=== PATIENT | male | born 1950 | race Caucasian/White ===

== ENCOUNTER 2021-10-27 12:42 | Outpatient (NON) | payer MEDICARE, SELFPAY ==
[2021-10-27 13:40] LABS: Anion Gap 14 mmol/L (8-16); Blood Urea Nitrogen 31 mg/dL (9-20); Carbon Dioxide 20 mmol/L (22-30); Chloride 100 mmol/L (98-107); Estimated Glomerular Filt Rate > 60; Glucose 179 mg/dL (65-110); Potassium 4.2 mmol/L (3.4-5.0); Sodium 134 mmol/L (137-145)
== END 2021-10-27 12:43 | disposition home or self-care (01) ==
LOC: HOME HLTH 12:49 → ANHLAB 14:35
PROVIDERS: Visit Provider Internal Medicine Cardiovascular Disease
DX: I25.5 Ischemic cardiomyopathy (principal); E11.65 Type 2 diabetes mellitus with hyperglycemia; D62 Acute posthemorrhagic anemia; Z48.812 Encounter for surgical aftercare following surgery on the circulatory system; E87.6 Hypokalemia
CPT/HCPCS: 80048

== ENCOUNTER 2021-11-20 13:56 | Outpatient (RCR) | payer MEDICARE, SELFPAY | END 2021-11-21 16:11 | disposition home or self-care (01) | LOC: ANHGOSHPT 13:56 | PROVIDERS: PCP Internal Medicine; Visit Provider Internal Medicine | DX: R26.81 Unsteadiness on feet (principal); I99.8 Other disorder of circulatory system | CPT/HCPCS: 99199 ==

== ENCOUNTER 2021-12-21 10:45 | Outpatient (CLI) | payer MEDICARE, SELFPAY ==
[2021-12-21 18:58] LABS: Anion Gap 10 mmol/L (8-16); Blood Urea Nitrogen 24 mg/dL (9-20); Calcium 9.2 mg/dL (8.4-10.2); Carbon Dioxide 30 mmol/L (22-30); Chloride 96 mmol/L (98-107); Estimated Glomerular Filt Rate 60; Glucose 306 mg/dL (65-110); Potassium 4.6 mmol/L (3.4-5.0); Sodium 136 mmol/L (137-145)
== END 2021-12-21 10:46 | disposition home or self-care (01) ==
LOC: ANHGOSHLAB 10:48
PROVIDERS: PCP Internal Medicine; Visit Provider Internal Medicine Cardiovascular Disease
DX: I25.5 Ischemic cardiomyopathy (principal); Z79.899 Other long term (current) drug therapy
CPT/HCPCS: 36415; 80048

== ENCOUNTER 2022-01-11 14:00 | Outpatient (RCR) | payer MEDICARE, OTHER, SELFPAY ==
--- NOTE | 2021-11-21 16:08 | PTOPEVAL ---
PHYSICAL THERAPY INITIAL EVALUATION. Thank you for referring Anil Crawford to [facility] The patient is scheduled to be seen for therapy? 1x/week for 4 weeks. Please review, sign, date and return this plan of care YE. I agree with and certify that the following plan of care is medically necessary. Referring Physician Date Attending Provider: Shahid Marroquin, MD *PT Outpatient Evaluation Start: 11/20/21 Evaluation Information Diagnosis Leg ischemia, gait instability Subjective Information Pt states in june he cleaned Query Text:As Reported By Patient/ his whole house top to bottom Family and also did lots of yard work . During this he sprains his L him and later R ankle. He ended up in [place] for a month with RLE ischemia. He reports his ankle sprain and his cramping toes on his all but foot are his biggest complaint. Pt states also during his hospitalization he lost over 40 pounds. He reports having no leg or core strength. Pt states he has a dull, achy at all time, he reports intermittent pinching and shooting pains in his leg. He reports not getting more than 1-1.5 hrs of sleep at a time, and has gone months with no more than 2 hrs of sleep in a night. He states he is chronically exhausted. Pain Assessment Right Ankle(s) Reported Pain Level 5 Pain Description Aching,Dull,Numbness,Pinching, Shooting Pain Frequency Acute,Chronic,Intermittent Lowest Pain Intensity 2 Greatest Pain Intensity 8 Lower Extremity Range of Motion Ankle/Foot Range of Motion Right Ankle Dorsiflexion With Knee Extension -8 active Ankle Dorsiflexion With Knee Extension -5 passive Ankle Dorsiflexion With Knee Flexed -5 active Ankle Dorsiflexion With Knee Flexed -3 passive Ankle Plantarflexion Range of Motion - 30 active Ankle Eversion Range of Motion - Passive 15 Ankle Inversion Range of Motion - 20 passive Foot/Toe Range of Motion Comments limited calcaneal inversion/ eversion Left Ankle Dorsiflexion With Knee Extension 8 active Ankle Dorsiflexion With Knee Extension 10 passive Ankle Dors
--- NOTE | 2021-12-13 12:31 | PTOPEVAL ---
PHYSICAL THERAPY PROGRESS REPORT. Thank you for referring Anil Crawford to [facility].? The patient is scheduled to be seen for therapy? 1x/week for 4 weeks. Please review, sign, date and return this plan of care YE. I agree with and certify that the following plan of care is medically necessary. Referring Physician Date Attending Provider: Shahid Marroquin, MD *PT Outpatient Evaluation Start: 11/20/21 Evaluation Information Diagnosis Leg ischemia, gait instability Subjective Information Pt states his ankle is still Query Text:As Reported By Patient/ bad, but it is improving. he Family states his pain and numbness decreases for about 2 days after therapy then goes back to normal, he also states his mobility and flexibility increase for the same about of time. Pt states at 4pm daily his ankle gets worse d/t fatigue. He states there are minimal overall improvements. Pt states only once in the last month has he had a brief period of no pain. He states he was able to wiggle his toes once this week. Pt reports the core of his pain is in his arch, this is sharp. He states it feels like the pads of his toes swell a majority of the day, this is an achy pain. Pain Assessment Right Ankle(s) Reported Pain Level 6 Pain Description Aching,Dull,Sharp,Shooting Pain Frequency Acute,Chronic,Intermittent Lowest Pain Intensity 0 Greatest Pain Intensity 8 Lower Extremity Range of Motion Ankle/Foot Range of Motion Right Ankle Dorsiflexion With Knee Extension -12 active Ankle Dorsiflexion With Knee Extension -5 passive Ankle Dorsiflexion With Knee Flexed 0 active Ankle Dorsiflexion With Knee Flexed 8 passive Ankle Plantarflexion Range of Motion - 48 active Ankle Eversion Range of Motion - Passive 15 Ankle Inversion Range of Motion -passive 20 Foot/Toe Range of Motion Comments limited calcaneal inversion/ eversion Left Ankle Dorsiflexion With Knee Extension -10 active Ankle Dorsiflexion With Knee Extension 5 passive Ankle Dorsiflexion With Knee Flexed 11 active Ankle Dorsiflexion With Knee Flexed 11 passive Ankle Plantarflexion Range of Motion -
--- NOTE | 2022-01-02 14:01 | PCPTNOTE ---
Patient no showed to appointment this date. Called patient who then states he thought it was another day this week.
--- NOTE | 2022-01-11 15:26 | PTOPDC ---
Assessment and note entered by Don Diamond, PT, DPT Evaluation Information Assessment Status Progress Subjective Information Pt states it continues to improve incrementally each day, but its still bad . He reports it is a low grade ache with occasional sharp pain. He reports his feet feel swollen without actually swelling. He states by 4pm he has to be done with activity for the day d/t the pain. He reports good compliance with his HEP. When asked which ones he is doing, he reports all of them. He states he does not hesitate to keep moving. He reports his foot, ankle, and toes is all bad. Pt later states he doesn't do the exact exercises but he keeps his ankle moving . Reported Pain Level Pain Score 4: Self Report Assessment PT Clinical Summary Anil presents to therapy today for his progress report following 10 visits of therapy. He does reports good compliance with his HEP but is unable to recall specific exercise and later reports not performing exercises at home just moving the ankle . He continues to report numbness, tingling, and cramping as his biggest limitations. Today he demonstration equal motion and extensibility felt on L and R when assessing motion of: great toe flexion/extension, inter- metatarsal joint mobility, sub-talar joint, and transverse tarsal joint. There is mildly increased resistance felt with passive dorsiflexion on R compared to L. He is able to demonstrates 4 full range single heel raises on the R. He ambulates without any gait deviations, he has a good heel strike and subsequent toe off phase. He has a gait speed that is decreased from normative values. It was determined that the remainder of Anil's deficits are not within the scope of physical therapy and could more likely be the aftermath of his limb ischemia. Anil will be discharged at this time with instructions to continue his HEP. Plan of Care PT Services Indicated No Treatment Frequency and to be d/c'ed Duration
== END 2022-01-12 08:25 | disposition home or self-care (01) ==
LOC: ANHGOSHPT 14:00
PROVIDERS: PCP Internal Medicine; Referring Provider Internal Medicine; Visit Provider Internal Medicine
DX: I99.8 Other disorder of circulatory system (principal); R26.81 Unsteadiness on feet
CPT/HCPCS: 97014; 97110; 97112; 97140; 97162; 97530; G0283

== ENCOUNTER 2025-03-14 12:02 | Inpatient (IN) | payer MEDICARE, SELFPAY ==
[2025-03-14] VITALS (34 sets, daily range): BP systolic 111–147; BP diastolic 65–113; PULSE 66–100; RESP 11–26; TEMP 36–36.4; O2SAT 84–99; BMI 20.7
--- NOTE | ~2025-03-14 | US_ITS ---
EXAMINATION: US renal BI, 03/15/2025 9:30 RETAIL SECURITY PROFESSIONAL HISTORY: ALBERTO Comparison: None Technique: Constantino-scale and color Doppler images were obtained. Findings: KIDNEYS: The renal cortices are slightly echogenic with nonspecific trace perinephric fluid and scattered punctate calcifications possibly renal vascular calcifications or tiny calculi, no solid masses identified. Right Kidney: Right kidney 9.3 x 4.2 x 5 cm. Left Kidney: Left kidney 8.2 x 4.9 x 4.8 cm. Left kidney there is a subcentimeter renal cyst mid pole 5 x 5 mm. Bladder: The bladder is unremarkable. Prostate is enlarged with a heterogeneous appearance, correlate PSA.. Impression: 1. Medical renal disease with tiny probable renal vascular calcifications, less likely renal calculi. No hydronephrosis. 2. Enlarged prostate. Correlate with PSA Reviewed, dictated and finalized at location P. [place] SECURITY PROFESSIONAL Impression: 1. Medical renal disease with tiny probable renal vascular calcifications, less likely renal calculi. No hydronephrosis. 2. Enlarged prostate. Correlate with PSA
--- NOTE | ~2025-03-14 | US_ITS ---
EXAMINATION: US abdomen limited DATE: 03/15/2025 10:07 INDICATION: Abnormal test TECHNIQUE: Renal ultrasound COMPARISON: None FINDINGS: Echotexture of the kidneys appears mildly increased. No gross hydronephrosis or large masses. Right kidney: 9.4 x 4.2 x 5.1 cm. Trace amount of perinephric fluid present. Dilated renal pelvis 2 9.2 mm Left kidney: 8.3 x 5.0 x 4.9 cm. Trace amount of perinephric fluid also present about this kidney. 5 x 5 mm cyst noted. Echogenic focus also in the inferior pole of the left kidney suggesting nonobstructing kidney stone. Urinary bladder is not fully evaluated but bilateral ureteral jets are demonstrated. Urinary bladder wall thickness of 1.9 mm within normal limits. Prominent prostate with calcifications. Incidentally noted, cholelithiasis with borderline gallbladder wall thickening. Trace amount of pericholecystic fluid may be present. IMPRESSION: 1. Mildly increased echotexture of the kidneys may represent underlying medical renal disease. No hydronephrosis or large masses in the kidneys. 2. Incidental note of cholelithiasis with borderline gallbladder wall thickening and possible trace of pericholecystic fluid. Correlate with right upper quadrant ultrasound. Reviewed, dictated and finalized at location A. SPRING MAKER IMPRESSION: 1. Mildly increased echotexture of the kidneys may represent underlying medical renal disease. No hydronephrosis or large masses in the kidneys. 2. Incidental note of cholelithiasis with borderline gallbladder wall thickenin g and possible trace of pericholecystic fluid. Correlate with right upper quadr ant ultrasound.
--- NOTE | ~2025-03-14 | XR_ITS ---
Examination: XR chest 2V Clinical History: weakness Comparison: None Technique: PA and Lateral Findings: Cardiac silhouette mildly enlarged. Pleural effusions with bibasilar atelectasis and/or airspace disease. No acute bony abnormality. IMPRESSION: 1. Pleural effusions with bibasilar atelectasis and/or airspace disease. Reviewed, dictated and finalized at location R. GRADER
--- NOTE | ~2025-03-14 | CT_ITS ---
EXAMINATION: CT diagnostic chest wo leora, 03/14/2025 11:20 CLIENT BUSINESS MANAGER HISTORY: further characterize poss pna COMPARISON: No comparisons available. TECHNIQUE: CT scan of the chest was performed without IV contrast. One or more of the following dose reduction techniques were used: automated exposure control, adjustment of the mA and/or kV according to patient size, use of iterative reconstruction technique. FINDINGS: No significant coronary calcification is present ([id number]) LUNGS: Moderate to large bilateral simple appearing pleural effusions. No tracheomalacia. No bronchiectasis. Small basilar infiltrates. Mild pulmonary venous congestion. HEART AND PERICARDIUM: Moderate cardiomegaly. Moderate cardiomegaly. No pericardial effusion. AORTA: Partially imaged endovascular stent within the abdominal aorta noted with aneurysmal dilatation of the aorta are incompletely evaluated on this exam. ADENOPATHY/MEDIASTINUM: None. LIMITED VIEWS OF THE ABDOMEN: Mild cirrhotic disease of the liver is suspected. OSSEOUS STRUCTURES: No sclerotic or lytic lesions. No acute fractures are identified. OVERLYING SOFT TISSUES: Unremarkable. THYROID: The thyroid is unremarkable. IMPRESSION: CHF. Superimposed probable mild bronchopneumonia. Follow-up recommended to assess. Reviewed, dictated and finalized at location P. NT BUSINESS MANAGER IMPRESSION: CHF. Superimposed probable mild bronchopneumonia. Follow-up recommended to asse ss.
--- NOTE | ~2025-03-14 | CT_ITS ---
EXAMINATION: CT brain wo leora, 03/14/2025 14:20 CORE MACHINE TENDER HISTORY: lethargy COMPARISON: No comparisons available. Technique: Axial images obtained of the brain without contrast. One or more of the following dose reduction techniques were used: automated exposure control, adjustment of the mA and/or kV according to patient size, use of iterative reconstruction technique. Findings: There are remote left basal ganglia lacunar infarcts. No acute infarct or hemorrhage. No midline shift or mass effect. No extra-axial fluid collections. Mastoid air cells unremarkable. Sinuses and orbits unremarkable. No acute fracture. No significant facial or scalp soft tissue swelling evident. No radiopaque foreign body is seen. Impression: 1.No acute intracranial abnormality. Reviewed, dictated and finalized at location P. MACHINE TENDER Impression: 1.No acute intracranial abnormality.
--- NOTE | 2025-03-14 12:10 | ECG_ITS ---
Test Date: 2025-03-14 12:12:50 Measurements Intervals [place] Rate: 88 P: -40 VT: 170 QRS: 81 QRSD: 140 T: -73 QT: 391 QTc: 474 Interpretive Statements SINUS RHYTHM WITH FREQUENT VENTRICULAR PREMATURE COMPLEXES IN A BIGEMINAL PATTERN INTRAVENTRICULAR CONDUCTION DELAY POSSIBLE ANTERIOR MYOCARDIAL INFARCTION , OF INDETERMINATE AGE INFERIOR MYOCARDIAL INFARCTION , OF INDETERMINATE AGE Electronically Signed On 03-15-2025 00:08:38 EFFICIENCY CLERK by Roque Cavazos D.O
--- NOTE | 2025-03-14 13:23 | ED.WEAKNESS ---
HPI - Weakness General Chief complaint: Weakness Stated complaint: weakness Time Seen by Provider: 03/14/25 12:15 Source: patient and EMS Mode of arrival: EMS Limitations: no limitations History of Present Illness HPI Narrative: This is a 74-year-old male with history of CAD status post stents x5, ischemic cardiomyopathy, diabetes who presents to the ED for weakness. Patient states that for the past few days he has been feeling extraordinarily weak to the point that he is having difficulty walking. He denies any chest pain at this time. He states that he is getting over pneumonia completed his antibiotics a couple days ago. He reports that he does not feel at his baseline. Or denies cough. He has not been able to eat and drink well as due to the filling weakness. Lives alone. Related Data Home Medications ?Medication ?Instructions ?Recorded ?Confirmed ?Last Taken ?Type carvedilol 12.5 mg tablet 12.5 mg PO BID 09/19/21 03/14/25 Unknown History Held on 03/14/25. Instructions: Patient has not taken medication in 6 weeks. clopidogrel 75 mg tablet 75 mg PO DAILY 09/19/21 03/14/25 Unknown History furosemide 20 mg tablet 20 mg PO BID 09/19/21 03/14/25 Unknown History multivitamin,tx-minerals 1 tablet PO DAILY 09/19/21 03/14/25 Unknown History potassium chloride 20 mEq 20 meq PO BID 09/19/21 03/14/25 Unknown History tablet,extended release spironolactone 25 mg tablet 25 mg PO DAILY 09/19/21 03/14/25 Unknown History Allergies Allergy/AdvReac Type Severity Reaction Status Date / Time No Known Allergies Allergy Verified 03/14/25 16:32 Review of Systems Review of Systems: Gen.: Denies fevers or chills Eyes: Denies eye pain or visual change ENT: Denies congestion Respiratory: As per HPI CV: Denies chest pain or palpitations GI: Denies abdominal pain nausea, emesis or diarrhea denies burning, urgency, frequency or hematuria Musculoskeletal: Denies back pain or muscle pain Neuro: As per HPI Skin: Denies rash Except as documented, all other systems reviewed and negative PMFSH Past Medical History Medical History Claudication of lower extremity Ischemic cardiomyopathy Peripheral arterial disease Coronary artery disease Peripheral vascular disease Hypokalemia Family History Family History (Updated 03/14/25 @ 16:38 by Anisa Murguia RN) Father Heart attack Social History Social History Social History: patient lives in a single-level home with 5 steps to enter. Sister plans on staying for month or so it after rehab. Smoking packs per day: 1 Smoking cigarettes per day: 20.0 Years smoked: 55 Smoking pack-years: 55.00 Smoking status: Current every day smoker Tobacco type: cigarettes Additional smoking assessment comments: 40 year PPD smoking history Alcohol intake: never Substance use type: marijuana Lack of Transportation: No Lack of Food: Never True Current Housing: I Have Housing Concerned About Future Housing: No Difficulty Paying Gas/Electric Bills: No Difficulty Paying for Meds: No Currently Unemployed: No Education: Decline to Answer Difficulty w/ Childcare or Family Care: No Spiritual care concerns: No Exam Narrative: APPEARANCE: Ill-appearing, resting in bed EYES: EOMI HEENT: Normocephalic, atraumatic, mucous membranes dry RESPIRATORY: No respiratory distress Clear to auscultation bilaterally with no rhonchi wheezing or rales. CARDIOVASCULAR: Regular rate and rhythm without murmurs rubs or gallops. ABDOMINAL: Soft, nontender, nondistended, no rebound or guarding MUSCULOSKELETAl: Moves all extremities. 2+ pitting edema to the bilateral lower extremities up to the knees. NEURO: Awake and alert. Following commands, speech normal, no focal deficits SKIN:: Warm, dry. No rashes lesions or abrasions PSYCHIATRIC: Normal affect/mood, Course Vital Signs Vital signs: Vital Signs Pulse Rate 86 03/14/25 12:03 Respiratory Rate 15 03/14/25 12:03 Pulse Oximetry 98 03/14/25 12:03 Oxygen Delivery Room Air 03/14/25 12:03 Temperature 97.5 F L 03/14/25 18:00 Pulse Rate 100 03/14/25 19:00 Respiratory Rate 20 03/14/25 19:00 Blood Pressure 129/86 03/14/25 19:00 Pulse Oximetry 97 03/14/25 19:00 Oxygen Delivery Room Air 03/14/25 16:54 MDM - Weakness MDM Narrative Medical decision making narrative: 74-year-old male Presenting for weakness. On initial evaluation patient was in ill appearing, afebrile, hemodynamic stable. Differentials include but are not limited to: CVA, UTI, CVA, arrhythmia, electrolyte abnormality, cancer Notable exam findings: Heart and lungs clear. Abdomen soft and nontender. I personally reviewed the patient's lab result. Notable lab findings: Hyponatremia to 118. Mild leukocytosis at 11.3. Mild thrombocytopenia 107. Hyperkalemic at 5.3. Mild ALBERTO with creatinine 1.57. Transaminitis with AST at 9:40 a.m. and ALT 970. BNP elevated at 26,000. I personally reviewed the patient's images and interpret as follows: Chest x-ray showed pulmonary vascular congestion with bilateral pleural effusions and right lower lobe infiltrate. I personally reviewed the patient's EKGs: 03/14/2025 at 12:12 p.m.: Sinus rhythm with PVCs in bigeminal pattern, intraventricular conduction delay, he Q-waves in inferior leads and V3 and V4, no ST or T-wave changes Patient was initially given 1 L NS bolus due to dry mucous membranes and concerns for dehydration. However, BNP returned at 26,000 concerning for fluid overload. Patient was started on vanc and cefepime. Given significant electrolyte derangement, patient would benefit from admission for electrolyte correction. I discussed case with extruder operator, Dr. Posada, recommends adding CT chest and CT head and recommended discussing with Nephrology regarding possible hypertonic saline. Discussed case with Dr. Swain, recommended no additional be fluids given at this time. Suspected that his hyponatremia was more related to his tenuous cardiac status. Recommended repeating a BMP in 1 hour to see how it change with the 1 L bolus. Discussed case with hospitalist who will admit the patient. CRITICAL CARE Indication: Severe electrolyte derangements Time type: intermittent I provided a total of 55 minutes of critical care excluding separately billable procedures. This includes time w/ EMS, initial bedside evaluation, reviewing old records, review of testing done while under my care, discussion w/ the family, nurses, home service consultant and guiding the patient?s care while in the emergency department. Approximate time distribution: 10 minutes ? Initial evaluation, d/w involved parties, attempting to gather old records. 10 minutes ? Documenting medical record 10 minutes ? Review of results (EKGs, labs, imaging) 10 minutes ? Serial repeat bedside evaluation 15 minutes ? Discussing case with multiple providers Medical Records Attestation: I reviewed the patient's medical records. Lab Data Attestation: I reviewed the patient's lab results. 03/14/25 13:31 03/14/25 15:51 Labs: Lab Results 03/14/25 03/14/25 03/14/25 Range/Units 13:31 13:33 14:01 WBC 11.3 H (4.5-10.0) K/mm3 RBC 4.92 (4.6-6.20) M/mm3 Hgb 14.8 D (14.0-18.0) g/dL Hct 43.1 (42.0-52.0) % MCV 87.6 (80-100) fl MCH 30.1 (26-34) pg MCHC 34.3 (32-36) g/dl RDW 13.9 (11.5-14.5) % Plt Count 107 L D (150-375) k/mm3 MPV 12.8 H (7.4-10.4) fl Immature Gran % (Auto) 0.5 (0-0.5) % Neut % (Auto) 85.4 H (45.5-73.1) % Lymph % (Auto) 5.8 L (18.3-44.2) % [place] % (Auto) 7.7 (2.6-8.5) % Eos % (Auto) 0.4 (0-4.4) % Baso % (Auto) 0.2 (0.2-1.2) % Lymph # (Auto) 0.65 L (0.9-3.2) K/mm3 [place] # (Auto) 0.9 H (0.1-0.6) K/mm3 Eos # (Auto) 0.0 (0-0.3) K/mm3 Baso # (Auto) 0.0 (0.0-0.1) K/mm3 Abs Immat Gran (auto) 0.06 H (0.00-0.031) K/mm3 Absolute Neuts (auto) 9.6 H (1.3-6.7) K/mm3 Absolute Nucleated RBC 0.000 (0.0-0.012) K/mm3 Nucleated RBC % 0.0 (0.0-0.2) % % Immature Plt Fraction 23.3 H (0.9-11.2) % Sodium 118 L* (137-145) mmol/L Potassium 5.3 H (3.4-5.0) mmol/L Chloride 89 L (98-107) mmol/L Carbon Dioxide 20 L (22-30) mmol/L Anion Gap 9 (4-12) mmol/L BUN 54 H D (9-20) mg/dL Creatinine 1.57 H (0.7-1.3) mg/dL Estim Creat Clear Calc 31 ml/min Estimated GFR 44 L (59 - ) Glucose 182 H (65-110) mg/dL Calcium 8.5 (8.4-10.2) mg/dL Total Bilirubin 1.8 H (0.2-1.3) mg/dL AST 944 H (17-59) U/L ALT 970 H (6-50) U/L Alkaline Phosphatase 125 (38-126) U/L NT-Pro-B Natriuret Pep 15740 H (19.9-100) pg/mL Total Protein 5.8 L (6.3-8.2) g/dL Albumin 3.5 (3.5-5.1) g/dL Urine Color Dark yellow (Yellow) Urine Appearance Clear (Clear) Urine pH 5.0 (5.0-9.0) Ur Specific [place] 1.029 (1.001-1.035) Urine Protein 3+ H (Negative) mg/dL Urine Glucose (UA) Negative (Negative) mg/dL Urine Ketones Trace H (Negative) mg/dL Ur Blood (Man) 2+ H (Negative) Urine Nitrate Negative (Negative) Urine Bilirubin 1+ H (Negative) Urine Urobilinogen 1.0 (<2.0) mg/dL Add Ur Microanalysis Reviewed Leukocyte Esterase Rfl Negative (Negative) ALYCE/UL Urine RBC 0-2 (0-2) /hpf Urine WBC 0-5 (0-3) /hpf Ur Squamous Epith Cells Occasional (Few) /hpf Urine Bacteria None seen /hpf Urine Casts >20 Hyaline Casts Present (None) /lpf Urine Osmolality Pending U Random Total Protein 528 mg/dL Ur Random Sodium < 5 meq/L Ur Random Urea 1250 MG/DL Urine Creatinine 170.0 mg/dL Protein/Creat Ratio 2 3.11 H (0-0.20) mg/mg Influenza A (RT-PCR) Negative (Negative) Influenza B (RT-PCR) Negative (Negative) RSV (RT-PCR) Negative (Negative) SARS-CoV-2 RNA (RT-PCR) Negative (Negative) Imaging Data Radiologist's impression: Impressions Chest X-Ray 03/14/25 12:52 IMPRESSION: 1. Pleural effusions with bibasilar atelectasis and/or airspace disease. Discharge Plan Discharge Clinical Impression: Acute hyponatremia, Acute hyperkalemia, Acute exacerbation of CHF (congestive heart failure), Transaminitis, Bilateral pneumonia Patient Disposition: Still a Patient Condition: Serious
[2025-03-14 13:41] LABS: Hematocrit 43.1 % (42.0-52.0); Hemoglobin 14.8 g/dL (14.0-18.0); Immature Granulocyte Percent A 0.5 % (0-0.5); Immature Platelet Fraction Pct 23.3 % (0.9-11.2); Lymphocytes Absolute Auto 0.65 K/mm3 (0.9-3.2); Mean Corpuscular HGB Conc 34.3 g/dl (32-36); Mean Corpuscular Hemoglobin 30.1 pg (26-34); Mean Corpuscular Volume 87.6 fl (80-100); Nucleated Red Blood Cells Absolute Auto 0.000 K/mm3 (0.0-0.012); Nucleated Red Blood Cells Perc 0.0 % (0.0-0.2); Platelet Count Result 107 k/mm3 (150-375); Red Blood Count 4.92 M/mm3 (4.6-6.20); White Blood Count 11.3 K/mm3 (4.5-10.0)
[2025-03-14 14:01] LABS: Albumin Level 3.5 g/dL (3.5-5.1); Alkaline Phosphatase 125 U/L (38-126); Anion Gap 9 mmol/L (4-12); Bilirubin,Total 1.8 mg/dL (0.2-1.3); Blood Urea Nitrogen 54 mg/dL (9-20); Calcium 8.5 mg/dL (8.4-10.2); Carbon Dioxide 20 mmol/L (22-30); Chloride 89 mmol/L (98-107); Estimated CRCL calculation 31 ml/min; Estimated Glomerular Filt Rate 44; Glucose 182 mg/dL (65-110); NT Pro B Type Natriuretic Pept 26000 pg/mL (19.9-100); Potassium 5.3 mmol/L (3.4-5.0); Sodium 118 mmol/L (137-145); Total Protein 5.8 g/dL (6.3-8.2)
[2025-03-14] MEDS: SODIUM CHLORIDE 0.9% IV 1,000 ML 999 ML IV CONT (14:13)
[2025-03-14 14:15] LABS: Influenza A QL RT-PCR Negative (Negative); Influenza B QL RT-PCR Negative (Negative); RSV RNA, RT-PCR Negative (Negative); SARS-CoV-2 RNA PCR Negative (Negative)
[2025-03-14 14:21] LABS: Add Urine Microscopic? YES; Appearance Urine Clear (Clear); Glucose Urine UA Negative (Negative); Leukocyte Esterase Ur Negative LEU/UL (Negative); Need Manual Microscopic Reviewed; Nitrate Urine Negative (Negative); Non Pathogenic Casts >20; Specific Grav Ur 1.029 (1.001-1.035)
[2025-03-14 14:22] LABS: Alanine Aminotransferase 970 U/L (6-50); Aspartate Amino Transferase 944 U/L (17-59)
[2025-03-14 15:11] LABS: Urea Random Urine 1250 MG/DL
[2025-03-14 15:29] LABS: Total Protein Urine Random 528 mg/dL; Ur Ttl Prot Creatinine Ratio 3.11 mg/mg (0-0.20)
[2025-03-14] MEDS: CEFEPIME 1 GM in SODIUM CHLORIDE 0.9% IV 50 ML 100 ML IVPB (15:56)
--- NOTE | 2025-03-14 15:58 | WPCEDHO ---
ED Hand Off Checklist All vitals saved:yes IV Site documented:yes All med administrations documented:yes Triage Note Triage Note Pt states weakness and decreased 03/14/25 12:03 appetite for past 3 days. Recently finished antibiotics for pneumonia. A&Ox4. Hx of heart stents. 5 in last 3 years Allergies No Known Allergies Allergy (Verified 09/13/21 20:11) Administered/Completed Medications Discontinued Medications Sodium Chloride (Normal Saline Iv) 1,000 mls @ 999 mls/hr IV CONT .Q1H1M STA Stop: 03/14/25 14:56 Last Infusion: 03/14/25 15:06 Dose: Infused Documented By: Admin: 03/14/25 14:13 Dose: 999 mls/hr Documented By: FATIMAH Cefepime HCl 1 gm/ Sodium (Chloride) 50 mls @ 100 mls/hr IVPB ONCE STA Stop: 03/14/25 14:48 Last Admin: 03/14/25 15:56 Dose: 100 mls/hr Documented By: [place] Interventions/Assessments IV / Saline Lock, Insert Start: 03/14/25 11:52 Freq: Status: Active Protocol: Document 03/14/25 14:53 CMM (Rec: 03/14/25 14:54 CMM [id number]) IV Assessment Peripheral Access Right Wrist IV Catheter Access Initiated IV Insertion Date 03/14/25 IV Insertion Time 14:53 Catheter Gauge 20 IV Insertion 1 Attempts IV Site Assessment WNL IV Care and WNL Maintenance Peripheral Access Left Antecubital IV Site Assessment WNL IV Care and WNL Maintenance PA: Cardiovascular Assessment Start: 03/14/25 11:52 Freq: Status: Active Protocol: Document 03/14/25 12:11 CMM (Rec: 03/14/25 12:11 CMM [id number]) Cardiovascular Assessment Cardiovascular None Symptoms PA: Neurological Assessment Start: 03/14/25 11:52 Freq: Status: Active Protocol: Document 03/14/25 12:11 CMM (Rec: 03/14/25 12:11 CMM [id number]) Neurological Assessment Level of Alert Consciousness Orientation Oriented to Person,Oriented to Place,Oriented to Time Neurological Weakness, General Symptoms Behavior Cooperative Ability to Maintain Unable to Assess Balance Speech Pattern Clear Ability to Swallow Normal Tongue Position Midline [place] Coma Scale Eyes Open Verbal Oriented and Alert Motor Follows Commands [place] Coma Total 15 Score Last Vital Signs Temperature 96.8 F L 03/14/25 12:12 Pulse Rate 96 03/14/25 15:00 Respiratory Rate 20 03/14/25 15:00 Pulse Oximetry 99 03/14/25 14:36 Blood Pressure 147/101 H 03/14/25 15:19 Blood Pressure Mean 116 03/14/25 15:19 Blood Pressure Position Supine 03/14/25 12:12 Oxygen Delivery Room Air 03/14/25 12:03 Weight 57.7 kg 03/14/25 12:03 Last Result - Abnormals Only WBC 11.3 K/mm3 (4.5-10.0) H 03/14/25 13:31 Plt Count 107 k/mm3 (150-375) L D 03/14/25 13:31 MPV 12.8 fl (7.4-10.4) H 03/14/25 13:31 Neut % (Auto) 85.4 % (45.5-73.1) H 03/14/25 13:31 Lymph % (Auto) 5.8 % (18.3-44.2) L 03/14/25 13:31 Lymph # (Auto) 0.65 K/mm3 (0.9-3.2) L 03/14/25 13:31 [place] # (Auto) 0.9 K/mm3 (0.1-0.6) H 03/14/25 13:31 Abs Immat Gran (auto) 0.06 K/mm3 (0.00-0.031) H 03/14/25 13:31 Absolute Neuts (auto) 9.6 K/mm3 (1.3-6.7) H 03/14/25 13:31 % Immature Plt Fraction 23.3 % (0.9-11.2) H 03/14/25 13:31 Sodium 118 mmol/L (137-145) L* 03/14/25 13:31 Potassium 5.3 mmol/L (3.4-5.0) H 03/14/25 13:31 Chloride 89 mmol/L (98-107) L 03/14/25 13:31 Carbon Dioxide 20 mmol/L (22-30) L 03/14/25 13:31 BUN 54 mg/dL (9-20) H D 03/14/25 13:31 Creatinine 1.57 mg/dL (0.7-1.3) H 03/14/25 13:31 Estimated GFR 44 (59-) L 03/14/25 13:31 Glucose 182 mg/dL (65-110) H 03/14/25 13:31 Total Bilirubin 1.8 mg/dL (0.2-1.3) H 03/14/25 13:31 AST 944 U/L (17-59) H 03/14/25 13:31 ALT 970 U/L (6-50) H 03/14/25 13:31 NT-Pro-B Natriuret Pep 04956 pg/mL (19.9-100) H 03/14/25 13:31 Total Protein 5.8 g/dL (6.3-8.2) L 03/14/25 13:31 Urine Protein 3+ mg/dL (Negative) H 03/14/25 14:01 Urine Ketones Trace mg/dL (Negative) H 03/14/25 14:01 Ur Blood (Man) 2+ (Negative) H 03/14/25 14:01 Urine Bilirubin 1+ (Negative) H 03/14/25 14:01 Protein/Creat Ratio 2 3.11 mg/mg (0-0.20) H 03/14/25 14:01 Most Recent Suicide Severity Rating Suicide Severity Rating NO RISK INDICATED 03/14/25 12:03
[2025-03-14 16:05] LABS: MRSA (PCR) NOT DETECTED (NOT DETECTE)
--- NOTE | 2025-03-14 16:20 | ADMGEN ---
This patient, Anil Crawford, was admitted to Intensive Care Unit-2 at 1613. Patient/family oriented to hospital policies and general routines including ID bracelet, bed and alarms, visiting hours, pain management, procedures, bathroom and other care routines, personal items, smoking policy, room service/diet, and visiting hours. Information on how to activate the Rapid Response Team has been discussed. Patient/Family are encouraged to report perceived risks to care and to ask questions if they do not understand what they are told or what they should do.
[2025-03-14 16:28] LABS: Anion Gap 14 mmol/L (4-12); Blood Urea Nitrogen 52 mg/dL (9-20); Calcium 9.4 mg/dL (8.4-10.2); Carbon Dioxide 15 mmol/L (22-30); Chloride 91 mmol/L (98-107); Estimated CRCL calculation 34 ml/min; Estimated Glomerular Filt Rate 48; Glucose 164 mg/dL (65-110); Potassium 5.6 mmol/L (3.4-5.0); Sodium 120 mmol/L (137-145)
--- NOTE | 2025-03-14 16:29 | ADMGEN ---
This patient, Anil Crawford, was admitted to Intensive Care Unit-2. Patient/family oriented to hospital policies and general routines including ID bracelet, bed and alarms, visiting hours, pain management, procedures, bathroom and other care routines, personal items, smoking policy, room service/diet, and visiting hours. Information on how to activate the Rapid Response Team has been discussed. Patient/Family are encouraged to report perceived risks to care and to ask questions if they do not understand what they are told or what they should do.
[2025-03-14 16:39] LABS: NT Pro B Type Natriuretic Pept > 30000 pg/mL (19.9-100)
[2025-03-14] MEDS: VANCOMYCIN 750 MG/NS 250 ML 750 MG/250 ML BAG 250 MG IVPB (16:59)
[2025-03-14 17:03] LABS: Thyroid Stimulating Hormone Reflex 3.820 uIU/mL (0.465-4.68)
--- NOTE | 2025-03-14 18:21 | PC.NURSE ---
Obtained medication reconciliation from patient verbally. Discussed home medications. Patient states he has not taken any of his medications in the last 6 weeks because he stops taking them when he doesn't feel right then starts taking them again when everything is back in sync. Patient denies any barriers to obtaining medications from the pharmacy or following up with his doctor. RN made MD aware. Patient reports decreased urine output over the last month or so, and complains of nocturia, patient bladder scanned due to decreased urine output, 173 mls of residual urine residing in bladder at this time. Patient is not sure if he has obtained his flu vaccine this year.
[2025-03-14] MEDS: SODIUM ZIRCONIUM CYCLOSILICATE 10 GM POWD.PACK PO (18:47)
[2025-03-14] MEDS: SODIUM BICARBONATE 8.4% 50 MEQ/50 ML SYRINGE 100 MEQ IV PUSH (18:47)
[2025-03-14] MEDS: DEXTROSE 50% 25 GM/50 ML SYRINGE IV PUSH (18:47)
[2025-03-14] MEDS: INSULIN HUMAN REGULAR (*BKC) 100 UNITS/ML IV PUSH (18:48)
--- NOTE | 2025-03-14 19:17 | PM.IMHP ---
H&P: HPI History of Present Illness Date/Time: 03/14/25 19:17 Chief Complaint: Weakness Narrative: 74-year-old male past medical history of ischemic cardiomyopathy, PAD, DM2, AAA repair, CHF, medical noncompliance presents to the ED on 03/14/2025 with complaints of weakness. Patient states that for the past several days he has been feeling very weak and having difficulty walking. Patient lives alone and his medical contact is his sister who lives in [place]. Patient denies any chest pain but admits to shortness of breath. Patient states that he recently had pneumonia and completed his antibiotic course a couple days ago. Patient further endorses decreased p.o. intake due to the weakness and a decreased urine output for the past month. Denies fevers. Patient stopped taking his medications 6 weeks ago because he ?stops them when he does not feel right then starts taking them again when he is back in sync.? Patient planned on restarting his medications on 03/17 after following up with his PCP. Patient states for his shortness of breath he had a friend buy bottled oxygen (likely [employer]) from [employer] which he states ?really helped him.? Patient tells me he has been trying to get somebody to prescribed massage therapy for his feet to help with his dusky toes. The following is a paragraph from hospitalist at the [facility] dated 09/14/2021 to help clarify some of his vascular history: Patient presented to [facility] on 08/31/2021 with a 3 to four-week history of severe right lower extremity discomfort, decreased sensory motor function and inability to move right ankle.He was started on heparin drip and underwent emergent CT angiogram with runoff for an evaluation that showed evidence of a symptomatic 6.6 cm infrarenal abdominal aortic aneurysm with severe multilevel disease in left lower extremity with distal right common femoral artery stenosis.On 08/31, vascular surgeon, José Sinha performed a right revascularization SFA thrombectomy, femoral and during directing, SFA pop stenting, right lower extremity fasciotomies the have now been closed. Patient was able to demonstrate active plantar flexion and dorsiflexion. On 09/07 2021 patient underwent repair of abdominal aortic aneurysm after speaking with his strategic account director Dr. Devine and his primary care physician Dr. Marroquin. 09/07 An endovascular infrarenal abdominal aortic aneurysm repair with EVAR by Dr Sinha was performed.Therapy was initiated at the acute care facility and the patient transferred to us from [facility] on 09/13. Initial vital signs 133/113, HR 86, respirations 15, afebrile and 98% on room air Initial labs significant for WBC 11.3, platelet count 107, sodium 118, potassium 5.3, chloride 89, carbon dioxide 20, BUN 54, creatinine 1.57, glucose 182, total bilirubin 1.8, AST 944, ALT 970, BNP 74185. MRSA PCR negative, viral panel negative UA protein 3+, ketones trace, blood 2+, bilirubin 1+ EKG sinus rhythm with frequent PVCs in a bigeminal pattern, intraventricular conduction delay, possible anterior and inferior myocardial infarction of indeterminate age Chest x-ray with pleural effusions with bibasilar atelectasis and/or airspace disease. Head CT no acute intracranial abnormality. Chest CT CHF with superimposed probable mild bronchial pneumonia. Review of Systems Review of Systems: All systems reviewed & are unremarkable except as noted in HPI and below PMFSH Past Medical History Medical History Claudication of lower extremity Ischemic cardiomyopathy Peripheral arterial disease Coronary artery disease Peripheral vascular disease Hypokalemia Surgical History Surgical History Stented coronary artery Status post peripheral artery angioplasty with insertion of stent Family History Family History Father Heart attack Social History Social History Social History: patient lives in a single-level home with 5 steps to enter. Sister plans on staying for month or so it after rehab. Smoking packs per day: 1 Smoking cigarettes per day: 20.0 Years smoked: 55 Smoking pack-years: 55.00 Smoking status: Current every day smoker Tobacco type: cigarettes Additional smoking assessment comments: 40 year PPD smoking history Alcohol intake: never Substance use type: marijuana Lack of Transportation: No Lack of Food: Never True Current Housing: I Have Housing Concerned About Future Housing: No Difficulty Paying Gas/Electric Bills: No Difficulty Paying for Meds: No Currently Unemployed: No Education: Decline to Answer Difficulty w/ Childcare or Family Care: No Spiritual care concerns: No Meds Home Medications and Allergies Home Medications ?Medication ?Instructions ?Recorded ?Confirmed ?Type carvedilol 12.5 mg tablet 12.5 mg PO BID 09/19/21 03/14/25 History Held on 03/14/25. Instructions: Patient has not taken medication in 6 weeks. clopidogrel 75 mg tablet 75 mg PO DAILY 09/19/21 03/14/25 History furosemide 20 mg tablet 20 mg PO BID 09/19/21 03/14/25 History multivitamin,tx-minerals 1 tablet PO DAILY 09/19/21 03/14/25 History potassium chloride 20 mEq 20 meq PO BID 09/19/21 03/14/25 History tablet,extended release spironolactone 25 mg tablet 25 mg PO DAILY 09/19/21 03/14/25 History acetaminophen 325 mg tablet (Mapap 650 mg (2 x 325 mg) PO BID PRN 09/21/21 03/14/25 Rx (acetaminophen)) Mild Pain (1-3) Or Fever #0 tabs atorvastatin 80 mg tablet 80 mg PO HS 30 days #30 tabs 09/21/21 03/14/25 Rx Held on 03/14/25. Instructions: Patient has not been taking for 6 weeks. blood [facility] ([facility] 09/21/21 03/14/25 Rx Verio test strips) blood-glucose meter ([facility] 09/21/21 03/14/25 Rx Verio Flex Meter) docusate sodium 100 mg capsule 100 mg PO BID #0 caps 09/21/21 03/14/25 Rx insulin glargine-yfgn 100 unit/mL 18 unit (0.18 mL) subcut .QHS 30 09/21/21 03/14/25 Rx (3 mL) subcutaneous pen ( #15 mL (insulin glargine-yfgn) Pen) lancets 30 gauge ([employer] #1 pkg 09/21/21 03/14/25 Rx Plus Lancet) losartan 25 mg tablet 25 mg PO DAILY 30 days #30 tabs 09/21/21 03/14/25 Rx metformin 1,000 mg 24 hr 1,000 mg PO DAILY #30 tabs 09/21/21 03/14/25 Rx tablet,extended release (gastric reten.) oxycodone 5 mg tablet 5 mg PO Q6H PRN Pain Rated 7-10 09/21/21 03/14/25 Rx #20 tabs pen needle, diabetic 32 gauge x #1 pkg 09/21/21 03/14/25 Rx 1/4 (BD Ultra-Fine Micro Pen Needle) potassium chloride 20 mEq 20 meq PO BID #60 tabs 09/21/21 03/14/25 Rx tablet,extended release (K-Tab) rivaroxaban 20 mg tablet (Xarelto) 20 mg PO DAILY@1700 30 days #30 09/21/21 03/14/25 Rx tabs rivaroxaban 20 mg tablet (Xarelto) 20 mg PO QPM 30 days #30 tabs 09/21/21 03/14/25 Rx sennosides 8.6 mg-docusate sodium 1 tab PO BID #0 tabs 09/21/21 03/14/25 Rx 50 mg tablet (Senokot-S) sodium chloride 0.65 % nasal spray 1 spray intranasal Q6HR PRN 09/21/21 03/14/25 Rx aerosol (Saline Mist) Congestion #0 mL Held on 03/14/25. Instructions: Patient no longer taking Allergies Allergy/AdvReac Type Severity Reaction Status Date / Time No Known Allergies Allergy Verified 03/14/25 16:32 Vital Signs Vital Signs - 24 hr 03/14/25 12:03 03/14/25 12:08 03/14/25 12:09 Temperature Pulse Rate 86 87 85 Respiratory Rate 15 15 14 Blood Pressure 133/113 H Pulse Oximetry 98 97 Oxygen Delivery Room Air 03/14/25 12:10 03/14/25 12:12 03/14/25 12:15 Temperature 96.8 F L Pulse Rate 93 84 87 Respiratory Rate 21 H 20 17 Blood Pressure 125/93 H 125/93 H Pulse Oximetry 98 99 98 Oxygen Delivery 03/14/25 12:16 03/14/25 12:30 03/14/25 12:31 Temperature Pulse Rate 89 88 82 Respiratory Rate 18 22 H 13 Blood Pressure 133/93 H 132/93 H Pulse Oximetry 99 98 98 Oxygen Delivery 03/14/25 12:54 03/14/25 13:00 03/14/25 13:15 Temperature Pulse Rate 83 85 79 Respiratory Rate 23 H 19 16 Blood Pressure Pulse Oximetry 98 94 Oxygen Delivery 03/14/25 13:33 03/14/25 13:34 03/14/25 13:35 Temperature Pulse Rate 90 86 88 Respiratory Rate 14 18 26 H Blood Pressure 130/99 H Pulse Oximetry 96 98 97 Oxygen Delivery 03/14/25 13:45 03/14/25 13:46 03/14/25 14:03 Temperature Pulse Rate 99 80 74 Respiratory Rate 25 H 13 18 Blood Pressure 136/110 H Pulse Oximetry 95 93 99 Oxygen Delivery 03/14/25 14:14 03/14/25 14:15 03/14/25 14:16 Temperature Pulse Rate 88 90 80 Respiratory Rate 13 19 11 L Blood Pressure 131/100 H 124/103 H Pulse Oximetry 99 84 L 96 Oxygen Delivery 03/14/25 14:36 03/14/25 14:45 03/14/25 15:00 Temperature Pulse Rate 92 66 96 Respiratory Rate 19 19 20 Blood Pressure Pulse Oximetry 99 Oxygen Delivery 03/14/25 15:19 03/14/25 16:00 03/14/25 16:54 Temperature 97.2 F L Pulse Rate 91 Respiratory Rate 22 H Blood Pressure 147/101 H 129/100 H Pulse Oximetry 96 99 Oxygen Delivery Room Air 03/14/25 17:00 03/14/25 18:00 Temperature 97.5 F L Pulse Rate 94 91 Respiratory Rate 24 H 20 Blood Pressure 130/99 H 130/91 H Pulse Oximetry 96 97 Oxygen Delivery Exam Narrative: GENERAL: Chronically ill-appearing, appears drowsy HEAD: Normocephalic, atraumatic. EYES: PERRLA. Conjunctivae clear. NOSE: Normal no drainage. THROAT: Pharynx clear, no exudate. NECK: Trachea midline. No adenopathy, no masses. RESPIRATORY: Airway patent, respirations nonlabored. Decreased bilaterally CARDIOVASCULAR: Regular rate and rhythm. Lower extremities cool to touch. Toes on the right foot are dusky. GASTROINTESTINAL: Abdomen is soft and nontender. No organomegaly. Bowel sounds normal in all quadrants. GENITOURINARY: Defer MUSCULOSKELETAL: Moves all extremities. Bilateral lower extremity 2+ pitting edema up to knees. Blisters and weeping noted SKIN: Warm, dry, normal color. NEURO: A&O X4. Speech clear PSYCHIATRIC: Normal interaction H&P: Results Labs Labs: Short CBC 03/14/25 Range/Units 13:31 WBC 11.3 H (4.5-10.0) K/mm3 Hgb 14.8 D (14.0-18.0) g/dL Hct 43.1 (42.0-52.0) % Plt Count 107 L D (150-375) k/mm3 BMP 03/14/25 03/14/25 13:31 15:51 Sodium 118 L* 120 L Potassium 5.3 H 5.6 H Chloride 89 L 91 L Carbon Dioxide 20 L 15 L BUN 54 H D 52 H Creatinine 1.57 H 1.45 H Glucose 182 H 164 H Calcium 8.5 9.4 Liver Function 03/14/25 Range/Units 13:31 Total Bilirubin 1.8 H (0.2-1.3) mg/dL AST 944 H (17-59) U/L ALT 970 H (6-50) U/L Alkaline Phosphatase 125 (38-126) U/L Albumin 3.5 (3.5-5.1) g/dL Urine 03/14/25 Range/Units 14:01 Urine Color Dark yellow (Yellow) Urine Appearance Clear (Clear) Urine pH 5.0 (5.0-9.0) Ur Specific Irons 1.029 (1.001-1.035) Urine Protein 3+ H (Negative) mg/dL Urine Glucose (UA) Negative (Negative) mg/dL Assessment and Plan Assessment and plan (1) Acute hyperkalemia: Code(s): E87.5 - Hyperkalemia Status: Acute Assessment and Plan: Initial potassium 5.3. Baseline normal. -insulin and dextrose given in ED -[facility] and sodium bicarb once -trend BMP (2) Acute hyponatremia: Code(s): E87.1 - Hypo-osmolality and hyponatremia Status: Acute Assessment and Plan: Sodium initially 118. -1 L bolus NS -nephrology consult -continue to trend electrolytes (3) Bilateral pneumonia: Qualifiers: Lung location: lower lobe of lung Pneumonia type: due to unspecified organism Qualified Code(s): J18.9 - Pneumonia, unspecified organism Code(s): J18.9 - Pneumonia, unspecified organism Status: Acute Assessment and Plan: Chest x-ray with pleural effusions with bibasilar atelectasis and/or airspace disease. Chest CT CHF with superimposed probable mild bronchial pneumonia. Recently completed a course of outpatient antibiotics for pneumonia. - started on cefepime and vancomycin on 03/14 - MRSA PCR negative - Viral PCR negative -not requiring supplemental O2 (4) Noncompliance by declining intervention or support: Code(s): Z91.19 - Patient's noncompliance with other medical treatment and regimen Status: Chronic Assessment and Plan: Patient stopped taking his medications 6 weeks ago because he ?stops them when he does not feel right then starts taking them again when he is back in sync.? Past documentation states patient declined ICD when offered and declined insulin when he was diagnosed with diabetes. -continued education -restart home medications (5) Peripheral arterial disease: Code(s): I73.9 - Peripheral vascular disease, unspecified Status: Chronic Assessment and Plan: History of right revascularization SFA thrombectomy, femoral and during directing, SFA pop stenting and AAA repair. Toes on the right foot are dusky. Pulses found with Doppler. -resume home Plavix and Xarelto (6) Acute exacerbation of CHF (congestive heart failure): Qualifiers: Heart failure type: unspecified Qualified Code(s): I50.9 - Heart failure, unspecified Code(s): I50.9 - Heart failure, unspecified Status: Acute Assessment and Plan: BNP [id number] on admit. Chest x-ray with pleural effusions with bibasilar atelectasis and/or airspace disease. Chest CT CHF with superimposed probable mild bronchial pneumonia. Noncompliant with home medications. -echo ordered - monitor I&Os and daily weights - trend renal function -trend BNP -resume home Lasix, spironolactone (7) Type 2 diabetes mellitus: Qualifiers: Diabetes mellitus complication detail: with other circulatory complications Diabetes mellitus complication status: with circulatory complication Diabetes mellitus oysterman insulin use: unspecified oysterman insulin use status Qualified Code(s): E11.59 - Type 2 diabetes mellitus with other circulatory complications Code(s): E11.9 - Type 2 diabetes mellitus without complications Status: Chronic Assessment and Plan: - hypoglycemia protocol - POC blood glucose ACHS - home medication: Lantus - correct regimen ordered: Low-dose sliding scale - A1C ordered -life educator consulted Plan Diet: Heart healthy GI prophylaxis: NA DVT prophylaxis: Xarelto lines/drains: PIV Fluids: 1 L bolus in ED Code status: Full Quality VTE Prophylaxis VTE prophylaxis: pharmacologic ordered Hospitalist MIPS Advance Care Plan I have confirmed that the patient's Advanced Care Plan is present, code status is documented, or surrogate decision maker is listed in patient medical record.: Yes Medication Reconciliation I have utilized all available resources to obtain, update and review the patients current medications (includes all prescriptions, OTC, herbals, cannabis, and nutritional supplements).: Yes
[2025-03-14 20:05] LABS: Anion Gap 10 mmol/L (4-12); Blood Urea Nitrogen 55 mg/dL (9-20); Calcium 8.3 mg/dL (8.4-10.2); Carbon Dioxide 19 mmol/L (22-30); Chloride 93 mmol/L (98-107); Estimated CRCL calculation 38 ml/min; Estimated Glomerular Filt Rate 50; Glucose 124 mg/dL (65-110); Potassium 5.1 mmol/L (3.4-5.0); Sodium 122 mmol/L (137-145)
--- NOTE | 2025-03-14 20:46 | PC.NURSE ---
Called Dr. Swain with BMP results. No change to orders will check another BMP at 2330 and call with results.
[2025-03-14] MEDS: MELATONIN 5 MG TABLET PO (21:44)
[2025-03-14 23:34] LABS: Anion Gap 9 mmol/L (4-12); Blood Urea Nitrogen 53 mg/dL (9-20); Calcium 8.2 mg/dL (8.4-10.2); Carbon Dioxide 17 mmol/L (22-30); Chloride 94 mmol/L (98-107); Estimated CRCL calculation 38 ml/min; Estimated Glomerular Filt Rate 49; Glucose 94 mg/dL (65-110); Potassium 4.9 mmol/L (3.4-5.0); Sodium 120 mmol/L (137-145)
[2025-03-15] VITALS (45 sets, daily range): BP systolic 83–134; BP diastolic 59–102; PULSE 49–95; RESP 14–21; TEMP 35.4–36.8; O2SAT 90–100; BMI 20.6
--- NOTE | 2025-03-15 | ECHO_ITS ---
Patient Info Name: Anil Crawford Age: 74 years : 1950 Gender: Male Ht: 69 in Wt: 139 lbs BSA: 1.75 m2 HR: 93 bpm BP: 123 / 100 mmHg Technical Quality: Fair Exam Date: 03/15/2025 8:13 AM Patient Status: I Admit Date: 03/14/2025 Exam Type: CA echo dop color flow w con Staff Referring Physician: Charles Posada MD Tufting Machine Fixer: Charleen Kilgore Attending Provider: Luciano Miramontes Contrast/Agitated Saline Contrast/Ag. Saline: Definity Amount: 4.00 ml Existing IV Access: Yes Summary 1. The left ventricle is moderately dilated with severely reduced systolic function. There is moderate eccentric left ventricular hypertrophy. The left ventricular ejection fraction is visually estimated to be 10-20%. There is no thrombus in the left ventricle. 2. The right ventricle is normal in size with reduced systolic function. 3. The left atrium is moderately dilated. 4. The aortic valve is trileaflet and opens well. The non coronary cusp has a small mass on leaflet tip that is likely a calcified nodule. There is mild aortic regurgitation. 5. The mitral valve leaflets are normal. There is moderate mitral regurgitation. 6. Dilated inferior vena cava with <50% collapse upon inspiration consistent with significantly elevated right atrial pressure, 15 mmHg. 7. Pulmonary arterial systolic pressure is estimated at 59 mmHg. There is moderate pulmonary hypertension. Left Ventricle The left ventricle is moderately dilated with severely reduced systolic function. There is moderate eccentric left ventricular hypertrophy. The left ventricular ejection fraction is visually estimated to be 10-20%. There is no thrombus in the left ventricle. Right Ventricle The right ventricle is normal in size with reduced systolic function. Left Atria The left atrium is moderately dilated. Right Atria The right atrium is dilated. Atrial Septum The atrial septum is not well visualized. Aortic Valve The aortic valve is trileaflet and opens well. The non coronary cusp has a small mass on leaflet tip that is likely a calcified nodule. There is mild aortic regurgitation. Pulmonic Valve The pulmonic valve is normal. There is trace pulmonic valve regurgitation. Mitral Valve The mitral valve leaflets are normal. There is moderate mitral regurgitation. Tricuspid Valve The tricuspid valve is normal. There is trace tricuspid regurgitation. Pulmonary Arteries Pulmonary arterial systolic pressure is estimated at 59 mmHg. There is moderate pulmonary hypertension. Pericardium/Pleural Pericardium is normal in appearance with no evidence for significant pericardial effusion. Inferior Vena Cava Dilated inferior vena cava with <50% collapse upon inspiration consistent with significantly elevated right atrial pressure, 15 mmHg. Aorta The proximal ascending aorta measures 3.1 cm in diameter. Left Ventricular Outflow Tract Name Value Normal LVOT 2D LVOT Diameter 2.0 cm LVOT Doppler LVOT Peak Velocity 37 cm/s LVOT Peak Gradient 1 mmHg LVOT Mean Gradient 0 mmHg LVOT VTI 5 cm LVOT VTI/AV VTI Ratio 0.4 LVOT Stroke Volume 14 ml LVOT CO 1.2 l/min LVOT CI 0.7 l/min/m2 Pulmonic Valve Name Value Normal PV Doppler PV Peak Velocity 20 cm/s PV Peak Gradient 0 mmHg Mitral Valve Name Value Normal MV Regurgitation Doppler MR Peak Gradient 121 mmHg MR ERO (PISA) 0.47 cm2 MR Volume (PISA) 76 ml MV Diastolic Function MV E Peak Velocity 105 cm/s MV A Peak Velocity 37 cm/s MV E/A 2.8 MV Decel Time (PW) 132 ms MV Annular TDI MV E/e' (Septal) 34.5 MV E/e' (Lateral) 30.7 MV E/e' (Average) 32.6 Tricuspid Valve Name Value Normal TV Regurgitation Doppler TR Peak Velocity 333 cm/s TR Peak Gradient 44 mmHg Estimated PAP/RSVP RA Pressure 15 mmHg <=5 PA Systolic Pressure 59 mmHg <36 RV Systolic Pressure 59 mmHg <36 TV Annular TDI TV Lateral Mary s' Velocity 8.4 cm/s >=9.5 Aortic Valve Name Value Normal AV Doppler AV Peak Velocity 95 cm/s AV Peak Gradient 4 mmHg AV Mean Gradient 2 mmHg AV VTI 12 cm AV Area (Cont Eq VTI) 1.2 cm2 >=3.0 AV Area (Cont Eq Mario) 1.2 cm2 AV DI (Mario) 0.39 AV Regurgitation 2D LVOT Area 3.0 cm2 Ventricles Name Value Normal LV Dimensions 2D/MM IVS Diastolic Thickness (2D) 1.0 cm 0.6-1.0 LVID Diastole (2D) 6.6 cm 4.2-5.8 LVIW Diastolic Thickness (2D) 0.9 cm 0.6-1.0 LVID Systole (2D) 5.8 cm 2.5-4.0 LVOT Diameter 2.0 cm LV Mass (2D Cubed) 264.48 g 88.00-224.00 LV Mass Index (2D Cubed) 151 g/m2 49-115 Relative Wall Thickness (2D) 0.28 <=0.42 LV Fractional Shortening/Ejection Fraction 2D/MM LV Fractional Shortening (2D) 11 % 25-43 LV EF (2D Teichholz) 24 % LV Diastolic Volume (4C MOD) 258 ml LV EF (4C MOD) 10 % LV Diastolic Volume (2C MOD) 369 ml LV EF (2C MOD) 18 % LV Diastolic Volume (BP MOD) 313 ml 62-150 LV Diastolic Volume Index (BP MOD) 179 ml/m2 34-74 LV Systolic Volume (BP MOD) 268 ml 21-61 LV Systolic Volume Index (BP MOD) 153 ml/m2 11-31 LV EF (BP MOD) 15 % 52-72 LV Diastolic Length (4C) 10.2 cm LV Systolic Length (4C) 10.1 cm LV Stroke Volume (4C MOD) 26 ml Atria Name Value Normal LA Dimensions LA Volume (4C A-L) 63 ml LA Volume (BP A-L) 85 ml RA Dimensions RA Systolic Major [place] Length (4C) 5.1 cm 2.1-2.7 RA Area (4C) 18.2 cm2 <=18.0 Report Signatures
[2025-03-15] MEDS: ATORVASTATIN 40 MG TABLET 80 MG PO (02:39)
[2025-03-15 03:53] LABS: Hematocrit 42.2 % (42.0-52.0); Hemoglobin 14.2 g/dL (14.0-18.0); Immature Platelet Fraction Pct 22.7 % (0.9-11.2); Mean Corpuscular HGB Conc 33.6 g/dl (32-36); Mean Corpuscular Hemoglobin 29.8 pg (26-34); Mean Corpuscular Volume 88.5 fl (80-100); Platelet Count Result 89 k/mm3 (150-375); Red Blood Count 4.77 M/mm3 (4.6-6.20); White Blood Count 13.5 K/mm3 (4.5-10.0)
[2025-03-15 04:29] LABS: Hemoglobin A1C 7.2 % (<5.7)
[2025-03-15 04:40] LABS: Albumin Level 3.2 g/dL (3.5-5.1); Alkaline Phosphatase 142 U/L (38-126); Anion Gap 11 mmol/L (4-12); Aspartate Amino Transferase 619 U/L (17-59); Bilirubin,Total 2.2 mg/dL (0.2-1.3); Blood Urea Nitrogen 58 mg/dL (9-20); Calcium 8.1 mg/dL (8.4-10.2); Carbon Dioxide 15 mmol/L (22-30); Chloride 93 mmol/L (98-107); Estimated CRCL calculation 39 ml/min; Estimated Glomerular Filt Rate 50; Glucose 163 mg/dL (65-110); Magnesium 2.4 mg/dL (1.6-2.3); Potassium 4.9 mmol/L (3.4-5.0); Sodium 119 mmol/L (137-145); Total Protein 5.5 g/dL (6.3-8.2)
[2025-03-15 05:03] LABS: Alanine Aminotransferase 881 U/L (6-50)
[2025-03-15] MEDS: CEFEPIME 1 GM in SODIUM CHLORIDE 0.9% IV 50 ML 100 ML IVPB ×2 (06:12→16:58)
[2025-03-15] MEDS: FUROSEMIDE INJ 40 MG/4 ML VIAL IV PUSH (06:12)
[2025-03-15] MEDS: PERFLUTREN LIPID MICROSPHERES 1.5 ML VIAL DILUTED TO 10 ML TOTAL VOLUME IV PUSH (08:45)
--- NOTE | 2025-03-15 09:19 | WPDCNINT ---
Assessment and Plan Assessment and plan (1) Ischemic cardiomyopathy: Code(s): I25.5 - Ischemic cardiomyopathy Status: Chronic Assessment and Plan: Patient has history of coronary disease and ischemic cardiomyopathy. He gets his care [facility]. I will obtain records from [facility] Both feet are cold and admitted. He has bilateral pleural effusion. He has been noncompliant with medications He also has hyponatremia, elevated BNP Denies any chest pain Echocardiogram is being done Consult cardiology IV diuretics Patient may need to be transferred to [facility] for further evaluation management since he receives his care We have resumed his Coreg, Plavix and Xarelto Hold losartan metformin and Aldactone at this time (2) Bilateral pneumonia: Qualifiers: Lung location: lower lobe of lung Pneumonia type: due to unspecified organism Qualified Code(s): J18.9 - Pneumonia, unspecified organism Code(s): J18.9 - Pneumonia, unspecified organism Status: Acute Assessment and Plan: Patient's CT scan shows mild bronchopneumonia. Patient states that he was recently treated for pneumonia as an outpatient and finished antibiotic course. This could be a resolving pneumonia or incompletely treated Blood cultures have been ordered and sent Check urine Legionella and strep antigen He is broad-spectrum antibiotics in the form of vancomycin cefepime I have added doxycycline. Add incentive spirometry for atelectasis Tessalon and Robitussin DM p.r.n. for cough (3) Elevated serum creatinine: Code(s): R79.89 - Other specified abnormal findings of blood chemistry Status: Acute Assessment and Plan: Patient presented with creatinine 1.57. Baseline creatinine is unknown. Patient received 1 L at the time of admission. Creatinine is 1.39. Patient is overall volume overloaded Urine electrolytes will be inaccurate as patient received Lasix Nephrology has been consult and follow Check renal ultrasound Check CK level (4) Peripheral vascular disease: Code(s): I73.9 - Peripheral vascular disease, unspecified Status: Acute Assessment and Plan: Patient has history of PUD with revascularization of right lower extremity many years ago at [facility]. Exam as above. I am unable to palpate or Doppler dorsalis pedis and bilateral feet His feet are cold, right 3rd toe is cyanotic Maintain mean arterial pressure Consult cardiology Patient will likely need to be transferred to [facility] for further evaluation. (5) Acute hyperkalemia: Code(s): E87.5 - Hyperkalemia Status: Acute Assessment and Plan: Patient was treated with Lokelma insulin and D50 and bicarb Potassium level is improved and will be monitored and 4 treated as needed (6) Acute hyponatremia: Code(s): E87.1 - Hypo-osmolality and hyponatremia Status: Acute Assessment and Plan: Hyponatremia in the setting of congestive heart failure with volume overload and ALBERTO On frustration diet. Nephrology is following. Serial BMPs are being done. He did receive Lasix this morning. Monitor sodium level (7) Transaminitis: Code(s): R74.01 - Elevation of levels of liver transaminase levels Status: Acute Assessment and Plan: Significantly Elevated AST ALT and mildly elevated bilirubin and alkaline phosphatase likely secondary to either congestion or cardiogenic shock Check while hepatitis panel Check right upper quadrant ultrasound Hold statin at this time Check ammonia (8) CHF (congestive heart failure): Code(s): I50.9 - Heart failure, unspecified Status: Chronic (9) Coronary artery disease: Code(s): I25.10 - Atherosclerotic heart disease of craig coronary artery without angina pectoris Status: Acute (10) History of revascularization procedure of lower extremity: Code(s): Z98.62 - Peripheral vascular angioplasty status Status: Acute (11) Ischemia of right lower extremity: Code(s): I99.8 - Other disorder of circulatory system Status: Chronic (12) Type 2 diabetes mellitus: Qualifiers: Diabetes mellitus long-term insulin use: unspecified long-term insulin use status Diabetes mellitus complication status: with circulatory complication Diabetes mellitus complication detail: with other circulatory complications Qualified Code(s): E11.59 - Type 2 diabetes mellitus with other circulatory complications Code(s): E11.9 - Type 2 diabetes mellitus without complications Status: Chronic Assessment and Plan: Sliding scale insulin Diabetic diet Plan DVT prophylaxis -Xarelto Nutrition -consistent carbohydrate diet and fluid restriction diet Code Status - Full Code patient is unmarried and is not in touch with his biological children. Wants his sister to be a POA in case he is not able to make decisions by himself. Total Critical Care Time - 40 minutes Due to a high probability of clinically significant, life threatening deterioration, the patient required my highest level of preparedness to intervene emergently and I personally spent this critical care time directly and personally managing the patient. This critical care time included obtaining a history; examining the patient; pulse oximetry; ordering and review of studies; arranging urgent treatment with development of a management plan; evaluation of patient's response to treatment; frequent reassessment; and discussions with other providers. It was exclusive of separately billable procedures and treating other patients and teaching time. Please see Assessment and Plan section and the rest of the note for further information on patient assessment and treatment Ladle Operator Consult Note Consult date: 03/15/25 Reason for consult: Hyponatremia HPI: Anil Crawford is a 74 year old male with past medical history of coronary disease status post stenting, peripheral arterial disease status post stenting of the right leg, ischemic cardiomyopathy, diabetes, hypertension who normally receives care at [facility] presented to ER yesterday with chief complaint of weakness cough and shortness of breath. Patient has not taken any of his medications for the last 6 weeks. He states he developed pneumonia and was seen by his primary care physician about 10-12 days ago. He states he took antibiotics for 10 days which she finished on 03/12 he states that he did not feel better. He continues to have cough is mostly dry and he is unable to cough anything out. He has not been very active and felt weak and tired all day and sleeping a lot. He also has had poor appetite and states that his food and water does not taste good and he has not been eating or drinking a lot. He denies any fever chest pain abdominal pain nausea vomiting diarrhea constipation dysuria hematuria hematochezia melena. He denies any dizziness or lightheadedness. No loss of consciousness. He also states that he has developed swelling in his legs which is new. The bluish discoloration of right 3rd toe is not new as per him. He states he continues to smoke 1 pack per day and so smokes marijuana. He states that he did mention it to his primary care physician that he has not been taking his medication and he was told to resume medication once his pneumonia clears. All other systems were reviewed and were negative. Workup in the ER showed him to be having hyponatremia with sodium of 118 and elevated potassium level. He also had elevated creatinine of 1.57 baseline creatinine is unknown as he has not been [facility] for the last 3 years. He also had elevated LFTs and WBC of 11.3. Head CT was negative for any acute intracranial process. Chest CT showed CHF with superimposed probable mild bronchopneumonia and atelectasis. Patient was admitted to ICU. Nephrology was consulted. Patient received 1 L fluid bolus in the ER Review of Systems Review of Systems: All systems reviewed & are unremarkable except as noted in HPI and below (HPI) [facility] Past Medical History Medical History (Updated 03/15/25 @ 09:37 by Charles Posada MD) Claudication of lower extremity Ischemic cardiomyopathy Peripheral arterial disease Coronary artery disease Peripheral vascular disease Hypokalemia Surgical History Surgical History (Updated 03/15/25 @ 09:20 by Charles Posada MD) Stented coronary artery Status post peripheral artery angioplasty with insertion of stent Family History Family History (Updated 03/14/25 @ 16:38 by Ainsa Murguia RN) Father Heart attack Social History Social History Social History: patient lives in a single-level home with 5 steps to enter. Sister plans on staying for month or so it after rehab. Smoking packs per day: 1 Smoking cigarettes per day: 20.0 Years smoked: 55 Smoking pack-years: 55.00 Smoking status: Current every day smoker Tobacco type: cigarettes Additional smoking assessment comments: 40 year PPD smoking history Alcohol intake: never Substance use type: marijuana Lack of Transportation: No Lack of Food: Never True Current Housing: I Have Housing Concerned About Future Housing: No Difficulty Paying Gas/Electric Bills: No Difficulty Paying for Meds: No Currently Unemployed: No Education: Decline to Answer Difficulty w/ Childcare or Family Care: No Spiritual care concerns: No Meds Home Medications and Allergies Home Medications ?Medication ?Instructions ?Recorded ?Confirmed ?Type carvedilol 12.5 mg tablet 12.5 mg PO BID 09/19/21 03/14/25 History Held on 03/14/25. Instructions: Patient has not taken medication in 6 weeks. clopidogrel 75 mg tablet 75 mg PO DAILY 09/19/21 03/14/25 History furosemide 20 mg tablet 20 mg PO BID 09/19/21 03/14/25 History multivitamin,tx-minerals 1 tablet PO DAILY 09/19/21 03/14/25 History potassium chloride 20 mEq 20 meq PO BID 09/19/21 03/14/25 History tablet,extended release spironolactone 25 mg tablet 25 mg PO DAILY 09/19/21 03/14/25 History acetaminophen 325 mg tablet (Mapap 650 mg (2 x 325 mg) PO BID PRN 09/21/21 03/14/25 Rx (acetaminophen)) Mild Pain (1-3) Or Fever #0 tabs atorvastatin 80 mg tablet 80 mg PO HS 30 days #30 tabs 09/21/21 03/14/25 Rx Held on 03/14/25. Instructions: Patient has not been taking for 6 weeks. blood sugar diagnostic (OneTouch #1 [facility] 09/21/21 03/14/25 Rx Verio test strips) blood-glucose meter (OneTouch #1 g 09/21/21 03/14/25 Rx Verio Flex Meter) docusate sodium 100 mg capsule 100 mg PO BID #0 caps 09/21/21 03/14/25 Rx insulin glargine-yfgn 100 unit/mL 18 unit (0.18 mL) subcut .QHS 30 09/21/21 03/14/25 Rx (3 mL) subcutaneous pen ( #15 mL (insulin glargine-yfgn) Pen) lancets 30 gauge (OneTouch Delica #1 pkg 09/21/21 03/14/25 Rx Plus Lancet) losartan 25 mg tablet 25 mg PO DAILY 30 days #30 tabs 09/21/21 03/14/25 Rx metformin 1,000 mg 24 hr 1,000 mg PO DAILY #30 tabs 09/21/21 03/14/25 Rx tablet,extended release (gastric reten.) oxycodone 5 mg tablet 5 mg PO Q6H PRN Pain Rated 7-10 09/21/21 03/14/25 Rx #20 tabs pen needle, diabetic 32 gauge x #1 pkg 09/21/21 03/14/25 Rx 1/4 (BD Ultra-Fine Micro Pen Needle) potassium chloride 20 mEq 20 meq PO BID #60 tabs 09/21/21 03/14/25 Rx tablet,extended release (K-Tab) rivaroxaban 20 mg tablet (Xarelto) 20 mg PO DAILY@1700 30 days #30 09/21/21 03/14/25 Rx tabs rivaroxaban 20 mg tablet (Xarelto) 20 mg PO QPM 30 days #30 tabs 09/21/21 03/14/25 Rx sennosides 8.6 mg-docusate sodium 1 tab PO BID #0 tabs 09/21/21 03/14/25 Rx 50 mg tablet (Senokot-S) sodium chloride 0.65 % nasal spray 1 spray intranasal Q6HR PRN 09/21/21 03/14/25 Rx aerosol (Saline Mist) Congestion #0 mL Held on 03/14/25. Instructions: Patient no longer taking Allergies Allergy/AdvReac Type Severity Reaction Status Date / Time No Known Allergies Allergy Verified 03/14/25 16:32 Vital Signs Vital Signs - 24 hr 03/14/25 12:03 03/14/25 12:08 03/14/25 12:09 Temperature Pulse Rate 86 87 85 Respiratory Rate 15 15 14 Blood Pressure 133/113 H Pulse Oximetry 98 97 Oxygen Delivery Room Air 03/14/25 12:10 03/14/25 12:12 03/14/25 12:15 Temperature 36.0 C L Pulse Rate 93 84 87 Respiratory Rate 21 H 20 17 Blood Pressure 125/93 H 125/93 H Pulse Oximetry 98 99 98 Oxygen Delivery 03/14/25 12:16 03/14/25 12:30 03/14/25 12:31 Temperature Pulse Rate 89 88 82 Respiratory Rate 18 22 H 13 Blood Pressure 133/93 H 132/93 H Pulse Oximetry 99 98 98 Oxygen Delivery 03/14/25 12:54 03/14/25 13:00 03/14/25 13:15 Temperature Pulse Rate 83 85 79 Respiratory Rate 23 H 19 16 Blood Pressure Pulse Oximetry 98 94 Oxygen Delivery 03/14/25 13:33 03/14/25 13:34 03/14/25 13:35 Temperature Pulse Rate 90 86 88 Respiratory Rate 14 18 26 H Blood Pressure 130/99 H Pulse Oximetry 96 98 97 Oxygen Delivery 03/14/25 13:45 03/14/25 13:46 03/14/25 14:03 Temperature Pulse Rate 99 80 74 Respiratory Rate 25 H 13 18 Blood Pressure 136/110 H Pulse Oximetry 95 93 99 Oxygen Delivery 03/14/25 14:14 03/14/25 14:15 03/14/25 14:16 Temperature Pulse Rate 88 90 80 Respiratory Rate 13 19 11 L Blood Pressure 131/100 H 124/103 H Pulse Oximetry 99 84 L 96 Oxygen Delivery 03/14/25 14:36 03/14/25 14:45 03/14/25 15:00 Temperature Pulse Rate 92 66 96 Respiratory Rate 19 19 20 Blood Pressure Pulse Oximetry 99 Oxygen Delivery 03/14/25 15:19 03/14/25 16:00 03/14/25 16:54 Temperature 36.2 C L Pulse Rate 91 Respiratory Rate 22 H Blood Pressure 147/101 H 129/100 H Pulse Oximetry 96 99 Oxygen Delivery Room Air 03/14/25 17:00 03/14/25 18:00 03/14/25 18:00 Temperature 36.4 C L Pulse Rate 94 91 96 Respiratory Rate 24 H 20 Blood Pressure 130/99 H 130/91 H Pulse Oximetry 96 97 Oxygen Delivery 03/14/25 19:00 03/14/25 20:00 03/14/25 20:00 Temperature 36.4 C Pulse Rate 100 89 Respiratory Rate 20 11 L Blood Pressure 129/86 116/87 Pulse Oximetry 97 96 96 Oxygen Delivery Room Air 03/14/25 20:00 03/14/25 21:00 03/14/25 22:00 Temperature Pulse Rate 95 95 88 Respiratory Rate 19 Blood Pressure 111/65 Pulse Oximetry 96 Oxygen Delivery 03/14/25 22:00 03/14/25 23:00 03/15/25 00:00 Temperature 36.1 C L Pulse Rate 84 90 Respiratory Rate 11 L 21 H Blood Pressure 114/93 H 121/89 Pulse Oximetry 98 99 98 Oxygen Delivery Room Air 03/15/25 00:00 03/15/25 00:00 03/15/25 01:00 Temperature 36.1 C L Pulse Rate 95 82 87 Respiratory Rate 19 14 Blood Pressure 111/64 129/93 H Pulse Oximetry 91 97 Oxygen Delivery 03/15/25 02:00 03/15/25 02:00 03/15/25 03:00 Temperature 36.2 C L Pulse Rate 87 88 90 Respiratory Rate 15 19 Blood Pressure 130/87 124/102 H Pulse Oximetry 96 92 Oxygen Delivery 03/15/25 04:00 03/15/25 04:00 03/15/25 04:00 Temperature 36.5 C Pulse Rate 95 91 Respiratory Rate 16 Blood Pressure 131/95 H Pulse Oximetry 97 96 Oxygen Delivery Room Air 03/15/25 05:00 03/15/25 06:00 03/15/25 06:00 Temperature 36.5 C Pulse Rate 90 93 93 Respiratory Rate 14 16 Blood Pressure 131/100 H 123/100 H Pulse Oximetry 93 94 Oxygen Delivery Exam Narrative: General: Frail old male to who looks malnourished and debilitated Lungs/Chest: Trachea central Clear BS B/L anterior, breath sounds are significantly decreased at base mild tachypnea Cardiac: RRR. Normal S1 S2. Systolic murmur 3/6 present Circulation: Unable to feel bilateral dorsalis pedis, bilateral feet are cold, right 3rd toe looks cyanotic Abdomen: Normal bowel sounds.. Soft. NT. ND. Extremities: Bilateral pitting edema present, bilateral fluid-filled blisters on dorsal surface of the foot, right 3rd toe looks cyanotic, feet are cold : Nava in place Neurologic: Follows commands. Moves all 4 extremities PERRL AO x3 Skin: No other Rash Results Labs 03/15/25 03:45 03/15/25 03:45 Labs: Short CBC 03/14/25 03/15/25 Range/Units 13:31 03:45 WBC 11.3 H 13.5 H (4.5-10.0) K/mm3 Hgb 14.8 D 14.2 (14.0-18.0) g/dL Hct 43.1 42.2 (42.0-52.0) % Plt Count 107 L D 89 L (150-375) k/mm3 BMP 03/14/25 03/14/25 03/14/25 13:31 15:51 19:49 Sodium 118 L* 120 L 122 L Potassium 5.3 H 5.6 H 5.1 H Chloride 89 L 91 L 93 L Carbon Dioxide 20 L 15 L 19 L BUN 54 H D 52 H 55 H Creatinine 1.57 H 1.45 H 1.40 H Glucose 182 H 164 H 124 H Calcium 8.5 9.4 8.3 L 03/14/25 03/15/25 23:19 03:45 Sodium 120 L 119 L* Potassium 4.9 4.9 Chloride 94 L 93 L Carbon Dioxide 17 L 15 L BUN 53 H 58 H Creatinine 1.42 H 1.39 H Glucose 94 163 H Calcium 8.2 L 8.1 L Liver Function 03/14/25 03/15/25 Range/Units 13:31 03:45 Total Bilirubin 1.8 H 2.2 H (0.2-1.3) mg/dL AST 944 H 619 H (17-59) U/L ALT 970 H 881 H (6-50) U/L Alkaline Phosphatase 125 142 H (38-126) U/L Albumin 3.5 3.2 L (3.5-5.1) g/dL Urine 03/14/25 Range/Units 14:01 Urine Color Dark yellow (Yellow) Urine Appearance Clear (Clear) Urine pH 5.0 (5.0-9.0) Ur Specific [place] 1.029 (1.001-1.035) Urine Protein 3+ H (Negative) mg/dL Urine Glucose (UA) Negative (Negative) mg/dL Quality VTE Prophylaxis VTE prophylaxis: pharmacologic ordered Hospitalist MIPS Advance Care Plan I have confirmed that the patient's Advanced Care Plan is present, code status is documented, or surrogate decision maker is listed in patient medical record.: Yes Medication Reconciliation I have utilized all available resources to obtain, update and review the patients current medications (includes all prescriptions, OTC, herbals, cannabis, and nutritional supplements).: Yes
[2025-03-15] MEDS: CLOPIDOGREL BISULFATE 75 MG TABLET PO (09:59)
[2025-03-15] MEDS: SODIUM BICARBONATE TAB 650 MG TABLET PO ×2 (09:59→16:59)
--- NOTE | 2025-03-15 09:59 | IVDEFINITY ---
Prior to administration of IV Definity the patient was educated on the risks and benefits of the imaging enhancing agent including potential adverse side effects. The patient verbalized understanding. Allergies were verified. No exclusion criteria were identified and at least one of the following inclusion criteria were met: 1) physician request, 2) patient technically difficult to image (per the [place] [employer]ocardi[employer] guidelines of two or more segments not discernable within the apical view), or 3) questionable left ventricular function. ?
[2025-03-15] MEDS: DOXYCYCLINE IV 100 MG in SODIUM CHLORIDE 0.9% IV 100 ML IVPB ×2 (10:00→20:01)
[2025-03-15] MEDS: DOCUSATE SODIUM 100 MG CAPSULE PO ×2 (10:00→16:59)
--- NOTE | 2025-03-15 10:11 | P.CONCA_ITS ---
Assessment and Plan Assessment and plan (1) Ischemic cardiomyopathy: Code(s): I25.5 - Ischemic cardiomyopathy Status: Chronic Assessment and Plan: EF 28% * Continue GDMT with Coreg, spironolactone. * Previously did not tolerate ARNI * Has declined ICD in the past (2) Acute exacerbation of CHF (congestive heart failure): Qualifiers: Heart failure type: unspecified Qualified Code(s): I50.9 - Heart failure, unspecified Code(s): I50.9 - Heart failure, unspecified Status: Acute Assessment and Plan: Mild CHF exacerbation secondary to medication noncompliance * Continue with IV furosemide. Will schedule for 40mg IV b.i.d. * Strict I&O * Daily weights * Daily BMP while diuresing (3) History of revascularization procedure of lower extremity: Code(s): Z98.62 - Peripheral vascular angioplasty status Status: Acute Assessment and Plan: Stable. Continue Plavix, statin. (4) Coronary artery disease: Code(s): I25.10 - Atherosclerotic heart disease of [place] coronary artery without angina pectoris Status: Acute Assessment and Plan: Stable, not reporting any anginal symptoms. Continue statin. (5) Bilateral pneumonia: Qualifiers: Lung location: lower lobe of lung Pneumonia type: due to unspecified organism Qualified Code(s): J18.9 - Pneumonia, unspecified organism Code(s): J18.9 - Pneumonia, unspecified organism Status: Acute Assessment and Plan: Abx and management per primary team History of Present Illness History of Present Illness Consult date/time: 03/15/25 10:11 Requesting physician: Charles Posada MD Consult reason: Other (cardiomyopathy) Reason For Visit: Severe hyponatremia,cap,hyerkalemia,transaminitis Narrative: Anil Crawford is a 74 year old male with coronary artery disease (prior PCI of LAD, LCX, chronic RCA), mixed ischemic and nonischemic cardiomyopathy, peripheral vascular disease with prior lower extremity revascularization, prior AAA repair, and ongoing tobacco use. He follows with Dr. Devine at [facility]. This is a patient who presented to the hospital with weakness. Cardiology is consulted because of his cardiomyopathy and peripheral vascular disease. His most recent echo (July 2023) showed EF 28%. He states that he quit taking his medications about 6-8 weeks ago but had planned to resume them soon. He was noticing some shortness of breath and swelling at home. He is being treated for pneumonia but also has mild acute on chronic CHF secondary to medication noncompliance. Review of Systems 2 Review of Systems: All systems reviewed & are unremarkable except as noted in HPI and below PMFSH Past Medical History Medical History Claudication of lower extremity Ischemic cardiomyopathy Peripheral arterial disease Coronary artery disease Peripheral vascular disease Hypokalemia Surgical History Surgical History Stented coronary artery Status post peripheral artery angioplasty with insertion of stent Family History Family History Father Heart attack Social History Social History Social History: patient lives in a single-level home with 5 steps to enter. Sister plans on staying for month or so it after rehab. Smoking packs per day: 1 Smoking cigarettes per day: 20.0 Years smoked: 55 Smoking pack-years: 55.00 Smoking status: Current every day smoker Tobacco type: cigarettes Additional smoking assessment comments: 40 year PPD smoking history Alcohol intake: never Substance use type: marijuana Lack of Transportation: No Lack of Food: Never True Current Housing: I Have Housing Concerned About Future Housing: No Difficulty Paying Gas/Electric Bills: No Difficulty Paying for Meds: No Currently Unemployed: No Education: Decline to Answer Difficulty w/ Childcare or Family Care: No Spiritual care concerns: No Meds Home Medications and Allergies Home Medications ?Medication ?Instructions ?Recorded ?Confirmed ?Type carvedilol 12.5 mg tablet 12.5 mg PO BID 09/19/2102/27 History Held on 03/14/25. Instructions: Patient has not taken medication in 6 weeks. clopidogrel 75 mg tablet 75 mg PO DAILY 09/19/2102/27 History furosemide 20 mg tablet 20 mg PO BID 09/19/21 History multivitamin,tx-minerals 1 tablet PO DAILY 09/19/21 1 05/14/24 History potassium chloride 20 mEq 20 meq PO BID 09/19/2103/14 History tablet,extended release spironolactone 25 mg tablet 25 mg PO DAILY 09/19/21 History acetaminophen 325 mg tablet (Mapap 650 mg (2 x 325 mg) PO BID PRN 09/21/21 03/14/25 Rx (acetaminophen)) Mild Pain (1-3) Or Fever #0 tabs atorvastatin 80 mg tablet 80 mg PO HS 30 days #30 tabs 09/21/21 03/14/25 Rx Held on 03/14/25. Instructions: Patient has not been taking for 6 weeks. blood sugar diagnostic (OneTouch #1 pkg 09/21/2103/14 Rx Verio test strips) blood-glucose meter (OneTouch #1 [facility] 09/21/21 03/14/25 Rx Verio Flex Meter) docusate sodium 100 mg capsule 100 mg PO BID #0 caps 0 09/21/21 03/14/25 Rx insulin glargine-yfgn 100 unit/mL 18 unit (0.18 mL) sykes bcut .QHS 30 09/21/21 03/14/25 Rx (3 mL) subcutaneous pen ( #15 mL (insulin glargine-yfgn) Pen) lancets 30 gauge (OneTouch Delica #1 pkg 09/21/2102/27 Rx Plus Lancet) losartan 25 mg tablet 25 mg PO DAILY 30 days #30 t abs 09/21/21 03/14/25 Rx metformin 1,000 mg 24 hr 1,000 mg PO DAILY #30 tabs 0 09/21/21 03/14/25 Rx tablet,extended release (gastric reten.) oxycodone 5 mg tablet 5 mg PO Q6H PRN Pain Rated 7 -10 09/21/21 03/14/25 Rx #20 tabs pen needle, diabetic 32 gauge x #1 pkg 09/21/21 Rx 1/4 (BD Ultra-Fine Micro Pen Needle) potassium chloride 20 mEq 20 meq PO BID #60 tabs 09/2103/14/25 Rx tablet,extended release (K-Tab) rivaroxaban 20 mg tablet (Xarelto) 20 mg PO DAILY@1700 30 days #30 09/21/21 03/14/25 Rx tabs rivaroxaban 20 mg tablet (Xarelto) 20 mg PO QPM 30 day s #30 tabs 09/21/21 03/14/25 Rx sennosides 8.6 mg-docusate sodium 1 tab PO BID #0 tabs 09/21/21 03/14/25 Rx 50 mg tablet (Senokot-S) sodium chloride 0.65 % nasal spray 1 spray intranasal Q6HR PRN 09/21/21 03/14/25 Rx aerosol (Saline Mist) Congestion #0 mL Held on 03/14/25. Instructions: Patient no longer taking Allergies Allergy/AdvReac Type Severity Reaction Status Date / Time No Known Allergies Allergy Verified 03/14/25 16:32 Vital Signs Vital Signs - 24 hr 03/14/25 12:03 03/14/25 12:08 03/14/25 12:09 Temperature Pulse Rate 86 87 85 Respiratory Rate 15 15 14 Blood Pressure 133/113 H Pulse Oximetry 98 97 Oxygen Delivery Room Air 03/14/25 12:10 03/14/25 12:12 03/14/25 12:15 Temperature 36.0 C L Pulse Rate 93 84 87 Respiratory Rate 21 H 20 17 Blood Pressure 125/93 H 125/93 H Pulse Oximetry 98 99 98 Oxygen Delivery 03/14/25 12:16 03/14/25 12:30 03/14/25 12:31 Temperature Pulse Rate 89 88 82 Respiratory Rate 18 22 H 13 Blood Pressure 133/93 H 132/93 H Pulse Oximetry 99 98 98 Oxygen Delivery 03/14/25 12:54 03/14/25 13:00 03/14/25 13:15 Temperature Pulse Rate 83 85 79 Respiratory Rate 23 H 19 16 Blood Pressure Pulse Oximetry 98 94 Oxygen Delivery 03/14/25 13:33 03/14/25 13:34 03/14/25 13:35 Temperature Pulse Rate 90 86 88 Respiratory Rate 14 18 26 H Blood Pressure 130/99 H Pulse Oximetry 96 98 97 Oxygen Delivery 03/14/25 13:45 03/14/25 13:46 03/14/25 14:03 Temperature Pulse Rate 99 80 74 Respiratory Rate 25 H 13 18 Blood Pressure 136/110 H Pulse Oximetry 95 93 99 Oxygen Delivery 03/14/25 14:14 03/14/25 14:15 03/14/25 14:16 Temperature Pulse Rate 88 90 80 Respiratory Rate 13 19 11 L Blood Pressure 131/100 H 124/103 H Pulse Oximetry 99 84 L 96 Oxygen Delivery 03/14/25 14:36 03/14/25 14:45 03/14/25 15:00 Temperature Pulse Rate 92 66 96 Respiratory Rate 19 19 20 Blood Pressure Pulse Oximetry 99 Oxygen Delivery 03/14/25 15:19 03/14/25 16:00 03/14/25 16:54 Temperature 36.2 C L Pulse Rate 91 Respiratory Rate 22 H Blood Pressure 147/101 H 129/100 H Pulse Oximetry 96 99 Oxygen Delivery Room Air 03/14/25 17:00 03/14/25 18:00 03/14/25 18:00 Temperature 36.4 C L Pulse Rate 94 91 96 Respiratory Rate 24 H 20 Blood Pressure 130/99 H 130/91 H Pulse Oximetry 96 97 Oxygen Delivery 03/14/25 19:00 03/14/25 20:00 03/14/25 20:00 Temperature 36.4 C Pulse Rate 100 89 Respiratory Rate 20 11 L Blood Pressure 129/86 116/87 Pulse Oximetry 97 96 96 Oxygen Delivery Room Air 03/14/25 20:00 03/14/25 21:00 03/14/25 22:00 Temperature Pulse Rate 95 95 88 Respiratory Rate 19 Blood Pressure 111/65 Pulse Oximetry 96 Oxygen Delivery 03/14/25 22:00 03/14/25 23:00 03/15/25 00:00 Temperature 36.1 C L Pulse Rate 84 90 Respiratory Rate 11 L 21 H Blood Pressure 114/93 H 121/89 Pulse Oximetry 98 99 98 Oxygen Delivery Room Air 03/15/25 00:00 03/15/25 00:00 03/15/25 01:00 Temperature 36.1 C L Pulse Rate 95 82 87 Respiratory Rate 19 14 Blood Pressure 111/64 129/93 H Pulse Oximetry 91 97 Oxygen Delivery 03/15/25 02:00 03/15/25 02:00 03/15/25 03:00 Temperature 36.2 C L Pulse Rate 87 88 90 Respiratory Rate 15 19 Blood Pressure 130/87 124/102 H Pulse Oximetry 96 92 Oxygen Delivery 03/15/25 04:00 03/15/25 04:00 03/15/25 04:00 Temperature 36.5 C Pulse Rate 95 91 Respiratory Rate 16 Blood Pressure 131/95 H Pulse Oximetry 97 96 Oxygen Delivery Room Air 03/15/25 05:00 03/15/25 06:00 03/15/25 06:00 Temperature 36.5 C Pulse Rate 90 93 93 Respiratory Rate 14 16 Blood Pressure 131/100 H 123/100 H Pulse Oximetry 93 94 Oxygen Delivery 03/15/25 09:59 Temperature Pulse Rate 88 Respiratory Rate Blood Pressure Pulse Oximetry Oxygen Delivery Exam 2 Const: General: comfortable, no acute distress, alert and awake O rientation/consciousness: patient oriented x3 HENMT: Head: normal to inspection Eyes: General: appearance normal, both eyes and all related structures P upils: Equal, round and reactive pupils present Neck: Neck: normal visual inspection, supple and no JVD Carotids: normal carotid upstroke Resp: Effort & Inspection: normal respiratory effort Auscultation: rales Cardio: Rate: regular rate Rhythm: regular rhythm Heart sounds: S1 normal heart sound present, S2 normal heart sound present and no murmurs GI: Auscultation: normal bowel sounds Skin: General skin exam: normal color Neuro: General: patient oriented x3 Cranial nerves: Yes Equal, round and reactive pupils present Extrem: General: edema Other: mild bilateral pretibial edema Psych: Appearance: grossly normal Mental Status: mental status grossly normal Results Labs and Meds 03/15/25 03:45 03/15/25 09:59 Lab results: Cardiac Enzymes 03/14/25 03/15/25 Range/Units 13:31 03:45 AST 944 H 619 H (17-59) U/L CBC 03/14/25 03/15/25 Range/Units 13:31 03:45 WBC 11.3 H 13.5 H (4.5-10.0) K/mm3 RBC 4.92 4.77 (4.6-6.20) M/mm3 Hgb 14.8 D 14.2 (14.0-18.0) g/dL Hct 43.1 42.2 (42.0-52.0) % Plt Count 107 L D 89 L (150-375) k/mm3 Lymph # (Auto) 0.65 L (0.9-3.2) K/mm3 [place] # (Auto) 0.9 H (0.1-0.6) K/mm3 Eos # (Auto) 0.0 (0-0.3) K/mm3 Baso # (Auto) 0.0 (0.0-0.1) K/mm3 Comprehensive Metabolic Panel 03/14/25 03/14/25 03/14/25 Range/Units 13:31 15:51 19:49 Sodium 118 L* 120 L 122 L (137-145) mmol/L Potassium 5.3 H 5.6 H 5.1 H (3.4-5.0) mmol/L Chloride 89 L 91 L 93 L (98-107) mmol/L Carbon Dioxide 20 L 15 L 19 L (22-30) mmol/L BUN 54 H D 52 H 55 H (9-20) mg/dL Creatinine 1.57 H 1.45 H 1.40 H (0.7-1.3) mg/dL Glucose 182 H 164 H 124 H (65-110) mg/dL Calcium 8.5 9.4 8.3 L (8.4-10.2) mg/dL AST 944 H (17-59) U/L ALT 970 H (6-50) U/L Alkaline Phosphatase 125 (38-126) U/L Total Protein 5.8 L (6.3-8.2) g/dL Albumin 3.5 (3.5-5.1) g/dL 03/14/25 03/15/25 Range/Units 23:19 03:45 Sodium 120 L 119 L* (137-145) mmol/L Potassium 4.9 4.9 (3.4-5.0) mmol/L Chloride 94 L 93 L (98-107) mmol/L Carbon Dioxide 17 L 15 L (22-30) mmol/L BUN 53 H 58 H (9-20) mg/dL Creatinine 1.42 H 1.39 H (0.7-1.3) mg/dL Glucose 94 163 H (65-110) mg/dL Calcium 8.2 L 8.1 L (8.4-10.2) mg/dL AST 619 H (17-59) U/L ALT 881 H (6-50) U/L Alkaline Phosphatase 142 H (38-126) U/L Total Protein 5.5 L (6.3-8.2) g/dL Albumin 3.2 L (3.5-5.1) g/dL Intake and Output 03/14/25 03/15/25 03/15/25 23:59 07:59 15:59 Intake Total 100 410 Output Total 0 300 350 Balance 100 110 -350 Intake: IV 50 50 Cefepime 1 gm In Sodium 50 50 Chloride 0.9% IV 50 ml @ 100 mls/hr IVPB Q12H [facility] Rx#: [id number] Oral 50 360 Output: Urine 0 300 350 Patient Weight 03/15/25 23:59 Weight 63.3 kg
[2025-03-15 10:17] LABS: Ammonia < 9 umol/L (9-30)
[2025-03-15 10:20] LABS: Creatine Kinase 1052 U/L (55-170)
[2025-03-15 10:31] LABS: Acetaminophen < 10 ug/mL (10-30)
[2025-03-15 10:32] LABS: Anion Gap 11 mmol/L (4-12); Blood Urea Nitrogen 56 mg/dL (9-20); Calcium 8.3 mg/dL (8.4-10.2); Carbon Dioxide 17 mmol/L (22-30); Chloride 94 mmol/L (98-107); Estimated CRCL calculation 39 ml/min; Estimated Glomerular Filt Rate 52; Glucose 148 mg/dL (65-110); Potassium 4.7 mmol/L (3.4-5.0); Sodium 122 mmol/L (137-145)
[2025-03-15 10:49] LABS: Hepatitis B Surface Antigen Negative (Negative)
[2025-03-15 10:54] LABS: HAV RESULT Negative (Negative); Hepatitis B Core IgM Result Negative (Negative)
--- NOTE | 2025-03-15 12:07 | P.CONNP_ITS ---
Assessment and Plan Assessment and plan (1) Hyponatremia: Code(s): E87.1 - Hypo-osmolality and hyponatremia Status: Acute Assessment and Plan: * appears acute * last outpatient sodium 137mmol/L (in April 2024) * no previous low sodium levels noted by outpatient testing * suspect related to ALBERTO, poor oral intake, and underlying CHF/cardiomyopathy and noncompliance with medications * slow improvement already noted with sodium level * goal ot therapy is a rate of change of 6 - 8mmol/L in 24 hours * started on fluid restriction * if sodium fails to improve with conservative therapy, will proceed with further testing * follow serial sodium levels (2) Acute kidney injury: Code(s): N17.9 - Acute kidney failure, unspecified Status: Acute Assessment and Plan: * baseline creatinine normally runs ~ 1.0 - 1.2mg/dl in the last year * probably from mild decompensation of CHF and non-compliance with cardiac medications * however, given his risk factor profile, he likely has some underlying renal insufficiency * evalution to date noted: * CT imaging and renal u/s without obstruction * urine electrolytes prerenal * UA without infection * CPK mildly elevated (not enough to affect kidney function) * proteinuria noted * follow trend of repeat labs and UOP (3) Hyperkalemia: Code(s): E87.5 - Hyperkalemia Status: Acute Assessment and Plan: * noted on admission * s/p medical management * follow trend of repeat K+ (4) Ischemic cardiomyopathy: Code(s): I25.5 - Ischemic cardiomyopathy Status: Chronic Assessment and Plan: * known history * Echo noted * continue GDMT as tolerated * declined ICD in the past * Cardiology following (5) Acute exacerbation of CHF (congestive heart failure): Qualifiers: Heart failure type: unspecified Qualified Code(s): I50.9 - Heart failure, unspecified Code(s): I50.9 - Heart failure, unspecified Status: Acute Assessment and Plan: * Mild CHF exacerbation secondary to medication noncompliance * on scheduled diuretic therapy * follow I&Os and daily weights * Cardiology following (6) Bilateral pneumonia: Qualifiers: Lung location: lower lobe of lung Pneumonia type: due to unspecified organism Qualified Code(s): J18.9 - Pneumonia, unspecified organism Code(s): J18.9 - Pneumonia, unspecified organism Status: Acute Assessment and Plan: * CT scan shows mild bronchopneumonia * recently treated for pneumonia as an outpatient and finished antibiotic course -- resolving pneumonia or incompletely treated(?) * follow culture data * continue antibiotics * franchesca and Jon DM p.r.n. for cough (7) Transaminitis: Code(s): R74.01 - Elevation of levels of liver transaminase levels Status: Acute Assessment and Plan: * noted elevated AST, ALT and mildly elevated bilirubin and alkaline phosphatase * felt to be secondary to either congestion or CHF exacerbation * hold statin * follow-up on hepatitis studies and RUQ ultrasond (8) Type 2 diabetes mellitus: Qualifiers: Diabetes mellitus complication detail: with other circulatory complications Diabetes mellitus complication status: with circulatory complication Diabetes mellitus terminal block assembler insulin use: unspecified terminal block assembler insulin use status Qualified Code(s): E11.59 - Type 2 diabetes mellitus with other circulatory complications Code(s): E11.9 - Type 2 diabetes mellitus without complications Status: Chronic Assessment and Plan: * follow accu-cheks * glycemic control per hospitalist I will continue to follow the patient with you while he remains hospitalized and make further recommendations as deemed necessary. Thank you for allowing me to participate in the care of this patient. L History of Present Illness Reason for Consult Consult date: 03/15/25 Reason for consult: hyponatremia and hyperkalemia Chief Complaint Chief complaint: Severe hyponatremia,cap,hyerkalemia,transaminitis History of Present Illness Narrative: The patient is a 74-year-old male an extensive past medical history as outlined below presented to [facility] Emergency Room with complaints of shortness of breath and generalized weakness. Apparently, according to the patient, he was recently seen by his primary care physician 2 weeks ago and diagnosed with pneumonia. He was instituted on antibiotic therapy for treatment of this issue. In spite of the antibiotic therapy he reports that he does not feel any better and continues to have dry cough as well as shortness of breath. Other associated symptoms include generalized weakness and fatigue and excessive sleepiness. He also reports that his oral intake and appetite have been quite poor. He gave no symptoms with regard to overt fevers chills, chest pain, abdominal pain, nausea, vomiting, diarrhea dysuria, hematuria hematochezia melena dizziness, lightheadedness, or palpitations. Further complicating matters is that he states that he is not taking any of his medications for last 6 weeks although the exact reasoning behind this is not clear. He states he told this to his primary care physician and was informed to resume his medications once his pneumonia resolved. Given these constellation of symptoms as mentioned, he presented to the ER further assessment. Workup and evaluation emergency room demonstrated the patient to be hemodynamically stable and afebrile. Routine testing was notable for hyponatremia with a sodium of 118, mild leukocytosis with a WBC of 11.3, mild thrombocytopenia with a platelet count of 107, mild hyperkalemic with a potassium 5.3. an elevated creatinineof 1.57, ransaminitis with AST of 940 and ALT of 970 with a BNP elevated at 26,000. His chest x-ray showed pulmonary vascular congestion with bilateral pleural effusions and right lower lobe infiltrate. His EKG noted sinus rhythm with PVCs in bigeminal pattern, intraventricular conduction delay, he Q-waves in inferior leads and V3 and V4, but no ST or T-wave changes. Patient was initially given 1 L NS bolus due to dry mucous membranes and concerns for dehydration. After appropriate cultures, he was initiated on IV antibiotics and subsequently admitted to the ICU for further evaluation at therapy. Renal consultation was requested due to his acute kidney injury and associated hyponatremia. From review his records at [facility], the patient has a baseline creatinine around 1.0-1.2 mg/dL and usually has normal sodium as well. He reports no previous issues or problems with hyponatremia or renal insufficiency per my discussion with him. Presumed etiology of both of these issues as related to his poor oral intake and appetite coupled with his Pneumonia as well as his discontinuation of his medications most of which are geared towards treating his underlying heart failure. in spite of his low sodium level and acute kidney injury, his overall mentation seems to be stable. Currently, at the time my evaluation, he appears to be in no acute distress. Review of Systems 2 Review of Systems: As per HPI. [facility] Past Medical History Medical History Claudication of lower extremity Ischemic cardiomyopathy Peripheral arterial disease Coronary artery disease Peripheral vascular disease Hypokalemia Surgical History Surgical History Stented coronary artery Status post peripheral artery angioplasty with insertion of stent Family History Family History Father Heart attack Social History Social History Social History: patient lives in a single-level home with 5 steps to enter. Sister plans on staying for month or so it after rehab. Smoking packs per day: 1 Smoking cigarettes per day: 20.0 Years smoked: 55 Smoking pack-years: 55.00 Smoking status: Current every day smoker Tobacco type: cigarettes Additional smoking assessment comments: 40 year PPD smoking history Alcohol intake: never Substance use type: marijuana Lack of Transportation: No Lack of Food: Never True Current Housing: I Have Housing Concerned About Future Housing: No Difficulty Paying Gas/Electric Bills: No Difficulty Paying for Meds: No Currently Unemployed: No Education: Decline to Answer Difficulty w/ Childcare or Family Care: No Spiritual care concerns: No Meds Home Medications and Allergies Home Medications ?Medication ?Instructions ?Recorded ?Confirmed ?Type multivitamin,tx-minerals 1 tablet PO DAILY 09/19/21 1 05/14/24 History acetaminophen 325 mg tablet (Mapap 650 mg (2 x 325 mg) PO BID PRN 09/21/21 03/14/25 Rx (acetaminophen)) Mild Pain (1-3) Or Fever #0 tabs atorvastatin 80 mg tablet 80 mg PO HS 30 days #30 tabs 09/21/21 03/14/25 Rx Held on 03/18/25. Instructions: HOLD - Resume when your liver tests improve and when okay with your doctor blood sugar diagnostic (OneTouch #1 pkg 09/21/2103/14 Rx Verio test strips) blood-glucose meter (OneTouch #1 pkg 09/21/21 03/14/25 Rx Verio Flex Meter) docusate sodium 100 mg capsule 100 mg PO BID #0 caps 0 09/21/21 03/14/25 Rx lancets 30 gauge (OneTouch Delica #1 pkg 09/21/2102/27 Rx Plus Lancet) pen needle, diabetic 32 gauge x #1 pkg 09/21/21 Rx 1/ (BD Ultra-Fine Micro Pen Needle) amoxicillin 875 mg-potassium 1 tablet PO Q12H #6 tabs 03/18/25 Rx clavulanate 125 mg tablet carvedilol 3.125 mg tablet (Coreg) 3.125 mg PO Q12HR # 60 tabs 03/18/25 Rx clopidogrel 75 mg tablet 75 mg PO DAILY #30 tabs 02/28 Rx doxycycline hyclate 100 mg tablet 100 mg PO Q12HR #3 t abs 03/18/25 Rx furosemide 40 mg tablet 40 mg PO BID #60 tabs Rx insulin glargine-yfgn 100 unit/mL 6 unit (0.06 mL) sub cut .QHS 30 03/18/25 03/14/25 Rx (3 mL) subcutaneous pen ( #15 mL (insulin glargine-yfgn) Pen) rivaroxaban 20 mg tablet (Xarelto) 20 mg PO DAILY@1700 30 days #30 03/18/25 Rx tabs sacubitril 24 mg-valsartan 26 mg 1 tab PO Q12HR #60 ta bs 03/18/25 Rx tablet (Entresto) Allergies Allergy/AdvReac Type Severity Reaction Status Date / Time No Known Allergies Allergy Verified 03/14/25 16:32 Vital Signs Vital Signs Temp Pulse Resp BP Pulse Ox O2 Del Method 03/15/25 12:00 97.6 F 61 18 102/78 94 03/15/25 12:00 95 Room Air 03/15/25 11:00 78 17 126/92 H 95 03/15/25 10:00 89 03/15/25 10:00 92 19 131/100 H 96 03/15/25 09:59 88 03/15/25 09:00 93 21 H 131/88 99 03/15/25 08:00 94 03/15/25 08:00 100 Room Air 03/15/25 08:00 93 18 123/89 97 03/15/25 07:00 97.8 F 95 18 134/86 99 03/15/25 06:00 93 03/15/25 06:00 97.7 F 93 16 123/100 H 94 03/15/25 05:00 90 14 131/100 H 93 03/15/25 04:00 97.7 F 91 16 131/95 H 96 03/15/25 04:00 95 03/15/25 04:00 97 Room Air 03/15/25 03:00 90 19 124/102 H 92 03/15/25 02:00 97.1 F L 88 15 130/87 96 03/15/25 02:00 87 03/15/25 01:00 87 14 129/93 H 97 03/15/25 00:00 97 F L 82 19 111/64 91 03/15/25 00:00 95 03/15/25 00:00 98 Room Air 03/14/25 23:00 90 21 H 121/89 99 03/14/25 22:00 97 F L 84 11 L 114/93 H 98 03/14/25 22:00 88 03/14/25 21:00 95 19 111/65 96 03/14/25 20:00 95 03/14/25 20:00 97.6 F 89 11 L 116/87 96 03/14/25 20:00 96 Room Air 03/14/25 19:00 100 20 129/86 97 Exam 2 Narrative: GENERAL APPEARANCE: elderly and frail male in no acute distress HEENT: normocephalic, atraumatic, normal conjunctiva and sclera, nares patient NECK: no lymphadenopathy, thyromegaly, or JVD MOUTH: normal lips, teeth, and gums CARDIOVASCULAR: RRR, normal S1 and S2, no rub RESPIRATORY: coarse and decreased at bases ABDOMEN: soft, nontender, nondistended, positive bowel sounds present EXTREMITIES: no evidence of cyanosis, clubbing, 1 - 2+ edema; cool to touch NEUROLOGICAL: alert and oriented x 3; + generalized weakness/strenght Results Lab Results 03/19/25 03:45 03/19/25 03:45 Lab results: Most recent lab results Calcium 8.3 mg/dL (8.4-10.2) L 03/15/25 09:59 Magnesium 2.4 mg/dL (1.6-2.3) H 03/15/25 03:45 Urine Creatinine 170.0 mg/dL 03/14/25 14:01
[2025-03-15] MEDS: FUROSEMIDE INJ 100 MG/10 ML VIAL 80 MG IV PUSH (12:45)
--- NOTE | 2025-03-15 14:28 | PM.CNGS ---
Assessment and Plan Assessment and plan (1) Cholecystitis: Code(s): K81.9 - Cholecystitis, unspecified Status: Acute Assessment and Plan: Patient presented to the hospital yesterday with complaints of generalized weakness. He was found have severe electrolyte abnormalities including hyperkalemia and hyponatremia. Severely elevated BNP. Patient also has history of recent pneumonia diagnosis, reportedly treated with antibiotic course. CT demonstrated mild bronchopneumonia. Currently being treated with broad-spectrum antibiotics - vancomycin, cefepime, doxycycline. Labs also revealed elevated bilirubin, as well as AST/ALT, alk-phos. This prompted a right upper quadrant ultrasound which demonstrated incidental noting of cholelithiasis with borderline gallbladder wall thickening and possible trace of pericholecystic fluid concerning for cholecystitis. Abdominal exam completely benign. Patient denies any nausea, vomiting, abdominal pain, or diarrhea. Given patient's extensive cardiac history including coronary artery disease, ischemic cardiomyopathy, CHF with BNP of greater than 30,000, and peripheral vascular disease, he is a very poor surgical candidate. No intervention necessary at this time as patient is asymptomatic. We will continue to monitor peripherally. If intervention is necessary, would opt for percutaneous cholecystostomy tube over laparoscopic appendectomy. Continue IV antibiotics. (2) Transaminitis: Code(s): R74.01 - Elevation of levels of liver transaminase levels Status: Acute Assessment and Plan: see above. (3) Ischemic cardiomyopathy: Code(s): I25.5 - Ischemic cardiomyopathy Status: Chronic Assessment and Plan: Echocardiogram showing ejection fraction of 10-20%. Cardiology on board. Continue IV diuretics (4) Bilateral pneumonia: Qualifiers: Lung location: lower lobe of lung Pneumonia type: due to unspecified organism Qualified Code(s): J18.9 - Pneumonia, unspecified organism Code(s): J18.9 - Pneumonia, unspecified organism Status: Acute Assessment and Plan: Superimposed probable mild bronchopneumonia noted on chest CT. WBC 13.5. Continue treatment with IV antibiotics. (5) Elevated serum creatinine: Code(s): R79.89 - Other specified abnormal findings of blood chemistry Status: Acute Assessment and Plan: Creatinine 1.36. CK 1052. Patient volume overloaded upon admission. Currently being diuresed. Nephrology consulted. Appreciate their recommendations. (6) Acute hyperkalemia: Code(s): E87.5 - Hyperkalemia Status: Acute Assessment and Plan: Potassium up to 5.6 yesterday. Patient treated with Lokelma, insulin, D50, and bicarb. Normalized to 4.7. (7) Acute hyponatremia: Code(s): E87.1 - Hypo-osmolality and hyponatremia Status: Acute Assessment and Plan: Nephrology following. (8) Peripheral vascular disease: Code(s): I73.9 - Peripheral vascular disease, unspecified Status: Acute (9) CHF (congestive heart failure): Code(s): I50.9 - Heart failure, unspecified Status: Chronic (10) Coronary artery disease: Code(s): I25.10 - Atherosclerotic heart disease of [place] coronary artery without angina pectoris Status: Acute (11) History of revascularization procedure of lower extremity: Code(s): Z98.62 - Peripheral vascular angioplasty status Status: Acute (12) Ischemia of right lower extremity: Code(s): I99.8 - Other disorder of circulatory system Status: Chronic (13) Type 2 diabetes mellitus: Qualifiers: Diabetes mellitus watermaster insulin use: unspecified snf insulin use status Diabetes mellitus complication status: with circulatory complication Diabetes mellitus complication detail: with other circulatory complications Qualified Code(s): E11.59 - Type 2 diabetes mellitus with other circulatory complications Code(s): E11.9 - Type 2 diabetes mellitus without complications Status: Chronic Plan Discussed patient's case and plan of care with Dr. Moralez. History of Present Illness Consult details Consult date: 03/15/25 Reason for consult: other (Cholecystitis) Requesting physician: Charles Posada MD Narrative: Patient is a 74-year-old male with history of coronary artery disease status post stents x5, ischemic cardiomyopathy, peripheral arterial disease status post stenting of the right leg, diabetes or hypertension who we have been asked to see in surgical consultation for cholecystitis. Of note, patient reports he regularly receives care at [facility]. 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 Patient presented to the ED yesterday with complaints of generalized weakness. He also stated that he was recently diagnosed with pneumonia and was treated with a course of antibiotics, which he finished a couple of days ago. Patient also reports that he stopped ?sets of pills roughly 6 weeks ago, with 1 of these being his Xarelto. Patient is a very poor historian and cannot recall all of his cardiac history or what he is taking his meds for. Labs revealed hyponatremia to 118. Patient hyperkalemic at 5.3. Treated with Lokelma insulin and D50 and bicarb. Elevated BNP greater than 30,000. Mild ALBERTO with creatinine 1.57. Received 1 L of fluids at the time of admission. Creatinine 1.39. Volume overloaded. Patient currently being diuresed. Renal ultrasound demonstrated medical renal disease with tiny probable renal vascular calcifications, less likely renal calculi. Enlarged prostate. Patient also has significant PVD. Nuclear Medicine Technologist unable to palpate or Doppler dorsalis pedis in bilateral feet. Feet are cold, right 3rd toe cyanotic. An echocardiogram was also obtained and demonstrated an ejection fraction of 10-20%. Advised continuation of Coreg and spironolactone. Plavix and Xarelto resumed. Mild leukocytosis. Chest CT demonstrated superimposed probable mild bronchopneumonia. Patient currently on cefepime, doxycycline, vancomycin. Also noted in workup was an elevated bilirubin to 2.2 with increased AST,ALT, and alk-phos. This prompted a right upper quadrant ultrasound which demonstrated cholelithiasis with a small amount of pericholecystic fluid and borderline gallbladder wall thickening. General surgery team was consulted at this time. Upon interview today, patient denies any abdominal pain. Eating lunch currently. Denies any nausea or vomiting. Says that he has been having bowel movements, but is unable to recall his last one, stating that it was either 3 days or 30 minutes ago. WBC today is 13.5. Liver enzymes remain elevated. FOR[facility]LY [facility], [facility] Past Medical History Medical History Claudication of lower extremity Ischemic cardiomyopathy Peripheral arterial disease Coronary artery disease Peripheral vascular disease Hypokalemia Surgical History Surgical History Stented coronary artery Status post peripheral artery angioplasty with insertion of stent Family History Family History Father Heart attack Social History Social History Social History: patient lives in a single-level home with 5 steps to enter. Sister plans on staying for month or so it after rehab. Smoking packs per day: 1 Smoking cigarettes per day: 20.0 Years smoked: 55 Smoking pack-years: 55.00 Smoking status: Current every day smoker Tobacco type: cigarettes Additional smoking assessment comments: 40 year PPD smoking history Alcohol intake: never Substance use type: marijuana Lack of Transportation: No Lack of Food: Never True Current Housing: I Have Housing Concerned About Future Housing: No Difficulty Paying Gas/Electric Bills: No Difficulty Paying for Meds: No Currently Unemployed: No Education: Decline to Answer Difficulty w/ Childcare or Family Care: No Spiritual care concerns: No Meds Home Medications and Allergies Home Medications ?Medication ?Instructions ?Recorded ?Confirmed ?Type carvedilol 12.5 mg tablet 12.5 mg PO BID 09/19/21 03/14/25 History Held on 03/14/25. Instructions: Patient has not taken medication in 6 weeks. clopidogrel 75 mg tablet 75 mg PO DAILY 09/19/21 03/14/25 History furosemide 20 mg tablet 20 mg PO BID 09/19/21 03/14/25 History multivitamin,tx-minerals 1 tablet PO DAILY 09/19/21 03/14/25 History potassium chloride 20 mEq 20 meq PO BID 09/19/21 03/14/25 History tablet,extended release spironolactone 25 mg tablet 25 mg PO DAILY 09/19/21 03/14/25 History acetaminophen 325 mg tablet (Mapap 650 mg (2 x 325 mg) PO BID PRN 09/21/21 03/14/25 Rx (acetaminophen)) Mild Pain (1-3) Or Fever #0 tabs atorvastatin 80 mg tablet 80 mg PO HS 30 days #30 tabs 09/21/21 03/14/25 Rx Held on 03/14/25. Instructions: Patient has not been taking for 6 weeks. blood sugar diagnostic (OneTouch #1 pkg 09/21/21 03/14/25 Rx Verio test strips) blood-glucose meter (OneTouch #1 pkg 09/21/21 03/14/25 Rx Verio Flex Meter) docusate sodium 100 mg capsule 100 mg PO BID #0 caps 09/21/21 03/14/25 Rx insulin glargine-yfgn 100 unit/mL 18 unit (0.18 mL) subcut .QHS 30 09/21/21 03/14/25 Rx (3 mL) subcutaneous pen ( #15 mL (insulin glargine-yfgn) Pen) lancets 30 gauge (OneTouch Delica #1 pkg 09/21/21 03/14/25 Rx Plus Lancet) losartan 25 mg tablet 25 mg PO DAILY 30 days #30 tabs 09/21/21 03/14/25 Rx metformin 1,000 mg 24 hr 1,000 mg PO DAILY #30 tabs 09/21/21 03/14/25 Rx tablet,extended release (gastric reten.) oxycodone 5 mg tablet 5 mg PO Q6H PRN Pain Rated 7-10 09/21/21 03/14/25 Rx #20 tabs pen needle, diabetic 32 gauge x #1 pkg 09/21/21 03/14/25 Rx 1/4 (BD Ultra-Fine Micro Pen Needle) potassium chloride 20 mEq 20 meq PO BID #60 tabs 09/21/21 03/14/25 Rx tablet,extended release (K-Tab) rivaroxaban 20 mg tablet (Xarelto) 20 mg PO DAILY@1700 30 days #30 09/21/21 03/14/25 Rx tabs rivaroxaban 20 mg tablet (Xarelto) 20 mg PO QPM 30 days #30 tabs 09/21/21 03/14/25 Rx sennosides 8.6 mg-docusate sodium 1 tab PO BID #0 tabs 09/21/21 03/14/25 Rx 50 mg tablet (Senokot-S) sodium chloride 0.65 % nasal spray 1 spray intranasal Q6HR PRN 09/21/21 03/14/25 Rx aerosol (Saline Mist) Congestion #0 mL Held on 03/14/25. Instructions: Patient no longer taking Allergies Allergy/AdvReac Type Severity Reaction Status Date / Time No Known Allergies Allergy Verified 03/14/25 16:32 Vital Signs Vital Signs - 24 hr 03/14/25 14:36 03/14/25 14:45 03/14/25 15:00 Temperature Pulse Rate 92 66 96 Respiratory Rate 19 19 20 Blood Pressure Pulse Oximetry 99 Oxygen Delivery 03/14/25 15:19 03/14/25 16:00 03/14/25 16:54 Temperature 97.2 F L Pulse Rate 91 Respiratory Rate 22 H Blood Pressure 147/101 H 129/100 H Pulse Oximetry 96 99 Oxygen Delivery Room Air 03/14/25 17:00 03/14/25 18:00 03/14/25 18:00 Temperature 97.5 F L Pulse Rate 94 91 96 Respiratory Rate 24 H 20 Blood Pressure 130/99 H 130/91 H Pulse Oximetry 96 97 Oxygen Delivery 03/14/25 19:00 03/14/25 20:00 03/14/25 20:00 Temperature 97.6 F Pulse Rate 100 89 Respiratory Rate 20 11 L Blood Pressure 129/86 116/87 Pulse Oximetry 97 96 96 Oxygen Delivery Room Air 03/14/25 20:00 03/14/25 21:00 03/14/25 22:00 Temperature Pulse Rate 95 95 88 Respiratory Rate 19 Blood Pressure 111/65 Pulse Oximetry 96 Oxygen Delivery 03/14/25 22:00 03/14/25 23:00 03/15/25 00:00 Temperature 97 F L Pulse Rate 84 90 Respiratory Rate 11 L 21 H Blood Pressure 114/93 H 121/89 Pulse Oximetry 98 99 98 Oxygen Delivery Room Air 03/15/25 00:00 03/15/25 00:00 03/15/25 01:00 Temperature 97 F L Pulse Rate 95 82 87 Respiratory Rate 19 14 Blood Pressure 111/64 129/93 H Pulse Oximetry 91 97 Oxygen Delivery 03/15/25 02:00 03/15/25 02:00 03/15/25 03:00 Temperature 97.1 F L Pulse Rate 87 88 90 Respiratory Rate 15 19 Blood Pressure 130/87 124/102 H Pulse Oximetry 96 92 Oxygen Delivery 03/15/25 04:00 03/15/25 04:00 03/15/25 04:00 Temperature 97.7 F Pulse Rate 95 91 Respiratory Rate 16 Blood Pressure 131/95 H Pulse Oximetry 97 96 Oxygen Delivery Room Air 03/15/25 05:00 03/15/25 06:00 03/15/25 06:00 Temperature 97.7 F Pulse Rate 90 93 93 Respiratory Rate 14 16 Blood Pressure 131/100 H 123/100 H Pulse Oximetry 93 94 Oxygen Delivery 03/15/25 07:00 03/15/25 08:00 03/15/25 08:00 Temperature 97.8 F Pulse Rate 95 93 Respiratory Rate 18 18 Blood Pressure 134/86 123/89 Pulse Oximetry 99 97 100 Oxygen Delivery Room Air 03/15/25 08:00 03/15/25 09:00 03/15/25 09:59 Temperature Pulse Rate 94 93 88 Respiratory Rate 21 H Blood Pressure 131/88 Pulse Oximetry 99 Oxygen Delivery 03/15/25 10:00 03/15/25 10:00 03/15/25 11:00 Temperature Pulse Rate 92 89 78 Respiratory Rate 19 17 Blood Pressure 131/100 H 126/92 H Pulse Oximetry 96 95 Oxygen Delivery 03/15/25 12:00 03/15/25 12:00 03/15/25 12:00 Temperature 97.6 F Pulse Rate 57 L 61 Respiratory Rate 18 Blood Pressure 102/78 Pulse Oximetry 95 94 Oxygen Delivery Room Air 03/15/25 13:00 03/15/25 14:00 03/15/25 14:00 Temperature Pulse Rate 62 70 60 Respiratory Rate 18 14 Blood Pressure 105/76 111/85 Pulse Oximetry 92 96 Oxygen Delivery Exam Const: General: comfortable and no acute distress Other: Eating lunch in bed. Eyes: General: appearance normal, both eyes and all related structures Neck: Neck: supple and no JVD Resp: Effort & Inspection: normal respiratory effort Cardio: Rate: regular rate GI: Inspection: non-distended GI Palp: Yes Soft to palpation, No Tenderness to palpation present (GI), No Guarding due to palpation present (GI) and No Hernia present Auscultation: normal bowel sounds Skin: General skin exam: normal color Neuro: Speech: normal speech Psych: Mental Status: mental status grossly normal Results Labs 03/15/25 03:45 03/15/25 09:59 Labs: Abnormal lab results 03/14/25 03/14/25 03/14/25 Range/Units 14:01 15:51 18:49 WBC (4.5-10.0) K/mm3 Plt Count (150-375) k/mm3 MPV (7.4-10.4) fl % Immature Plt Fraction (0.9-11.2) % Sodium 120 L (137-145) mmol/L Potassium 5.6 H (3.4-5.0) mmol/L Chloride 91 L (98-107) mmol/L Carbon Dioxide 15 L (22-30) mmol/L Anion Gap 14 H (4-12) mmol/L BUN 52 H (9-20) mg/dL Creatinine 1.45 H (0.7-1.3) mg/dL Estimated GFR 48 L (59 - ) Glucose 164 H (65-110) mg/dL POC Capillary Glucose 180 H (65-105) mg/dl Hemoglobin A1c (<5.7) % Calcium (8.4-10.2) mg/dL Magnesium (1.6-2.3) mg/dL Total Bilirubin (0.2-1.3) mg/dL AST (17-59) U/L ALT (6-50) U/L Alkaline Phosphatase (38-126) U/L Ammonia (9-30) umol/L Total Creatine Kinase (55-170) U/L NT-Pro-B Natriuret Pep > 78601 H (19.9-100) pg/mL Total Protein (6.3-8.2) g/dL Albumin (3.5-5.1) g/dL Protein/Creat Ratio 2 3.11 H (0-0.20) mg/mg Acetaminophen (10-30) ug/mL 03/14/25 03/14/25 03/15/25 Range/Units 19:49 23:19 03:45 WBC 13.5 H (4.5-10.0) K/mm3 Plt Count 89 L (150-375) k/mm3 MPV 13.8 H (7.4-10.4) fl % Immature Plt Fraction 22.7 H (0.9-11.2) % Sodium 122 L 120 L 119 L* (137-145) mmol/L Potassium 5.1 H (3.4-5.0) mmol/L Chloride 93 L 94 L 93 L (98-107) mmol/L Carbon Dioxide 19 L 17 L 15 L (22-30) mmol/L Anion Gap (4-12) mmol/L BUN 55 H 53 H 58 H (9-20) mg/dL Creatinine 1.40 H 1.42 H 1.39 H (0.7-1.3) mg/dL Estimated GFR 50 L 49 L 50 L (59 - ) Glucose 124 H 163 H (65-110) mg/dL POC Capillary Glucose (65-105) mg/dl Hemoglobin A1c 7.2 H (<5.7) % Calcium 8.3 L 8.2 L 8.1 L (8.4-10.2) mg/dL Magnesium 2.4 H (1.6-2.3) mg/dL Total Bilirubin 2.2 H (0.2-1.3) mg/dL AST 619 H (17-59) U/L ALT 881 H (6-50) U/L Alkaline Phosphatase 142 H (38-126) U/L Ammonia (9-30) umol/L Total Creatine Kinase (55-170) U/L NT-Pro-B Natriuret Pep (19.9-100) pg/mL Total Protein 5.5 L (6.3-8.2) g/dL Albumin 3.2 L (3.5-5.1) g/dL Protein/Creat Ratio 2 (0-0.20) mg/mg Acetaminophen (10-30) ug/mL 03/15/25 03/15/25 03/15/25 Range/Units 09:59 10:04 11:59 WBC (4.5-10.0) K/mm3 Plt Count (150-375) k/mm3 MPV (7.4-10.4) fl % Immature Plt Fraction (0.9-11.2) % Sodium 122 L (137-145) mmol/L Potassium (3.4-5.0) mmol/L Chloride 94 L (98-107) mmol/L Carbon Dioxide 17 L (22-30) mmol/L Anion Gap (4-12) mmol/L BUN 56 H (9-20) mg/dL Creatinine 1.36 H (0.7-1.3) mg/dL Estimated GFR 52 L (59 - ) Glucose 148 H (65-110) mg/dL POC Capillary Glucose 162 H 192 H (65-105) mg/dl Hemoglobin A1c (<5.7) % Calcium 8.3 L (8.4-10.2) mg/dL Magnesium (1.6-2.3) mg/dL Total Bilirubin (0.2-1.3) mg/dL AST (17-59) U/L ALT (6-50) U/L Alkaline Phosphatase (38-126) U/L Ammonia < 9 L (9-30) umol/L Total Creatine Kinase 1052 H (55-170) U/L NT-Pro-B Natriuret Pep (19.9-100) pg/mL Total Protein (6.3-8.2) g/dL Albumin (3.5-5.1) g/dL Protein/Creat Ratio 2 (0-0.20) mg/mg Acetaminophen < 10 L (10-30) ug/mL Diabetes panel 03/14/25 03/14/25 03/14/25 Range/Units 15:51 19:49 23:19 Sodium 120 L 122 L 120 L (137-145) mmol/L Potassium 5.6 H 5.1 H 4.9 (3.4-5.0) mmol/L Chloride 91 L 93 L 94 L (98-107) mmol/L Carbon Dioxide 15 L 19 L 17 L (22-30) mmol/L BUN 52 H 55 H 53 H (9-20) mg/dL Creatinine 1.45 H 1.40 H 1.42 H (0.7-1.3) mg/dL Glucose 164 H 124 H 94 (65-110) mg/dL Hemoglobin A1c (<5.7) % Calcium 9.4 8.3 L 8.2 L (8.4-10.2) mg/dL AST (17-59) U/L ALT (6-50) U/L Alkaline Phosphatase (38-126) U/L Total Protein (6.3-8.2) g/dL Albumin (3.5-5.1) g/dL 03/15/25 03/15/25 Range/Units 03:45 09:59 Sodium 119 L* 122 L (137-145) mmol/L Potassium 4.9 4.7 (3.4-5.0) mmol/L Chloride 93 L 94 L (98-107) mmol/L Carbon Dioxide 15 L 17 L (22-30) mmol/L BUN 58 H 56 H (9-20) mg/dL Creatinine 1.39 H 1.36 H (0.7-1.3) mg/dL Glucose 163 H 148 H (65-110) mg/dL Hemoglobin A1c 7.2 H (<5.7) % Calcium 8.1 L 8.3 L (8.4-10.2) mg/dL AST 619 H (17-59) U/L ALT 881 H (6-50) U/L Alkaline Phosphatase 142 H (38-126) U/L Total Protein 5.5 L (6.3-8.2) g/dL Albumin 3.2 L (3.5-5.1) g/dL Calcium panel 03/14/25 03/14/25 03/14/25 Range/Units 15:51 19:49 23:19 Calcium 9.4 8.3 L 8.2 L (8.4-10.2) mg/dL Albumin (3.5-5.1) g/dL 03/15/25 03/15/25 Range/Units 03:45 09:59 Calcium 8.1 L 8.3 L (8.4-10.2) mg/dL Albumin 3.2 L (3.5-5.1) g/dL Pituitary panel 03/14/25 03/14/25 03/14/25 Range/Units 15:51 19:49 23:19 Sodium 120 L 122 L 120 L (137-145) mmol/L Potassium 5.6 H 5.1 H 4.9 (3.4-5.0) mmol/L Chloride 91 L 93 L 94 L (98-107) mmol/L Carbon Dioxide 15 L 19 L 17 L (22-30) mmol/L BUN 52 H 55 H 53 H (9-20) mg/dL Creatinine 1.45 H 1.40 H 1.42 H (0.7-1.3) mg/dL Glucose 164 H 124 H 94 (65-110) mg/dL Calcium 9.4 8.3 L 8.2 L (8.4-10.2) mg/dL 03/15/25 03/15/25 Range/Units 03:45 09:59 Sodium 119 L* 122 L (137-145) mmol/L Potassium 4.9 4.7 (3.4-5.0) mmol/L Chloride 93 L 94 L (98-107) mmol/L Carbon Dioxide 15 L 17 L (22-30) mmol/L BUN 58 H 56 H (9-20) mg/dL Creatinine 1.39 H 1.36 H (0.7-1.3) mg/dL Glucose 163 H 148 H (65-110) mg/dL Calcium 8.1 L 8.3 L (8.4-10.2) mg/dL Adrenal panel 03/14/25 03/14/25 03/14/25 Range/Units 15:51 19:49 23:19 Sodium 120 L 122 L 120 L (137-145) mmol/L Potassium 5.6 H 5.1 H 4.9 (3.4-5.0) mmol/L Chloride 91 L 93 L 94 L (98-107) mmol/L Carbon Dioxide 15 L 19 L 17 L (22-30) mmol/L BUN 52 H 55 H 53 H (9-20) mg/dL Creatinine 1.45 H 1.40 H 1.42 H (0.7-1.3) mg/dL Glucose 164 H 124 H 94 (65-110) mg/dL Calcium 9.4 8.3 L 8.2 L (8.4-10.2) mg/dL Total Bilirubin (0.2-1.3) mg/dL AST (17-59) U/L ALT (6-50) U/L Alkaline Phosphatase (38-126) U/L Total Protein (6.3-8.2) g/dL Albumin (3.5-5.1) g/dL 03/15/25 03/15/25 Range/Units 03:45 09:59 Sodium 119 L* 122 L (137-145) mmol/L Potassium 4.9 4.7 (3.4-5.0) mmol/L Chloride 93 L 94 L (98-107) mmol/L Carbon Dioxide 15 L 17 L (22-30) mmol/L BUN 58 H 56 H (9-20) mg/dL Creatinine 1.39 H 1.36 H (0.7-1.3) mg/dL Glucose 163 H 148 H (65-110) mg/dL Calcium 8.1 L 8.3 L (8.4-10.2) mg/dL Total Bilirubin 2.2 H (0.2-1.3) mg/dL AST 619 H (17-59) U/L ALT 881 H (6-50) U/L Alkaline Phosphatase 142 H (38-126) U/L Total Protein 5.5 L (6.3-8.2) g/dL Albumin 3.2 L (3.5-5.1) g/dL All other labs normal.
[2025-03-15] MEDS: BENZONATATE 100 MG CAPSULE PO (16:59)
[2025-03-15] MEDS: RIVAROXABAN 20 MG TABLET PO (16:59)
[2025-03-15] MEDS: INSULIN ASPART (*BKC) 100 UNITS/ML SUB-Q (17:00)
[2025-03-15 17:20] LABS: Sodium 121 mmol/L (137-145)
[2025-03-15 18:12] LABS: Procalcitonin 0.2 ng/mL
[2025-03-15] MEDS: VANCOMYCIN HCL 1,000 MG in SODIUM CHLORIDE 0.9% IV 250 ML 250 MG IVPB (19:14)
[2025-03-15] MEDS: MELATONIN 5 MG TABLET PO (20:03)
[2025-03-15 23:36] LABS: Sodium 121 mmol/L (137-145)
[2025-03-15] MEDS: ALBUMIN HUMAN 25% 25 GM/100 ML 100 ML IVPB (23:41)
[2025-03-16] VITALS (19 sets, daily range): BP systolic 91–123; BP diastolic 56–85; PULSE 51–69; RESP 11–20; TEMP 35.5–36.4; O2SAT 91–100
[2025-03-16 03:40] LABS: Hematocrit 37.2 % (42.0-52.0); Hemoglobin 12.8 g/dL (14.0-18.0); Immature Platelet Fraction Pct 22.2 % (0.9-11.2); Mean Corpuscular HGB Conc 34.4 g/dl (32-36); Mean Corpuscular Hemoglobin 30.0 pg (26-34); Mean Corpuscular Volume 87.1 fl (80-100); Platelet Count Result 70 k/mm3 (150-375); Red Blood Count 4.27 M/mm3 (4.6-6.20); White Blood Count 10.4 K/mm3 (4.5-10.0)
[2025-03-16 03:53] LABS: Alanine Aminotransferase 518 U/L (6-50); Albumin Level 3.3 g/dL (3.5-5.1); Alkaline Phosphatase 141 U/L (38-126); Anion Gap 8 mmol/L (4-12); Aspartate Amino Transferase 172 U/L (17-59); Bilirubin,Total 1.8 mg/dL (0.2-1.3); Blood Urea Nitrogen 59 mg/dL (9-20); Calcium 8.2 mg/dL (8.4-10.2); Carbon Dioxide 24 mmol/L (22-30); Chloride 92 mmol/L (98-107); Estimated CRCL calculation 36 ml/min; Estimated Glomerular Filt Rate 47; Glucose 156 mg/dL (65-110); Magnesium 2.3 mg/dL (1.6-2.3); Potassium 3.7 mmol/L (3.4-5.0); Sodium 124 mmol/L (137-145); Total Protein 5.3 g/dL (6.3-8.2)
[2025-03-16] MEDS: CEFEPIME 1 GM in SODIUM CHLORIDE 0.9% IV 50 ML 100 ML IVPB ×2 (05:47→16:48)
--- NOTE | 2025-03-16 08:03 | P.CDI_ITS ---
CDI Query Clarification Request BMI: 20.0 Nutritional Diagnostic Statement: Please refer to the comprehensive nutrition assessment for further information. If you agree with diagnosis of Severe Protein Calorie Malnutrition as related to inadequate protein energy intake with increased protein energy needs in setting of chronic disease as evidenced by minimal oral intake for > 1-2 months; severe subcutaneous fat loss (orbital fat pads) and muscle wasting (temporalis, clavicle). Please specify severity if known: * Mild * Moderate * Severe * Other/Unknown
[2025-03-16] MEDS: DOXYCYCLINE IV 100 MG in SODIUM CHLORIDE 0.9% IV 100 ML IVPB ×2 (08:10→20:47)
[2025-03-16] MEDS: INSULIN ASPART (*BKC) 100 UNITS/ML SUB-Q ×2 (08:12→16:53)
[2025-03-16] MEDS: CLOPIDOGREL BISULFATE 75 MG TABLET PO (08:12)
[2025-03-16] MEDS: DOCUSATE SODIUM 100 MG CAPSULE PO (08:12)
[2025-03-16] MEDS: FUROSEMIDE INJ 40 MG/4 ML VIAL IV PUSH (08:12)
[2025-03-16] MEDS: BENZONATATE 100 MG CAPSULE PO ×2 (08:12→16:51)
--- NOTE | 2025-03-16 08:30 | P.PNCA_ITS ---
Progress Note: A&P Assessment and Plan (1) Ischemic cardiomyopathy: Code(s): I25.5 - Ischemic cardiomyopathy Status: Chronic Assessment and Plan: EF 10% (previously 28%) * Continue GDMT with Coreg, spironolactone. * Previously did not tolerate ARNI, however patient does not remember what type of reaction he had. Will reintroduce low-dose Entresto 12-13 mg b.i.d. starting tomorrow as long as blood pressure and kidney function are stable. * Can also add Jardiance if he tolerates Entresto. * Has declined ICD in the past. I reviewed the results of his echocardiogram with him and discussed increased risk for life-threatening arrhythmias given his decline in LV function. He is not particularly interested in LifeVest at this time but says that he will think about it. (2) Acute exacerbation of CHF (congestive heart failure): Qualifiers: Heart failure type: unspecified Qualified Code(s): I50.9 - Heart failure, unspecified Code(s): I50.9 - Heart failure, unspecified Status: Acute Assessment and Plan: Mild CHF exacerbation secondary to medication noncompliance * He appears euvolemic. Will shift to p.o. furosemide 40 mg b.i.d. * Strict I&O * Fluid restriction * Daily weights * Daily BMP while diuresing (3) History of revascularization procedure of lower extremity: Code(s): Z98.62 - Peripheral vascular angioplasty status Status: Acute Assessment and Plan: Stable. Continue Plavix, statin. (4) Coronary artery disease: Code(s): I25.10 - Atherosclerotic heart disease of [place] coronary artery without angina pectoris Status: Acute Assessment and Plan: Stable, not reporting any anginal symptoms. Continue statin. (5) Bilateral pneumonia: Qualifiers: Lung location: lower lobe of lung Pneumonia type: due to unspecified organism Qualified Code(s): J18.9 - Pneumonia, unspecified organism Code(s): J18.9 - Pneumonia, unspecified organism Status: Acute Assessment and Plan: Abx and management per primary team Subjective Date/time seen: 03/16/25 08:30 Interval history: Cardiology follow up visit for CAD, PAD, CHF Date of service 03/16/2025: He is feeling better today. He denies any shortness of breath, chest pain, palpitations. His swelling has resolved. Review of Systems Review of Systems: All systems reviewed & are unremarkable except as noted in HPI and below Exam Const: General: comfortable, no acute distress, alert and awake Orientation/consciousness: patient oriented x3 HENMT: Head: normal to inspection Eyes: General: appearance normal, both eyes and all related structures P upils: Equal, round and reactive pupils present Neck: Neck: normal visual inspection, supple and no JVD Carotids: normal carotid upstroke Resp: Effort & Inspection: normal respiratory effort Auscultation: crackles Cardio: Rate: regular rate Rhythm: regular rhythm Heart sounds: S1 normal heart sound present, S2 normal heart sound present and no murmurs GI: Auscultation: normal bowel sounds Skin: General skin exam: normal color Neuro: General: patient oriented x3 Cranial nerves: Yes Equal, round and reactive pupils present Extrem: Other: No edema Psych: Appearance: grossly normal Mental Status: mental status grossly normal Objective Data Vital Signs Vital Signs: Vital Signs - 24 hr 03/15/25 09:00 03/15/25 09:59 03/15/25 10:00 Temperature Pulse Rate 93 88 92 Respiratory Rate 21 H 19 Blood Pressure 131/88 131/100 H Pulse Oximetry 99 96 Oxygen Delivery Oxygen Flow Rate 03/15/25 10:00 03/15/25 11:00 03/15/25 12:00 Temperature Pulse Rate 89 78 Respiratory Rate 17 Blood Pressure 126/92 H Pulse Oximetry 95 95 Oxygen Delivery Room Air Oxygen Flow Rate 03/15/25 12:00 03/15/25 12:00 03/15/25 13:00 Temperature 36.4 C Pulse Rate 57 L 61 62 Respiratory Rate 18 18 Blood Pressure 102/78 105/76 Pulse Oximetry 94 92 Oxygen Delivery Oxygen Flow Rate 03/15/25 14:00 03/15/25 14:00 03/15/25 15:00 Temperature Pulse Rate 70 60 62 Respiratory Rate 14 18 Blood Pressure 111/85 114/79 Pulse Oximetry 96 95 Oxygen Delivery Oxygen Flow Rate 03/15/25 16:00 03/15/25 16:00 03/15/25 16:00 Temperature 36.8 C Pulse Rate 66 58 L Respiratory Rate 14 Blood Pressure 110/89 Pulse Oximetry 95 96 Oxygen Delivery Room Air Oxygen Flow Rate 03/15/25 16:44 03/15/25 17:00 03/15/25 18:00 Temperature Pulse Rate 56 L 65 Respiratory Rate 20 Blood Pressure 111/91 H Pulse Oximetry 95 95 Oxygen Delivery Room Air Oxygen Flow Rate 03/15/25 18:00 03/15/25 19:01 03/15/25 20:00 Temperature Pulse Rate 64 63 Respiratory Rate 18 15 Blood Pressure 124/71 106/78 Pulse Oximetry 92 95 Oxygen Delivery Room Air Oxygen Flow Rate 03/15/25 20:00 03/15/25 20:01 03/15/25 20:02 Temperature 35.5 C L Pulse Rate 59 L 54 L 61 Respiratory Rate 15 Blood Pressure 101/73 Pulse Oximetry 97 Oxygen Delivery Oxygen Flow Rate 03/15/25 20:18 03/15/25 20:20 03/15/25 20:30 Temperature 35.5 C L 35.4 C L Pulse Rate 61 Respiratory Rate 15 Blood Pressure 103/77 Pulse Oximetry 97 Oxygen Delivery Oxygen Flow Rate 03/15/25 20:31 03/15/25 20:45 03/15/25 20:46 Temperature 35.4 C L Pulse Rate 57 L 56 L Respiratory Rate 18 15 Blood Pressure 105/92 H 106/72 Pulse Oximetry 94 99 Oxygen Delivery Oxygen Flow Rate 03/15/25 21:00 03/15/25 21:01 03/15/25 21:15 Temperature 35.7 C L 35.7 C L Pulse Rate 56 L Respiratory Rate 16 Blood Pressure 100/77 Pulse Oximetry 92 Oxygen Delivery Oxygen Flow Rate 03/15/25 21:16 03/15/25 21:30 03/15/25 21:31 Temperature 35.8 C L Pulse Rate 54 L 57 L Respiratory Rate 18 Blood Pressure 100/71 94/59 L Pulse Oximetry 98 90 Oxygen Delivery Oxygen Flow Rate 03/15/25 21:45 03/15/25 21:46 03/15/25 22:00 Temperature 35.8 C L Pulse Rate 55 L 49 L Respiratory Rate 15 Blood Pressure 96/73 L Pulse Oximetry 98 Oxygen Delivery Oxygen Flow Rate 03/15/25 22:01 03/15/25 22:16 03/15/25 22:31 Temperature 35.8 C L Pulse Rate 49 L 55 L 51 L Respiratory Rate 18 15 15 Blood Pressure 97/65 L 96/69 L 97/69 L Pulse Oximetry 97 96 97 Oxygen Delivery Oxygen Flow Rate 03/15/25 23:00 03/15/25 23:30 03/16/25 00:00 Temperature 35.7 C L Pulse Rate 52 L 52 L Respiratory Rate 15 15 Blood Pressure 87/76 L 83/59 L Pulse Oximetry 99 95 96 Oxygen Delivery Nasal Cannula Oxygen Flow Rate 2 03/16/25 00:00 03/16/25 00:00 03/16/25 01:00 Temperature 35.5 C L Pulse Rate 51 L 51 L 54 L Respiratory Rate 11 L 15 Blood Pressure 98/65 L 92/71 L Pulse Oximetry 98 98 Oxygen Delivery Oxygen Flow Rate 03/16/25 02:00 03/16/25 02:00 03/16/25 03:00 Temperature 35.5 C L Pulse Rate 59 L 59 L 59 L Respiratory Rate 16 16 Blood Pressure 94/64 L 101/68 Pulse Oximetry 91 97 Oxygen Delivery Oxygen Flow Rate 03/16/25 04:00 03/16/25 04:00 03/16/25 04:00 Temperature 36.3 C L Pulse Rate 60 60 Respiratory Rate 19 Blood Pressure 101/67 Pulse Oximetry 97 97 Oxygen Delivery Nasal Cannula Oxygen Flow Rate 2 03/16/25 05:00 03/16/25 06:00 03/16/25 06:00 Temperature Pulse Rate 63 57 L 57 L Respiratory Rate 14 12 Blood Pressure 97/64 L 103/77 Pulse Oximetry 96 98 Oxygen Delivery Oxygen Flow Rate 03/16/25 07:56 03/16/25 08:13 Temperature Pulse Rate 58 L 60 Respiratory Rate 20 Blood Pressure Pulse Oximetry 98 Oxygen Delivery Room Air Oxygen Flow Rate Intake/Output Intake/Output: Intake & Output 03/13/25 03/14/25 03/15/25 03/16/25 23:59 23:59 23:59 23:59 Intake Total 1100 1080 490 Output Total 0 2100 400 Balance 1100 -1020 90 Meds/Results Medications: Active Medications Generic Name Dose Route Start Last Admin Trade Name Freq PRN Reason Stop Dose Admin Atorvastatin Calcium 80 mg 03/15/25 01:25 03/15/25 02:39 Atorvastatin 40 Mg Tablet PO 80 mg On Hold: 03/15/25 08:27 HS LIZ Administration Benzonatate 100 mg 03/15/25 13:00 03/16/25 08:12 Benzonatate 100 Mg Capsule PO 100 mg TID LIZ Administration Carvedilol 6.25 mg 03/15/25 21:00 03/16/25 08:13 Carvedilol 6.25 Mg Tablet PO 6.25 mg Q12HR LIZ Administration Clopidogrel Bisulfate 75 mg 03/15/25 09:00 03/16/25 08:12 Clopidogrel Bisulfate 75 Mg Tablet PO 75 mg DAILY LIZ Administration Dextrose 12.5 gm 03/14/25 19:19 Dextrose 50% 25 Gm/50 Ml Syringe IV PUSH PRN PRN Hypoglycemia Protocol Docusate Sodium 100 mg 03/15/25 09:00 03/16/25 08:12 Docusate Sodium 100 Mg Capsule PO 100 mg BID LIZ Administration Furosemide 40 mg 03/16/25 09:00 03/16/25 08:12 Furosemide Inj 40 Mg/4 Ml Vial IV PUSH 40 mg BID LIZ Administration Glucagon 1 mg 03/14/25 19:19 Glucagon For Inj 1 Mg Vial IM PRN PRN Hypoglycemia Protocol Glucose 15 gm 03/14/25 19:19 Glucose Oral Gel 15 Gm Of Glucse In 37.5 Gm Tube PO PRN PRN Hypoglycemia Protocol Guaifenesin/Dextromethorphan 10 ml 03/15/25 09:35 Guaifenesin/Dextromethorphan 10 Ml Udc PO Q4H PRN Cough Dextrose 1,000 mls @ 100 mls/hr 03/14/25 19:19 Dextrose 5% 1,000 Ml IVPB PRN PRN Hypoglycemia Protocol Cefepime HCl 1 gm/ Sodium 50 mls @ 100 mls/hr 03/15/25 06:00 03/16/25 05:47 Chloride IVPB 100 mls/hr Q12H LIZ Administration Doxycycline Hyclate 100 mg/ 100 mls @ 100 mls/hr 03/15/25 09:00 03/16/25 08:10 Sodium Chloride IVPB 100 mls/hr Q12H LIZ Administration Insulin Aspart 2 - 5 units 03/15/25 08:00 03/16/25 08:12 Insulin Aspart (*Bkc) 100 Units/Ml SUB-Q 2 units TIDWM LIZ Administration Protocol Melatonin 5 mg 03/14/25 21:35 03/15/25 20:03 Melatonin 5 Mg Tablet PO 5 mg HS LIZ Administration Rivaroxaban 20 mg 03/15/25 17:00 03/15/25 16:59 Rivaroxaban 20 Mg Tablet PO 20 mg DAILY@1700 LIZ Administration Vancomycin HCl 1 each 03/14/25 14:33 Vancomycin For Acute Kidney Injury IVPB PRN PRN Vancomycin Protocol Radiology Results: ITS Impressions Chest X-Ray 03/14/25 12:52 IMPRESSION: 1. Pleural effusions with bibasilar atelectasis and/or airspace disease. Head CT 03/14/25 14:37 Impression: 1.No acute intracranial abnormality. Chest CT 03/14/25 14:39 IMPRESSION: CHF. Superimposed probable mild bronchopneumonia. Follow-up recommended to assess. Abdomen Ultrasound 03/15/25 10:09 IMPRESSION: 1. Mildly increased echotexture of the kidneys may represent underlying medical renal disease. No hydronephrosis or large masses in the kidneys. 2. Incidental note of cholelithiasis with borderline gallbladder wall thickening and possible trace of pericholecystic fluid. Correlate with right upper quadrant ultrasound. ADDENDUM: 03/15/25 1230 Examination was incomplete on initial dictation. On follow-up review, again noted are several gallstones, and borderline gallbladder wall thickening. Pericholecystic fluid may also be present. Free fluid is also noted superior to the liver. The liver measures 15.1 cm in length. IMPRESSION: Findings are concerning for cholecystitis. Correlate with clinical presentation and exam for additional imaging as clinically appropriate. Renal Ultrasound 03/15/25 10:10 Impression: 1. Medical renal disease with tiny probable renal vascular calcifications, less likely renal calculi. No hydronephrosis. 2. Enlarged prostate. Correlate with PSA Labs Labs: Laboratory Results - last 24 hr 03/15/25 03/15/25 03/15/25 09:59 10:04 11:59 WBC RBC Hgb Hct MCV MCH MCHC RDW Plt Count MPV % Immature Plt Fraction Sodium 122 L Potassium 4.7 Chloride 94 L Carbon Dioxide 17 L Anion Gap 11 BUN 56 H Creatinine 1.36 H Estim Creat Clear Calc 39 Estimated GFR 52 L Glucose 148 H POC Capillary Glucose 162 H 192 H Calcium 8.3 L Phosphorus Magnesium Total Bilirubin AST ALT Alkaline Phosphatase Ammonia < 9 L Total Creatine Kinase 1052 H Total Protein Albumin Procalcitonin Random Vancomycin Acetaminophen < 10 L Hepatitis A IgM Ab Negative Hep Bs Antigen Negative Hep B Core IgM Ab Negative Hepatitis C Ab Screen Negative 03/15/25 03/15/25 03/15/25 16:59 17:00 19:56 WBC RBC Hgb Hct MCV MCH MCHC RDW Plt Count MPV % Immature Plt Fraction Sodium 121 L Potassium Chloride Carbon Dioxide Anion Gap BUN Creatinine Estim Creat Clear Calc Estimated GFR Glucose POC Capillary Glucose 237 H 196 H Calcium Phosphorus Magnesium Total Bilirubin AST ALT Alkaline Phosphatase Ammonia Total Creatine Kinase Total Protein Albumin Procalcitonin 0.2 Random Vancomycin 5.6 L Acetaminophen Hepatitis A IgM Ab Hep Bs Antigen Hep B Core IgM Ab Hepatitis C Ab Screen 03/15/25 03/16/25 03/16/25 23:23 03:34 07:32 WBC 10.4 H RBC 4.27 L Hgb 12.8 L Hct 37.2 L MCV 87.1 MCH 30.0 MCHC 34.4 RDW 14.4 Plt Count 70 L MPV 13.5 H % Immature Plt Fraction 22.2 H Sodium 121 L 124 L Potassium 3.7 Chloride 92 L Carbon Dioxide 24 Anion Gap 8 BUN 59 H Creatinine 1.48 H Estim Creat Clear Calc 36 Estimated GFR 47 L Glucose 156 H POC Capillary Glucose 224 H Calcium 8.2 L Phosphorus 4.4 Magnesium 2.3 Total Bilirubin 1.8 H AST 172 H ALT 518 H Alkaline Phosphatase 141 H Ammonia Total Creatine Kinase Total Protein 5.3 L Albumin 3.3 L Procalcitonin Random Vancomycin Acetaminophen Hepatitis A IgM Ab Hep Bs Antigen Hep B Core IgM Ab Hepatitis C Ab Screen Quality VTE Prophylaxis VTE prophylaxis: pharmacologic ordered
--- NOTE | 2025-03-16 09:15 | WPDINTPN ---
Progress Note: A&P Assessment and Plan (1) Ischemic cardiomyopathy: Code(s): I25.5 - Ischemic cardiomyopathy Status: Chronic Assessment and Plan: Patient has history of coronary disease and ischemic cardiomyopathy. He gets his care [facility]. I will obtain records from [facility] Both feet are cold on admission. He has bilateral pleural effusion. He has been noncompliant with medications, states he has not taken his medications for 6 weeks prior to admission as he wondered try multivitamins. He is also having difficulty with obtaining rivaroxaban. Will have care coordination assisting with obtaining his medications He also has hyponatremia, elevated BNP Denies any chest pain Appreciate cardiology evaluation recommendation Contain IV diuretics Continue Coreg, Lasix , rivaroxaban on clopidogrel 03/15/2025: Echocardiogram Summary 1. The left ventricle is moderately dilated with severely reduced systolic function. There is moderate eccentric left ventricular hypertrophy. The left ventricular ejection fraction is visually estimated to be 10-20%. There is no thrombus in the left ventricle. 2. The right ventricle is normal in size with reduced systolic function. 3. The left atrium is moderately dilated. 4. The aortic valve is trileaflet and opens well. The non coronary cusp has a small mass on leaflet tip that is likely a calcified nodule. There is mild aortic regurgitation. 5. The mitral valve leaflets are normal. There is moderate mitral regurgitation. 6. Dilated inferior vena cava with <50% collapse upon inspiration consistent with significantly elevated right atrial pressure, 15 mmHg. 7. Pulmonary arterial systolic pressure is estimated at 59 mmHg. There is moderate pulmonary hypertension. (2) Bilateral pneumonia: Qualifiers: Lung location: lower lobe of lung Pneumonia type: due to unspecified organism Qualified Code(s): J18.9 - Pneumonia, unspecified organism Code(s): J18.9 - Pneumonia, unspecified organism Status: Acute Assessment and Plan: Patient's CT scan shows mild bronchopneumonia. Patient states that he was recently treated for pneumonia as an outpatient and finished antibiotic course. This could be a resolving pneumonia or incompletely treated 03/14: Blood cultures obtained and pending 03/14: Urine Legionella and strep antigen pending Continue vancomycin doxycycline and cefepime (03/15) Tessalon and Robitussin DM p.r.n. for cough (3) Elevated serum creatinine: Code(s): R79.89 - Other specified abnormal findings of blood chemistry Status: Acute Assessment and Plan: Patient presented with creatinine 1.57. Baseline creatinine is unknown. Patient received 1 L at the time of admission. -could be related to cardiorenal syndrome -Urine electrolytes will be inaccurate as patient received Lasix Appreciate nephrology following the patient Renal ultrasound showed medical disease, no hydronephrosis, enlarged prostate CK level was 1052,unable to give him a at more fluids due to his cardiomyopathy, will discuss with Nephrology -continue to monitor urine output, renal function and electrolytes (4) Peripheral vascular disease: Code(s): I73.9 - Peripheral vascular disease, unspecified Status: Acute Assessment and Plan: Patient has history of peripheral vascular disease with revascularization of right lower extremity many years ago at [facility]. Exam as above. I am unable to palpate or Doppler dorsalis pedis and bilateral feet His feet are cold, right 3rd toe is cyanotic Maintain mean arterial pressure Cardiology following the patient Patient will likely need to be transferred to [facility] for further evaluation. (5) Acute hyperkalemia: Code(s): E87.5 - Hyperkalemia Status: Acute Assessment and Plan: Patient was hyperkalemic on admission, received Lokelma, insulin and D50 Potassium levels have normalized (6) Acute hyponatremia: Code(s): E87.1 - Hypo-osmolality and hyponatremia Status: Acute Assessment and Plan: Hyponatremia in the setting of congestive heart failure with volume overload and ALBERTO On fluid restriction diet Nephrology is following. Serial BMPs are being done. -Lasix could be causing his hyponatremia -patient is asymptomatic (7) Transaminitis: Code(s): R74.01 - Elevation of levels of liver transaminase levels Status: Acute Assessment and Plan: Significantly Elevated AST ALT and mildly elevated bilirubin and alkaline phosphatase likely secondary to either congestion or cardiogenic shock Hepatitis panel is negative RUQ ultrasound showed findings concerning for cholecystitis. Surgery was consulted, appreciated the evaluation, poor surgical candidate given his cardiac history, asymptomatic, if intervention is necessary would opt for percutaneous cholecystostomy tube Hold statin at this time Ammonia levels < 9 (8) Type 2 diabetes mellitus: Qualifiers: Diabetes mellitus complication detail: with other circulatory complications Diabetes mellitus complication status: with circulatory complication Diabetes mellitus retail pharmacy manager insulin use: unspecified retail pharmacy manager insulin use status Qualified Code(s): E11.59 - Type 2 diabetes mellitus with other circulatory complications Code(s): E11.9 - Type 2 diabetes mellitus without complications Status: Chronic Assessment and Plan: Sliding scale insulin and Accu-Cheks Diabetic diet Plan DVT prophylaxis -Xarelto Nutrition -consistent carbohydrate diet and fluid restriction diet Code Status - Full Code patient is unmarried and is not in touch with his biological children. Wants his sister to be a POA in case he is not able to make decisions by himself. Total Critical Care Time - 40 minutes Due to a high probability of clinically significant, life threatening deterioration, the patient required my highest level of preparedness to intervene emergently and I personally spent this critical care time directly and personally managing the patient. This critical care time included obtaining a history; examining the patient; pulse oximetry; ordering and review of studies; arranging urgent treatment with development of a management plan; evaluation of patient's response to treatment; frequent reassessment; and discussions with other providers. It was exclusive of separately billable procedures and treating other patients and teaching time. Please see Assessment and Plan section and the rest of the note for further information on patient assessment and treatment This dictation may have been done utilizing a voice recognition system. Attempts have been made to correct errors. However, there may be uncorrected grammatical, spelling, and recognitions errors present. 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 Denies any shortness of breath, chest pain, abdominal pain, nausea, vomiting. States that he quit taking the medications 6 weeks ago and wanted to try multivitamins instead. He has also has issues with obtaining Xarelto because that is expensive. Urine output has been adequate, negative fluid balance, tolerating oral diet, afebrile, hemodynamically stable Review of Systems Review of Systems: All systems reviewed & are unremarkable except as noted in HPI and below (HPI) Exam Narrative: General: Frail old male to who looks malnourished and debilitated Lungs/Chest: Trachea central Clear BS B/L anterior, breath sounds decreased at bases Cardiac: Regular rate and rhythm, Normal S1 S2. Systolic murmur 3/6 present Circulation: Unable to feel bilateral dorsalis pedis, bilateral feet are cold, right 3rd toe looks cyanotic Abdomen: Normal bowel sounds.. Soft. NT. ND. Extremities: Bilateral pitting edema present, bilateral fluid-filled blisters on dorsal surface of the foot, right 3rd toe looks cyanotic, feet are cold : Nava in place Neurologic: Follows commands. Moves all 4 extremities PERRL AO x3 Skin: No other Rash Objective Data Vital Signs Vital Signs: Vital Signs - 24 hr 03/15/25 09:59 03/15/25 10:00 03/15/25 10:00 Temperature Pulse Rate 88 92 89 Respiratory Rate 19 Blood Pressure 131/100 H Pulse Oximetry 96 Oxygen Delivery Oxygen Flow Rate 03/15/25 11:00 03/15/25 12:00 03/15/25 12:00 Temperature Pulse Rate 78 57 L Respiratory Rate 17 Blood Pressure 126/92 H Pulse Oximetry 95 95 Oxygen Delivery Room Air Oxygen Flow Rate 03/15/25 12:00 03/15/25 13:00 03/15/25 14:00 Temperature 97.6 F Pulse Rate 61 62 70 Respiratory Rate 18 18 Blood Pressure 102/78 105/76 Pulse Oximetry 94 92 Oxygen Delivery Oxygen Flow Rate 03/15/25 14:00 03/15/25 15:00 03/15/25 16:00 Temperature Pulse Rate 60 62 66 Respiratory Rate 14 18 Blood Pressure 111/85 114/79 Pulse Oximetry 96 95 Oxygen Delivery Oxygen Flow Rate 03/15/25 16:00 03/15/25 16:00 03/15/25 16:44 Temperature 98.2 F Pulse Rate 58 L Respiratory Rate 14 Blood Pressure 110/89 Pulse Oximetry 95 96 95 Oxygen Delivery Room Air Room Air Oxygen Flow Rate 03/15/25 17:00 03/15/25 18:00 03/15/25 18:00 Temperature Pulse Rate 56 L 65 64 Respiratory Rate 20 18 Blood Pressure 111/91 H 124/71 Pulse Oximetry 95 92 Oxygen Delivery Oxygen Flow Rate 03/15/25 19:01 03/15/25 20:00 03/15/25 20:00 Temperature Pulse Rate 63 59 L Respiratory Rate 15 Blood Pressure 106/78 Pulse Oximetry 95 Oxygen Delivery Room Air Oxygen Flow Rate 03/15/25 20:01 03/15/25 20:02 03/15/25 20:18 Temperature 95.9 F L 95.9 F L Pulse Rate 54 L 61 Respiratory Rate 15 Blood Pressure 101/73 Pulse Oximetry 97 Oxygen Delivery Oxygen Flow Rate 03/15/25 20:20 03/15/25 20:30 03/15/25 20:31 Temperature 95.8 F L Pulse Rate 61 57 L Respiratory Rate 15 18 Blood Pressure 103/77 105/92 H Pulse Oximetry 97 94 Oxygen Delivery Oxygen Flow Rate 03/15/25 20:45 03/15/25 20:46 03/15/25 21:00 Temperature 95.8 F L 96.3 F L Pulse Rate 56 L Respiratory Rate 15 Blood Pressure 106/72 Pulse Oximetry 99 Oxygen Delivery Oxygen Flow Rate 03/15/25 21:01 03/15/25 21:15 03/15/25 21:16 Temperature 96.3 F L Pulse Rate 56 L 54 L Respiratory Rate 16 Blood Pressure 100/77 100/71 Pulse Oximetry 92 98 Oxygen Delivery Oxygen Flow Rate 03/15/25 21:30 03/15/25 21:31 03/15/25 21:45 Temperature 96.4 F L 96.4 F L Pulse Rate 57 L Respiratory Rate 18 Blood Pressure 94/59 L Pulse Oximetry 90 Oxygen Delivery Oxygen Flow Rate 03/15/25 21:46 03/15/25 22:00 03/15/25 22:01 Temperature 96.4 F L Pulse Rate 55 L 49 L 49 L Respiratory Rate 15 18 Blood Pressure 96/73 L 97/65 L Pulse Oximetry 98 97 Oxygen Delivery Oxygen Flow Rate 03/15/25 22:16 03/15/25 22:31 03/15/25 23:00 Temperature 96.3 F L Pulse Rate 55 L 51 L 52 L Respiratory Rate 15 15 15 Blood Pressure 96/69 L 97/69 L 87/76 L Pulse Oximetry 96 97 99 Oxygen Delivery Oxygen Flow Rate 03/15/25 23:30 03/16/25 00:00 03/16/25 00:00 Temperature 96 F L Pulse Rate 52 L 51 L Respiratory Rate 15 11 L Blood Pressure 83/59 L 98/65 L Pulse Oximetry 95 96 98 Oxygen Delivery Nasal Cannula Oxygen Flow Rate 2 03/16/25 00:00 03/16/25 01:00 03/16/25 02:00 Temperature 96 F L Pulse Rate 51 L 54 L 59 L Respiratory Rate 15 16 Blood Pressure 92/71 L 94/64 L Pulse Oximetry 98 91 Oxygen Delivery Oxygen Flow Rate 03/16/25 02:00 03/16/25 03:00 03/16/25 04:00 Temperature Pulse Rate 59 L 59 L Respiratory Rate 16 Blood Pressure 101/68 Pulse Oximetry 97 97 Oxygen Delivery Nasal Cannula Oxygen Flow Rate 2 03/16/25 04:00 03/16/25 04:00 03/16/25 05:00 Temperature 97.4 F L Pulse Rate 60 60 63 Respiratory Rate 19 14 Blood Pressure 101/67 97/64 L Pulse Oximetry 97 96 Oxygen Delivery Oxygen Flow Rate 03/16/25 06:00 03/16/25 06:00 03/16/25 07:56 Temperature Pulse Rate 57 L 57 L 58 L Respiratory Rate 12 20 Blood Pressure 103/77 Pulse Oximetry 98 98 Oxygen Delivery Room Air Oxygen Flow Rate 03/16/25 08:00 03/16/25 08:13 Temperature 95.9 F L Pulse Rate 62 60 Respiratory Rate 17 Blood Pressure 107/74 Pulse Oximetry 96 Oxygen Delivery Oxygen Flow Rate Intake/Output Intake/Output: Intake & Output 03/13/25 03/14/25 03/15/25 03/16/25 23:59 23:59 23:59 23:59 Intake Total 1100 1080 490 Output Total 0 2100 400 Balance 1100 -1020 90 Meds/Results Medications: Active Medications Generic Name Dose Route Start Last Admin Trade Name Freq PRN Reason Stop Dose Admin Atorvastatin Calcium 80 mg 03/15/25 01:25 03/15/25 02:39 Atorvastatin 40 Mg Tablet PO 80 mg On Hold: 03/15/25 08:27 HS LIZ Administration Benzonatate 100 mg 03/15/25 13:00 03/16/25 08:12 Benzonatate 100 Mg Capsule PO 100 mg TID LIZ Administration Carvedilol 6.25 mg 03/15/25 21:00 03/16/25 08:13 Carvedilol 6.25 Mg Tablet PO 6.25 mg Q12HR LIZ Administration Clopidogrel Bisulfate 75 mg 03/15/25 09:00 03/16/25 08:12 Clopidogrel Bisulfate 75 Mg Tablet PO 75 mg DAILY LIZ Administration Dextrose 12.5 gm 03/14/25 19:19 Dextrose 50% 25 Gm/50 Ml Syringe IV PUSH PRN PRN Hypoglycemia Protocol Docusate Sodium 100 mg 03/15/25 09:00 03/16/25 08:12 Docusate Sodium 100 Mg Capsule PO 100 mg BID LIZ Administration Furosemide 40 mg 03/16/25 09:00 03/16/25 08:12 Furosemide Inj 40 Mg/4 Ml Vial IV PUSH 40 mg BID LIZ Administration Glucagon 1 mg 03/14/25 19:19 Glucagon For Inj 1 Mg Vial IM PRN PRN Hypoglycemia Protocol Glucose 15 gm 03/14/25 19:19 Glucose Oral Gel 15 Gm Of Glucse In 37.5 Gm Tube PO PRN PRN Hypoglycemia Protocol Guaifenesin/Dextromethorphan 10 ml 03/15/25 09:35 Guaifenesin/Dextromethorphan 10 Ml Udc PO Q4H PRN Cough Dextrose 1,000 mls @ 100 mls/hr 03/14/25 19:19 Dextrose 5% 1,000 Ml IVPB PRN PRN Hypoglycemia Protocol Cefepime HCl 1 gm/ Sodium 50 mls @ 100 mls/hr 03/15/25 06:00 03/16/25 05:47 Chloride IVPB 100 mls/hr Q12H LIZ Administration Doxycycline Hyclate 100 mg/ 100 mls @ 100 mls/hr 03/15/25 09:00 03/16/25 08:10 Sodium Chloride IVPB 100 mls/hr Q12H LIZ Administration Insulin Aspart 2 - 5 units 03/15/25 08:00 03/16/25 08:12 Insulin Aspart (*Bkc) 100 Units/Ml SUB-Q 2 units TIDWM LIZ Administration Protocol Melatonin 5 mg 03/14/25 21:35 03/15/25 20:03 Melatonin 5 Mg Tablet PO 5 mg HS LIZ Administration Rivaroxaban 20 mg 03/15/25 17:00 03/15/25 16:59 Rivaroxaban 20 Mg Tablet PO 20 mg DAILY@1700 LIZ Administration Vancomycin HCl 1 each 03/14/25 14:33 Vancomycin For Acute Kidney Injury IVPB PRN PRN Vancomycin Protocol Radiology Results: ITS Impressions Chest X-Ray 03/14/25 12:52 IMPRESSION: 1. Pleural effusions with bibasilar atelectasis and/or airspace disease. Head CT 03/14/25 14:37 Impression: 1.No acute intracranial abnormality. Chest CT 03/14/25 14:39 IMPRESSION: CHF. Superimposed probable mild bronchopneumonia. Follow-up recommended to assess. Abdomen Ultrasound 03/15/25 10:09 IMPRESSION: 1. Mildly increased echotexture of the kidneys may represent underlying medical renal disease. No hydronephrosis or large masses in the kidneys. 2. Incidental note of cholelithiasis with borderline gallbladder wall thickening and possible trace of pericholecystic fluid. Correlate with right upper quadrant ultrasound. ADDENDUM: 03/15/25 1230 Examination was incomplete on initial dictation. On follow-up review, again noted are several gallstones, and borderline gallbladder wall thickening. Pericholecystic fluid may also be present. Free fluid is also noted superior to the liver. The liver measures 15.1 cm in length. IMPRESSION: Findings are concerning for cholecystitis. Correlate with clinical presentation and exam for additional imaging as clinically appropriate. Renal Ultrasound 03/15/25 10:10 Impression: 1. Medical renal disease with tiny probable renal vascular calcifications, less likely renal calculi. No hydronephrosis. 2. Enlarged prostate. Correlate with PSA Labs Labs: Laboratory Results - last 24 hr 03/15/25 03/15/25 03/15/25 09:59 10:04 11:59 WBC RBC Hgb Hct MCV MCH MCHC RDW Plt Count MPV % Immature Plt Fraction Sodium 122 L Potassium 4.7 Chloride 94 L Carbon Dioxide 17 L Anion Gap 11 BUN 56 H Creatinine 1.36 H Estim Creat Clear Calc 39 Estimated GFR 52 L Glucose 148 H POC Capillary Glucose 162 H 192 H Calcium 8.3 L Phosphorus Magnesium Total Bilirubin AST ALT Alkaline Phosphatase Ammonia < 9 L Total Creatine Kinase 1052 H Total Protein Albumin Procalcitonin Random Vancomycin Acetaminophen < 10 L Hepatitis A IgM Ab Negative Hep Bs Antigen Negative Hep B Core IgM Ab Negative Hepatitis C Ab Screen Negative 03/15/25 03/15/25 03/15/25 16:59 17:00 19:56 WBC RBC Hgb Hct MCV MCH MCHC RDW Plt Count MPV % Immature Plt Fraction Sodium 121 L Potassium Chloride Carbon Dioxide Anion Gap BUN Creatinine Estim Creat Clear Calc Estimated GFR Glucose POC Capillary Glucose 237 H 196 H Calcium Phosphorus Magnesium Total Bilirubin AST ALT Alkaline Phosphatase Ammonia Total Creatine Kinase Total Protein Albumin Procalcitonin 0.2 Random Vancomycin 5.6 L Acetaminophen Hepatitis A IgM Ab Hep Bs Antigen Hep B Core IgM Ab Hepatitis C Ab Screen 03/15/25 03/16/25 03/16/25 23:23 03:34 07:32 WBC 10.4 H RBC 4.27 L Hgb 12.8 L Hct 37.2 L MCV 87.1 MCH 30.0 MCHC 34.4 RDW 14.4 Plt Count 70 L MPV 13.5 H % Immature Plt Fraction 22.2 H Sodium 121 L 124 L Potassium 3.7 Chloride 92 L Carbon Dioxide 24 Anion Gap 8 BUN 59 H Creatinine 1.48 H Estim Creat Clear Calc 36 Estimated GFR 47 L Glucose 156 H POC Capillary Glucose 224 H Calcium 8.2 L Phosphorus 4.4 Magnesium 2.3 Total Bilirubin 1.8 H AST 172 H ALT 518 H Alkaline Phosphatase 141 H Ammonia Total Creatine Kinase Total Protein 5.3 L Albumin 3.3 L Procalcitonin Random Vancomycin Acetaminophen Hepatitis A IgM Ab Hep Bs Antigen Hep B Core IgM Ab Hepatitis C Ab Screen Quality VTE Prophylaxis VTE prophylaxis: pharmacologic ordered
--- NOTE | 2025-03-16 10:52 | PCNFU ---
Nutrition Follow-Up Complete: Severe Protein Calorie Malnutrition as related to inadequate protein energy intake with increased protein energy needs in setting of chronic disease as evidenced by minimal oral intake for > 1-2 months; severe subcutaneous fat loss (orbital fat pads) and muscle wasting (temporalis, clavicle). Goal: Meet estimated nutritional needs Patient will continue current goal. Pt current nutrition is DBCC/Fluid Restriction 1500 ml with Ensure Plus High Protein BID. Last recorded weight is 61.3 kg, down from 63.3 kg on admit. Bowel Motility: Last reported BM 03/15 Labs Reviewed: BUN 57, Cr 1.48, Glu 156,Hct 37.2, Hgb 12.8 Meds Noted: Colace, Lipitor, NovoLog, Coreg Skin: WNL Additional Notes: Patient is tolerating diet today, 50% reported for breakfast. Diet supplement of Ensure Plus High Protein BID for additional 240 kcal and 20 gm protein. Agree with diet orders. Will monitor weight, labs, skin, diet orders, meds every 3 days.
--- NOTE | 2025-03-16 10:54 | P.PNNP_ITS ---
Progress Note: A&P Assessment and Plan (1) Hyponatremia: Code(s): E87.1 - Hypo-osmolality and hyponatremia Status: Acute Assessment and Plan: * appears acute * last outpatient sodium 137mmol/L (in April 2024) * no previous low sodium levels noted by outpatient testing * suspect related to ALBERTO, poor oral intake, and underlying CHF/cardiomyopathy and noncompliance with medications * slow improvement already noted with sodium level * goal ot therapy is a rate of change of 6 - 8mmol/L in 24 hours * started on fluid restriction * continue current therapy * follow serial sodium levels (2) Acute kidney injury: Code(s): N17.9 - Acute kidney failure, unspecified Status: Acute Assessment and Plan: * baseline creatinine normally runs ~ 1.0 - 1.2mg/dl in the last year * probably from mild decompensation of CHF and non-compliance with cardiac medications * however, given his risk factor profile, he likely has some underlying renal insufficiency * evalution to date noted: * CT imaging and renal u/s without obstruction * urine electrolytes prerenal * UA without infection * CPK mildly elevated (not enough to affect kidney function) * proteinuria noted * follow trend of repeat labs and UOP (3) Hyperkalemia: Code(s): E87.5 - Hyperkalemia Status: Acute Assessment and Plan: * noted on admission * s/p medical management * follow trend of repeat K+ (4) Ischemic cardiomyopathy: Code(s): I25.5 - Ischemic cardiomyopathy Status: Chronic Assessment and Plan: * known history * Echo noted * continue GDMT as tolerated * declined ICD in the past * Cardiology following (5) Acute exacerbation of CHF (congestive heart failure): Qualifiers: Heart failure type: unspecified Qualified Code(s): I50.9 - Heart failure, unspecified Code(s): I50.9 - Heart failure, unspecified Status: Acute Assessment and Plan: * mild CHF exacerbation secondary to medication noncompliance * Echo noted: * left ventricular ejection fraction is visually estimated to be 10-20% * right ventricle is normal in size with reduced systolic function * mild aortic regurgitation * moderate mitral regurgitation * ulmonary arterial systolic pressure is estimated at 59 mmHg - moderate pulmonary hypertension. * on scheduled diuretic therapy * follow I&Os and daily weights * Cardiology following (6) Bilateral pneumonia: Qualifiers: Lung location: lower lobe of lung Pneumonia type: due to unspecified organism Qualified Code(s): J18.9 - Pneumonia, unspecified organism Code(s): J18.9 - Pneumonia, unspecified organism Status: Acute Assessment and Plan: * CT scan shows mild bronchopneumonia * recently treated for pneumonia as an outpatient and finished antibiotic course -- resolving pneumonia or incompletely treated(?) * follow culture data * continue antibiotics * tessalon and Robitussin DM p.r.n. 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 L Subjective Date/time seen: 03/16/25 10:54 Interval history: Follow-up for acute kidney injury/acute renal failure and hyponatremia. No acute complaints or issues voiced at the time of my visit; renal function/creatinine relative stable if not a bit better and ongoing improvement in sodium level noted as well; eating and drinking okay; reasonable urine and stable hemodynamics noted. Exam 2 Narrative: General: frail and elderly male in NAD Heart: normal S1 and S2; no rub Lungs: clear anteriorly Abdomen: soft, nontender, nondistended, positive bowel sounds Extremities: no cyanosis or clubbing; 1+ edema Skin: warm and dry Objective Data Vital Signs Vital Signs: Vital Signs Temp Pulse Resp BP Pulse Ox O2 Del Method O2 Flow Rate 03/16/25 10:00 97.1 F L 65 16 112/77 96 03/16/25 09:00 96.7 F L 63 14 123/79 95 03/16/25 08:13 60 03/16/25 08:00 69 03/16/25 08:00 95.9 F L 62 17 107/74 96 03/16/25 07:56 58 L 20 98 Room Air 03/16/25 06:00 57 L 12 103/77 98 03/16/25 06:00 57 L 03/16/25 05:00 63 14 97/64 L 96 03/16/25 04:00 97.4 F L 60 19 101/67 97 03/16/25 04:00 60 03/16/25 04:00 97 Nasal Cannula 2 03/16/25 03:00 59 L 16 101/68 97 03/16/25 02:00 59 L 03/16/25 02:00 96 F L 59 L 16 94/64 L 91 03/16/25 01:00 54 L 15 92/71 L 98 03/16/25 00:00 51 L 03/16/25 00:00 96 F L 51 L 11 L 98/65 L 98 03/16/25 00:00 96 Nasal Cannula 2 03/15/25 23:30 52 L 15 83/59 L 95 03/15/25 23:00 96.3 F L 52 L 15 87/76 L 99 03/15/25 22:31 51 L 15 97/69 L 97 03/15/25 22:16 55 L 15 96/69 L 96 03/15/25 22:01 96.4 F L 49 L 18 97/65 L 97 03/15/25 22:00 49 L 03/15/25 21:46 55 L 15 96/73 L 98 03/15/25 21:45 96.4 F L 03/15/25 21:31 57 L 18 94/59 L 90 03/15/25 21:30 96.4 F L 03/15/25 21:16 54 L 100/71 98 03/15/25 21:15 96.3 F L 03/15/25 21:01 56 L 16 100/77 92 03/15/25 21:00 96.3 F L 03/15/25 20:46 56 L 15 106/72 99 03/15/25 20:45 95.8 F L 03/15/25 20:31 57 L 18 105/92 H 94 03/15/25 20:30 95.8 F L 03/15/25 20:20 61 15 103/77 97 03/15/25 20:18 95.9 F L 03/15/25 20:02 61 03/15/25 20:01 95.9 F L 54 L 15 101/73 97 03/15/25 20:00 59 L 03/15/25 20:00 Room Air 03/15/25 19:01 63 15 106/78 95 03/15/25 18:00 64 18 124/71 92 03/15/25 18:00 65 03/15/25 17:00 56 L 20 111/91 H 95 03/15/25 16:44 95 Room Air 03/15/25 16:00 96 Room Air 03/15/25 16:00 98.2 F 58 L 14 110/89 95 03/15/25 16:00 66 03/15/25 15:00 62 18 114/79 95 03/15/25 14:00 60 14 111/85 96 03/15/25 14:00 70 Intake/Output Intake/Output: Intake & Output 03/13/25 03/14/25 03/15/25 03/16/25 23:59 23:59 23:59 23:59 Intake Total 1100 1080 730 Output Total 0 2100 400 Balance 1100 -1020 330 Meds/Results Medications: Active Medications Generic Name Dose Route Start Last Admin Trade Name Freq PRN Reason Stop Dose Admin Atorvastatin Calcium 80 mg 03/15/25 01:25 03/15/25 02:39 Atorvastatin 40 Mg Tablet PO 80 mg On Hold: 03/15/25 08:27 HS LIZ Administration Benzonatate 100 mg 03/15/25 13:00 03/16/25 08:12 Benzonatate 100 Mg Capsule PO 100 mg TID LIZ Administration Carvedilol 6.25 mg 03/15/25 21:00 03/16/25 08:13 Carvedilol 6.25 Mg Tablet PO 6.25 mg Q12HR LIZ Administration Clopidogrel Bisulfate 75 mg 03/15/25 09:00 03/16/25 08:12 Clopidogrel Bisulfate 75 Mg Tablet PO 75 mg DAILY LIZ Administration Dextrose 12.5 gm 03/14/25 19:19 Dextrose 50% 25 Gm/50 Ml Syringe IV PUSH PRN PRN Hypoglycemia Protocol Docusate Sodium 100 mg 03/15/25 09:00 03/16/25 08:12 Docusate Sodium 100 Mg Capsule PO 100 mg BID LIZ Administration Furosemide 40 mg 03/16/25 17:00 Furosemide 40 Mg Tablet PO BID LIZ Glucagon 1 mg 03/14/25 19:19 Glucagon For Inj 1 Mg Vial IM PRN PRN Hypoglycemia Protocol Glucose 15 gm 03/14/25 19:19 Glucose Oral Gel 15 Gm Of Glucse In 37.5 Gm Tube PO PRN PRN Hypoglycemia Protocol Guaifenesin/Dextromethorphan 10 ml 03/15/25 09:35 Guaifenesin/Dextromethorphan 10 Ml Udc PO Q4H PRN Cough Dextrose 1,000 mls @ 100 mls/hr 03/14/25 19:19 Dextrose 5% 1,000 Ml IVPB PRN PRN Hypoglycemia Protocol Cefepime HCl 1 gm/ Sodium 50 mls @ 100 mls/hr 03/15/25 06:00 03/16/25 05:47 Chloride IVPB 100 mls/hr Q12H LIZ Administration Doxycycline Hyclate 100 mg/ 100 mls @ 100 mls/hr 03/15/25 09:00 03/16/25 08:10 Sodium Chloride IVPB 100 mls/hr Q12H LIZ Administration Insulin Aspart 2 - 5 units 03/15/25 08:00 03/16/25 08:12 Insulin Aspart (*Bkc) 100 Units/Ml SUB-Q 2 units TIDWM LIZ Administration Protocol Melatonin 5 mg 03/14/25 21:35 03/15/25 20:03 Melatonin 5 Mg Tablet PO 5 mg HS LIZ Administration Rivaroxaban 20 mg 03/15/25 17:00 03/15/25 16:59 Rivaroxaban 20 Mg Tablet PO 20 mg DAILY@1700 LIZ Administration Sacubitril/Valsartan 1 tab 03/17/25 09:00 Sacubitril/Valsartan 12-13 Mg Tablet PO Q12HR LIZ Vancomycin HCl 1 each 03/14/25 14:33 Vancomycin For Acute Kidney Injury IVPB PRN PRN Vancomycin Protocol Radiology Results: ITS Impressions Chest X-Ray 03/14/25 12:52 IMPRESSION: 1. Pleural effusions with bibasilar atelectasis and/or airspace disease. Head CT 03/14/25 14:37 Impression: 1.No acute intracranial abnormality. Chest CT 03/14/25 14:39 IMPRESSION: CHF. Superimposed probable mild bronchopneumonia. Follow-up recommended to assess. Abdomen Ultrasound 03/15/25 10:09 IMPRESSION: 1. Mildly increased echotexture of the kidneys may represent underlying medical renal disease. No hydronephrosis or large masses in the kidneys. 2. Incidental note of cholelithiasis with borderline gallbladder wall thickening and possible trace of pericholecystic fluid. Correlate with right upper quadrant ultrasound. ADDENDUM: 03/15/25 1230 Examination was incomplete on initial dictation. On follow-up review, again noted are several gallstones, and borderline gallbladder wall thickening. Pericholecystic fluid may also be present. Free fluid is also noted superior to the liver. The liver measures 15.1 cm in length. IMPRESSION: Findings are concerning for cholecystitis. Correlate with clinical presentation and exam for additional imaging as clinically appropriate. Renal Ultrasound 03/15/25 10:10 Impression: 1. Medical renal disease with tiny probable renal vascular calcifications, less likely renal calculi. No hydronephrosis. 2. Enlarged prostate. Correlate with PSA Labs Labs: Laboratory Tests 03/16/25 03:34 03/16/25 03:34 Calcium 8.2 L Phosphorus 4.4 Magnesium 2.3 Total Bilirubin 1.8 H AST 172 H ALT 518 H Alkaline Phosphatase 141 H Total Protein 5.3 L Albumin 3.3 L
--- NOTE | 2025-03-16 14:14 | P.PNGS_ITS ---
Progress Note: A&P Assessment and Plan (1) Cholecystitis: Code(s): K81.9 - Cholecystitis, unspecified Status: Acute Assessment and Plan: Benign abdominal exam today. Patient denies any pain, nausea or vomiting. Having bowel movements. Tolerating diet. Bilirubin 1.8 today, down from 2.2. Liver enzymes downtrending. Continue to manage conservatively with IV antibiotics. No surgical intervention necessary at this time. (2) Transaminitis: Code(s): R74.01 - Elevation of levels of liver transaminase levels Status: Acute Assessment and Plan: see above. (3) Ischemic cardiomyopathy: Code(s): I25.5 - Ischemic cardiomyopathy Status: Chronic Assessment and Plan: Echocardiogram showing ejection fraction of 10-20%. Cardiology on board. Continue diuretics per cardiology recommendations (4) Bilateral pneumonia: Qualifiers: Lung location: lower lobe of lung Pneumonia type: due to unspecified organism Qualified Code(s): J18.9 - Pneumonia, unspecified organism Code(s): J18.9 - Pneumonia, unspecified organism Status: Acute Assessment and Plan: Superimposed probable mild bronchopneumonia noted on chest CT. WBC 10.4 today. Continue treatment with IV antibiotics. (5) Elevated serum creatinine: Code(s): R79.89 - Other specified abnormal findings of blood chemistry Status: Acute Assessment and Plan: Creatinine 1.48. CK 1052. Patient volume overloaded upon admission. Currently being diuresed. Nephrology consulted. Appreciate their recommendations. (6) Acute hyperkalemia: Code(s): E87.5 - Hyperkalemia Status: Acute Assessment and Plan: Normalized at 3.7. Continue to monitor. (7) Acute hyponatremia: Code(s): E87.1 - Hypo-osmolality and hyponatremia Status: Acute Assessment and Plan: Nephrology following. (8) Peripheral vascular disease: Code(s): I73.9 - Peripheral vascular disease, unspecified Status: Acute (9) CHF (congestive heart failure): Code(s): I50.9 - Heart failure, unspecified Status: Chronic (10) Coronary artery disease: Code(s): I25.10 - Atherosclerotic heart disease of [place] coronary artery without angina pectoris Status: Acute (11) History of revascularization procedure of lower extremity: Code(s): Z98.62 - Peripheral vascular angioplasty status Status: Acute (12) Ischemia of right lower extremity: Code(s): I99.8 - Other disorder of circulatory system Status: Chronic (13) Type 2 diabetes mellitus: Qualifiers: Diabetes mellitus 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 Moralez. Subjective Subjective Date/Time Seen: 03/16/25 14:14 Patient reports: no new complaints, tolerating a regular diet (diabetic fluid restriction), bowel movement and afebrile Interval history: Patient doing well today. Denies any abdominal pain, nausea, or vomiting. WBC steadily decreasing. Bilirubin and liver enzymes slowly decreasing. Exam Const: General: comfortable and no acute distress GI: Inspection: non-distended GI Palp: Yes Soft to palpation, No Tenderness to palpation present (GI) and No Guarding due to palpation present (GI) Auscultation: normal bowel sounds Objective Data Vital Signs Vital Signs: Vital Signs - 24 hr 03/15/25 15:00 03/15/25 16:00 03/15/25 16:00 Temperature 98.2 F Pulse Rate 62 66 58 L Respiratory Rate 18 14 Blood Pressure 114/79 110/89 Pulse Oximetry 95 95 Oxygen Delivery Oxygen Flow Rate 03/15/25 16:00 03/15/25 16:44 03/15/25 17:00 Temperature Pulse Rate 56 L Respiratory Rate 20 Blood Pressure 111/91 H Pulse Oximetry 96 95 95 Oxygen Delivery Room Air Room Air Oxygen Flow Rate 03/15/25 18:00 03/15/25 18:00 03/15/25 19:01 Temperature Pulse Rate 65 64 63 Respiratory Rate 18 15 Blood Pressure 124/71 106/78 Pulse Oximetry 92 95 Oxygen Delivery Oxygen Flow Rate 03/15/25 20:00 03/15/25 20:00 03/15/25 20:01 Temperature 95.9 F L Pulse Rate 59 L 54 L Respiratory Rate 15 Blood Pressure 101/73 Pulse Oximetry 97 Oxygen Delivery Room Air Oxygen Flow Rate 03/15/25 20:02 03/15/25 20:18 03/15/25 20:20 Temperature 95.9 F L Pulse Rate 61 61 Respiratory Rate 15 Blood Pressure 103/77 Pulse Oximetry 97 Oxygen Delivery Oxygen Flow Rate 03/15/25 20:30 03/15/25 20:31 03/15/25 20:45 Temperature 95.8 F L 95.8 F L Pulse Rate 57 L Respiratory Rate 18 Blood Pressure 105/92 H Pulse Oximetry 94 Oxygen Delivery Oxygen Flow Rate 03/15/25 20:46 03/15/25 21:00 03/15/25 21:01 Temperature 96.3 F L Pulse Rate 56 L 56 L Respiratory Rate 15 16 Blood Pressure 106/72 100/77 Pulse Oximetry 99 92 Oxygen Delivery Oxygen Flow Rate 03/15/25 21:15 03/15/25 21:16 03/15/25 21:30 Temperature 96.3 F L 96.4 F L Pulse Rate 54 L Respiratory Rate Blood Pressure 100/71 Pulse Oximetry 98 Oxygen Delivery Oxygen Flow Rate 03/15/25 21:31 03/15/25 21:45 03/15/25 21:46 Temperature 96.4 F L Pulse Rate 57 L 55 L Respiratory Rate 18 15 Blood Pressure 94/59 L 96/73 L Pulse Oximetry 90 98 Oxygen Delivery Oxygen Flow Rate 03/15/25 22:00 03/15/25 22:01 03/15/25 22:16 Temperature 96.4 F L Pulse Rate 49 L 49 L 55 L Respiratory Rate 18 15 Blood Pressure 97/65 L 96/69 L Pulse Oximetry 97 96 Oxygen Delivery Oxygen Flow Rate 03/15/25 22:31 03/15/25 23:00 03/15/25 23:30 Temperature 96.3 F L Pulse Rate 51 L 52 L 52 L Respiratory Rate 15 15 15 Blood Pressure 97/69 L 87/76 L 83/59 L Pulse Oximetry 97 99 95 Oxygen Delivery Oxygen Flow Rate 03/16/25 00:00 03/16/25 00:00 03/16/25 00:00 Temperature 96 F L Pulse Rate 51 L 51 L Respiratory Rate 11 L Blood Pressure 98/65 L Pulse Oximetry 96 98 Oxygen Delivery Nasal Cannula Oxygen Flow Rate 2 03/16/25 01:00 03/16/25 02:00 03/16/25 02:00 Temperature 96 F L Pulse Rate 54 L 59 L 59 L Respiratory Rate 15 16 Blood Pressure 92/71 L 94/64 L Pulse Oximetry 98 91 Oxygen Delivery Oxygen Flow Rate 03/16/25 03:00 03/16/25 04:00 03/16/25 04:00 Temperature Pulse Rate 59 L 60 Respiratory Rate 16 Blood Pressure 101/68 Pulse Oximetry 97 97 Oxygen Delivery Nasal Cannula Oxygen Flow Rate 2 03/16/25 04:00 03/16/25 05:00 03/16/25 06:00 Temperature 97.4 F L Pulse Rate 60 63 57 L Respiratory Rate 19 14 Blood Pressure 101/67 97/64 L Pulse Oximetry 97 96 Oxygen Delivery Oxygen Flow Rate 03/16/25 06:00 03/16/25 07:56 03/16/25 08:00 Temperature 95.9 F L Pulse Rate 57 L 58 L 62 Respiratory Rate 12 20 17 Blood Pressure 103/77 107/74 Pulse Oximetry 98 98 96 Oxygen Delivery Room Air Oxygen Flow Rate 03/16/25 08:00 03/16/25 08:13 03/16/25 09:00 Temperature 96.7 F L Pulse Rate 69 60 63 Respiratory Rate 14 Blood Pressure 123/79 Pulse Oximetry 95 Oxygen Delivery Oxygen Flow Rate 03/16/25 10:00 03/16/25 10:00 03/16/25 11:00 Temperature 97.1 F L Pulse Rate 65 63 56 L Respiratory Rate 16 16 Blood Pressure 112/77 91/56 L Pulse Oximetry 96 98 Oxygen Delivery Oxygen Flow Rate 03/16/25 12:00 03/16/25 12:00 03/16/25 12:00 Temperature Pulse Rate 64 61 Respiratory Rate 18 Blood Pressure 107/73 Pulse Oximetry 94 94 Oxygen Delivery Room Air Oxygen Flow Rate Intake/Output Intake/Output: Intake & Output 03/13/25 03/14/25 03/15/25 03/16/25 23:59 23:59 23:59 23:59 Intake Total 1100 1080 730 Output Total 0 2100 400 Balance 1100 -1020 330 Meds/Results Medications: Active Medications Generic Name Dose Route Start Last Admin Trade Name Ferq PRN Reason Stop Dose Admin Atorvastatin Calcium 80 mg 03/15/25 01:25 03/15/25 02:39 Atorvastatin 40 Mg Tablet PO 80 mg On Hold: 03/15/25 08:27 HS LIZ Administration Benzonatate 100 mg 03/15/25 13:00 03/16/25 08:12 Benzonatate 100 Mg Capsule PO 100 mg TID LIZ Administration Carvedilol 6.25 mg 03/15/25 21:00 03/16/25 08:13 Carvedilol 6.25 Mg Tablet PO 6.25 mg Q12HR LIZ Administration Clopidogrel Bisulfate 75 mg 03/15/25 09:00 03/16/25 08:12 Clopidogrel Bisulfate 75 Mg Tablet PO 75 mg DAILY LIZ Administration Dextrose 12.5 gm 03/14/25 19:19 Dextrose 50% 25 Gm/50 Ml Syringe IV PUSH PRN PRN Hypoglycemia Protocol Docusate Sodium 100 mg 03/15/25 09:00 03/16/25 08:12 Docusate Sodium 100 Mg Capsule PO 100 mg BID LIZ Administration Furosemide 40 mg 03/16/25 17:00 Furosemide 40 Mg Tablet PO BID LIZ Glucagon 1 mg 03/14/25 19:19 Glucagon For Inj 1 Mg Vial IM PRN PRN Hypoglycemia Protocol Glucose 15 gm 03/14/25 19:19 Glucose Oral Gel 15 Gm Of Glucse In 37.5 Gm Tube PO PRN PRN Hypoglycemia Protocol Guaifenesin/Dextromethorphan 10 ml 03/15/25 09:35 Guaifenesin/Dextromethorphan 10 Ml Udc PO Q4H PRN Cough Dextrose 1,000 mls @ 100 mls/hr 03/14/25 19:19 Dextrose 5% 1,000 Ml IVPB PRN PRN Hypoglycemia Protocol Cefepime HCl 1 gm/ Sodium 50 mls @ 100 mls/hr 03/15/25 06:00 03/16/25 05:47 Chloride IVPB 100 mls/hr Q12H LIZ Administration Doxycycline Hyclate 100 mg/ 100 mls @ 100 mls/hr 03/15/25 09:00 03/16/25 08:10 Sodium Chloride IVPB 100 mls/hr Q12H LIZ Administration Insulin Aspart 2 - 5 units 03/15/25 08:00 03/16/25 13:32 Insulin Aspart (*Bkc) 100 Units/Ml SUB-Q Not Given TIDWM LIZ Protocol Melatonin 5 mg 03/14/25 21:35 03/15/25 20:03 Melatonin 5 Mg Tablet PO 5 mg HS LIZ Administration Rivaroxaban 20 mg 03/15/25 17:00 03/15/25 16:59 Rivaroxaban 20 Mg Tablet PO 20 mg DAILY@1700 LIZ Administration Sacubitril/Valsartan 1 tab 03/17/25 09:00 Sacubitril/Valsartan 12-13 Mg Tablet PO Q12HR LIZ Vancomycin HCl 1 each 03/14/25 14:33 Vancomycin For Acute Kidney Injury IVPB PRN PRN Vancomycin Protocol Radiology Results: ITS Impressions Chest X-Ray 03/14/25 12:52 IMPRESSION: 1. Pleural effusions with bibasilar atelectasis and/or airspace disease. Head CT 03/14/25 14:37 Impression: 1.No acute intracranial abnormality. Chest CT 03/14/25 14:39 IMPRESSION: CHF. Superimposed probable mild bronchopneumonia. Follow-up recommended to assess. Abdomen Ultrasound 03/15/25 10:09 IMPRESSION: 1. Mildly increased echotexture of the kidneys may represent underlying medical renal disease. No hydronephrosis or large masses in the kidneys. 2. Incidental note of cholelithiasis with borderline gallbladder wall thickening and possible trace of pericholecystic fluid. Correlate with right upper quadrant ultrasound. ADDENDUM: 03/15/25 1230 Examination was incomplete on initial dictation. On follow-up review, again noted are several gallstones, and borderline gallbladder wall thickening. Pericholecystic fluid may also be present. Free fluid is also noted superior to the liver. The liver measures 15.1 cm in length. IMPRESSION: Findings are concerning for cholecystitis. Correlate with clinical presentation and exam for additional imaging as clinically appropriate. Renal Ultrasound 03/15/25 10:10 Impression: 1. Medical renal disease with tiny probable renal vascular calcifications, less likely renal calculi. No hydronephrosis. 2. Enlarged prostate. Correlate with PSA Labs Labs: Laboratory Results - last 24 hr 03/15/25 03/15/25 03/15/25 16:59 17:00 19:56 WBC RBC Hgb Hct MCV MCH MCHC RDW Plt Count MPV % Immature Plt Fraction Sodium 121 L Potassium Chloride Carbon Dioxide Anion Gap BUN Creatinine Estim Creat Clear Calc Estimated GFR Glucose POC Capillary Glucose 237 H 196 H Calcium Phosphorus Magnesium Total Bilirubin AST ALT Alkaline Phosphatase Total Protein Albumin Procalcitonin 0.2 Random Vancomycin 5.6 L 03/15/25 03/16/25 03/16/25 23:23 03:34 07:32 WBC 10.4 H RBC 4.27 L Hgb 12.8 L Hct 37.2 L MCV 87.1 MCH 30.0 MCHC 34.4 RDW 14.4 Plt Count 70 L MPV 13.5 H % Immature Plt Fraction 22.2 H Sodium 121 L 124 L Potassium 3.7 Chloride 92 L Carbon Dioxide 24 Anion Gap 8 BUN 59 H Creatinine 1.48 H Estim Creat Clear Calc 36 Estimated GFR 47 L Glucose 156 H POC Capillary Glucose 224 H Calcium 8.2 L Phosphorus 4.4 Magnesium 2.3 Total Bilirubin 1.8 H AST 172 H ALT 518 H Alkaline Phosphatase 141 H Total Protein 5.3 L Albumin 3.3 L Procalcitonin Random Vancomycin 03/16/25 11:36 WBC RBC Hgb Hct MCV MCH MCHC RDW Plt Count MPV % Immature Plt Fraction Sodium Potassium Chloride Carbon Dioxide Anion Gap BUN Creatinine Estim Creat Clear Calc Estimated GFR Glucose POC Capillary Glucose 184 H Calcium Phosphorus Magnesium Total Bilirubin AST ALT Alkaline Phosphatase Total Protein Albumin Procalcitonin Random Vancomycin
[2025-03-16] MEDS: FUROSEMIDE 40 MG TABLET PO (16:51)
[2025-03-16] MEDS: RIVAROXABAN 20 MG TABLET PO (16:51)
--- NOTE | 2025-03-16 20:07 | PC.NURSE ---
This patient, Anil Crawford, was transferred to [facility] on 03/16/25 at 1955. Personal belongings sent with patient. Report given to NIDIA Glez. Appropriate documentation sent with patient.
[2025-03-16] MEDS: MELATONIN 5 MG TABLET PO (20:47)
[2025-03-16] MEDS: VANCOMYCIN 1,250 MG/NS 250 ML 1,250 MG/250 ML BAG 166.67 MG IVPB (20:47)
[2025-03-17] VITALS (16 sets, daily range): BP systolic 95–130; BP diastolic 64–79; PULSE 53–73; RESP 16–20; TEMP 36.3–36.6; O2SAT 94–99
[2025-03-17] MEDS: ALPRAZolam (*CRX) 0.25 MG TABLET PO (00:04)
[2025-03-17 04:36] LABS: Hematocrit 41.2 % (42.0-52.0); Hemoglobin 13.8 g/dL (14.0-18.0); Immature Granulocyte Percent A 0.8 % (0-0.5); Immature Platelet Fraction Pct 22.2 % (0.9-11.2); Lymphocytes Absolute Auto 0.86 K/mm3 (0.9-3.2); Mean Corpuscular HGB Conc 33.5 g/dl (32-36); Mean Corpuscular Hemoglobin 30.1 pg (26-34); Mean Corpuscular Volume 90.0 fl (80-100); Nucleated Red Blood Cells Absolute Auto 0.000 K/mm3 (0.0-0.012); Nucleated Red Blood Cells Perc 0.0 % (0.0-0.2); Platelet Count Result 68 k/mm3 (150-375); Red Blood Count 4.58 M/mm3 (4.6-6.20); White Blood Count 10.7 K/mm3 (4.5-10.0)
[2025-03-17 04:46] LABS: Alanine Aminotransferase 510 U/L (6-50); Albumin Level 3.3 g/dL (3.5-5.1); Alkaline Phosphatase 188 U/L (38-126); Anion Gap 9 mmol/L (4-12); Aspartate Amino Transferase 151 U/L (17-59); Bilirubin,Total 1.3 mg/dL (0.2-1.3); Blood Urea Nitrogen 61 mg/dL (9-20); Calcium 8.2 mg/dL (8.4-10.2); Carbon Dioxide 24 mmol/L (22-30); Chloride 95 mmol/L (98-107); Estimated CRCL calculation 37 ml/min; Estimated Glomerular Filt Rate 49; Glucose 132 mg/dL (65-110); Magnesium 2.3 mg/dL (1.6-2.3); Potassium 3.6 mmol/L (3.4-5.0); Sodium 128 mmol/L (137-145); Total Protein 5.6 g/dL (6.3-8.2)
[2025-03-17] MEDS: CEFEPIME 1 GM in SODIUM CHLORIDE 0.9% IV 50 ML 100 ML IVPB ×2 (05:18→17:51)
--- NOTE | 2025-03-17 09:00 | P.PNIM_ITS ---
Progress Note: A&P Assessment and Plan (1) Ischemic cardiomyopathy: Code(s): I25.5 - Ischemic cardiomyopathy Status: Chronic Assessment and Plan: Patient has history of coronary disease and ischemic cardiomyopathy. He gets his care [facility]. Both feet are cold on admission. He has bilateral pleural effusion. He has been noncompliant with medications, states he has not taken his medications for 6 weeks prior to admission. He is also having difficulty with obtaining rivaroxaban. Will have care coordination assisting with obtaining his medications He also has hyponatremia, elevated BNP Denies any chest pain Appreciate cardiology evaluation recommendation Contain IV diuretics Continue Coreg, Lasix, Entresto, rivaroxaban and clopidogrel 03/15/2025: Echocardiogram Summary 1. The left ventricle is moderately dilated with severely reduced systolic function. There is moderate eccentric left ventricular hypertrophy. The left ventricular ejection fraction is visually estimated to be 10-20%. There is no thrombus in the left ventricle. 2. The right ventricle is normal in size with reduced systolic function. 3. The left atrium is moderately dilated. 4. The aortic valve is trileaflet and opens well. The non coronary cusp has a small mass on leaflet tip that is likely a calcified nodule. There is mild aortic regurgitation. 5. The mitral valve leaflets are normal. There is moderate mitral regurgitation. 6. Dilated inferior vena cava with <50% collapse upon inspiration consistent with significantly elevated right atrial pressure, 15 mmHg. 7. Pulmonary arterial systolic pressure is estimated at 59 mmHg. There is moderate pulmonary hypertension. (2) Bilateral pneumonia: Qualifiers: Lung location: lower lobe of lung Pneumonia type: due to unspecified organism Qualified Code(s): J18.9 - Pneumonia, unspecified organism Code(s): J18.9 - Pneumonia, unspecified organism Status: Acute Assessment and Plan: Patient's CT scan shows mild bronchopneumonia. Patient states that he was recently treated for pneumonia as an outpatient and finished antibiotic course. This could be a resolving pneumonia or incompletely treated 03/14: Blood cultures NGTD 03/14: Urine Legionella and strep antigen pending Continue vancomycin doxycycline and cefepime (03/15) Tessalon and Robitussin DM p.r.n. for cough (3) Elevated serum creatinine: Code(s): R79.89 - Other specified abnormal findings of blood chemistry Status: Acute Assessment and Plan: Patient presented with creatinine 1.57. Baseline creatinine is unknown. Patient received 1 L at the time of admission. -could be related to cardiorenal syndrome -Urine electrolytes will be inaccurate as patient received Lasix Appreciate nephrology following the patient Renal ultrasound showed medical disease, no hydronephrosis, enlarged prostate CK level was 1052,unable to give him a at more fluids due to his cardiomyopathy Cr trending down. -continue to monitor urine output, renal function and electrolytes (4) Peripheral vascular disease: Code(s): I73.9 - Peripheral vascular disease, unspecified Status: Acute Assessment and Plan: Patient has history of peripheral vascular disease with revascularization of right lower extremity many years ago at [facility]. Unable to palpate or Doppler dorsalis pedis and bilateral feet related to PVD and low flow state Maintain mean arterial pressure Cardiology following the patient Exam improved. Follow (5) Acute hyponatremia: Code(s): E87.1 - Hypo-osmolality and hyponatremia Status: Acute Assessment and Plan: Hyponatremia in the setting of congestive heart failure with volume overload and ALBERTO On fluid restriction diet Nephrology is following. Serial BMPs are being done. -Lasix could be causing his hyponatremia -patient is asymptomatic (6) Transaminitis: Code(s): R74.01 - Elevation of levels of liver transaminase levels Status: Acute Assessment and Plan: Significantly elevated AST ALT and mildly elevated bilirubin and alkaline phosphatase likely secondary to either congestion or cardiogenic shock Hepatitis panel is negative. Ammonia levels < 9 RUQ ultrasound showed findings concerning for cholecystitis. Surgery was consulted, appreciated the evaluation, poor surgical candidate given his cardiac history, asymptomatic, if intervention is necessary would opt for percutaneous cholecystostomy tube Holding statin at this time Follow (7) Type 2 diabetes mellitus: Qualifiers: Diabetes mellitus complication detail: with other circulatory complications Diabetes mellitus complication status: with circulatory complication Diabetes mellitus superintendent container terminal insulin use: unspecified senior care insulin use status Qualified Code(s): E11.59 - Type 2 diabetes mellitus with other circulatory complications Code(s): E11.9 - Type 2 diabetes mellitus without complications Status: Chronic Assessment and Plan: The patient's blood glucose was reviewed on 03/17 Glucose remains poorly controlled. Continue AccuCheks covering with sliding scale. Hypoglycemia protocol available as needed. Add low dose Lantus. (8) Acute hyperkalemia: Code(s): E87.5 - Hyperkalemia Status: Acute Assessment and Plan: Patient was hyperkalemic on admission and received Lokelma, insulin and D50 Potassium levels have normalized Plan DVT prophylaxis -Xarelto Code Status - Full Code Subjective Date/time seen: 03/17/25 09:00 Interval history: 74yo male with ischemic cardiomyopathy, PAD, DM2, AAA repair, CHF, medical noncompliance who presents to the ED on 03/14/2025 with complaints of weakness. Assuming care. Chart reviewed. He is 'feeling back to normal'. He denies CP. He feels SOB at rest but this is chronic. He states he has not been out of bed but staff state he was up to the chair in ICU. No n/v. No abd pain. Not eating much due to poor appetite. Discussed hospice as an option. Exam Narrative: AF 97.5 129/69 63 20 99% ra Gen - thin male lying flat in bed in NARD Neck - JVP not elevated Chest - mild bibasilar crackles, nml RR CV - irregularly irregular. Tele showing normal sinus with frequent PVCs of different morphology Abd - soft, scaphoid, NT. +BS Ext - Unable to palpate LE pulses. Feet are warm. Bilateral pitting edema Skin - right dorsal surface dried flat eschar. excoriation noted bilateral anterior ankle Neuro - alert and appropriate. Pscyh - flat affect. Objective Data Vital Signs Vital Signs: Vital Signs - 24 hr 03/16/25 10:00 03/16/25 10:00 03/16/25 11:00 Temperature 97.1 F L Pulse Rate 65 63 56 L Respiratory Rate 16 16 Blood Pressure 112/77 91/56 L Pulse Oximetry 96 98 Oxygen Delivery Oxygen Flow Rate 03/16/25 12:00 03/16/25 12:00 03/16/25 12:00 Temperature Pulse Rate 64 61 Respiratory Rate 18 Blood Pressure 107/73 Pulse Oximetry 94 94 Oxygen Delivery Room Air Oxygen Flow Rate 03/16/25 16:00 03/16/25 16:00 03/16/25 16:00 Temperature 97.1 F L Pulse Rate 64 66 Respiratory Rate 18 Blood Pressure 102/85 Pulse Oximetry 95 Oxygen Delivery Room Air Oxygen Flow Rate 03/16/25 20:00 03/16/25 20:00 03/16/25 20:00 Temperature 96.8 F L Pulse Rate 54 L 58 L Respiratory Rate 20 Blood Pressure 98/61 L Pulse Oximetry 100 Oxygen Delivery Room Air Oxygen Flow Rate 03/16/25 21:35 03/16/25 22:00 03/16/25 23:54 Temperature 97.6 F Pulse Rate 55 L 58 L 58 L Respiratory Rate 20 Blood Pressure 103/64 Pulse Oximetry 98 Oxygen Delivery Oxygen Flow Rate 03/17/25 00:00 03/17/25 00:00 03/17/25 02:00 Temperature Pulse Rate 58 L 53 L Respiratory Rate Blood Pressure Pulse Oximetry 98 Oxygen Delivery Nasal Cannula Oxygen Flow Rate 2 03/17/25 03:48 03/17/25 04:00 03/17/25 04:00 Temperature 97.5 F L Pulse Rate 53 L 58 L Respiratory Rate 20 Blood Pressure 129/69 Pulse Oximetry 99 Oxygen Delivery Room Air Oxygen Flow Rate 03/17/25 06:00 Temperature Pulse Rate 63 Respiratory Rate Blood Pressure Pulse Oximetry Oxygen Delivery Oxygen Flow Rate Intake/Output Intake/Output: Intake & Output 03/14/25 03/15/25 03/16/25 03/17/25 23:59 23:59 23:59 23:59 Intake Total 1100 1330 1520 600 Output Total 0 2100 1300 500 Balance 1100 -770 220 100 Meds/Results Medications: Active Medications Generic Name Dose Route Start Last Admin Trade Name Freq PRN Reason Stop Dose Admin Atorvastatin Calcium 80 mg 03/15/25 01:25 03/15/25 02:39 Atorvastatin 40 Mg Tablet PO 80 mg On Hold: 03/15/25 08:27 HS LIZ Administration Benzonatate 100 mg 03/15/25 13:00 03/16/25 16:51 Benzonatate 100 Mg Capsule PO 100 mg TID LIZ Administration Carvedilol 3.125 mg 03/17/25 09:00 Carvedilol 3.125 Mg Tablet PO Q12HR LIZ Clopidogrel Bisulfate 75 mg 03/15/25 09:00 03/16/25 08:12 Clopidogrel Bisulfate 75 Mg Tablet PO 75 mg DAILY LIZ Administration Dextrose 12.5 gm 03/14/25 19:19 Dextrose 50% 25 Gm/50 Ml Syringe IV PUSH PRN PRN Hypoglycemia Protocol Docusate Sodium 100 mg 03/15/25 09:00 03/16/25 16:58 Docusate Sodium 100 Mg Capsule PO Not Given BID LIZ Furosemide 40 mg 03/16/25 17:00 03/16/25 16:51 Furosemide 40 Mg Tablet PO 40 mg BID LIZ Administration Glucagon 1 mg 03/14/25 19:19 Glucagon For Inj 1 Mg Vial IM PRN PRN Hypoglycemia Protocol Glucose 15 gm 03/14/25 19:19 Glucose Oral Gel 15 Gm Of Glucse In 37.5 Gm Tube PO PRN PRN Hypoglycemia Protocol Guaifenesin/Dextromethorphan 10 ml 03/15/25 09:35 Guaifenesin/Dextromethorphan 10 Ml Udc PO Q4H PRN Cough Dextrose 1,000 mls @ 100 mls/hr 03/14/25 19:19 Dextrose 5% 1,000 Ml IVPB PRN PRN Hypoglycemia Protocol Cefepime HCl 1 gm/ Sodium 50 mls @ 100 mls/hr 03/15/25 06:00 03/17/25 05:48 Chloride IVPB Infused Q12H LIZ Infusion Doxycycline Hyclate 100 mg/ 100 mls @ 100 mls/hr 03/15/25 09:00 03/16/25 21:47 Sodium Chloride IVPB Infused Q12H LIZ Infusion Insulin Aspart 2 - 5 units 03/15/25 08:00 03/16/25 16:53 Insulin Aspart (*Bkc) 100 Units/Ml SUB-Q 2 units TIDWM LIZ Administration Protocol Melatonin 5 mg 03/14/25 21:35 03/16/25 20:47 Melatonin 5 Mg Tablet PO 5 mg HS LIZ Administration Rivaroxaban 20 mg 03/15/25 17:00 03/16/25 16:51 Rivaroxaban 20 Mg Tablet PO 20 mg DAILY@1700 LIZ Administration Sacubitril/Valsartan 1 tab 03/17/25 09:00 Sacubitril/Valsartan 12-13 Mg Tablet PO Q12HR LIZ Vancomycin HCl 1 each 03/14/25 14:33 Vancomycin For Acute Kidney Injury IVPB PRN PRN Vancomycin Protocol Radiology Results: ITS Impressions Chest X-Ray 03/14/25 12:52 IMPRESSION: 1. Pleural effusions with bibasilar atelectasis and/or airspace disease. Head CT 03/14/25 14:37 Impression: 1.No acute intracranial abnormality. Chest CT 03/14/25 14:39 IMPRESSION: CHF. Superimposed probable mild bronchopneumonia. Follow-up recommended to assess. Abdomen Ultrasound 03/15/25 10:09 IMPRESSION: 1. Mildly increased echotexture of the kidneys may represent underlying medical renal disease. No hydronephrosis or large masses in the kidneys. 2. Incidental note of cholelithiasis with borderline gallbladder wall thickening and possible trace of pericholecystic fluid. Correlate with right upper quadrant ultrasound. ADDENDUM: 03/15/25 1230 Examination was incomplete on initial dictation. On follow-up review, again noted are several gallstones, and borderline gallbladder wall thickening. Pericholecystic fluid may also be present. Free fluid is also noted superior to the liver. The liver measures 15.1 cm in length. IMPRESSION: Findings are concerning for cholecystitis. Correlate with clinical presentation and exam for additional imaging as clinically appropriate. Renal Ultrasound 03/15/25 10:10 Impression: 1. Medical renal disease with tiny probable renal vascular calcifications, less likely renal calculi. No hydronephrosis. 2. Enlarged prostate. Correlate with PSA Labs Labs: Laboratory Results - last 24 hr 03/16/25 03/16/25 03/16/25 11:36 16:27 18:39 WBC RBC Hgb Hct MCV MCH MCHC RDW Plt Count MPV Immature Gran % (Auto) Neut % (Auto) Lymph % (Auto) [place] % (Auto) Eos % (Auto) Baso % (Auto) Lymph # (Auto) [place] # (Auto) Eos # (Auto) Baso # (Auto) Abs Immat Gran (auto) Absolute Neuts (auto) Absolute Nucleated RBC Nucleated RBC % % Immature Plt Fraction Sodium Potassium Chloride Carbon Dioxide Anion Gap BUN Creatinine Estim Creat Clear Calc Estimated GFR Glucose POC Capillary Glucose 184 H 236 H Calcium Phosphorus Magnesium Total Bilirubin AST ALT Alkaline Phosphatase Total Protein Albumin Vancomycin Trough 8.9 L 03/16/25 03/17/25 03/17/25 21:29 04:18 07:32 WBC 10.7 H RBC 4.58 L Hgb 13.8 L Hct 41.2 L MCV 90.0 MCH 30.1 MCHC 33.5 RDW 14.6 H Plt Count 68 L MPV 12.9 H Immature Gran % (Auto) 0.8 H Neut % (Auto) 82.0 H Lymph % (Auto) 8.1 L [place] % (Auto) 7.8 Eos % (Auto) 1.1 Baso % (Auto) 0.2 Lymph # (Auto) 0.86 L [place] # (Auto) 0.8 H Eos # (Auto) 0.1 Baso # (Auto) 0.0 Abs Immat Gran (auto) 0.09 H Absolute Neuts (auto) 8.8 H Absolute Nucleated RBC 0.000 Nucleated RBC % 0.0 % Immature Plt Fraction 22.2 H Sodium 128 L Potassium 3.6 Chloride 95 L Carbon Dioxide 24 Anion Gap 9 BUN 61 H Creatinine 1.41 H Estim Creat Clear Calc 37 Estimated GFR 49 L Glucose 132 H POC Capillary Glucose 139 H 139 H Calcium 8.2 L Phosphorus 4.0 Magnesium 2.3 Total Bilirubin 1.3 AST 151 H ALT 510 H Alkaline Phosphatase 188 H Total Protein 5.6 L Albumin 3.3 L Vancomycin Trough
[2025-03-17] MEDS: SACUBITRIL/VALSARTAN 12-13 MG TABLET 1 TAB PO ×2 (09:10→20:46)
[2025-03-17] MEDS: FUROSEMIDE 40 MG TABLET PO ×2 (09:10→16:02)
[2025-03-17] MEDS: BENZONATATE 100 MG CAPSULE PO ×3 (09:10→16:02)
[2025-03-17] MEDS: CLOPIDOGREL BISULFATE 75 MG TABLET PO (09:10)
[2025-03-17] MEDS: DOCUSATE SODIUM 100 MG CAPSULE PO ×2 (09:10→16:02)
[2025-03-17] MEDS: DOXYCYCLINE IV 100 MG in SODIUM CHLORIDE 0.9% IV 100 ML IVPB ×2 (09:11→20:44)
--- NOTE | 2025-03-17 09:22 | P.PNCA_ITS ---
Progress Note: A&P Assessment and Plan (1) Ischemic cardiomyopathy: Code(s): I25.5 - Ischemic cardiomyopathy Status: Chronic Assessment and Plan: EF 10% (previously 28%) * Continue GDMT with Coreg, spironolactone. * Previously did not tolerate ARNI, however patient does not remember what type of reaction he had. Low dose Entresto has been started BID and tolerating. * Did have some bradycardia overnight will decrease coreg to 3.125 mg BID * Can also add Jardiance if he tolerates Entresto. * Has declined ICD in the past. echocardiogram was reviewed with him and discussed increased risk for life-threatening arrhythmias given his decline in LV function. He is not particularly interested in LifeVest at this time but says that he will think about it. (2) Acute exacerbation of CHF (congestive heart failure): Qualifiers: Heart failure type: unspecified Qualified Code(s): I50.9 - Heart failure, unspecified Code(s): I50.9 - Heart failure, unspecified Status: Acute Assessment and Plan: Mild CHF exacerbation secondary to medication noncompliance * He appears euvolemic. Now on p.o. furosemide 40 mg b.i.d. * Strict I&O * Fluid restriction * Daily weights * Daily BMP while diuresing (3) History of revascularization procedure of lower extremity: Code(s): Z98.62 - Peripheral vascular angioplasty status Status: Acute Assessment and Plan: Stable. Continue Plavix, statin. (4) Coronary artery disease: Code(s): I25.10 - Atherosclerotic heart disease of [place] coronary artery without angina pectoris Status: Acute Assessment and Plan: Stable, not reporting any anginal symptoms. Continue statin. 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 He denies any shortness of breath, chest pain, palpitations. His swelling has resolved. Date of service 03/17/25: Patient sitting up in chair. states feeling tired. No chest pain or pressure. No shortness of breath. No dizziness Review of Systems Review of Systems: All systems reviewed & are unremarkable except as noted in HPI and below Exam Const: General: comfortable, no acute distress, alert and awake Orientation/consciousness: patient oriented x3 HENMT: Head: normal to inspection Eyes: General: appearance normal, both eyes and all related structures Pupils: Equal, round and reactive pupils present Neck: Neck: normal visual inspection, supple and no JVD Carotids: normal carotid upstroke Resp: Effort & Inspection: normal respiratory effort Auscultation: crackles and rales Cardio: Rate: regular rate Rhythm: regular rhythm Heart sounds: S1 normal heart sound present, S2 normal heart sound present and no murmurs GI: Auscultation: normal bowel sounds Skin: General skin exam: normal color Neuro: General: patient oriented x3 Cranial nerves: Yes Equal, round and reactive pupils present Extrem: General: edema Other: No edema Psych: Appearance: grossly normal Mental Status: mental status grossly normal Objective Data Vital Signs Vital Signs: Vital Signs - 24 hr 03/16/25 10:00 03/16/25 10:00 03/16/25 11:00 Temperature 36.2 C L Pulse Rate 65 63 56 L Respiratory Rate 16 16 Blood Pressure 112/77 91/56 L Pulse Oximetry 96 98 Oxygen Delivery Oxygen Flow Rate 03/16/25 12:00 03/16/25 12:00 03/16/25 12:00 Temperature Pulse Rate 64 61 Respiratory Rate 18 Blood Pressure 107/73 Pulse Oximetry 94 94 Oxygen Delivery Room Air Oxygen Flow Rate 03/16/25 16:00 03/16/25 16:00 03/16/25 16:00 Temperature 36.2 C L Pulse Rate 64 66 Respiratory Rate 18 Blood Pressure 102/85 Pulse Oximetry 95 Oxygen Delivery Room Air Oxygen Flow Rate 03/16/25 20:00 03/16/25 20:00 03/16/25 20:00 Temperature 36.0 C L Pulse Rate 54 L 58 L Respiratory Rate 20 Blood Pressure 98/61 L Pulse Oximetry 100 Oxygen Delivery Room Air Oxygen Flow Rate 03/16/25 21:35 03/16/25 22:00 03/16/25 23:54 Temperature 36.4 C Pulse Rate 55 L 58 L 58 L Respiratory Rate 20 Blood Pressure 103/64 Pulse Oximetry 98 Oxygen Delivery Oxygen Flow Rate 03/17/25 00:00 03/17/25 00:00 03/17/25 02:00 Temperature Pulse Rate 58 L 53 L Respiratory Rate Blood Pressure Pulse Oximetry 98 Oxygen Delivery Nasal Cannula Oxygen Flow Rate 2 03/17/25 03:48 03/17/25 04:00 03/17/25 04:00 Temperature 36.4 C L Pulse Rate 53 L 58 L Respiratory Rate 20 Blood Pressure 129/69 Pulse Oximetry 99 Oxygen Delivery Room Air Oxygen Flow Rate 03/17/25 06:00 03/17/25 08:00 03/17/25 09:10 Temperature 36.6 C Pulse Rate 63 59 L 65 Respiratory Rate 16 Blood Pressure 130/79 Pulse Oximetry 98 Oxygen Delivery Oxygen Flow Rate Intake/Output Intake/Output: Intake & Output 03/14/25 03/15/25 03/16/25 03/17/25 23:59 23:59 23:59 23:59 Intake Total 1100 1330 1520 840 Output Total 0 2100 1300 500 Balance 1100 -770 220 340 Meds/Results Medications: Active Medications Generic Name Dose Route Start Last Admin Trade Name Freq PRN Reason Stop Dose Admin Atorvastatin Calcium 80 mg 03/15/25 01:25 03/15/25 02:39 Atorvastatin 40 Mg Tablet PO 80 mg On Hold: 03/15/25 08:27 HS LIZ Administration Benzonatate 100 mg 03/15/25 13:00 03/17/25 09:10 Benzonatate 100 Mg Capsule PO 100 mg TID LIZ Administration Carvedilol 3.125 mg 03/17/25 09:00 03/17/25 09:10 Carvedilol 3.125 Mg Tablet PO 3.125 mg Q12HR LIZ Administration Clopidogrel Bisulfate 75 mg 03/15/25 09:00 03/17/25 09:10 Clopidogrel Bisulfate 75 Mg Tablet PO 75 mg DAILY LIZ Administration Dextrose 12.5 gm 03/14/25 19:19 Dextrose 50% 25 Gm/50 Ml Syringe IV PUSH PRN PRN Hypoglycemia Protocol Docusate Sodium 100 mg 03/15/25 09:00 03/17/25 09:10 Docusate Sodium 100 Mg Capsule PO 100 mg BID LIZ Administration Furosemide 40 mg 03/16/25 17:00 03/17/25 09:10 Furosemide 40 Mg Tablet PO 40 mg BID LIZ Administration Glucagon 1 mg 03/14/25 19:19 Glucagon For Inj 1 Mg Vial IM PRN PRN Hypoglycemia Protocol Glucose 15 gm 03/14/25 19:19 Glucose Oral Gel 15 Gm Of Glucse In 37.5 Gm Tube PO PRN PRN Hypoglycemia Protocol Guaifenesin/Dextromethorphan 10 ml 03/15/25 09:35 Guaifenesin/Dextromethorphan 10 Ml Udc PO Q4H PRN Cough Dextrose 1,000 mls @ 100 mls/hr 03/14/25 19:19 Dextrose 5% 1,000 Ml IVPB PRN PRN Hypoglycemia Protocol Cefepime HCl 1 gm/ Sodium 50 mls @ 100 mls/hr 03/15/25 06:00 03/17/25 05:48 Chloride IVPB Infused Q12H LIZ Infusion Doxycycline Hyclate 100 mg/ 100 mls @ 100 mls/hr 03/15/25 09:00 03/17/25 09:11 Sodium Chloride IVPB 100 mls/hr Q12H LIZ Administration Insulin Aspart 2 - 5 units 03/15/25 08:00 03/17/25 09:19 Insulin Aspart (*Bkc) 100 Units/Ml SUB-Q Not Given TIDWM LIZ Protocol Melatonin 5 mg 03/14/25 21:35 03/16/25 20:47 Melatonin 5 Mg Tablet PO 5 mg HS LIZ Administration Rivaroxaban 20 mg 03/15/25 17:00 03/16/25 16:51 Rivaroxaban 20 Mg Tablet PO 20 mg DAILY@1700 LIZ Administration Sacubitril/Valsartan 1 tab 03/17/25 09:00 03/17/25 09:10 Sacubitril/Valsartan 12-13 Mg Tablet PO 1 tab Q12HR LIZ Administration Vancomycin HCl 1 each 03/14/25 14:33 Vancomycin For Acute Kidney Injury IVPB PRN PRN Vancomycin Protocol Radiology Results: ITS Impressions Chest X-Ray 03/14/25 12:52 IMPRESSION: 1. Pleural effusions with bibasilar atelectasis and/or airspace disease. Head CT 03/14/25 14:37 Impression: 1.No acute intracranial abnormality. Chest CT 03/14/25 14:39 IMPRESSION: CHF. Superimposed probable mild bronchopneumonia. Follow-up recommended to assess. Abdomen Ultrasound 03/15/25 10:09 IMPRESSION: 1. Mildly increased echotexture of the kidneys may represent underlying medical renal disease. No hydronephrosis or large masses in the kidneys. 2. Incidental note of cholelithiasis with borderline gallbladder wall thickening and possible trace of pericholecystic fluid. Correlate with right upper quadrant ultrasound. ADDENDUM: 03/15/25 1230 Examination was incomplete on initial dictation. On follow-up review, again noted are several gallstones, and borderline gallbladder wall thickening. Pericholecystic fluid may also be present. Free fluid is also noted superior to the liver. The liver measures 15.1 cm in length. IMPRESSION: Findings are concerning for cholecystitis. Correlate with clinical presentation and exam for additional imaging as clinically appropriate. Renal Ultrasound 03/15/25 10:10 Impression: 1. Medical renal disease with tiny probable renal vascular calcifications, less likely renal calculi. No hydronephrosis. 2. Enlarged prostate. Correlate with PSA Labs Labs: Laboratory Results - last 24 hr 03/16/25 03/16/25 03/16/25 11:36 16:27 18:39 WBC RBC Hgb Hct MCV MCH MCHC RDW Plt Count MPV Immature Gran % (Auto) Neut % (Auto) Lymph % (Auto) [place] % (Auto) Eos % (Auto) Baso % (Auto) Lymph # (Auto) [place] # (Auto) Eos # (Auto) Baso # (Auto) Abs Immat Gran (auto) Absolute Neuts (auto) Absolute Nucleated RBC Nucleated RBC % % Immature Plt Fraction Sodium Potassium Chloride Carbon Dioxide Anion Gap BUN Creatinine Estim Creat Clear Calc Estimated GFR Glucose POC Capillary Glucose 184 H 236 H Calcium Phosphorus Magnesium Total Bilirubin AST ALT Alkaline Phosphatase Total Protein Albumin Vancomycin Trough 8.9 L 03/16/25 03/17/25 03/17/25 21:29 04:18 07:32 WBC 10.7 H RBC 4.58 L Hgb 13.8 L Hct 41.2 L MCV 90.0 MCH 30.1 MCHC 33.5 RDW 14.6 H Plt Count 68 L MPV 12.9 H Immature Gran % (Auto) 0.8 H Neut % (Auto) 82.0 H Lymph % (Auto) 8.1 L [place] % (Auto) 7.8 Eos % (Auto) 1.1 Baso % (Auto) 0.2 Lymph # (Auto) 0.86 L [place] # (Auto) 0.8 H Eos # (Auto) 0.1 Baso # (Auto) 0.0 Abs Immat Gran (auto) 0.09 H Absolute Neuts (auto) 8.8 H Absolute Nucleated RBC 0.000 Nucleated RBC % 0.0 % Immature Plt Fraction 22.2 H Sodium 128 L Potassium 3.6 Chloride 95 L Carbon Dioxide 24 Anion Gap 9 BUN 61 H Creatinine 1.41 H Estim Creat Clear Calc 37 Estimated GFR 49 L Glucose 132 H POC Capillary Glucose 139 H 139 H Calcium 8.2 L Phosphorus 4.0 Magnesium 2.3 Total Bilirubin 1.3 AST 151 H ALT 510 H Alkaline Phosphatase 188 H Total Protein 5.6 L Albumin 3.3 L Vancomycin Trough
--- NOTE | 2025-03-17 12:03 | PM.PNGS ---
Progress Note: A&P Assessment and Plan (1) Cholecystitis: Code(s): K81.9 - Cholecystitis, unspecified Status: Acute Assessment and Plan: Patient continues to have benign abdominal exam today. Patient denies any pain, nausea or vomiting. Having bowel movements. Tolerating diet. Bilirubin steadily decreasing - 1.3 today. Liver enzymes still slightly elevated. Continue to manage conservatively with IV antibiotics. No surgical intervention necessary at this time. We will sign off. Call with any concerns or questions. (2) Transaminitis: Code(s): R74.01 - Elevation of levels of liver transaminase levels Status: Acute Assessment and Plan: see above. (3) Ischemic cardiomyopathy: Code(s): I25.5 - Ischemic cardiomyopathy Status: Chronic Assessment and Plan: Echocardiogram showing ejection fraction of 10-20%. Cardiology on board. Continue diuretics per cardiology recommendations (4) Bilateral pneumonia: Qualifiers: Lung location: lower lobe of lung Pneumonia type: due to unspecified organism Qualified Code(s): J18.9 - Pneumonia, unspecified organism Code(s): J18.9 - Pneumonia, unspecified organism Status: Acute Assessment and Plan: Superimposed probable mild bronchopneumonia noted on chest CT. WBC 10.7 today. Continue treatment with IV antibiotics. (5) Elevated serum creatinine: Code(s): R79.89 - Other specified abnormal findings of blood chemistry Status: Acute Assessment and Plan: Creatinine 1.41. CK 1052. Patient volume overloaded upon admission. Currently being diuresed. Nephrology consulted. Appreciate their recommendations. (6) Acute hyperkalemia: Code(s): E87.5 - Hyperkalemia Status: Acute Assessment and Plan: Normalized at 3.6. Continue to monitor. (7) Acute hyponatremia: Code(s): E87.1 - Hypo-osmolality and hyponatremia Status: Acute Assessment and Plan: Nephrology following. (8) Peripheral vascular disease: Code(s): I73.9 - Peripheral vascular disease, unspecified Status: Acute (9) CHF (congestive heart failure): Code(s): I50.9 - Heart failure, unspecified Status: Chronic (10) Coronary artery disease: Code(s): I25.10 - Atherosclerotic heart disease of [place] coronary artery without angina pectoris Status: Acute (11) History of revascularization procedure of lower extremity: Code(s): Z98.62 - Peripheral vascular angioplasty status Status: Acute (12) Ischemia of right lower extremity: Code(s): I99.8 - Other disorder of circulatory system Status: Chronic (13) Type 2 diabetes mellitus: Qualifiers: Diabetes mellitus longterm insulin use: unspecified longterm insulin use status Diabetes mellitus complication status: with circulatory complication Diabetes mellitus complication detail: with other circulatory complications Qualified Code(s): E11.59 - Type 2 diabetes mellitus with other circulatory complications Code(s): E11.9 - Type 2 diabetes mellitus without complications Status: Chronic Plan Discussed patient's case and plan of care with Dr. Moralez. Subjective Subjective Date/Time Seen: 03/17/25 12:03 Patient reports: no new complaints, tolerating a regular diet, bowel movement and afebrile Interval history: Patient is doing well today. Sitting up in chair eating breakfast. Labs are stable. Exam Const: General: comfortable and no acute distress GI: Inspection: non-distended GI Palp: Yes Soft to palpation, No Tenderness to palpation present (GI) and No Guarding due to palpation present (GI) Auscultation: normal bowel sounds Objective Data Vital Signs Vital Signs: Vital Signs - 24 hr 03/16/25 16:00 03/16/25 16:00 03/16/25 16:00 Temperature 97.1 F L Pulse Rate 64 66 Respiratory Rate 18 Blood Pressure 102/85 Pulse Oximetry 95 Oxygen Delivery Room Air Oxygen Flow Rate 03/16/25 20:00 03/16/25 20:00 03/16/25 20:00 Temperature 96.8 F L Pulse Rate 54 L 58 L Respiratory Rate 20 Blood Pressure 98/61 L Pulse Oximetry 100 Oxygen Delivery Room Air Oxygen Flow Rate 03/16/25 21:35 03/16/25 22:00 03/16/25 23:54 Temperature 97.6 F Pulse Rate 55 L 58 L 58 L Respiratory Rate 20 Blood Pressure 103/64 Pulse Oximetry 98 Oxygen Delivery Oxygen Flow Rate 03/17/25 00:00 03/17/25 00:00 03/17/25 02:00 Temperature Pulse Rate 58 L 53 L Respiratory Rate Blood Pressure Pulse Oximetry 98 Oxygen Delivery Nasal Cannula Oxygen Flow Rate 2 03/17/25 03:48 03/17/25 04:00 03/17/25 04:00 Temperature 97.5 F L Pulse Rate 53 L 58 L Respiratory Rate 20 Blood Pressure 129/69 Pulse Oximetry 99 Oxygen Delivery Room Air Oxygen Flow Rate 03/17/25 06:00 03/17/25 08:00 03/17/25 08:00 Temperature 98 F Pulse Rate 63 59 L 65 Respiratory Rate 16 Blood Pressure 130/79 Pulse Oximetry 98 Oxygen Delivery Oxygen Flow Rate 03/17/25 09:10 03/17/25 10:00 03/17/25 11:57 Temperature 98.3 F Pulse Rate 65 73 66 Respiratory Rate 20 Blood Pressure 124/63 Pulse Oximetry 96 Oxygen Delivery Oxygen Flow Rate Intake/Output Intake/Output: Intake & Output 03/14/25 03/15/25 03/16/25 03/17/25 23:59 23:59 23:59 23:59 Intake Total 1100 1330 1520 1080 Output Total 0 2100 1300 500 Balance 1100 -770 220 580 Meds/Results Medications: Active Medications Generic Name Dose Route Start Last Admin Trade Name Freq PRN Reason Stop Dose Admin Atorvastatin Calcium 80 mg 03/15/25 01:25 03/15/25 02:39 Atorvastatin 40 Mg Tablet PO 80 mg On Hold: 03/15/25 08:27 HS LIZ Administration Benzonatate 100 mg 03/15/25 13:00 03/17/25 11:58 Benzonatate 100 Mg Capsule PO 100 mg TID LIZ Administration Carvedilol 3.125 mg 03/17/25 09:00 03/17/25 09:10 Carvedilol 3.125 Mg Tablet PO 3.125 mg Q12HR LIZ Administration Clopidogrel Bisulfate 75 mg 03/15/25 09:00 03/17/25 09:10 Clopidogrel Bisulfate 75 Mg Tablet PO 75 mg DAILY LIZ Administration Dextrose 12.5 gm 03/14/25 19:19 Dextrose 50% 25 Gm/50 Ml Syringe IV PUSH PRN PRN Hypoglycemia Protocol Docusate Sodium 100 mg 03/15/25 09:00 03/17/25 09:10 Docusate Sodium 100 Mg Capsule PO 100 mg BID LIZ Administration Furosemide 40 mg 03/16/25 17:00 03/17/25 09:10 Furosemide 40 Mg Tablet PO 40 mg BID LIZ Administration Glucagon 1 mg 03/14/25 19:19 Glucagon For Inj 1 Mg Vial IM PRN PRN Hypoglycemia Protocol Glucose 15 gm 03/14/25 19:19 Glucose Oral Gel 15 Gm Of Glucse In 37.5 Gm Tube PO PRN PRN Hypoglycemia Protocol Guaifenesin/Dextromethorphan 10 ml 03/15/25 09:35 Guaifenesin/Dextromethorphan 10 Ml Udc PO Q4H PRN Cough Dextrose 1,000 mls @ 100 mls/hr 03/14/25 19:19 Dextrose 5% 1,000 Ml IVPB PRN PRN Hypoglycemia Protocol Cefepime HCl 1 gm/ Sodium 50 mls @ 100 mls/hr 03/15/25 06:00 03/17/25 05:48 Chloride IVPB Infused Q12H LIZ Infusion Doxycycline Hyclate 100 mg/ 100 mls @ 100 mls/hr 03/15/25 09:00 03/17/25 09:11 Sodium Chloride IVPB 100 mls/hr Q12H LIZ Administration Insulin Aspart 2 - 5 units 03/15/25 08:00 03/17/25 09:19 Insulin Aspart (*Bkc) 100 Units/Ml SUB-Q Not Given TIDWM LIZ Protocol Melatonin 5 mg 03/14/25 21:35 03/16/25 20:47 Melatonin 5 Mg Tablet PO 5 mg HS LIZ Administration Rivaroxaban 20 mg 03/15/25 17:00 03/16/25 16:51 Rivaroxaban 20 Mg Tablet PO 20 mg DAILY@1700 LIZ Administration Sacubitril/Valsartan 1 tab 03/17/25 09:00 03/17/25 09:10 Sacubitril/Valsartan 12-13 Mg Tablet PO 1 tab Q12HR LIZ Administration Vancomycin HCl 1 each 03/14/25 14:33 Vancomycin For Acute Kidney Injury IVPB PRN PRN Vancomycin Protocol Radiology Results: ITS Impressions Chest X-Ray 03/14/25 12:52 IMPRESSION: 1. Pleural effusions with bibasilar atelectasis and/or airspace disease. Head CT 03/14/25 14:37 Impression: 1.No acute intracranial abnormality. Chest CT 03/14/25 14:39 IMPRESSION: CHF. Superimposed probable mild bronchopneumonia. Follow-up recommended to assess. Abdomen Ultrasound 03/15/25 10:09 IMPRESSION: 1. Mildly increased echotexture of the kidneys may represent underlying medical renal disease. No hydronephrosis or large masses in the kidneys. 2. Incidental note of cholelithiasis with borderline gallbladder wall thickening and possible trace of pericholecystic fluid. Correlate with right upper quadrant ultrasound. ADDENDUM: 03/15/25 1230 Examination was incomplete on initial dictation. On follow-up review, again noted are several gallstones, and borderline gallbladder wall thickening. Pericholecystic fluid may also be present. Free fluid is also noted superior to the liver. The liver measures 15.1 cm in length. IMPRESSION: Findings are concerning for cholecystitis. Correlate with clinical presentation and exam for additional imaging as clinically appropriate. Renal Ultrasound 03/15/25 10:10 Impression: 1. Medical renal disease with tiny probable renal vascular calcifications, less likely renal calculi. No hydronephrosis. 2. Enlarged prostate. Correlate with PSA Labs Labs: Laboratory Results - last 24 hr 03/16/25 03/16/25 03/16/25 16:27 18:39 21:29 WBC RBC Hgb Hct MCV MCH MCHC RDW Plt Count MPV Immature Gran % (Auto) Neut % (Auto) Lymph % (Auto) Mccormick % (Auto) Eos % (Auto) Baso % (Auto) Lymph # (Auto) Mccormick # (Auto) Eos # (Auto) Baso # (Auto) Abs Immat Gran (auto) Absolute Neuts (auto) Absolute Nucleated RBC Nucleated RBC % % Immature Plt Fraction Sodium Potassium Chloride Carbon Dioxide Anion Gap BUN Creatinine Estim Creat Clear Calc Estimated GFR Glucose POC Capillary Glucose 236 H 139 H Calcium Phosphorus Magnesium Total Bilirubin AST ALT Alkaline Phosphatase Total Protein Albumin Vancomycin Trough 8.9 L 03/17/25 03/17/25 04:18 07:32 WBC 10.7 H RBC 4.58 L Hgb 13.8 L Hct 41.2 L MCV 90.0 MCH 30.1 MCHC 33.5 RDW 14.6 H Plt Count 68 L MPV 12.9 H Immature Gran % (Auto) 0.8 H Neut % (Auto) 82.0 H Lymph % (Auto) 8.1 L Mccormick % (Auto) 7.8 Eos % (Auto) 1.1 Baso % (Auto) 0.2 Lymph # (Auto) 0.86 L Mccormick # (Auto) 0.8 H Eos # (Auto) 0.1 Baso # (Auto) 0.0 Abs Immat Gran (auto) 0.09 H Absolute Neuts (auto) 8.8 H Absolute Nucleated RBC 0.000 Nucleated RBC % 0.0 % Immature Plt Fraction 22.2 H Sodium 128 L Potassium 3.6 Chloride 95 L Carbon Dioxide 24 Anion Gap 9 BUN 61 H Creatinine 1.41 H Estim Creat Clear Calc 37 Estimated GFR 49 L Glucose 132 H POC Capillary Glucose 139 H Calcium 8.2 L Phosphorus 4.0 Magnesium 2.3 Total Bilirubin 1.3 AST 151 H ALT 510 H Alkaline Phosphatase 188 H Total Protein 5.6 L Albumin 3.3 L Vancomycin Trough
--- NOTE | 2025-03-17 12:35 | P.PNNP_ITS ---
Progress Note: A&P Assessment and Plan (1) Hyponatremia: Code(s): E87.1 - Hypo-osmolality and hyponatremia Status: Acute Assessment and Plan: * slow improvement noted * appears acute * last outpatient sodium 137mmol/L (in April 2024) * no previous low sodium levels noted by outpatient testing * suspect related to ALBERTO, poor oral intake, and underlying CHF/cardiomyopathy and noncompliance with medications * slow improvement already noted with sodium level * goal ot therapy is a rate of change of 6 - 8mmol/L in 24 hours * started on fluid restriction * continue current therapy * follow serial sodium levels (2) Acute kidney injury: Code(s): N17.9 - Acute kidney failure, unspecified Status: Acute Assessment and Plan: * baseline creatinine normally runs ~ 1.0 - 1.2mg/dl in the last year * probably from mild decompensation of CHF and non-compliance with cardiac medications * however, given his risk factor profile, he likely has some underlying renal insufficiency * evalution to date noted: * CT imaging and renal u/s without obstruction * urine electrolytes prerenal * UA without infection * CPK mildly elevated (not enough to affect kidney function) * proteinuria noted * follow trend of repeat labs and UOP (3) Hyperkalemia: Code(s): E87.5 - Hyperkalemia Status: Acute Assessment and Plan: * noted on admission * s/p medical management * follow trend of repeat K+ (4) Ischemic cardiomyopathy: Code(s): I25.5 - Ischemic cardiomyopathy Status: Chronic Assessment and Plan: * known history * Echo noted * continue GDMT as tolerated * declined ICD in the past * Cardiology following (5) Acute exacerbation of CHF (congestive heart failure): Qualifiers: Heart failure type: unspecified Qualified Code(s): I50.9 - Heart failure, unspecified Code(s): I50.9 - Heart failure, unspecified Status: Acute Assessment and Plan: * mild CHF exacerbation secondary to medication noncompliance * Echo noted: * left ventricular ejection fraction is visually estimated to be 10-20% * right ventricle is normal in size with reduced systolic function * mild aortic regurgitation * moderate mitral regurgitation * ulmonary arterial systolic pressure is estimated at 59 mmHg - moderate pulmonary hypertension. * on scheduled diuretic therapy * follow I&Os and daily weights * Cardiology following (6) Bilateral pneumonia: Qualifiers: Lung location: lower lobe of lung Pneumonia type: due to unspecified organism Qualified Code(s): J18.9 - Pneumonia, unspecified organism Code(s): J18.9 - Pneumonia, unspecified organism Status: Acute Assessment and Plan: * CT scan shows mild bronchopneumonia * recently treated for pneumonia as an outpatient and finished antibiotic course -- resolving pneumonia or incompletely treated(?) * follow culture data * continue antibiotics * tessalon and Robitussin DM p.r.n. 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 L Subjective Date/time seen: 03/17/25 12:35 Interval history: Follow-up for acute hyponatremia and acute kidney injury/acute renal failure. Sodium continues to slowly improve with current interventions and renal function/creatinine remains relatively stable (if not a tad better in comparison to admission); no apparent distress voiced but does states he has still has some fatigue along with diminished oral intake secondary to poor appetite. Exam 2 Narrative: General: frail and elderly male in NAD Heart: normal S1 and S2; no rub Lungs: clear anteriorly Abdomen: soft, nontender, nondistended, positive bowel sounds Extremities: no cyanosis or clubbing; 1+ edema Skin: warm and intact Objective Data Vital Signs Vital Signs: Vital Signs Temp Pulse Resp BP Pulse Ox O2 Del Method O2 Flow Rate 03/17/25 12:00 67 03/17/25 11:57 97.4 F L 61 18 114/79 96 03/17/25 10:00 73 03/17/25 09:10 65 03/17/25 08:00 65 03/17/25 08:00 98 F 59 L 16 130/79 98 03/17/25 06:00 63 03/17/25 04:00 58 L 03/17/25 04:00 Room Air 03/17/25 03:48 97.5 F L 53 L 20 129/69 99 03/17/25 02:00 53 L 03/17/25 00:00 58 L 03/17/25 00:00 98 Nasal Cannula 2 03/16/25 23:54 97.6 F 58 L 20 103/64 98 03/16/25 22:00 58 L 03/16/25 21:35 55 L 03/16/25 20:00 58 L 03/16/25 20:00 Room Air 03/16/25 20:00 96.8 F L 54 L 20 98/61 L 100 Intake/Output Intake/Output: Intake & Output 03/14/25 03/15/25 03/16/25 03/17/25 23:59 23:59 23:59 23:59 Intake Total 1100 1330 1520 1080 Output Total 0 2100 1300 1200 Balance 1100 -770 220 -120 Meds/Results Medications: Active Medications Generic Name Dose Route Start Last Admin Trade Name Freq PRN Reason Stop Dose Admin Atorvastatin Calcium 80 mg 03/15/25 01:25 03/15/25 02:39 Atorvastatin 40 Mg Tablet PO 80 mg On Hold: 03/15/25 08:27 HS LIZ Administration Benzonatate 100 mg 03/15/25 13:00 03/17/25 16:02 Benzonatate 100 Mg Capsule PO 100 mg TID LIZ Administration Carvedilol 3.125 mg 03/17/25 09:00 03/17/25 09:10 Carvedilol 3.125 Mg Tablet PO 3.125 mg Q12HR LIZ Administration Clopidogrel Bisulfate 75 mg 03/15/25 09:00 03/17/25 09:10 Clopidogrel Bisulfate 75 Mg Tablet PO 75 mg DAILY LIZ Administration Dextrose 12.5 gm 03/14/25 19:19 Dextrose 50% 25 Gm/50 Ml Syringe IV PUSH PRN PRN Hypoglycemia Protocol Docusate Sodium 100 mg 03/15/25 09:00 03/17/25 16:02 Docusate Sodium 100 Mg Capsule PO 100 mg BID LIZ Administration Furosemide 40 mg 03/16/25 17:00 03/17/25 16:02 Furosemide 40 Mg Tablet PO 40 mg BID LIZ Administration Glucagon 1 mg 03/14/25 19:19 Glucagon For Inj 1 Mg Vial IM PRN PRN Hypoglycemia Protocol Glucose 15 gm 03/14/25 19:19 Glucose Oral Gel 15 Gm Of Glucse In 37.5 Gm Tube PO PRN PRN Hypoglycemia Protocol Guaifenesin/Dextromethorphan 10 ml 03/15/25 09:35 Guaifenesin/Dextromethorphan 10 Ml Udc PO Q4H PRN Cough Dextrose 1,000 mls @ 100 mls/hr 03/14/25 19:19 Dextrose 5% 1,000 Ml IVPB PRN PRN Hypoglycemia Protocol Cefepime HCl 1 gm/ Sodium 50 mls @ 100 mls/hr 03/15/25 06:00 03/17/25 05:48 Chloride IVPB Infused Q12H LIZ Infusion Doxycycline Hyclate 100 mg/ 100 mls @ 100 mls/hr 03/15/25 09:00 03/17/25 09:11 Sodium Chloride IVPB 100 mls/hr Q12H LIZ Administration Insulin Aspart 2 - 5 units 03/15/25 08:00 03/17/25 16:09 Insulin Aspart (*Bkc) 100 Units/Ml SUB-Q 5 units TIDWM LIZ Administration Protocol Melatonin 5 mg 03/14/25 21:35 03/16/25 20:47 Melatonin 5 Mg Tablet PO 5 mg HS LIZ Administration Rivaroxaban 20 mg 03/15/25 17:00 03/17/25 16:02 Rivaroxaban 20 Mg Tablet PO 20 mg DAILY@1700 LIZ Administration Sacubitril/Valsartan 1 tab 03/17/25 09:00 03/17/25 09:10 Sacubitril/Valsartan 12-13 Mg Tablet PO 1 tab Q12HR LIZ Administration Vancomycin HCl 1 each 03/14/25 14:33 Vancomycin For Acute Kidney Injury IVPB PRN PRN Vancomycin Protocol Radiology Results: ITS Impressions Chest X-Ray 03/14/25 12:52 IMPRESSION: 1. Pleural effusions with bibasilar atelectasis and/or airspace disease. Head CT 03/14/25 14:37 Impression: 1.No acute intracranial abnormality. Chest CT 03/14/25 14:39 IMPRESSION: CHF. Superimposed probable mild bronchopneumonia. Follow-up recommended to assess. Abdomen Ultrasound 03/15/25 10:09 IMPRESSION: 1. Mildly increased echotexture of the kidneys may represent underlying medical renal disease. No hydronephrosis or large masses in the kidneys. 2. Incidental note of cholelithiasis with borderline gallbladder wall thickening and possible trace of pericholecystic fluid. Correlate with right upper quadrant ultrasound. ADDENDUM: 03/15/25 1230 Examination was incomplete on initial dictation. On follow-up review, again noted are several gallstones, and borderline gallbladder wall thickening. Pericholecystic fluid may also be present. Free fluid is also noted superior to the liver. The liver measures 15.1 cm in length. IMPRESSION: Findings are concerning for cholecystitis. Correlate with clinical presentation and exam for additional imaging as clinically appropriate. Renal Ultrasound 03/15/25 10:10 Impression: 1. Medical renal disease with tiny probable renal vascular calcifications, less likely renal calculi. No hydronephrosis. 2. Enlarged prostate. Correlate with PSA Labs Labs: Laboratory Tests 03/17/25 04:18 03/17/25 04:18 Calcium 8.2 L Phosphorus 4.0 Magnesium 2.3 Total Bilirubin 1.3 AST 151 H ALT 510 H Alkaline Phosphatase 188 H Total Protein 5.6 L Albumin 3.3 L
[2025-03-17] MEDS: RIVAROXABAN 20 MG TABLET PO (16:02)
[2025-03-17] MEDS: INSULIN ASPART (*BKC) 100 UNITS/ML SUB-Q (16:09)
[2025-03-17] MEDS: MELATONIN 5 MG TABLET PO (20:46)
[2025-03-17] MEDS: VANCOMYCIN 1,250 MG/NS 250 ML 1,250 MG/250 ML BAG 166.67 MG IVPB (21:41)
[2025-03-18] VITALS (18 sets, daily range): BP systolic 95–156; BP diastolic 64–98; PULSE 58–79; RESP 18; TEMP 36.4–36.6; O2SAT 98–100
[2025-03-18 04:28] LABS: Hematocrit 42.0 % (42.0-52.0); Hemoglobin 13.9 g/dL (14.0-18.0); Immature Platelet Fraction Pct 21.4 % (0.9-11.2); Mean Corpuscular HGB Conc 33.1 g/dl (32-36); Mean Corpuscular Hemoglobin 29.6 pg (26-34); Mean Corpuscular Volume 89.4 fl (80-100); Platelet Count Result 72 k/mm3 (150-375); Red Blood Count 4.70 M/mm3 (4.6-6.20); White Blood Count 10.2 K/mm3 (4.5-10.0)
[2025-03-18 04:40] LABS: Alanine Aminotransferase 449 U/L (6-50); Albumin Level 3.0 g/dL (3.5-5.1); Alkaline Phosphatase 222 U/L (38-126); Anion Gap 8 mmol/L (4-12); Aspartate Amino Transferase 117 U/L (17-59); Bilirubin,Total 0.9 mg/dL (0.2-1.3); Blood Urea Nitrogen 60 mg/dL (9-20); Calcium 8.0 mg/dL (8.4-10.2); Carbon Dioxide 23 mmol/L (22-30); Chloride 98 mmol/L (98-107); Estimated CRCL calculation 46 ml/min; Estimated Glomerular Filt Rate 57; Glucose 273 mg/dL (65-110); Magnesium 2.2 mg/dL (1.6-2.3); Potassium 3.4 mmol/L (3.4-5.0); Sodium 129 mmol/L (137-145); Total Protein 5.2 g/dL (6.3-8.2)
[2025-03-18] MEDS: CEFEPIME 1 GM in SODIUM CHLORIDE 0.9% IV 50 ML 100 ML IVPB (05:38)
[2025-03-18] MEDS: INSULIN ASPART (*BKC) 100 UNITS/ML SUB-Q ×3 (08:11→17:08)
[2025-03-18] MEDS: BENZONATATE 100 MG CAPSULE PO ×3 (08:19→17:06)
[2025-03-18] MEDS: CLOPIDOGREL BISULFATE 75 MG TABLET PO (08:19)
[2025-03-18] MEDS: DOXYCYCLINE IV 100 MG in SODIUM CHLORIDE 0.9% IV 100 ML IVPB (08:20)
[2025-03-18] MEDS: SACUBITRIL/VALSARTAN 12-13 MG TABLET 1 TAB PO ×2 (08:21→20:58)
[2025-03-18] MEDS: FUROSEMIDE 40 MG TABLET PO ×2 (08:21→17:06)
--- NOTE | 2025-03-18 12:44 | P.PNNP_ITS ---
Progress Note: A&P Assessment and Plan (1) Hyponatremia: Code(s): E87.1 - Hypo-osmolality and hyponatremia Status: Acute Assessment and Plan: * slow improvement noted * appears acute * last outpatient sodium 137mmol/L (in April 2024) * no previous low sodium levels noted by outpatient testing * suspect related to ALBERTO, poor oral intake, and underlying CHF/cardiomyopathy and noncompliance with medications * slow improvement already noted with sodium level * goal ot therapy is a rate of change of 6 - 8mmol/L in 24 hours * started on fluid restriction * continue current therapy * follow serial sodium levels (2) Acute kidney injury: Code(s): N17.9 - Acute kidney failure, unspecified Status: Acute Assessment and Plan: * baseline creatinine normally runs ~ 1.0 - 1.2mg/dl in the last year * probably from mild decompensation of CHF and non-compliance with cardiac medications * however, given his risk factor profile, he likely has some underlying renal insufficiency * evalution to date noted: * CT imaging and renal u/s without obstruction * urine electrolytes prerenal * UA without infection * CPK mildly elevated (not enough to affect kidney function) * proteinuria noted * follow trend of repeat labs and UOP (3) Hyperkalemia: Code(s): E87.5 - Hyperkalemia Status: Acute Assessment and Plan: * noted on admission * s/p medical management * follow trend of repeat K+ (4) Ischemic cardiomyopathy: Code(s): I25.5 - Ischemic cardiomyopathy Status: Chronic Assessment and Plan: * known history * Echo noted * continue GDMT as tolerated * declined ICD in the past * Cardiology following (5) Acute exacerbation of CHF (congestive heart failure): Qualifiers: Heart failure type: unspecified Qualified Code(s): I50.9 - Heart failure, unspecified Code(s): I50.9 - Heart failure, unspecified Status: Acute Assessment and Plan: * mild CHF exacerbation secondary to medication noncompliance * Echo noted: * left ventricular ejection fraction is visually estimated to be 10-20% * right ventricle is normal in size with reduced systolic function * mild aortic regurgitation * moderate mitral regurgitation * ulmonary arterial systolic pressure is estimated at 59 mmHg - moderate pulmonary hypertension. * on scheduled diuretic therapy * follow I&Os and daily weights * Cardiology following (6) Bilateral pneumonia: Qualifiers: Lung location: lower lobe of lung Pneumonia type: due to unspecified organism Qualified Code(s): J18.9 - Pneumonia, unspecified organism Code(s): J18.9 - Pneumonia, unspecified organism Status: Acute Assessment and Plan: * CT scan shows mild bronchopneumonia * recently treated for pneumonia as an outpatient and finished antibiotic course -- resolving pneumonia or incompletely treated(?) * follow culture data * continue antibiotics * tessalon and Robitussin DM p.r.n. for cough (7) Transaminitis: Code(s): R74.01 - Elevation of levels of liver transaminase levels Status: Acute Assessment and Plan: * noted elevated AST, ALT and mildly elevated bilirubin and alkaline phosphatase * felt to be secondary to either congestion or CHF exacerbation * hold statin * slow downtrend noted (8) Type 2 diabetes mellitus: Qualifiers: Diabetes mellitus [facility] insulin use: unspecified [facility] insulin use status Diabetes mellitus complication status: with circulatory complication Diabetes mellitus complication detail: with other circulatory complications Q ualified Code(s): E11.59 - Type 2 diabetes mellitus with other circulatory complications Code(s): E11.9 - Type 2 diabetes mellitus without complications Status: Chronic Assessment and Plan: * follow accu-cheks * glycemic control per hospitalist Will continue to follow. L Subjective Date/time seen: 03/18/25 12:44 Interval history: Follow-up for acute hyponatremia and acute kidney injury/acute renal failure. Renal function/creatiine relatively stable if not better as is sodium level; no acute complaints voiced at the time of my visit; no other issues/events overnight or earlier this morning. Exam 2 Narrative: General: frail and elderly male in NAD Heart: normal S1 and S2; no rub Lungs: clear anteriorly Abdomen: soft, nontender, nondistended, positive bowel sounds Extremities: no cyanosis or clubbing; 1+ edema Skin: no rash or nodules Objective Data Vital Signs Vital Signs: Vital Signs Temp Pulse Resp BP Pulse Ox O2 Del Method 03/18/25 12:13 Room Air 03/18/25 11:30 97.9 F 62 18 102/64 100 03/18/25 10:00 68 03/18/25 08:45 75 03/18/25 08:30 64 109/66 03/18/25 08:19 63 03/18/25 08:00 98 F 60 18 95/69 L 100 03/18/25 06:00 58 L 03/18/25 04:00 97.7 F 63 18 119/82 98 03/18/25 04:00 64 03/18/25 04:00 Room Air 03/18/25 02:00 71 03/18/25 00:00 97.6 F 60 18 116/77 100 03/18/25 00:00 59 L 03/18/25 00:00 Room Air 03/17/25 22:00 62 03/17/25 20:46 61 03/17/25 20:00 55 L 03/17/25 20:00 Room Air 03/17/25 20:00 97.5 F L 62 18 97/64 L 94 03/17/25 18:00 56 L Intake/Output Intake/Output: Intake & Output 03/15/25 03/16/25 03/17/25 03/18/25 23:59 23:59 23:59 23:59 Intake Total 1330 1520 2200 880 Output Total 2100 1300 2200 600 Balance -770 220 0 280 Meds/Results Medications: Active Medications Generic Name Dose Route Start Last Admin Trade Name Freq PRN Reason Stop Dose Admin Amoxicillin/Clavulanate Potassium 1 tablet 03/18/25 21:00 Amoxicillin/Clavulanate K 875-125 Mg Tab PO 03/21/25 09:01 Q12HR LIZ Atorvastatin Calcium 80 mg 03/15/25 01:25 03/15/25 02:39 Atorvastatin 40 Mg Tablet PO 80 mg On Hold: 03/15/25 08:27 HS LIZ Administration Benzonatate 100 mg 03/15/25 13:00 03/18/25 17:06 Benzonatate 100 Mg Capsule PO 100 mg TID LIZ Administration Carvedilol 3.125 mg 03/17/25 09:00 03/18/25 08:19 Carvedilol 3.125 Mg Tablet PO 3.125 mg Q12HR LIZ Administration Clopidogrel Bisulfate 75 mg 03/15/25 09:00 03/18/25 08:19 Clopidogrel Bisulfate 75 Mg Tablet PO 75 mg DAILY LIZ Administration Dextrose 12.5 gm 03/14/25 19:19 Dextrose 50% 25 Gm/50 Ml Syringe IV PUSH PRN PRN Hypoglycemia Protocol Docusate Sodium 100 mg 03/15/25 09:00 03/18/25 17:06 Docusate Sodium 100 Mg Capsule PO 100 mg BID LIZ Administration Doxycycline Hyclate 100 mg 03/18/25 21:00 Doxycycline Hyclate 100 Mg Tablet PO 03/19/25 21:01 Q12HR LIZ Furosemide 40 mg 03/16/25 17:00 03/18/25 17:06 Furosemide 40 Mg Tablet PO 40 mg BID LIZ Administration Glucagon 1 mg 03/14/25 19:19 Glucagon For Inj 1 Mg Vial IM PRN PRN Hypoglycemia Protocol Glucose 15 gm 03/14/25 19:19 Glucose Oral Gel 15 Gm Of Glucse In 37.5 Gm Tube PO PRN PRN Hypoglycemia Protocol Guaifenesin/Dextromethorphan 10 ml 03/15/25 09:35 Guaifenesin/Dextromethorphan 10 Ml Udc PO Q4H PRN Cough Dextrose 1,000 mls @ 100 mls/hr 03/14/25 19:19 Dextrose 5% 1,000 Ml IVPB PRN PRN Hypoglycemia Protocol Insulin Aspart 2 - 5 units 03/15/25 08:00 03/18/25 17:08 Insulin Aspart (*Bkc) 100 Units/Ml SUB-Q 2 units TIDWM LIZ Administration Protocol Insulin Glargine 5 units 03/17/25 21:10 03/17/25 21:42 Insulin Glargine (*Bkc) 100 Units/Ml SUB-Q Not Given HS LIZ Melatonin 5 mg 03/14/25 21:35 03/17/25 20:46 Melatonin 5 Mg Tablet PO 5 mg HS LIZ Administration Rivaroxaban 20 mg 03/15/25 17:00 03/18/25 17:08 Rivaroxaban 20 Mg Tablet PO 20 mg DAILY@1700 LIZ Administration Sacubitril/Valsartan 1 tab 03/17/25 09:00 03/18/25 08:21 Sacubitril/Valsartan 12-13 Mg Tablet PO 1 tab Q12HR LIZ Administration Radiology Results: ITS Impressions Chest X-Ray 03/14/25 12:52 IMPRESSION: 1. Pleural effusions with bibasilar atelectasis and/or airspace disease. Head CT 03/14/25 14:37 Impression: 1.No acute intracranial abnormality. Chest CT 03/14/25 14:39 IMPRESSION: CHF. Superimposed probable mild bronchopneumonia. Follow-up recommended to assess. Abdomen Ultrasound 03/15/25 10:09 IMPRESSION: 1. Mildly increased echotexture of the kidneys may represent underlying medical renal disease. No hydronephrosis or large masses in the kidneys. 2. Incidental note of cholelithiasis with borderline gallbladder wall thickening and possible trace of pericholecystic fluid. Correlate with right upper quadrant ultrasound. ADDENDUM: 03/15/25 1230 Examination was incomplete on initial dictation. On follow-up review, again noted are several gallstones, and borderline gallbladder wall thickening. Pericholecystic fluid may also be present. Free fluid is also noted superior to the liver. The liver measures 15.1 cm in length. IMPRESSION: Findings are concerning for cholecystitis. Correlate with clinical presentation and exam for additional imaging as clinically appropriate. Renal Ultrasound 03/15/25 10:10 Impression: 1. Medical renal disease with tiny probable renal vascular calcifications, less likely renal calculi. No hydronephrosis. 2. Enlarged prostate. Correlate with PSA Labs Labs: Laboratory Tests 03/18/25 04:10 03/18/25 04:10 Calcium 8.0 L Phosphorus 3.8 Magnesium 2.2 Total Bilirubin 0.9 AST 117 H ALT 449 H Alkaline Phosphatase 222 H Total Protein 5.2 L Albumin 3.0 L Microbiology 03/14/25 15:52 Blood Blood Culture - Preliminary 03/14/25 15:32 Blood Blood Culture - Preliminary
--- NOTE | 2025-03-18 16:48 | PM.DS ---
DS: Admitting Diagnosis Discharge Date 03/18/25 Admitting Diagnosis Weakness DS: Discharge Diagnosis Discharge Diagnosis (1) Ischemic cardiomyopathy: Code(s): I25.5 - Ischemic cardiomyopathy Status: Chronic (2) Bilateral pneumonia: Qualifiers: Lung location: lower lobe of lung Pneumonia type: due to unspecified organism Qualified Code(s): J18.9 - Pneumonia, unspecified organism Code(s): J18.9 - Pneumonia, unspecified organism Status: Acute (3) Elevated serum creatinine: Code(s): R79.89 - Other specified abnormal findings of blood chemistry Status: Acute (4) Peripheral vascular disease: Code(s): I73.9 - Peripheral vascular disease, unspecified Status: Acute (5) Acute hyponatremia: Code(s): E87.1 - Hypo-osmolality and hyponatremia Status: Acute (6) Transaminitis: Code(s): R74.01 - Elevation of levels of liver transaminase levels Status: Acute (7) Type 2 diabetes mellitus: Qualifiers: Diabetes mellitus [facility] insulin use: unspecified [facility] insulin use status Diabetes mellitus complication status: with circulatory complication Diabetes mellitus complication detail: with other circulatory complications Qualified Code(s): E11.59 - Type 2 diabetes mellitus with other circulatory complications Code(s): E11.9 - Type 2 diabetes mellitus without complications Status: Chronic (8) Acute hyperkalemia: Code(s): E87.5 - Hyperkalemia Status: Acute DS: Summary Hospital Course Reason for hospitalization: 74yo male with ischemic cardiomyopathy, PAD, DM2, AAA repair, CHF, medical noncompliance who presents to the ED on 03/14/2025 with complaints of weakness. Please see H&P for details. Hospital Course: The following issues were addressed during his hospital course: (1) Ischemic cardiomyopathy: Patient has history of coronary disease and ischemic cardiomyopathy. He gets his care at [facility]. Both feet were cold on admission. He has bilateral pleural effusion. He has been noncompliant with medications, states he has not taken his medications for 6 weeks prior to admission. He is also having difficulty with obtaining rivaroxaban and care coordination made aware. Echo here showing moderately dilated LV with severely reduced systolic function, moderate eccentric LVH, LVEF 10-20% but no LV thrombus. The RV is normal in size with reduced systolic function, the LA is moderately dilated and the aortic valve has a small mass on leaflet tip that is likely a calcified nodule. There is mild aortic regurgitation, moderate mitral regurgitation and dilated inferior vena cava with <50% collapse upon inspiration consistent with significantly elevated right atrial pressure, 15 mmHg. Pulmonary arterial systolic pressure is estimated at 59 mmHg with moderate pulmonary hypertension. Cardiology consulted. He was started on IV Lasix. He had clinical improvement. We were able to add GDMT with Coreg and Entresto. Patient has refused ICD in the past. He is now agreeable for a life vest. Patient was fitted with a LifeVest on day of discharge. Instructions given by LifeVest technicians about risks and benefits of LifeVest. Patient will follow-up with his documentation improvement specialist at [facility]. (2) Bilateral pneumonia: Patient's CT scan showed mild bronchopneumonia. Patient states that he was recently treated for pneumonia as an outpatient and finished antibiotic course. This could be a resolving pneumonia or incompletely treated. BCx no growth. Urine Legionella and strep antigen pending. He was started on vancomycin, doxycycline and cefepime (03/15). Symptomatic care also provided. Antibiotics de-escalted to oral agents. (3) ALBERTO with CKD: Patient presented with creatinine 1.57. Baseline creatinine is 1-1.2. Patient received 1 L at the time of admission. Could be related to cardiorenal syndrome. Urine electrolytes will be inaccurate as patient received Lasix. Nephrology consulted. Renal ultrasound showed medical disease, no hydronephrosis, and enlarged prostate. CK level was 1052 but unable to give him a at more fluids due to his cardiomyopathy. Cr trended down to 1.2. Discharge discussed with equipment driver. (4) Peripheral vascular disease: Patient has history of peripheral vascular disease with revascularization of right lower extremity many years ago at [facility]. Unable to palpate or Doppler dorsalis pedis and bilateral feet related to PVD and low flow state. We worked to maintain a normal mean arterial pressure. Cardiology following the patient. Exam improved. (5) Acute hyponatremia: Hyponatremia at 118 in the setting of congestive heart failure with volume overload and ALBERTO. Placed on a fluid restriction diet. Nephrology was following. Serial BMPs showing sodium climbed slowly to 129. Patient remained asymptomatic (6) Transaminitis: Significantly elevated AST/ALT and mildly elevated bilirubin and alkaline phosphatase likely secondary to either congestion or cardiogenic shock. Hepatitis panel negative. Ammonia levels < 9. RUQ ultrasound showed findings concerning for cholecystitis but no pain. Surgery was consulted and appreciated their evaluation. Patient is a poor surgical candidate given his cardiac history. He remained asymptomatic but if intervention is necessary, would opt for percutaneous cholecystostomy tube. We held statin. AST/ALT trended down. (7) Type 2 diabetes mellitus: The patient's blood glucose was monitored with AccuCheks covering with sliding scale. Hypoglycemia protocol was available as needed. We added low dose Lantus but patient refused. (8) Acute hyperkalemia: Patient was hyperkalemic on admission and received Lokelma, insulin and D50. Potassium levels have normalized. The patient is requesting discharge. He states his family is flying in from [place] to stay with him. The patient overall did well and was able to be discharged home on 03/18/25. Discharge instructions discussed including medication side effects and all questions answered. Status at Discharge Cognitive/behavioral status at discharge: Stable Time Spent with Patient Time attestation: Total time spent providing and/or coordinating discharge services: 38 minutes Time spent: Greater than 30 minutes Exam Narrative: AF 97.6 156/74 63 18 100% ra Gen - thin male in NARD Chest - lungs clear. CV - irregularly irregular. Tele showing normal sinus with PVCs and 5b run NSVT Abd - soft, NT/ND Ext - Trace bilateral pitting edema Skin - right dorsal foot dressing clean and dry. ruptured blister left dorsum but no erythema to skin Neuro - alert and appropriate. Psych - flat affect. DS: Data Data Completed and Pending Labs on day of discharge: Labs from last 24 hours 03/18/25 03/18/25 03/18/25 11:06 07:48 04:10 WBC 10.2 H RBC 4.70 Hgb 13.9 L Hct 42.0 MCV 89.4 MCH 29.6 MCHC 33.1 RDW 14.5 Plt Count 72 L MPV 14.2 H % Immature Plt Fraction 21.4 H Sodium 129 L Potassium 3.4 Chloride 98 Carbon Dioxide 23 Anion Gap 8 BUN 60 H Creatinine 1.24 Estim Creat Clear Calc 46 Estimated GFR 57 L Glucose 273 H POC Capillary Glucose 223 H 237 H Calcium 8.0 L Phosphorus 3.8 Magnesium 2.2 Total Bilirubin 0.9 AST 117 H ALT 449 H Alkaline Phosphatase 222 H Total Protein 5.2 L Albumin 3.0 L Random Vancomycin 03/17/25 03/17/25 20:17 20:05 WBC RBC Hgb Hct MCV MCH MCHC RDW Plt Count MPV % Immature Plt Fraction Sodium Potassium Chloride Carbon Dioxide Anion Gap BUN Creatinine Estim Creat Clear Calc Estimated GFR Glucose POC Capillary Glucose 252 H Calcium Phosphorus Magnesium Total Bilirubin AST ALT Alkaline Phosphatase Total Protein Albumin Random Vancomycin 13.6 Preliminary micro results at discharge 03/14/25 15:52 Blood Culture - Preliminary Blood 03/14/25 15:32 Blood Culture - Preliminary Blood Discharge Plan Discharge Attending physician on discharge: Davis Esparza Consulting providers: Kelly Swain; Charles Posada; Eloisa Sheridan; Lavinia Moralez Discharging Clinician: Davis Esparza Anticipated Discharge Date/Time: 03/18/25 17:14 Patient Disposition: Home Activity: as tolerated Diet: heart healthy and diabetic Discharge Instructions: Fluid restriction of <1500mL fluid per day. Wear LifeVest at all times. Okay to remove for hygiene. Continue dressing changes to the feet until the wounds appear dry Please check glucose before meals and before bed. Record and bring into your doctor for review. Check blood pressure 1 to 2 times a day. Record and bring into your doctor for review. Call your doctor if your blood pressure is greater than 180/110. Please complete your antibiotic course even if you are starting to feel well. Take precautions to avoid falls. Rise slowly from a lying or sitting position. Pause before standing or walking. Check daily morning weights after voiding. Call your doctor if you gain more than 3 lb in 2 days or 5 lb in 1 week. Contact your doctor or call 911 and come to the Emergency Room if you have fevers, lightheadedness with standing or other worrisome symptoms. Avoid NSAIDs (ibuprofen, naproxen, Aleve). Tylenol is safe to take. Follow-up with your primary care provider in 1-2 weeks. Please call for appointment. Follow-up with your Psychiatric [facility] in 1-2 weeks. Please call for an appointment. Thank you for using [facility] for your health care needs. Patient Instructions: Antibiotic Form, Hyponatremia (GEN), Hyperkalemia (GEN) Patient Language: Slovenian Stand Alone Forms: General Discharge Information Follow-up/Referrals: PHYSICIAN,MANAGER FASHION [Primary Care Provider, Internal Medicine] - Call for Appointment Discharge Medications: New furosemide 40 mg Tablet 40 mg PO BID Qty: 60 1RF carvedilol [Coreg] 3.125 mg Tablet 3.125 mg PO Q12HR Qty: 60 2RF amoxicillin-pot clavulanate 875-125 mg tablet 1 tablet PO Q12H Qty: 6 0RF sacubitril-valsartan [Entresto] 24-26 mg Tablet 1 tab PO Q12HR Qty: 60 2RF doxycycline hyclate 100 mg Tablet 100 mg PO Q12HR Qty: 3 0RF Continued multivitamin,tx-minerals Tablet 1 tablet PO DAILY (DME) blood-glucose meter [Fleet Management SolutionsTouch Verio Flex meter] Misc Qty: 1 0RF Rx Instructions: May substitute to in-stock meter and/or covered by insurance. Use As Directed (DME) OneTouch Verio test strips Strip Qty: 1 0RF Rx Instructions: May substitute to in-stock and/or covered by insurance strips. Use As Directed (DME) pen needle, diabetic [BD Ultra-Fine Micro Pen Needle] 32 gauge x 1/4 needle Qty: 1 0RF Rx Instructions: May substitute to meet patient needs. Use As Directed (DME) lancets [Fleet Management SolutionsTouch Delica Plus Lancet] 30 gauge misc Qty: 1 0RF Rx Instructions: May substitute to in-stock and/or covered by insurance lancets. Use As Directed docusate sodium 100 mg Capsule 100 mg PO BID Qty: 0 0RF acetaminophen [Mapap (acetaminophen)] 325 mg Tablet 650 mg PO BID PRN (Reason: Mild Pain (1-3) Or Fever) Qty: 0 0RF Xarelto 20 mg Tablet 20 mg PO DAILY@1700 30 Days Qty: 30 0RF clopidogrel 75 mg Tablet 75 mg PO DAILY Qty: 30 2RF Changed insulin glargine-yfgn [Semglee(insulin glarg-yfgn)Pen] 100 unit/mL (3 mL) insulin pen 6 unit subcut .QHS 30 Days Qty: 15 0RF Held atorvastatin 80 mg Tablet 80 mg PO HS 30 Days Qty: 30 0RF Hold Instructions: HOLD - Resume when your liver tests improve and when okay with your doctor Discontinued carvedilol 12.5 mg Tablet 12.5 mg PO BID Rx Instructions: must administer with a meal/food spironolactone 25 mg Tablet 25 mg PO DAILY furosemide 20 mg Tablet 20 mg PO BID potassium chloride 20 mEq Tablet Extended Release 20 meq PO BID sennosides-docusate sodium [Senokot-S] 8.6-50 mg Tablet 1 tab PO BID Qty: 0 0RF Saline Mist 0.65 % Aerosol,Walnut 1 spray intranasal Q6HR PRN (Reason: Congestion) Qty: 0 0RF metformin 1,000 mg tablet,ER long.retention 24 hr 1,000 mg PO DAILY Qty: 30 0RF losartan 25 mg Tablet 25 mg PO DAILY 30 Days Qty: 30 0RF Rx Instructions: Per nurse- directions on bottle read 1 tablet daily oxycodone 5 mg Tablet 5 mg PO Q6H PRN (Reason: Pain Rated 7-10) Qty: 20 0RF Rx Instructions: after 3 days try cutting pills in half to begin weaning off meds potassium chloride [K-Tab] 20 mEq Tablet Extended Release 20 meq PO BID Qty: 60 0RF Xarelto 20 mg Tablet 20 mg PO QPM 30 Days Qty: 30 0RF Rx Instructions: must administer with evening meal Other Ambulatory Orders: Comprehensive Metabolic Panel (Routine) Timeframe: 1 Week Location: Determined by Patient Ordered By: Davis Esparza Date of admission: 03/14/25 14:37 Primary Care Provider: PHYSICIAN,MANAGER FASHION Admitting Provider: Luciano Miramontes Attending physician on admission: Luciano Miramontes Condition: Serious Hospitalist MIPS Heart Failure (Exclusion) Patient has history of Heart Transplant or Left Ventricular Assistive Device?: No IF YES, STOP HERE Heart Failure (Qualifier) Patient has current or prior documentation of LVEF less than or equal to 40%, or mod/servere depressed LVSF?: Yes IF NO, STOP HERE If Yes, Heart Failure (Qualifier) Patient was prescribed or already taking an Angiotensin-Converting Enzyme (KEVAN) Inhibitor, or Antiotensin Receptor Maury (ARB): Yes Patient was prescribed or already taking bisoprolol, carvedilol, or sustained release metoprolol succinate: Yes
[2025-03-18] MEDS: DOCUSATE SODIUM 100 MG CAPSULE PO (17:06)
[2025-03-18] MEDS: RIVAROXABAN 20 MG TABLET PO (17:08)
--- NOTE | 2025-03-18 19:47 | PC.NURSE ---
1430- life vest staff in room- education provided to pt from life vest staff-life vest on
--- NOTE | 2025-03-18 19:57 | PC.NURSE ---
1814- pt sister arrived from [facility], She is unable to take pt home tonight due to pt safety and is requesting Home Health Services. will consult with case resolution specialist in am. Vilma Valdez informed
[2025-03-18] MEDS: INSULIN GLARGINE (*BKC) 100 UNITS/ML SUB-Q (20:58)
[2025-03-18] MEDS: DOXYCYCLINE HYCLATE 100 MG TABLET PO (20:58)
[2025-03-18] MEDS: MELATONIN 5 MG TABLET PO (20:59)
[2025-03-19] VITALS (7 sets, daily range): BP systolic 93–101; BP diastolic 62–73; PULSE 53–65; RESP 15–18; TEMP 36.4–36.6; O2SAT 98–100
[2025-03-19 04:15] LABS: Hematocrit 40.9 % (42.0-52.0); Hemoglobin 13.6 g/dL (14.0-18.0); Immature Platelet Fraction Pct 20.6 % (0.9-11.2); Mean Corpuscular HGB Conc 33.3 g/dl (32-36); Mean Corpuscular Hemoglobin 30.2 pg (26-34); Mean Corpuscular Volume 90.9 fl (80-100); Platelet Count Result 72 k/mm3 (150-375); Red Blood Count 4.50 M/mm3 (4.6-6.20); White Blood Count 9.9 K/mm3 (4.5-10.0)
[2025-03-19 04:34] LABS: Alanine Aminotransferase 418 U/L (6-50); Albumin Level 3.1 g/dL (3.5-5.1); Alkaline Phosphatase 192 U/L (38-126); Anion Gap 6 mmol/L (4-12); Aspartate Amino Transferase 107 U/L (17-59); Bilirubin,Total 1.0 mg/dL (0.2-1.3); Blood Urea Nitrogen 63 mg/dL (9-20); Calcium 8.3 mg/dL (8.4-10.2); Carbon Dioxide 28 mmol/L (22-30); Chloride 98 mmol/L (98-107); Estimated CRCL calculation 42 ml/min; Estimated Glomerular Filt Rate 54; Glucose 108 mg/dL (65-110); Magnesium 2.1 mg/dL (1.6-2.3); Potassium 3.1 mmol/L (3.4-5.0); Sodium 132 mmol/L (137-145); Total Protein 5.4 g/dL (6.3-8.2)
[2025-03-19] MEDS: FUROSEMIDE 40 MG TABLET PO (08:18)
[2025-03-19] MEDS: BENZONATATE 100 MG CAPSULE PO (08:18)
[2025-03-19] MEDS: POTASSIUM CHLORIDE 20 MEQ ER TABLET 40 MEQ PO (08:18)
[2025-03-19] MEDS: DOXYCYCLINE HYCLATE 100 MG TABLET PO (08:18)
[2025-03-19] MEDS: DOCUSATE SODIUM 100 MG CAPSULE PO (08:18)
[2025-03-19] MEDS: SACUBITRIL/VALSARTAN 12-13 MG TABLET 1 TAB PO (08:19)
[2025-03-19] MEDS: CLOPIDOGREL BISULFATE 75 MG TABLET PO (08:28)
--- NOTE | 2025-03-19 08:50 | PC.NURSE ---
Urine legionella Ag is negative. Dr. Vilma sidhu.
--- NOTE | 2025-03-19 11:52 | PC.NURSE ---
discharged home with home health- [facility] -, Life Vest on and equipment- instructions given to pt and sister - verbalized understanding
--- NOTE | 2025-03-19 14:25 | PM.IMPN ---
Progress Note: A&P Assessment and Plan (1) Ischemic cardiomyopathy: Code(s): I25.5 - Ischemic cardiomyopathy Status: Chronic Assessment and Plan: Patient has history of coronary disease and ischemic cardiomyopathy. He gets his care [facility]. Both feet are cold on admission. He has bilateral pleural effusion. He has been noncompliant with medications, states he has not taken his medications for 6 weeks prior to admission. He is also having difficulty with obtaining rivaroxaban. Will have care coordination assisting with obtaining his medications He also has hyponatremia, elevated BNP Echo showing EF 10-20%. Denies any chest pain Appreciate cardiology evaluation recommendation Home today Continue Coreg, Lasix, Entresto, rivaroxaban and clopidogrel (2) Bilateral pneumonia: Qualifiers: Lung location: lower lobe of lung Pneumonia type: due to unspecified organism Qualified Code(s): J18.9 - Pneumonia, unspecified organism Code(s): J18.9 - Pneumonia, unspecified organism Status: Acute Assessment and Plan: Patient's CT scan shows mild bronchopneumonia. Patient states that he was recently treated for pneumonia as an outpatient and finished antibiotic course. This could be a resolving pneumonia or incompletely treated 03/14: Blood cultures NGTD 03/14: Urine Legionella and strep antigen pending Treated vancomycin doxycycline and cefepime (03/15) De-escalated to oral agents (3) Elevated serum creatinine: Code(s): R79.89 - Other specified abnormal findings of blood chemistry Status: Acute Assessment and Plan: Patient presented with creatinine 1.57. Baseline creatinine is unknown. Patient received 1 L at the time of admission. -could be related to cardiorenal syndrome -Urine electrolytes will be inaccurate as patient received Lasix Appreciate nephrology following the patient Renal ultrasound showed medical disease, no hydronephrosis, enlarged prostate CK level was 1052,unable to give him a at more fluids due to his cardiomyopathy Cr trending down. Continue to monitor urine output, renal function and electrolytes (4) Peripheral vascular disease: Code(s): I73.9 - Peripheral vascular disease, unspecified Status: Acute Assessment and Plan: Patient has history of peripheral vascular disease with revascularization of right lower extremity many years ago at [facility]. Unable to palpate or Doppler dorsalis pedis and bilateral feet related to PVD and low flow state Maintain mean arterial pressure Cardiology following the patient Exam improved. 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 Sodium up to 132 (6) Transaminitis: Code(s): R74.01 - Elevation of levels of liver transaminase levels Status: Acute Assessment and Plan: Significantly elevated AST ALT and mildly elevated bilirubin and alkaline phosphatase likely secondary to either congestion or cardiogenic shock Hepatitis panel is negative. Ammonia levels < 9 RUQ ultrasound showed findings concerning for cholecystitis. Surgery was consulted, appreciated the evaluation, poor surgical candidate given his cardiac history, asymptomatic, if intervention is necessary would opt for percutaneous cholecystostomy tube Holding statin at this time Follow (7) Type 2 diabetes mellitus: Qualifiers: Diabetes mellitus termite control representative insulin use: unspecified termite control representative insulin use status Diabetes mellitus complication status: with circulatory complication Diabetes mellitus complication detail: with other circulatory complications Qualified Code(s): E11.59 - Type 2 diabetes mellitus with other circulatory complications Code(s): E11.9 - Type 2 diabetes mellitus without complications Status: Chronic Assessment and Plan: The patient's blood glucose was reviewed on 03/19 Glucose better controlled. Continue AccuCheks covering with sliding scale. Hypoglycemia protocol available as needed. (8) Acute hyperkalemia: Code(s): E87.5 - Hyperkalemia Status: Acute Assessment and Plan: Resolved Plan Disposition - Home today. DVT prophylaxis -Xarelto Code Status - Full Code Subjective Date/time seen: 03/19/25 14:25 Interval history: 74yo male with ischemic cardiomyopathy, PAD, DM2, AAA repair, CHF, medical noncompliance who presents to the ED on 03/14/2025 with complaints of weakness. Patient was held overnight due to family's late arrival and the state of the patient's liviing condition. No issues overnight. He feels well. No CP or SOB Exam Narrative: AF 97.8 93/73 65 15 100% ra Gen - thin male in NARD Chest - lungs clear. CV - irregularly irregular. Tele showing PVCs Abd - soft, NT/ND Ext - Trace bilateral pitting edema Skin - warm and dry Neuro - alert and appropriate. Psych - more animated. Objective Data Vital Signs Vital Signs: Vital Signs - 24 hr 03/18/25 15:57 11/20/25 16:00 03/18/25 18:00 Temperature 97.6 F Pulse Rate 63 68 68 Respiratory Rate 18 Blood Pressure 156/74 H Pulse Oximetry 100 Oxygen Delivery 03/18/25 20:00 03/18/25 20:00 03/18/25 20:58 Temperature 97.6 F Pulse Rate 66 70 71 Respiratory Rate 18 Blood Pressure 137/98 H Pulse Oximetry 98 Oxygen Delivery 03/18/25 21:00 03/18/25 22:00 03/18/25 23:58 Temperature 97.5 F L Pulse Rate 71 79 58 L Respiratory Rate 18 18 Blood Pressure 117/71 Pulse Oximetry 98 98 Oxygen Delivery Room Air 03/19/25 00:00 03/19/25 00:00 03/19/25 02:00 Temperature Pulse Rate 55 L 60 60 Respiratory Rate 18 Blood Pressure Pulse Oximetry 98 Oxygen Delivery Room Air 03/19/25 03:48 03/19/25 04:00 03/19/25 04:00 Temperature 97.6 F Pulse Rate 60 56 L 53 L Respiratory Rate 18 18 Blood Pressure 101/62 Pulse Oximetry 98 100 Oxygen Delivery Room Air 03/19/25 06:00 03/19/25 08:00 03/19/25 08:00 Temperature 97.8 F Pulse Rate 53 L 61 65 Respiratory Rate 15 Blood Pressure 93/73 L Pulse Oximetry 100 Oxygen Delivery 03/19/25 08:18 Temperature Pulse Rate 65 Respiratory Rate Blood Pressure Pulse Oximetry Oxygen Delivery Intake/Output Intake/Output: Intake & Output 03/16/25 03/17/25 03/18/25 03/19/25 23:59 23:59 23:59 23:59 Intake Total 1520 2200 1800 390 Output Total 1300 2200 600 Balance 220 0 1200 390 Meds/Results Radiology Results: ITS Impressions Chest X-Ray 03/14/25 12:52 IMPRESSION: 1. Pleural effusions with bibasilar atelectasis and/or airspace disease. Head CT 03/14/25 14:37 Impression: 1.No acute intracranial abnormality. Chest CT 03/14/25 14:39 IMPRESSION: CHF. Superimposed probable mild bronchopneumonia. Follow-up recommended to assess. Abdomen Ultrasound 03/15/25 10:09 IMPRESSION: 1. Mildly increased echotexture of the kidneys may represent underlying medical renal disease. No hydronephrosis or large masses in the kidneys. 2. Incidental note of cholelithiasis with borderline gallbladder wall thickening and possible trace of pericholecystic fluid. Correlate with right upper quadrant ultrasound. ADDENDUM: 03/15/25 1230 Examination was incomplete on initial dictation. On follow-up review, again noted are several gallstones, and borderline gallbladder wall thickening. Pericholecystic fluid may also be present. Free fluid is also noted superior to the liver. The liver measures 15.1 cm in length. IMPRESSION: Findings are concerning for cholecystitis. Correlate with clinical presentation and exam for additional imaging as clinically appropriate. Renal Ultrasound 03/15/25 10:10 Impression: 1. Medical renal disease with tiny probable renal vascular calcifications, less likely renal calculi. No hydronephrosis. 2. Enlarged prostate. Correlate with PSA Labs Labs: Laboratory Results - last 24 hr 03/18/25 03/18/25 03/19/25 15:52 20:44 03:45 WBC 9.9 RBC 4.50 L Hgb 13.6 L Hct 40.9 L MCV 90.9 MCH 30.2 MCHC 33.3 RDW 14.8 H Plt Count 72 L MPV 14.0 H % Immature Plt Fraction 20.6 H Sodium 132 L Potassium 3.1 L Chloride 98 Carbon Dioxide 28 Anion Gap 6 BUN 63 H Creatinine 1.31 H Estim Creat Clear Calc 42 Estimated GFR 54 L Glucose 108 POC Capillary Glucose 245 H 215 H Calcium 8.3 L Phosphorus 3.5 Magnesium 2.1 Total Bilirubin 1.0 AST 107 H ALT 418 H Alkaline Phosphatase 192 H Total Protein 5.4 L Albumin 3.1 L 03/19/25 07:22 WBC RBC Hgb Hct MCV MCH MCHC RDW Plt Count MPV % Immature Plt Fraction Sodium Potassium Chloride Carbon Dioxide Anion Gap BUN Creatinine Estim Creat Clear Calc Estimated GFR Glucose POC Capillary Glucose 110 H Calcium Phosphorus Magnesium Total Bilirubin AST ALT Alkaline Phosphatase Total Protein Albumin
[2025-03-21 19:08] LABS: Osmolality, Serum 279 mOsmol/kg (280-301)
--- NOTE | 2025-03-22 08:35 | PC.NURSE ---
Blood cx show no growth. Urine stept Ag is negative. Dr. Vilma sidhu.
--- NOTE | 2025-03-22 15:56 | PCCDE ---
03/22/25: DM educator courtesy follow up call placed. Pt answered and after introduction stating not a good time. Enc'd to return call if has questions/concerns related to DM, this is courtesy call.
[2025-03-24 05:08] LABS: Osmolality, Urine 779 mOsmol/kg (.)
== END 2025-03-19 12:10 | disposition home or self-care (01) | DRG 640 ==
LOC: ANHED 13:04 → ANHICU 15:14 → ANHIMU 03-16 19:55
PROVIDERS: Family Medicine; Internal Medicine; Internal Medicine Nephrology; Nurse Practitioner Adult Health; Admitting Provider Internal Medicine; Emergency Provider Student in an Organized Health Care Education/Training Program; Visit Provider Internal Medicine
DX: E87.1 Hypo-osmolality and hyponatremia (principal); J18.0 Bronchopneumonia, unspecified organism; N17.9 Acute kidney failure, unspecified; E46 Unspecified protein-calorie malnutrition; E87.79 Other fluid overload; Z91.148 Patient's other noncompliance with medication regimen for other reason; E87.5 Hyperkalemia; I73.9 Peripheral vascular disease, unspecified; I25.10 Atherosclerotic heart disease of native coronary artery without angina pectoris; I25.5 Ischemic cardiomyopathy; E86.0 Dehydration; R00.1 Bradycardia, unspecified; E11.59 Type 2 diabetes mellitus with other circulatory complications; I50.9 Heart failure, unspecified; I99.8 Other disorder of circulatory system; K81.9 Cholecystitis, unspecified; R74.01 Elevation of levels of liver transaminase levels; D69.6 Thrombocytopenia, unspecified; D72.829 Elevated white blood cell count, unspecified; F17.210 Nicotine dependence, cigarettes, uncomplicated; Z95.5 Presence of coronary angioplasty implant and graft; Z98.62 Peripheral vascular angioplasty status; Z68.21 Body mass index [BMI] 21.0-21.9, adult
CPT/HCPCS: 36415; 70450; 71046; 71250; 76705; 76770; 80048; 80053; 80074; 80143; 80202; 81001; 82140; 82550; 82570; 82948; 83036; 83735; 83880; 83930; 83935; 84100; 84145; 84156; 84295; 84300; 84443; 84540; 85025; 85027; 85055; 87040; 87449; 87637; 87641; 87899; 93005; 97161; 99285; A9270; C8929; J0692; J1815; J1938; J3373; J7030; J7050; P9047; Q9957

== ENCOUNTER 2025-04-12 04:38 | Emergency (ER) | payer MEDICARE, SELFPAY ==
--- OUTSIDE RECORDS SUMMARY | 2025-04-12 04:43 | XMS_ITS | Clinical Summary ---
Author Organization [facility] Address [address] Attn: Epic Prelude ADT [place] [address] Care Team Providers Care Drug Clerk Name Role Phone Unavailable Primary Care Provider Unavailabl e Allergies No known active allergies Medications Blood-Glucose Meter (Nursing Home QualityTouch Verio Flex meter) Use as directed to check blood glucose. 1 Each 09/22/2021 6:50 PM CDT 2 Active Insulin [place], Disposable, (BD Ultra-Fine Micro Pen Needle) 32 gauge x 1/4 Needle Use once daily as directed 100 Each 09/22/2021 6:50 PM CDT 2 Active oxyCODONE (ROXICODONE) 5 mg tablet Take 1 Tablet (5 mg) by mouth every 6 hours as needed for pain rated 7-10. After 3 days, try cutting pills in half to begin weaning off. Max Daily Amount: 20 mg. 20 Tablet 09/22/2021 6:50 PM CDT 2 Active blood sugar diagnostic (OneTouch Verio test strips) Strip Use to test blood glucose four times daily. 100 Each 09/22/2021 6:50 PM CDT 2 Active lancets (OneTouch Delica Lancets) 30 gauge Use as directed to test blood sugar four times daily 100 Each 09/22/2021 6:50 PM CDT 2 Active insulin glargine (LANTUS) 100 unit/mL pen syringe Inject 18 Units by subcutaneous injection daily at bedtime. 15 mL 09/22/2021 6:50 PM CDT 2 Active atorvastatin (LIPITOR) 80 mg tablet Take 1 Tablet (80 mg) by mouth daily at bedtime. 30 Tablet 09/22/2021 6:50 PM CDT 2 Active cephALEXin (KEFLEX) 500 mg capsule Take 1 capsule (500 mg total) by mouth 2 (two) times a day for 7 days 14 Capsule 10/16/2021 2:18 PM CDT 2 Active traMADoL (ULTRAM) 50 mg tablet Take 1 Tablet (50 mg) by mouth every 6 hours as needed ( post op pain) for up to 5 days 120 Tablet 03/05/2022 1:24 PM PROPERTY ECONOMIST 2 Active potassium chloride (K-TAB) 20 mEq Extended Release tablet Take 1 Tablet (20 mEq) by mouth 2 times daily. 60 Tablet 2 07/06/2022 4:30 PM PROPERTY ECONOMIST 2 Active rivaroxaban (Xarelto) 20 mg Tablet Take 1 Tablet (20 mg) by mouth daily. 30 Tablet 11 03/09/2023 2:53 PM PROPERTY ECONOMIST 3 Active potassium chloride (KLOR-CON) 20 mEq Extended Release tablet Take 1 Tablet (20 mEq) by mouth daily. 60 Tablet 2 11/20/2022 11:57 AM CDT 3 Active traMADoL (ULTRAM) 50 mg tablet Take 1 Tablet (50 mg) by mouth every 8 hours as needed for pain. 90 Tablet 09/03/2022 6:01 PM CDT 3 Active potassium chloride (KLOR-CON) 20 mEq Extended Release tablet Take 1 Tablet (20 mEq) by mouth daily. 60 Tablet 2 05/21/2023 2:50 PM PROPERTY ECONOMIST 3 Active mupirocin (BACTROBAN) 2 % Ointment Apply topically 3 (three) times a day 22 Gram 2 04/05/2023 6:47 PM PROPERTY ECONOMIST 3 Active [id number] aty-ReFg-ESp-as b-C (Plenvu) 140-9-5.2 gram Powder in Packet, Sequential Take as directed on package. 3 Packet 05/03/2023 4:50 PM PROPERTY ECONOMIST 4 Active ondansetron (ZOFRAN ODT) 4 mg Tablet, Rapid Dissolve Dissolve 1 tablet by mouth 30 minutes prior to each prep dose, then dissolve 1 tablet by mouth every 4-6 hours as needed for nausea. 4 Tablet 05/03/2023 4:50 PM PROPERTY ECONOMIST 4 Active aspirin (ECOTRIN EC) 81 mg Tablet, Delayed Release (E.C.) Take 1 Tablet (81 mg) by mouth daily. 30 Tablet 08/19/2023 2:08 PM CDT 4 Active cyclobenzaprine (FLEXERIL) 5 mg Tablet Take 1 tablet (5 mg total) by mouth 3 (three) times a day as needed for muscle spasms 30 Tablet 08/19/2023 2:08 PM CDT 4 Active gabapentin (NEURONTIN) 300 mg capsule Take 1 capsule (300 mg total) by mouth 2 (two) times a day 60 Capsule 08/19/2023 2:08 PM CDT 4 Active rivaroxaban (Xarelto) 2.5 mg Tablet Take 1 tablet (2.5 mg total) by mouth 2 (two) times a day 60 Tablet 08/19/2023 2:08 PM CDT 4 Active oxyCODONE (ROXICODONE) 5 mg tablet Take 1 tablet (5 mg total) by mouth every 4 (four) hours as needed for pain 10 Tablet 08/19/2023 2:08 PM CDT 4 Active traMADoL (ULTRAM) 50 mg tablet Take 1 tablet (50 mg total) by mouth 2 (two) times a day as needed for pain 60 Tablet 09/13/2023 12:13 PM CDT 4 Active atorvastatin (LIPITOR) 80 mg tablet Take 1 Tablet (80 mg) by mouth daily at bedtime. 90 Tablet 2 12/18/2024 3:30 PM CDT 4 Active enoxaparin (LOVENOX) 60 mg/0.6 mL injection Inject 0.6 mL (60 mg) by subcutaneous injection every 12 hours. 3.6 mL 04/24/2024 2:05 PM PROPERTY ECONOMIST 4 Active clopidogreL (PLAVIX) 75 mg Tablet Take 1 Tablet (75 mg) by mouth daily. 90 Tablet 3 12/18/2024 3:30 PM CDT 5 Active spironolactone (ALDACTONE) 25 mg tablet TAKE 1/2 TO 1 TABLET BY MOUTH ONCE DAILY 45 Tablet 3 12/18/2024 3:30 PM CDT 5 Active furosemide (LASIX) 20 mg tablet TAKE ONE TABLET BY MOUTH TWICE A DAY 180 Tablet 3 12/18/2024 3:30 PM CDT 5 Active carvediloL (COREG) 12.5 mg tablet TAKE ONE TABLET BY MOUTH TWICE A DAY WITH MEALS 180 Tablet 3 12/18/2024 3:30 PM CDT Active gabapentin (NEURONTIN) 300 mg capsule Take 1 capsule (300 mg total) by mouth daily after breakfast 90 Capsule 2 12/18/2024 3:30 PM CDT Active metFORMIN (GLUCOPHAGE XR) 500 mg Extended Release 24 hour tablet Take 1 tablet (500 mg total) by mouth daily with breakfast 90 Tablet 1 12/18/2024 3:30 PM CDT 5 Active albuterol sulfate 90 mcg/Actuation inhaler Inhale 2 puffs every 6 (six) hours as needed for wheezing 25.5 Gram 4 03/02/2025 9:54 AM PROPERTY ECONOMIST Active benzonatate (TESSALON) 100 mg capsule Take 1 capsule (100 mg total) by mouth 3 (three) times a day as needed for cough 42 Capsule 03/02/2025 9:54 AM PROPERTY ECONOMIST Active amoxicillin-cla vulanate (AUGMENTIN) 875-125 mg tablet Take 1 Tablet by mouth every 12 hours. 6 Tablet 03/19/2025 3:35 PM PROPERTY ECONOMIST 5 Active carvediloL (COREG) 3.125 mg tablet Take 1 Tablet (3.125 mg) by mouth every 12 hours. 60 Tablet 2 03/19/2025 3:35 PM PROPERTY ECONOMIST 5 Active clopidogreL (PLAVIX) 75 mg Tablet Take 1 Tablet (75 mg) by mouth daily. 30 Tablet 2 03/19/2025 3:35 PM PROPERTY ECONOMIST 5 Active doxycycline hyclate (VIBRAMYCIN) 100 mg tablet Take 1 Tablet (100 mg) by mouth every 12 hours. 3 Tablet 03/19/2025 3:35 PM PROPERTY ECONOMIST 5 Active sacubitriL-vals matthew (ENTRESTO) 24-26 mg Tablet Take 1 Tablet by mouth every 12 hours. 60 Tablet 2 03/24/2025 4:42 PM PROPERTY ECONOMIST 5 Active furosemide (LASIX) 40 mg tablet Take 1 Tablet (40 mg) by mouth 2 times daily. 60 Tablet 1 03/19/2025 3:35 PM PROPERTY ECONOMIST 5 Active insulin glargine-yfgn 100 unit/mL pen syringe Inject 6 units under the skin once nightly at bedtime 15 mL 5 Active rivaroxaban (Xarelto) 20 mg Tablet Take 1 tablet by mouth daily at 5 pm 30 Tablet 03/19/2025 3:35 PM PROPERTY ECONOMIST 5 Active Social History Tobacco Use Types Packs/Day Years Used Date Smoking Tobacco: Never Assessed Sex and Gender Information Value Date Recorded Sex Assigned at Not on file Legal Sex Male 3:27 PM CDT Gender Identity Not on file Sexual Orientation Not on file Plan of Treatment Health Maintenance Due Date Last Done Comments DTAP/TDAP/TD VACCINES (1 - Tdap) 1971 COLORECTAL SCREENING 1997 Colorectal Cancer Screening 1997 FIT-DNA Q 3 years 1997 FIT/FOBT Q 1 year 1997 Flex Sig/CT Colonography Q 5 years 1997 PNEUMOCOCCAL VACCINE 50+ YEARS (1 of 1 - PCV) 04/27/20 02 ZOSTER VACCINE (1 of 2) 2002 INFLUENZA VACCINE (#1) 2024 RSV VACCINE (60+ or ) (1 - 1-dose 75+ series) 2027 Insurance RX [employer]WIN DATA Medicare Part B RX [employer] Medicare Part B RX [employer] Medicare Part D RX [employer] (INTERNAL) [facility]
--- OUTSIDE RECORDS SUMMARY | 2025-04-12 04:43 | XMS_ITS | Encounter Summary ---
Author Organization [facility] Clinical [facility] Address [facility] [place] [facility] [address] [place] [address] Phone Care Team Providers Care Mix Mill Tender Name Role Phone Shahid Marroquin MD Primary Care Provider [phone] José Ang MD Unavailable [phone] Encounter Details Date Type Department Care Team (Late st Contact Info) Description 03/02/2025 Results Follow-Up [place] [id number] [facility] [address] [place] [address] Apryl Monae, [address] [address] XR Chest Pa Lateral 2 Views Social History Tobacco Use Types Packs/Day Years Used Date Smoking Tobacco: Every Day Cigarettes 0.7 56 Started: 1968 Smokeless Tobacco: Never Alcohol Use Standard Drinks/Week Comments Not Currently 0 (1 standard drink = 0.6 oz pur e alcohol) OASIS D0700: Social Isolation Answer Da te Recorded Frequency of experiencing loneliness or isolatio n Never 10/31/2023 OASIS A1250: Transportation Answer Date Recorded Lack of Transportation (Medical) No 10/31/2023 Lack of Transportation (Non-Medical) No 10/31/2023 Patient Unable or Declines to Respond No 10/31/2023 OASIS B1300: Health Literacy Answer Deny e Recorded Frequency of needing help to read materials from doctor or pharmacy Never 10/31/2023 AUDIT-C Answer Date Recorded Q1: How often do you have a drink containing alcohol? Never 04/23/2024 Q2: How many drinks containi ng alcohol do you have on a typical day when you are drinking? Patient does not drink Q3: How often do you have si x or more drinks on one occasion? Never 04/23/2024 PHQ-2 Answer Date Recorded PHQ-2 Total Score (If total score is 3 or more points, staff should administer the PHQ-9) 2 02/26/2024 Personal Safety Answer Date Recorded Have you ever been in or are you currently in a harmful physical or emotional relationship or is someone making you feel afraid or unsafe? 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 Gender Identity Not on file Sexual Orientation Straight 07/03/2021 4: 01 PM SCHOOL BUS DRIVER/CUSTODIAN documented as of this encounter Functional Status * BP Location Answer Date of Assessment Author Right arm 03/02/2025 7:40 AM SCHOOL BUS DRIVER/CUSTODIAN Emeka andNicole MA * BP Location Answer Date of Assessment Author Right arm 03/02/2025 7:40 AM SCHOOL BUS DRIVER/CUSTODIAN Emeka andNicole MA documented as of this encounter Ordered Prescriptions Prescription Sig Dispense Quantity Refills Last Filled Start Date End Date azithromycin (ZITHROMAX) 250 mg tabletIndications:C AP (community acquired pneumonia) Take 2 tabs (500 mg) by mouth today, than 1 tab (250 mg) daily for 4 days. 6 tablet 03/02/2025 03/07/2025 documented in this encounter Plan of Treatment Scheduled Procedures Name Priority Associated Diagnoses Date/Ti me COLONOSCOPY Positive colorectal cancer screening using Cologuard test documented as of this encounter Visit Diagnoses Diagnosis CAP (community acquired pneumonia)- Primary Pneumonia, organism unspecified documented in this encounter Care Teams Mix Mill Tender Relationship Specialty Start Date End Date Shahid Marroquin MD [facility] [address] Jaymie GARZA [address] [place] [id number] PCP - General Cardiovascular Disease 12/03/17 José Ang MD [address] [place] [address] Consulting Physician Vascular Surgery 09/13/21 documented as of this encounter
--- OUTSIDE RECORDS SUMMARY | 2025-04-12 04:43 | XMS_ITS | Clinical Summary ---
Author Organization [facility] Health Address [address] [place] [address] Care Team Providers Care Management Consulting Name Role Phone Unavailable Primary Care Provider Unavailabl e Medications carvediloL (COREG) 12.5 mg tablet 10/16/2021 Acti ve Entresto 24-26 mg tablet 11/08/2021 Active metFORMIN XR (GLUCOPHATE-XR) 500 mg 24 hr tablet 10/23/2021 Active Jardiance 10 mg tablet 10/25/2021 Active atorvastatin (LIPITOR) 80 mg tablet 10/16/2021 Active cephalexin (KEFLEX) 500 mg capsule 10/16/2021 Active Xarelto 20 mg tablet 10/23/2021 Active insulin glargine,hum.rec.a nlog (Basaglar KwikPen U-100 Insulin) 100 unit/mL (3 mL) insulin pen 09/21/2021 Active furosemide (LASIX) 20 mg tablet 10/16/2021 Active oxyCODONE (ROXICODONE) 5 mg immediate release tablet 09/21/2021 Active Easy Touch 32 gauge x 1/4 needle 09/21/2021 Active traMADoL (ULTRAM) 50 mg tablet 09/22/2021 Active potassium chloride 20 mEq tablet extended release 10/23/2021 Ac tive Active Problems No known active problems Social History Tobacco Use Types Packs/Day Years Used Date Smoking Tobacco: Never Assessed Sex and Gender Information Value Date Recorded Sex Assigned at Not on file Legal Sex Male 9:02 PM PDT Gender Identity Not on file Sexual Orientation Not on file Plan of Treatment Health Maintenance Due Date Last Done Comments Dental Prophylaxis 1952 Dental Oral Exam 08/05/2020 02/04/2020 Dental X-Ray: Bitewings 08/05/2020 02/04/2020 Dental X-Ray: Full Mouth 09/20/2023 09/18/2020, 11/2019 Dental X-Ray: Panoramic 05/04/2024 05/03/2021, 12/29 Procedures Procedure Name Priority Date/Time Associated Diagnosis Comments INTRAORAL - COMPREHENSIVE SERIES OF RADIOGRAPHIC IMAGES Routine 02/04/2020 2:00 AM CDT COMPREHENSIVE ORAL EVALUATION - NEW OR ESTABLISHED PATIENT Routine 02/04/2020 2:00 AM CDT PANORAMIC RADIOGRAPHIC IMAGE Routine 12/30/2019 2:00 AM CDT from Last 3 Months or Most Recently Relevant to Health Maintenance Insurance [place] [id number] [place], [place] [address]
--- OUTSIDE RECORDS SUMMARY | 2025-04-12 04:43 | XMS_ITS | Encounter Summary ---
Author Organization [facility] Health Address [address] [place] [address] Care Team Providers Care Drug Room Clerk Name Role Phone Unavailable Primary Care Provider Unavailabl e Prior Encounters Date Type Department Care Team Description 11/16/2021 12:00 PM CDT Consult [facility] [address] [place] [phone] Lesa Rod DDS 05/03/2021 Travel 05/03/2021 3:00 PM DIRECTOR CALL CENTER SALES Office Visit [facility] [address] [place] [phone] Delaney Butler, DMD 05/18/2019 Converted CPS Chart Documents [facility] [address] [place] [phone] <No scans attached> 05/18/2019 Converted 13x Documents [facility] [address] [place] [phone] <No scans attached> Plan of Treatment Not on file Procedures Procedure Name Priority Date/Time Associated Diagnosis Comments LIMITED ORAL EVALUATION - PROBLEM FOCUSED Routine 05/03/2021 3:00 PM DIRECTOR CALL CENTER SALES 19 REPAIR/REPLACE CLASP Routine 03/30/20 20 2:00 AM DIRECTOR CALL CENTER SALES OFFICE VISIT FOR OBSERVATION (DURING REGULARLY SCHEDULED HOURS) - NO OTHER SERVICES PERFORMED Routine 03/30/2020 2:00 AM DIRECTOR CALL CENTER SALES ADJUST PARTIAL DENTURE - MANDIBULAR Routine 03/15/2020 2:00 AM DIRECTOR CALL CENTER SALES ADJUST PARTIAL DENTURE - MANDIBULAR Routine 03/02/2020 2:00 AM DIRECTOR CALL CENTER SALES 23 EXTRACTION, ERUPTED TOOTH OR EXPOSED ROOT (ELEVATION AND/OR FORCEPS REMOVAL) Routine 02/18/2020 2:00 AM CDT OFFICE VISIT FOR OBSERVATION (DURING REGULARLY SCHEDULED HOURS) - NO OTHER SERVICES PERFORMED Routine 02/18/2020 2:00 AM CDT 22 MFL COMPOSITE FILLING Routine 020 2:00 AM CDT INTERIM PARTIAL DENTURE (MANDIBULAR) Routine 02/04/2020 2:00 AM CDT 19 CROWN - FULL CAST HIGH [place] METAL Routine 02/04/2020 2:00 AM CDT 20 DO AMALGAM 2 SURFACE Routine 02/04/20 20 2:00 AM CDT 18 O AMALGAM 1 SURFACE Routine 0 2:00 AM CDT 18 B AMALGAM 1 SURFACE Routine 0 2:00 AM CDT 30 ENDODONTIC THERAPY, MOLAR TOOTH (EXCLUDING FINAL ROMAN CATHOLIC) Routine 02/04/2020 2:00 AM CDT 15 ENDODONTIC THERAPY, MOLAR TOOTH (EXCLUDING FINAL ROMAN CATHOLIC) Routine 02/04/2020 2:00 AM CDT 3 ENDODONTIC THERAPY, MOLAR TOOTH (EXCLUDING FINAL ROMAN CATHOLIC) Routine 02/04/2020 2:00 AM CDT 15 CROWN PFM POST Routine 02/04/2020 2:0 0 AM CDT 14 CROWN PFM POST Routine 02/04/2020 2:0 0 AM CDT 13 CROWN PFM POST Routine 02/04/2020 2:0 0 AM CDT 30 CROWN PFM POST Routine 02/04/2020 2:0 0 AM CDT 31 EXTRACTION, ERUPTED TOOTH OR EXPOSED ROOT (ELEVATION AND/OR FORCEPS REMOVAL) Routine 02/04/2020 2:00 AM CDT 17 EXTRACTION, ERUPTED TOOTH OR EXPOSED ROOT (ELEVATION AND/OR FORCEPS REMOVAL) Routine 02/04/2020 2:00 AM CDT 16 EXTRACTION, ERUPTED TOOTH OR EXPOSED ROOT (ELEVATION AND/OR FORCEPS REMOVAL) Routine 02/04/2020 2:00 AM CDT 27 EXTRACTION, ERUPTED TOOTH OR EXPOSED ROOT (ELEVATION AND/OR FORCEPS REMOVAL) Routine 02/04/2020 2:00 AM CDT COMPREHENSIVE ORAL EVALUATION - NEW OR ESTABLISHED PATIENT Routine 02/04/2020 2:00 AM CDT INTRAORAL - COMPREHENSIVE SERIES OF RADIOGRAPHIC IMAGES Routine 02/04/2020 2:00 AM CDT OFFICE VISIT FOR OBSERVATION (DURING REGULARLY SCHEDULED HOURS) - NO OTHER SERVICES PERFORMED Routine 02/04/2020 2:00 AM CDT INTRAORAL PHOTO Routine 02/04/2020 2:00 AM CDT INTRAORAL PHOTO Routine 02/04/2020 2:00 AM CDT INTRAORAL PHOTO Routine 02/04/2020 2:00 AM CDT INTRAORAL PHOTO Routine 02/04/2020 2:00 AM CDT 12 DO COMPOSITE FILLING Routine 02/04/20 20 2:00 AM CDT 4 DO COMPOSITE FILLING Routine 0 2:00 AM CDT 2 LO COMPOSITE FILLING Routine 0 2:00 AM CDT 3 CROWN PORC POST Routine 02/04/2020 12: 00 AM CDT 28 DO AMALGAM 2 SURFACE Routine 02/04/20 12:00 AM CDT 28 DO COMPOSITE FILLING Routine 02/04/20 12:00 AM CDT 29 EXTRACTION, ERUPTED TOOTH OR EXPOSED ROOT (ELEVATION AND/OR FORCEPS REMOVAL) Routine 01/27/2020 2:00 AM CDT OFFICE VISIT FOR OBSERVATION (DURING REGULARLY SCHEDULED HOURS) - NO OTHER SERVICES PERFORMED Routine 01/27/2020 2:00 AM CDT 29 LIMITED ORAL EVALUATION - PROBLEM FOCUSED Routine 12/30/2019 2:00 AM CDT PANORAMIC RADIOGRAPHIC IMAGE Routine 12/30/2019 2:00 AM CDT SINGLE X-RAY Routine 12/30/2019 2:00 AM CDT Visit Diagnoses Not on file Insurance [place] [id number] [facility]
--- OUTSIDE RECORDS SUMMARY | 2025-04-12 04:43 | XMS_ITS | Encounter Summary ---
Author Organization [facility] Clinical [facility] Address [address] [place] [address] Phone Care Team Providers Care Assistant Refinery Operator Name Role Phone Shahid Marroquin MD Primary Care Provider [phone] José Ang MD Unavailable [phone] Encounter Details Date Type Department Care Team (Late st Contact Info) Description 04/08/2025 Results Follow-Up [facility] [address] [facility] [address] [place] [address] Shahid Marroquin MD [address] [place] [address] [address] Comprehensive metabolic panel, eGFR Social History Tobacco Use Types Packs/Day Years Used Date Smoking Tobacco: Every Day Cigarettes 0.7 56 Started: 1967 Smokeless Tobacco: Never Alcohol Use Standard Drinks/Week [...] on file Legal Sex Male 3:50 AM BI 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 LEAD Gender Identity Not on file Sexual Orientation Straight 07/03/2021 4: 01 PM BI TECHNICAL LEAD documented as of this encounter Plan of Treatment Scheduled Procedures Name Priority Associated Diagnoses Date/Ti me COLONOSCOPY Positive colorectal cancer screening using Cologuard test documented as of this encounter Visit Diagnoses Not on filedocumented in this encounter Care Teams Assistant Refinery Operator Relationship Specialty Start Date End Date Shahid Marroquin MD [address] [place] [address] [address] [place] [address] PCP - General Cardiovascular Disease 12/03/17 José Ang MD [address] [place] [address] Consulting Physician Vascular Surgery 09/13/21 documented as of this encounter
--- OUTSIDE RECORDS SUMMARY | 2025-04-12 04:43 | XMS_ITS | Clinical Summary ---
Author Organization [facility] Address [address] [place] [address] Care Team Providers Care Log Hooker Name Role Phone Shahid Marroquin MD Primary Care Provider [phone] José Ang MD Unavailable [phone] Allergies No known active allergies Medications multivitamin with minerals tabletIndication s:supplement Take 1 tablet by mouth daily as needed (supplement) Active traMADoL (ULTRAM) 50 mg tablet Take 1 tablet (50 mg total) by mouth 2 (two) times a day as needed for pain 60 tablet 4 Active atorvastatin (LIPITOR) 80 mg tablet Take 1 Tablet (80 mg) by mouth daily at bedtime. 90 tablet 2 4 Active KRILL OIL ORALIndications: supplement Take 1 tablet by mouth daily as needed (supplement) Active vitamin B complex (B COMPLEX ORAL)Indications :supplement Take 1 tablet by mouth daily as needed (supplement) Active cyanocobalamin, vitamin B-12, (VITAMIN B-12 ORAL)Indications :supplement Take 1 tablet by mouth daily as needed (supplement) Active acetaminophen 500 mg capsule Take 2 capsules (1,000 mg total) by mouth every 6 (six) hours as needed (pain) 5 Active rivaroxaban (XARELTO) 10 mg tablet Take 1 tablet (10 mg total) by mouth daily 30 tablet 5 Active clopidogreL (PLAVIX) 75 mg tablet Take 1 Tablet (75 mg) by mouth daily. 90 tablet 3 5 Active dapagliflozin propanediol (FARXIGA) 10 mg tablet Take 1 tablet (10 mg total) by mouth daily 42 tablet 5 Active spironolactone (ALDACTONE) 25 mg tablet TAKE 1/2 TO 1 TABLET BY MOUTH ONCE DAILY 45 tablet 3 5 Active furosemide (LASIX) 20 mg tablet TAKE ONE TABLET BY MOUTH TWICE A DAY 180 tablet 3 5 Active carvediloL (COREG) 12.5 mg tablet TAKE ONE TABLET BY MOUTH TWICE A DAY WITH MEALS 180 tablet 3 5 Active gabapentin (NEURONTIN) 300 mg capsuleIndicatio ns:Neuropathy Take 1 capsule (300 mg total) by mouth daily after breakfast 90 capsule 2 5 08/22/19 26 Active metFORMIN XR (GLUCOPHAGE XR) 500 mg 24 hr tabletIndication s:Hypertension associated with diabetes (HCC) Take 1 tablet (500 mg total) by mouth daily with breakfast 90 tablet 1 5 11/25/19 26 Active benzonatate (TESSALON) 100 mg capsuleIndicatio ns:Cough Take 1 capsule (100 mg total) by mouth 3 (three) times a day as needed for cough 42 capsule 5 Active albuterol HFA (PROVENTIL HFA,VENTOLIN HFA,PROAIR HFA) 90 mcg/actuation inhalerIndicatio ns:Acute cough Inhale 2 puffs every 6 (six) hours as needed for wheezing 3 each 4 5 03/02/20 26 Active Active Problems Problem Noted Date Diagnosed Date PAD (peripheral artery disease) 05/05/2024 PVD (peripheral vascular disease) with claudicat ion 04/20/2024 Assessment & Plan (05/06/2024 11:34 AM GROCERY BAGGER): S/p multiple interventions--s/p right common femoral artery and proximal SFA endarterectomy with bovine pericardial patch angioplasty, right SFA, popliteal artery and tibial thrombectomy, Right SFA and popliteal artery stent angioplasty, Right AT and PT balloon angioplasty and 2-incision 4-compartment fasciotomy on 08/31/21. He then underwent redo right femoral artery exposure with patch angioplasty of the right common femoral artery, left common femoral artery open exposure, EVAR AAA repair, bilateral external iliac artery stent angioplasty, and right calf medial fasciotomy primary closure on 09/06/21. He subsequently developed right toe ulceration with redness to the foot and short distance claudication. He denied new sensorimotor deficit or severe pain. directed to the ED and underwent redo exposure of the right common femoral artery and TP trunk with GSV harvest and common femoral to TP trunk reverse GSV bypass on 08/14/23. -OR on 05/05 for L brachial cutdown and RLE angio with balloon angioplasty of R PT trunk and bypass -cont ASA, statin -hold home xarelto for now, resume tomorrow 05/07 -Q4 NV checks Fall 08/09/2023 Assessment & Plan (08/12/2023 7:50 AM CDT): Patient reports syncopal event night before admission. Hit his elbow, didn't think he hit his head -HCT in ED neg. -PT/OT PVD (peripheral vascular disease) 08/02/2023 Assessment & Plan (10/17/2023 10:50 AM CDT): Significant PVD history. Continue plavix, atorvastatin and xarelto. Continue close follow up with vascular surgery. Educated on importance of smoking cessation. 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 He was sent to the ED after OP US showed occluded R SFA/pop stent. Endorses stable R foot pain and R 3rd toe ulcer x 1 year, he has been applying topical antibiotic to the ulcer, follows in the E wound clinic -CTAIF: Right SFA and popliteal artery stent is occluded along its entire length w/ distal recon by collateral with 3v runoff to the ankle. 2v runoff to the left ankle with occlusion of the anterior tibial artery near its origin. - OR 08/14/23 for fem to TP trunk bypass with GSV -stop heparin gtt post operatively -holding xarelto and plavix. Plan for low dose xarelto and asa or plavix at discharge -q2 hr NV checks and VS -OOB/PT/OT -ADAT -pain control -lovenox dvt ppx Assessment & Plan (08/02/2023 3:46 PM CDT): Significant PVD history. Reporting chronic right lower leg/foot pain and redness. States this has been going on for 3 years. Also appreciated to have a wound on his right middle toe that he also reports has been chronic. Can hardly walk through grocery store without stopping. Was having neuropathy pain but this has since improved. Continue plavix, atorvastatin and xarelto. I contacted [facility] with vascular surgery given the appearance of his right foot and they plan to reach out to patient to provide further ER precautions, follow up with testing next week and refer to wound team. Educated on importance of smoking cessation. Severe malnutrition 09/12/2021 Hypokalemia 09/05/2021 Assessment & Plan (09/09/2021 8:45 AM CDT): Hypokalemia 2/2 diuretics requiring replacement - resolved with replacement. NICM (nonischemic cardiomyopathy) 09/04/2021 AAA (abdominal aortic aneurysm) without rupture 09/03/2021 Assessment & Plan (10/17/2023 10:41 AM CDT): S/p EVAR. Denies any symptoms. Blood pressure elevated in clinic today. Annual imaging with vascular surgery. Educated on the importance of medication compliance. Educated on importance of smoking cessation. Assessment & Plan (08/12/2023 7:48 AM CDT): Chronic, being monitored OP -BP control as above. Assessment & Plan (08/02/2023 3:31 PM CDT): S/p EVAR. Denies any symptoms. Blood pressure elevated in clinic today. Admits to not taking pills regularly. Annual imaging with vascular surgery next week. Educated on the importance of medication compliance. Continue close follow up with vascular surgery. Assessment & Plan (09/12/2021 11:32 AM CDT): - 08/31 CTA with incidental 7cm asymptomatic infrarenal AAA - OR 09/07 for endovascular infrarenal abdominal aortic aneurysm repair, R EIA stent angioplasty using stent, L EIA angioplasty using stent, right calf medial fasciotomy primary closure for an incision greater than 15 cm in length. - BP goal normotension - Continue aspirin, statin Ischemic leg 08/31/2021 Overview (08/31/2021): Added automatically from request for surgery [id number] Assessment & Plan (09/12/2021 12:14 PM CDT): OR 08/31 for R revascularization SFA thrombectomy, femoral endarterectomy, SAF pop stenting and RLE fasciotomis. Lateral fasciotomy closed in the OR with mere, medial packed with WTD dressing - Medial fasciotomy wound: WV placed 09/02 d/t oozing from fasciotomy site. Replaced 09/03 - Medial fasciotomy closed in OR 09/06. Prevena in place. - Placed on Therapeutic heparin drip 09/07 -> Therapeutic Lovenox with plans to start NOAC at discharge - Elevate LE on Pillows. - Activities: OOB with assistance - Q4 hrs VS - PT/OT recommending Rehab, pt agreeable. - Foot drop splint at bedside Limb ischemia 08/31/2021 Femoral bruit 03/10/2018 Ischemic cardiomyopathy 01/14/2018 Assessment & Plan (10/17/2023 10:48 AM CDT): Mixed NICM/ICM. Endorsing NYHA Class I-2 symptoms. Physically limited due to PVD. LVEF of 24% on TTE from 08/2021. Euvolemic upon examination. Continue carvedilol and spironolactone. Start farxiga. Has prescription but has yet to start. Continue Lasix at current dose. Of note, did not tolerate Entresto, ACEi, or ARB, Has declined ICD in the past. Has had NSVT. Discussed today and continues to decline. Assessment & Plan (08/15/2023 11:10 AM CDT): LVEF of 24% on TTE from 08/2021. During most recent Cards appt (08/01) he reported stopping taking Farxiga for unknown reason- thinks Dr. Marroquin may have stopped this. Home regimen: coreg, spironolactone, farxiga, lasix. Did not previously tolerate entresto, leena or arb. Declines ICD -08/11 TTE showing severe ischemic CM w/ EF 28% -cont home coreg, spironolactone, lasix as tolerated -resume farxiga POD 1 per cards -daily weights -Q4 I/O Assessment & Plan (08/02/2023 3:36 PM CDT): Mixed NICM/ICM. Endorsing NYHA Class I-2 symptoms. Physically limited due to PVD. LVEF of 24% on TTE from 08/2021. Blood pressure poorly controlled today. Did not take his am medications and admits that he does not take his medications regularly. Stopped taking Farxiga for unknown reason- thinks Dr. Marroquin may have stopped this. Euvolemic upon examination. Continue carvedilol and spironolactone. Will ensure that farxiga was not stopped for a particular reason and if not plan to resume. Continue Lasix at current dose. Of note, did not tolerate Entresto, ACEi, or ARB, Has declined ICD in the past. Has had NSVT. Discussed today and continues to decline. Diabetes mellitus, type 2 12/12/2017 Assessment & Plan (05/06/2024 11:32 AM GROCERY BAGGER): On metformin at home. A1c 8.2 -hold home metformin -BG initially 300s. Endocrine DM consult. -[facility], monitor BG for now Assessment & Plan (08/13/2023 9:01 AM CDT): Last A1c 10.8. Recently restarted on metformin per his PCP. Off farxiga for unknown reasons but charge attendant wants him on this -hold home oral meds -continue SSI -A1c 8.2 Assessment & Plan (09/12/2021 12:05 PM CDT): - Hgb A1c 10.8% on 09/01/2021 - BG consistently in 250s. Patient initially refused insulin. - Diabetes team consulted (09/03). Pt denied that he has diabetes. Pt stated he does not have diabetes and does not need diabetes team (and multiple physicians) involved in his care. He believes that his elevated sugars are due to stress and due to juice and jello he ate during this hospitalization. - Diabetes team discussed with the pt that given his elevated A1c in 2018 and this admission, he likely has had diabetes for some time, and that uncontrolled sugars can adversely affect his healing, and contribute to neuropathy. The pt declined insulin therapy. He is agreeable to continue monitoring of his blood sugars for the time being. - Continue to emphasize importance of glucose control to aid in affective healing - Patient currently agreeable to insulin therapy while inpatient and feels like he is a better head space to further discuss with the Endocrine-DM team; re- consulted 09/12 - Anti-JOELLE and C peptide pending, pt agreeable to further testing - Pt requesting a simplified DM regimen, afraid he will break down if he has to take a multiple time a day regimen Assessment & Plan (12/14/2017 11:19 AM CDT): New diagnosis, HbA1c is 7. Also has long standing distal neuropathy, possibly related. - POCT glucose - Low dose SSI - Continue losartan 50 mg QD - Will need outpatient F/U Assessment & Plan (12/13/2017 10:08 AM CDT): New diagnosis, HbA1c is 7. Also has long standing distal neuropathy, possibly related. - POCT glucose - Low dose SSI - Continue losartan 50 mg QD - Will need outpatient F/U Assessment & Plan (12/12/2017 9:19 AM CDT): New diagnosis, HbA1c is 7. Also has long standing distal neuropathy, possibly related. - POCT glucose - Low dose SSI - Continue losartan 50 mg QD - Will need outpatient F/U Healthcare maintenance 12/12/2017 Assessment & Plan (12/13/2017 10:08 AM CDT): Has not seen physician for >30 years. - Will need outpatient F/U for age appropriate Ca screening Assessment & Plan (12/12/2017 9:21 AM CDT): Has not seen physician for >30 years. - Will need outpatient F/U for age appropriate Ca screening CHF (congestive heart failure) 12/12/2017 Assessment & Plan (03/03/2025 11:11 AM GROCERY BAGGER): Not taking heart meds for the last 2 months ? Exacerbation We discussed red flag symptoms requiring emergent follow up Assessment & Plan (05/06/2024 11:33 AM GROCERY BAGGER): Ischemic. Diastolic function: stage I - impaired relaxation LVEF: 20-30%. On coreg, lasix and spironolactone at home -continue carvedilol. Holding lasix/spironolactone for recent OR/NPO. Likely resume tomorrow. -daily weights -Of note, did not tolerate Entresto, ACEi, or ARB Assessment & Plan (09/12/2021 12:15 PM CDT): Most recent echo 2019 34% w extensive LV abnormality - as addressed in CAD. Assessment & Plan (12/14/2017 11:19 AM CDT): Acute CHF. Recent NSTEMI and prior EKG with Q waves suggests CHF is likely ischemic in etiology. ProBNP 11,171. TTE: EF 16%. Dilated LV with severely decreased global LV systolic function. Restrictive filling pattern c/w diastolic dysfunction. Eccentric LVH. Dilated IVC. - Resume IV lasix 20mg daily - Cont coreg, losartan. Uptitrate losartan as tolerated Assessment & Plan (12/13/2017 10:09 AM CDT): Complains of dyspnea, orthopnea, peripheral edema. Recent NSTEMI and prior EKG with Q waves suggests CHF is likely ischemic in etiology. ProBNP 11,171 (no baseline). - Hold off diuresis for now pending cath today - F/U TTE Assessment & Plan (12/12/2017 9:27 AM CDT): Complains of dyspnea, orthopnea, peripheral edema. Recent NSTEMI and prior EKG with Q waves suggests CHF is likely ischemic in etiology. ProBNP 11,171 (no baseline). - Continue diuresis IV lasix 20 QD - F/U TTE - Cardiology consulted for ischemic evaluation as above. NSTEMI (non-ST elevated myocardial infarction) 0 12/11/2017 Assessment & Plan (12/14/2017 11:16 AM CDT): Continues to be chest pain free. EKG on admission stable with non-specific L atrial enlargement, diffuse Q waves, poor R wave progression (unchanged from prior). Troponin I 3.87--> 2.98. CAD risk factors: smoking, HTN, FH of father with [place], DM. - [facility] 12/13: severe 3v disease - Cardiac surgery, cards following. PFTs, chest CT done. Carotid dopplers & vein mapping pending. - Continue ASA, BB, statin - Holding plavix for CABG eval - Will attempt to transfer to high-risk cardiology floor, awaiting bed availability - Telemetry Assessment & Plan (12/13/2017 10:05 AM CDT): Continues to be chest pain free. History of typical chest pain and signs and sx of CHF. EKG on admission stable with non-specific L atrial enlargement, diffuse Q waves, poor R wave progression (unchanged from prior). Troponin I 3.87--> 2.98. Echo pending. CAD risk factors: smoking, HTN, FH of father with [place], DM. MONIKA score 6 (41% risk). - Cardiology consulted, plan for cath today - Continue heparin, ASA, BB, statin - Holding plavix in case CABG required - F/U TTE - Telemetry Assessment & Plan (12/13/2017 6:01 PM CDT): Patient with history of tobacco use, HLD, and undiagnosed diabetes (HgbA1c 7.0) presenting after episode of chest pain 2 nights prior and 8 months of dyspnea on exertion and orthopnea. ECG shows Q-waves and TWIs, troponins initially elevated at 3.87 --> 2.19, BNP elevated above 11K. Physical exam on presentation and CXR findings consistent with acute CHF exacerbation. Patient appears to have ischemic cardiomyopathy. Cardiac cath revealed multi-vessel disease: severe three-vessel coronary artery disease with 100% occlusion of his right coronary artery and mid LAD as well as high-grade disease in the circumflex. TTE shows poor LV function with EF 16% - continue medical therapy (beta-devendra/ARB/statin/aspirin/heparin) - optimize LV function prior to surgery (surgery team aware of patient) - will need intervention, likely CABG - hold DAPT pending decision regarding surgery - glucose control Assessment & Plan (12/12/2017 9:16 AM CDT): No chest pain today, VSS. History of typical chest pain and signs and sx of CHF. EKG on admission stable with non-specific L atrial enlargement, diffuse Q waves, poor R wave progression (unchanged from prior). Troponin I 3.87--> 2.98. Echo pending. CAD risk factors: smoking, HTN, FH of father with [place], DM. MONIKA score 6 (41% risk). - Cardiology consulted, appreciated recs - s/p plavix load, continue heparin, ASA, plavix 65 QD, BB, statin - F/U TTE - Telemetry Assessment & Plan (12/11/2017 6:21 PM CDT): No chest pain at present. History of typical chest pain several hours ago. Has signs and sx of CHF and elevated BP 170/120. EKG on admission stable with non-specific L atrial enlargement, diffuse Q waves, poor R wave progression (unchanged from prior). Concern for ongoing coronary ischemia, NSTEMI vs unstable angina. Has significant risk factors: smoking, HTN, FH of father with [place], s/sx of PAD. - F/U Baseline labs, CBC, CMP, lipid panel, HbA1c, ProBNP - F/U Troponin - TTE tomorrow - Telemetry Cognitive decline 12/11/2017 Assessment & Plan (12/14/2017 11:19 AM CDT): Doing well today. A&Ox4. Subacute cognitive decline x 4 months, that has been witnessed by family member. On exam patient is oriented x 4, without focal deficit or fall history. Occasionally tangential and disorganized in thought processing. Age related cognitive decline versus primary brain process. TSH, RPR, HIV, B12 normal. - CTM - If persistent may consider brain MRI Assessment & Plan (12/13/2017 10:08 AM CDT): Doing well today. A&Ox4. Subacute cognitive decline x 4 months, that has been witnessed by family member. On exam patient is oriented x 4, without focal deficit or fall history. Occasionally tangential and disorganized in thought processing. Age related cognitive decline versus primary brain process. TSH, RPR, HIV, B12 normal. - CTM - If persistent may consider brain MRI Assessment & Plan (12/12/2017 9:22 AM CDT): Doing well today. A&Ox4. Subacute cognitive decline x 4 months, that has been witnessed by family member. On exam patient is oriented x 4, without focal deficit or fall history. Occasionally tangential and disorganized in thought processing. Age related cognitive decline versus primary brain process. TSH, RPR, HIV, B12 normal. - CTM - If persistent may consider brain MRI Assessment & Plan (12/11/2017 6:23 PM CDT): Subacute cognitive decline x 4 months, that has been witnessed by family member. On exam patient is oriented x 4, without focal deficit or fall history. Occasionally tangential and disorganized in thought processing. Age related cognitive decline versus primary brain process. - CTM; will obtain MMSE tomorrow - F/U TSH, RPR, HIV, B12 - If persistent may consider brain MRI Dyspnea 12/11/2017 Assessment & Plan (03/02/2025 8:33 AM GROCERY BAGGER): DDx Viral URI, pneumonia, CHF, COPD VSS O2 99% today Lungs clear on exam Xray today Discussed red flag symptoms, low threshold for reporting to ED. He is agreeable Assessment & Plan (12/13/2017 10:08 AM CDT): Patient is less dyspneic today s/p diuresis and satuating well on room air. CXR with hyperinflation. Likely multifactorial etiology; clearly a component of CHF with volume overload and also may be underlying COPD in the setting of 40 pack year smoking history and hx of mucous productive cough. - Holding off on further diuresis for now, pending cath today - PRN albuterol for wheezing - Outpatient F/U for PFTs Assessment & Plan (12/12/2017 9:24 AM CDT): Patient is less dyspneic today s/p diuresis and satuating well on room air. CXR with hyperinflation. Likely multifactorial etiology; clearly a component of CHF with volume overload and also may be underlying COPD in the setting of 40 pack year smoking history and hx of mucous productive cough. - IV lasix 20 mg QD - PRN albuterol for wheezing - Outpatient F/U for PFTs Assessment & Plan (12/11/2017 6:25 PM CDT): Patient is visibly dyspneic on exam but satuating well on room air. Prior CXR with hyperinflation. Likely multifactorial etiology; concern for CHF versus underlying COPD in the setting of 40 pack year smoking history. - See chest pain for further plans - F/U CXR - IV lasix 20 mg x 1 Hypertension 12/11/2017 Assessment & Plan (03/02/2025 8:20 AM GROCERY BAGGER): Hypertensive today Continue current treatment regimen. Dietary sodium restriction. Stop smoking. Ambulatory blood pressure monitoring. Blood pressure will be reassessed tomorrow. Assessment & Plan (05/06/2024 11:32 AM GROCERY BAGGER): On coreg, lasix and spironolactone at home -continue carvedilol, holding spironolactone and lasix given recent OR/NPO -goal normotension Assessment & Plan (10/17/2023 10:49 AM CDT): Well controlled today. Continue carvedilol and spironolactone. Educated on importance of medication compliance. Assessment & Plan (08/13/2023 9:00 AM CDT): Chronic, reports poor compliance with medications. On coreg, spironolactone and lasix at home -continue home meds -SBP goal <170 Assessment & Plan (08/02/2023 3:33 PM CDT): Initial blood pressure was low then two repeats were elevated. States he typically runs high. He did not take him am medications and admits that he does not take his medications regularly. Continue carvedilol and spironolactone. Educated on importance of medication compliance. Asked to keep a BP diary but he declined. Assessment & Plan (09/12/2021 12:16 PM CDT): - Home regimen: Coreg 12.5mg BID, Lasix 20mg BID, Losartan 50mg daily and Aldactone 12.5mg daily - 09/04: Resumed home lasix and Coreg. Resumed Losartan at half dose 25mg daily, Aldactone at 25mg - VS q4hrs and PRN Assessment & Plan (12/14/2017 11:19 AM CDT): BP on presentation was 170/125. Now normotensive. - Continue home losartan 50 mg QD, coreg Assessment & Plan (12/13/2017 10:06 AM CDT): BP on presentation was 170/125. Now normotensive. - Continue home losartan 50 mg QD - Continue BB Assessment & Plan (12/12/2017 9:20 AM CDT): BP on presentation was 170/125. Now normotensive. - Continue home losartan 50 mg QD - Continue diuresis, BB as above Assessment & Plan (12/11/2017 6:24 PM CDT): BP on presentation was 170/125. - Hydralazine x 1 - Continue home losartan 50 mg QD CAD (coronary artery disease) 12/04/2017 Assessment & Plan (05/06/2024 11:31 AM GROCERY BAGGER): 03/2018 Lcx x 2 and LAD x 2 -cont home ASA, statin -continue carvedilol Assessment & Plan (10/17/2023 10:50 AM CDT): S/p PCI to LAD and LCx. RCA is chronically occluded. Currently with no anginal symptoms. Continue secondary prevention with atorvastatin, carvedilol, plavix and Xarelto (PVD). LDL at goal on labs from 07/2023. Educated on importance of medication adherence and smoking cessation. Assessment & Plan (08/16/2023 12:09 PM CDT): S/p PCI to LAD and LCx. RCA is chronically occluded. Follows with Dr. Devine. Home regimen: atorvastatin, carvedilol, plavix -cont statin and coreg. -holding plavix for now. Started asa 08/14 -cards consult for pre-op assessment. TTE stable, no need for LHC. Assessment & Plan (08/02/2023 3:32 PM CDT): S/p PCI to LAD and LCx. RCA is chronically occluded. Currently with no anginal symptoms. Continue secondary prevention with atorvastatin, carvedilol, plavix and Xarelto (PVD). Educated on importance of medication adherence. Assessment & Plan (09/12/2021 11:34 AM CDT): NICM turned down for CABG s/p staged PCI in 2018 via R groin (most recent echo 2019 34% w extensive LV abnormality) - Cardiology consulted for short runs of VT this admission. - Cardiology recs: continue carvedilol 12.5 mg BID, losartan 25 mg daily, furosemide 20 mg BID, spironolactone 25 mg daily, continue atorvastatin 80 mg daily, clopidogrel 75 mg daily - Will defer starting Entresto and SGLT2i to follow up with Dr. Devine given his clinical condition (declining Hb, rising WBC) - 2-4 week with Cardiology after discharge - Continue tele - Replete electrolytes PRN Orthopnea 12/04/2017 Nocturia 12/04/2017 Palpitations 12/04/2017 Cough in adult patient 12/04/2017 Lipid disorder 12/04/2017 Assessment & Plan (08/02/2023 3:37 PM CDT): LDL at goal on labs from 09/2022. Continue Atorvastatin. GERD (gastroesophageal reflux disease) 8 Tobacco abuse 12/04/2017 Assessment & Plan (10/17/2023 10:50 AM CDT): Educated on importance of complete smoking cessation. Assessment & Plan (12/13/2017 10:01 AM CDT): Patient has 40 pack year smoking history. - Nicotine patch - Smoking cessation education Assessment & Plan (12/12/2017 9:11 AM CDT): Patient has 40 pack year smoking history. - Nicotine patch - Smoking cessation education Assessment & Plan (12/11/2017 6:25 PM CDT): Patient has 40 pack year smoking history. - Nicotine patch - Smoking cessation education S/P insertion of non-drug eluting coronary arter y stent Resolved Problems Problem Noted Date Diagnosed Date Resolved Date Superficial femoral artery occlusion 08/08/2023 08/09/2023 Electrolyte abnormality 09/04/2021 05/0 12/2021 Hypomagnesemia 09/04/2021 09/04/2021 Encounters Date Type Department Care Team Description 04/08/2025 Results Follow-Up [address] [phone] Shahid Marroquin MD Comprehensive metabolic panel, eGFR 04/08/[address] [phone] Shahid Marroquin MD 04/07/2025 4:30 PM GROCERY BAGGER Lab [address] [address] Metabolic disorder 04/06/2025 Orders Only [address] [phone] Shahid Marroquin MD Metabolic disorder (Primary Dx) 04/05/[address] [facility] Medical [facility] Cardiology [address] [address] [place] [phone] Eloisa Sheridan NP 03/29/[address] [place] [phone] Shahid Marroquin MD Additional Services Or Orders; Request Call Back; Outpatient Lab Order 03/26/[address] [facility] Cardiology [address] [place] [address] Roopa Wilkinson, JONAS 03/22/2025 1:45 PM GROCERY BAGGER Office Visit [address] [phone] Shahid Marroquin MD Coronary artery disease involving [place] coronary artery of [place] heart without angina pectoris (Primary Dx); S/P insertion of non-drug eluting coronary artery stent; Cough in adult patient; Tobacco abuse; PVD (peripheral vascular disease); History of recent pneumonia 03/22/[address] [phone] Shahid Marroquin MD Verbal Order [facility] 03/16/[address] [phone] Shahid Marroquin MD Appointment (Canceled and rescheduled, but may not make that appt as well) 03/03/2025 2:00 PM GROCERY BAGGER Office Visit [address] [phone] Shahid Marroquin MD Coronary artery disease involving [place] coronary artery of [place] heart without angina pectoris (Primary Dx); Simple chronic bronchitis (HCC); PAD (peripheral artery disease); Severe malnutrition (CMS/HCC); Cough in adult patient; Shortness of breath 03/03/[address] [phone] Shahid Marroquin MD Discuss Test Results (XRay imaging results) 03/02/2025 8:21 AM GROCERY BAGGER - 03/02/2025 11:59 PM GROCERY BAGGER Hospital Encounter [facility] Radiology at the [address] [address] Acute cough; Shortness of breath Discharge Disposition: Discharge to home or self care 03/02/2025 8:00 AM GROCERY BAGGER Office Visit [address] [phone] Apryl Monae DNP Acute cough (Primary Dx); Shortness of breath; PND (post-nasal drip); Acute non-recurrent pansinusitis; Viral URI; Primary hypertension; Chronic systolic congestive heart failure (HCC) 03/02/2025 Results Follow-Up [address] [phone] Apryl Monae DNP XR Chest Pa Lateral 2 Views 03/01/[address] [phone] Shahid Marroquin MD appt 03/01/[address] [phone] Shahid Marroquin MD Reschedule from Last 3 Months Immunizations Immunization Administration Dates Next Due Influenza, Trivalent, High D ose, Split, Preservative Free, Intramuscular 03/04/2024 Moderna SARS-CoV-2 Monovalent Vaccination (12+ Y RS) 06/11/2020 Surgical History Surgery Date Site/Laterality Comments 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 finger CARDIAC STENT PLACEMENT 03/29/2018 - 04/28/2018 x 2 -- 01/2018 and 03/2018, 4 stents total CARDIAC CATHETERIZATION COLONOSCOPY 04/29/2021 - 04/28/2022 IR PICC LINE PLACEMENT > 5 YEARS 09/18/2023 N/A BYPASS GRAFT 08/14/2023 Right Bypass Graft - Femoral Popliteal Artery, Right Saphenous vein harvest OTHER SURGICAL HISTORY 09/06/2021 Aortic Endovascular Repair, Femoral artery exploration, 1x Right illiac artery stent placement, 1x Left illiac artery stent placement Medical History Medical History Date Comments [place] (myocardial infarction) (HCC) Arrhythmia Hypertension Hyperlipidemia CHF (congestive heart failure) (HCC) Coronary artery disease Cardiomyopathy Cough Weight gain Stented coronary artery Heart attack (HCC) Heart failure Irregular heart rate Frequent urination Impotence Muscle weakness Cramps of lower extremity Awareness under anesthesia brief awareness during RLE surgery Family History Medical History Relation Name Comments Early Father Father Heart attack Father Father No Known Problems Mother Anesthesia problems Neg Hx Malig Hypertension Neg Hx Malig Hyperthermia Neg Hx Pseudochol deficiency Neg Hx Relation Name Status Comments Father Father (Age 47) Mother Social History Tobacco Use Types Packs/Day Years Used Date Smoking Tobacco: Every Day Cigarettes 0.7 56 Started: 1967 Smokeless Tobacco: Never Tobacco Cessation:Ready to Q uit: Not Asked; Counseling Given: Not Answered Alcohol Use Standard Drinks/Week Comments Not Currently [...] on file Legal Sex Male 3:50 AM GROCERY BAGGER Gender Identity Not on file Sexual Orientation Straight 07/03/2021 4: 01 PM GROCERY BAGGER Last Filed Vital Signs Vital Sign Reading Time Taken Comments Blood Pressure 96/60 03/22/2025 1:39 PM GROCERY BAGGER Pulse 72 03/22/2025 1:39 PM GROCERY BAGGER Temperature 36.6 C (97.9 F) 03/02/2025 7:40 AM GROCERY BAGGER Respiratory Rate 16 05/06/2024 3:45 PM GROCERY BAGGER Oxygen Saturation 99% 03/22/2025 1:39 PM GROCERY BAGGER Inhaled Oxygen Concentration - - Weight 57.2 kg (126 lb) 03/22/2025 1:39 PM GROCERY BAGGER Height 177.8 cm (5' 10) 03/22/2025 1:39 PM GROCERY BAGGER Body Mass Index 18.08 03/22/2025 1:39 PM GROCERY BAGGER Plan of Treatment Scheduled Procedures Name Priority Associated Diagnoses Date/Ti me COLONOSCOPY Positive colorectal cancer screening using Cologuard test Health Maintenance Due Date Last Done Comments Albumin Creatinine Ratio, Urine 1952 Colon Cancer Screening-Colonoscopy 1950 Hepatitis C Screening 1950 Dilated Eye Exam 1952 Foot Exam 1952 DTaP/Tdap/Td Vaccine (1 - Tdap) 1963 Hepatitis B Screening 1970 Pneumococcal vaccine 65+ (1 of 2 - PCV) 1971 Lung Cancer Screening 2002 Zoster Vaccine (1 of 2) 2002 Covid-19 Vaccine (2 - 2024-2 6 season) 2024 06/11/2020 Influenza Vaccine (#1) 2024 03/04/2024 Depression Screening 03/04/2025 03/04/2024, 10/03/2022, 05/14/2018, Additional history exists Well Visit 65+ 03/04/2025 03/04/2024, 10/03/2022 Fall Risk Assessment 05/06/2025 05/06/2024, 03/04/2024, 10/03/2022 Lipid Panel 05/06/2025 05/06/2024, 04/1 07/2023, 08/10/2023, Additional history exists Hemoglobin A1C 05/14/2025 11/11/2024, 11/2024, 05/06/2024, Additional history exists eGFR 04/07/2026 04/07/2025, 0 11/2024, 10/21/2023, Additional history exists Prostate Cancer Screening-PSA Discontinued 10/03/2022 Colon Cancer Screening-DNA Stool Discontinued 10/11/19 Colon Cancer Screening-FIT Discontinued 10/10/2022 Abdominal Aortic Aneurysm (A AA) Screen Completed 10/26/2024, 06/15/2024, 06/12/2024, Additional history exists Medical Devices Implanted Type Area Circular Saw Operator Device Identifier Shelf Expiration Date Model / Serial / Lot Wl [employer] Viabahn 7mm 5cm 120cm Delivery System Superficial Femoral Artery [id number] - [id number] - [id number] Implanted:Qty: 1 on 08/31/2021 by José Ang MD at [facility] Endoprosthesis Right: Leg Wl [employer] [id number] 03/19/2024 [id number] / [id number] / Medtronic Inc [id number] Endurant Iis 14-28mm 18fr 103mm Catheter Radiopaque Self Expand - [id number] - [id number] Implanted:Qty: 1 on 09/06/2021 by José Ang MD at [facility] Graft N/A: Aorta Med[employer] Inc [id number] 05/22/2023 [id number] / [id number] / Description:Main Body Aorta Medtronic Card Vasc Surgery [id number] Endurant Ii 16-16mm 16fr 156mm Delivery System C Distal - [id number] - [id number] Implanted:Qty: 1 on 09/06/2021 by José Ang MD at [facility] Graft Right: Iliac Medtr[employer] Inc [id number] 10/13/2021 [id number] / [id number] / Medtronic Card Vasc Surgery [id number] Endurant Ii 16-16mm 16fr 156mm Delivery System C Distal - [id number] - [id number] Implanted:Qty: 1 on 09/06/2021 by José Ang MD at [facility] Graft Left: Iliac Medtronic Inc 01/18/2022 [id number] / [id number] / [employer]heeda Vascu-Guard 8x.8cm Peripheral Patch Vascular Bovine Pericardium Vg-0108n - S - [id number] Implanted:Qty: 1 on 08/31/2021 by José Ang MD at [facility] Other - see comments Right: Groin [employer]eda 05/02/2026 VG-0108 N / / [id number] Description:boving pericardi um patch [employer] Vascu-Guard 8x.8cm Peripheral Patch Vascular Bovine Pericardium Vg-0108n - [id number] Implanted:Qty: 1 on 09/06/2021 by José Ang MD at [facility] Other - see comments Right: Femoral [employer] [facility] [employer] 01/25/2026 VG-0108 N / / [id number] Description:Patch For Right Femoral Artery [employer] [id number] Xience Belkis 2.5mm 23mm Rapid Exchange System Coronary Stent - [id number] - [id number] Implanted:Qty: 1 on 02/25/2018 by Francisco Javier Matthews MD at [facility] Stent [employer] 12/23/2018 [id number] / [id number] / [id number] [employer] [id number] Xience Belkis 3.5mm 33mm Rapid Exchange System Coronary Stent - [id number] - [id number] Implanted:Qty: 1 on 02/25/2018 by Francisco Javier Matthews MD at [facility] Stent [employer] 12/19/2018 [id number] / [id number] / [id number] [employer] [id number] Xience Belkis 2.75mm 38mm Rapid Exchange System Coronary Stent - [id number] Implanted:Qty: 1 on 04/04/2018 by Francisco Javier Matthews MD at [facility] Stent [employer] 11/19/2018 [id number] / / [employer] [id number] Xience Belkis 2.75mm 12mm Rapid Exchange System Coronary Stent - [id number] Implanted:Qty: 1 on 04/04/2018 by Francisco Javier Matthews MD at [facility] Stent [employer] 12/25/2018 [id number] / / [employer] [id number] Viabahn 8mm 7fr 15cm 120cm Delivery System Superficial Femoral - [id number] - [id number] Implanted:Qty: 1 on 08/31/2021 by José Ang MD at [facility] Stent Right: Leg Wl [employer] [id number] 03/14/2022 [id number] / [id number] / Wl [employer] Viabahn 8mm 7fr 10cm 120cm Delivery System Superficial Femoral [id number] - [id number] - [id number] Implanted:Qty: 1 on 08/31/2021 by José Ang MD at [facility] Stent Right: Leg Wl [employer] [id number] 01/31/2024 [id number] [id number] / [id number] / Wl [employer] Stent Endoprosthesis Iliac Artery 10cm 9mm 8fr Heparin [id number] - [id number] - [id number] Implanted:Qty: 1 on 08/31/2021 by José Ang MD at [facility] Stent Right: Leg Wl [employer] [id number] 01/17/2024 [id number] [id number] / [id number] / Wl [employer] Stent Endoprosthesis Iliac Artery 5cm 10mm 8fr Heparin [id number] - [id number] - [id number] Implanted:Qty: 1 on 08/31/2021 by José Ang MD at [facility] Stent Right: Leg Wl [employer] [id number] 04/03/2024 [id number] / [id number] / Medtronic Inc Protege Gps Exprt 10mm .079in 80mm 80cm Otw Self Expand Low - [id number] Implanted:Qty: 1 on 09/06/2021 by José Ang MD at [facility] Stent Left: Iliac [employer] [id number] 07/27/2024 SERB65- 10-80-8 0 / / [id number] Description:Left Iliac Arter y Stent [employer] Inc Protege Gps Exprt Od9 Mm Odsec.079 In L80 Mm L80 Cm Otw Delivery System Self Expand Low Profile Large Diameter Stent Biliary Nitinol Accepts .035 In Guidewire 6 Fr Introducer Sheath 7.5-8.5 Mm Lumen [id number] - [id number] Implanted:Qty: 1 on 09/06/2021 by José Ang MD at [facility] Stent Right: Iliac [employer] Inc 03/01/2024 SERB65- 09-80-8 0 / / [id number] Description:Right Iliac Elena ry Stent Procedures Procedure Name Priority Date/Time Associated Diagnosis Comments EGFR Routine 04/07/2025 4:36 PM GROCERY BAGGER Metabolic disorder COMPREHENSIVE METABOLIC PANEL Routine 04/07/2025 4:36 PM GROCERY BAGGER Metabolic disorder CARDIOLOGY DOCUMENT SCAN Routine 03/17/2025 2:17 PM GROCERY BAGGER CARDIOLOGY DOCUMENT SCAN Routine 03/17/2025 1:29 PM GROCERY BAGGER CARDIOLOGY DOCUMENT SCAN Routine 03/15/2025 2:42 PM GROCERY BAGGER XR CHEST PA LATERAL 2 VIEWS Schedule Routine, Read Routine (OP Routine) 03/02/2025 8:33 AM GROCERY BAGGER Acute cough Shortness of breath POCT HEMOGLOBIN A1C Routine 11/11/2024 1 :46 PM CDT Type 2 diabetes mellitus with hyperosmolarity without coma, without long-term current use of insulin (HCC) LIPID PANEL Routine 05/06/2024 5:30 AM GROCERY BAGGER CTA ABDOMINAL AORTA AND BILATERAL ILIOFEMORAL RUNOFF Schedule Routine, Read Routine (OP Routine) 04/30/2024 1:36 PM GROCERY BAGGER Atherosclerosis of [place] artery of both lower extremities with intermittent claudication Superficial femoral artery occlusion STOOL DNA COLOGUARD Routine 10/10/2022 8:30 AM CDT Colon cancer screening PSA SCREEN Routine 10/03/2022 3:17 PM CDT Benign prostatic hyperplasia with lower urinary tract symptoms, symptom details unspecified from Last 3 Months or Most Recently Relevant to Health Maintenance Results * eGFR (04/07/2025 4:36 PM GROCERY BAGGER) eGFR 65 >=60 mL/min/1. 73 m2 Comment: Interpretive Data Reference Interval Normal >/= 90 mL/min/1.73m2 Mildly decreased* 60 - 89 mL/min/1.73m2 Mildly to moderately decreased 45 - 59 mL/min/1.73m2 Moderately to severely decreased 30 - 44 mL/min/1.73m2 Severely decreased 15 - 29 mL/min/1.73m2 Kidney Failure < 15 mL/min/1.73m2 *Relative to young adult level Estimated glomerular filtration rate is determined by the 2020 CKD-EPI equation recommended by the National Kidney Foundation (A Unifying Approach to GFR Estimation: Recommendations of the NKF-ASK Task Force on Reassessing the Inclusion of Race in Diagnosing Kidney Disease, JASN 2020). The CKD-EPI equation should not be used for patients with unstable renal function and has not been validated in children and those over 70. Current interpretive data was last reviewed 2021. Blood 04/07/2025 4:36 PM GROCERY BAGGER 04/07/2025 6:25 PM GROCERY BAGGER Shahid Marroquin MD LAB BLOOD ORDERABLES Final R esult [facility] [address] [facility] Department [place] [address] * (ABNORMAL) Comprehensive metabolic panel (04/07/2025 4:36 PM GROCERY BAGGER) Sodium 134(L) 135 - 145 mmol/L Potassium, pl See Comment 3.3 - 4.9 [facility] Comment:Credited; Hemolyzed Specimen Chloride 96(L) 97 - 110 mmol/L [facility] CO2 24 22 - 32 mmol/L [facility] Anion gap 14 2 - 15 mmol/L [facility] BUN 31(H) 6 - 25 mg/dL [facility] Creatinine 1.19 0.80 - 1.30 mg/dL [facility] Glucose 502(C) 70 - 199 mg/dL [facility] Comment: Critical Result called to and read back by Dr. Marroquin, DATE: 2025-04-07 19:01:58 BY: [id number] Interpretive Data Fasting glucose >/= 126 mg/dl is diagnostic for diabetes. Fasting is defined as no caloric intake for at least 8 hours. Fasting glucose between 100 mg/dl to 125 mg/dl is diagnostic of prediabetes. In a patient with classic symptoms of hyperglycemia or hyperglycemic crisis, a random glucose >/= 200 mg/dl is diagnostic for diabetes. In the absence of unequivocal hyperglycemia, results should be confirmed by repeat testing. The classification and Diagnosis of Diabetes Diabetes Care 2021; 46: S19-S40. Current interpretive data was last revised 2022. Calcium 8.7 8.5 - 10.3 mg/dL [facility] Bilirubin, total 0.5 0.1 - 1.2 mg/dL [facility] Protein, pl 5.7(L) 6.5 - 8.5 g/dL [facility] Albumin 3.2(L) 3.5 - 5.0 g/dL [facility] Alk phos 185(H) 40 - 130 Units/L [facility] ALT See Comment 7 - 55 [facility] Comment:Credited; Hemolyzed Specimen AST See Comment 10 - 50 JA Comment:Credited; Hemolyzed Specimen Blood 04/07/2025 4:36 PM GROCERY BAGGER 04/07/2025 6:25 PM GROCERY BAGGER Shahid Marroquin MD LAB BLOOD ORDERABLES Final R esult [facility] [address] [facility] [address] Department [place] [address] * Cardiology Document Scan (03/17/2025 2:17 PM GROCERY BAGGER) Anatomical Region Laterality Modality Other Roopa Wilkinson BUTT TRIMMER CV CARDIAC SERVICE S PROCEDURES Final Result * Cardiology Document Scan (03/17/2025 1:29 PM GROCERY BAGGER) Anatomical Region Laterality Modality Other Roopa Wilkinson BUTT TRIMMER CV CARDIAC SERVICE S PROCEDURES Final Result * Cardiology Document Scan (03/15/2025 2:42 PM GROCERY BAGGER) Anatomical Region Laterality Modality Other Eloisa Sheridan NP CV CARDIAC SERVICES PROCEDUR ES Final Result * XR Chest Pa Lateral 2 Views (03/02/2025 8:33 AM GROCERY BAGGER) Anatomical Region Laterality Modality Body, Chest N/A Computed Radiogr aphy 03/02/2025 9:32 AM GROCERY BAGGER Impressions 03/02/2025 9:32 AM GROCERY BAGGER Normal heart size. There are streaky and patchy airspace opacities in the lung bases, left greater than right, for which possible causes include atelectasis, aspiration, and pneumonia. Small bilateral pleural effusions also are present. No pneumothorax. Endovascular stent is seen in the mid abdomen. Electronically signed by: Elijah Mario M.D. Narrative 03/02/2025 9:32 AM GROCERY BAGGER EXAMINATION: 2 view chest radiograph COMPARISON: 12/11/2017 Procedure Note Elijah Mario MD - 03/02/2025 EXAMINATION: 2 view chest radiograph COMPARISON: 12/11/2017 IMPRESSION: Normal heart size. There are streaky and patchy airspace opacities in the lung bases, left greater than right, for which possible causes include atelectasis, aspiration, and pneumonia. Small bilateral pleural effusions also are present. No pneumothorax. Endovascular stent is seen in the mid abdomen. Electronically signed by: Elijah Mario M.D. Apryl Monae [facility] IMG XR PROCEDURES Final Re sult * (ABNORMAL) POCT hemoglobin A1c (11/11/2024 1:46 PM CDT) Hemoglobin A1C, POC 8.0(A) 4.0 - 5.6 % Blood 11/11/2024 1:46 PM CDT Shahid Marroquin MD POINT OF CARE TEST ORDERABLE S Final Result * (ABNORMAL) Lipid panel (05/06/2024 5:30 AM GROCERY BAGGER) Cholesterol 91 30 - 199 mg/dL Comment: Interpretive Data Ages < or = 19 years Acceptable: <170 mg/dL Borderline high: 170-199 mg/dL High: >or= 200 mg/dL Ages > or = 20 years Desirable: <200 mg/dL Borderline high: 200-239 mg/dL High: >or= 240 mg/dL Literature References: 1. Expert Panel on Integrated Guidelines for Cardiovascular Health and Risk Reduction in Children and Adolescents. Pediatrics 2011;128:S213 2. NCEP Expert Panel. Circulation 2004;110:227 Current Interpretive Data was last revised on 2017. Triglycerides 181(H) <=149 mg/dL [facility] Comment: Interpretive Data Ages < or = 9 years Acceptable: <75 mg/dL Borderline high: 75-99 mg/dL High: >or= 100 mg/dL Ages 10 to 20 years Acceptable: <90 mg/dL Borderline high: 90-129 mg/dL High: >or= 130 mg/dL Ages > or = 20 years Desirable: <150 mg/dL Borderline high: 150-199 mg/dL High: 200-499 mg/dL Very high: >or= 499 mg/dL Literature References: 1. Expert Panel on Integrated Guidelines for Cardiovascular Health and Risk Reduction in Children and Adolescents. Pediatrics 2011;128:S213 2. NCEP Expert Panel. Circulation 2004;110:227 Current Interpretive Data was last revised on 2017. HDL 23(L) >=40 mg/dL [facility] Comment: Interpretive Data Ages < or = 19 years Acceptable: >45 mg/dL Borderline low: 40-45 mg/dL Low: <40 mg/dL Ages > or = 20 years Desirable: >or= 60 mg/dL Low: <40 mg/dL Literature References: 1. Expert Panel on Integrated Guidelines for Cardiovascular Health and Risk Reduction in Children and Adolescents. Pediatrics 2011;128:S213 2. NCEP Expert Panel. Circulation 2004;110:227 Current Interpretive Data was last revised on 2017. LDL, calculated 38 <=129 mg/dL [facility] Comment: Interpretive Data Ages < or = 19 years Acceptable: <110 mg/dL Borderline high: 110-129 mg/dL High: >or= 130 mg/dL Ages > or = 20 years Optimal: <100 mg/dL Near optimal: 100-129 mg/dL Borderline high: 130-159 mg/dL High: >160 mg/dL Calculated using the Doug LDL-C estimating equation. This equation was implemented on 2023. Prior to this date LDL-C was estimated using the Friedewald equation. Literature References: 1. Expert Panel on Integrated Guidelines for Cardiovascular Health and Risk Reduction in Children and Adolescents. Pediatrics 2011;128:S213 2. NCEP Expert Panel. Circulation 2004;110:227 3. Doug Hidalgo et al. JOMAR Cardiol. 2019August 27;5(5):540-548. doi: 10.1001/jamacardio.2020.0013 Current Interpretive Data was last revised on 2023. Non-HDL Cholesterol 68 mg/dL [facility] Comment: Interpretive Data Ages < or = 19 years Acceptable: <120 mg/dL Borderline high: 120-144 mg/dL High: >145 mg/dL Ages > or = 20 years When triglycerides are >200 mg/dL, Non-HDL cholesterol is a secondary target of therapy with treatment goals that are 30 mg/dL greater than the LDL cholesterol target. Literature References: 1. Expert Panel on Integrated Guidelines for Cardiovascular Health and Risk Reduction in Children and Adolescents. Pediatrics 2011;128:S213 2. NCEP Expert Panel. Circulation 2004;110:227 Current Interpretive Data was last revised on 2017. Chol/HDL ratio 4 [facility] Blood 05/06/2024 5:30 AM GROCERY BAGGER 05/06/2024 5:59 AM GROCERY BAGGER us José Ang MD LAB BLOOD ORDERABLES Final R esult [facility] [address] [facility] [place] [address] * CTA Abdominal Aorta And Bilateral Iliofemoral Runoff (04/30/2024 1:36 PM GROCERY BAGGER) Anatomical Region Laterality Modality Body Bilateral Computed Tomogra phy 04/30/2024 2:34 PM GROCERY BAGGER Impressions 04/30/2024 2:34 PM GROCERY BAGGER Stable infrarenal abdominal aortic aneurysm, status post aortobiiliac endovascular repair. 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 Poor flow to the right and left calves, ankles and feet. Electronically signed by: Francisco Javier Cooney M.D. Narrative 04/30/2024 2:34 PM GROCERY BAGGER EXAMINATION: CTA ABDOMINAL AORTA AND BILATERAL ILIOFEMORAL RUNOFF DATE: 04/30/2024 2:00 PM HISTORY: PVD TECHNIQUE: Images through the abdomen, pelvis and bilateral lower extremities were obtained following intravenous contrast administration. Three-dimensional reconstructions were performed. COMPARISON: 08/08/2023 FINDINGS: Aortobiiliac endovascular stent graft is present and appears in good position. The graft begins just inferior to the SMA origin and extends into the common iliac arteries. Endovascular stents extend the graft into the external iliac arteries. The suprarenal abdominal aorta has a normal appearance. There is mild stenosis at the celiac artery origin. The superior mesenteric artery enhances normally. There is mild stenosis at the right renal artery origin. 68 x 58 mm infrarenal abdominal aortic aneurysm is present. Aneurysm does not extend into the iliac arteries. There are calcifications in the aneurysm. There is no endoleak. Inferior mesenteric artery enhances but it is not clear if perfusion is antegrade or retrograde. Right common and external iliac artery stents are patent and without stenosis. Right internal iliac artery does not perfuse. The right common femoral artery is patent. The right deep femoral artery is patent. The right superficial femoral artery is occluded at its origin. There is a thrombosed stent in the right superficial femoral artery and popliteal artery. The right tibial and peroneal arteries reconstitute through collaterals. The right tibial and peroneal arteries are heavily diseased. There is three-vessel runoff to the right ankle with 2 vessel runoff to the right foot. Left common and external iliac artery stents are patent and without stenosis. Left internal iliac artery is calcified but patent. The left common femoral artery is patent. The left deep femoral artery is patent. The left superficial femoral artery and popliteal artery are heavily calcified but patent. There is a normal trifurcation on the left. The left anterior tibial artery is occluded near its origin. The left posterior tibial and peroneal arteries extend to the ankle. Gallstones are noted in the gallbladder. There is a large duodenal diverticulum. Since 08/08/2023, little change has occurred.. Procedure Note Francisco Javier Cooney MD - 04/30/2024 EXAMINATION: CTA ABDOMINAL AORTA AND BILATERAL ILIOFEMORAL RUNOFF DATE: 04/30/2024 2:00 PM HISTORY: PVD TECHNIQUE: Images through the abdomen, pelvis and bilateral lower extremities were obtained following intravenous contrast administration. Three-dimensional reconstructions were performed. COMPARISON: 08/08/2023 FINDINGS: Aortobiiliac endovascular stent graft is present and appears in good position. The graft begins just inferior to the SMA origin and extends into the common iliac arteries. Endovascular stents extend the graft into the external iliac arteries. The suprarenal abdominal aorta has a normal appearance. There is mild stenosis at the celiac artery origin. The superior mesenteric artery enhances normally. There is mild stenosis at the right renal artery origin. 68 x 58 mm infrarenal abdominal aortic aneurysm is present. Aneurysm does not extend into the iliac arteries. There are calcifications in the aneurysm. There is no endoleak. Inferior mesenteric artery enhances but it is not clear if perfusion is antegrade or retrograde. Right common and external iliac artery stents are patent and without stenosis. Right internal iliac artery does not perfuse. The right common femoral artery is patent. The right deep femoral artery is patent. The right superficial femoral artery is occluded at its origin. There is a thrombosed stent in the right superficial femoral artery and popliteal artery. The right tibial and peroneal arteries reconstitute through collaterals. The right tibial and peroneal arteries are heavily diseased. There is three-vessel runoff to the right ankle with 2 vessel runoff to the right foot. Left common and external iliac artery stents are patent and without stenosis. Left internal iliac artery is calcified but patent. The left common femoral artery is patent. The left deep femoral artery is patent. The left superficial femoral artery and popliteal artery are heavily calcified but patent. There is a normal trifurcation on the left. The left anterior tibial artery is occluded near its origin. The left posterior tibial and peroneal arteries extend to the ankle. Gallstones are noted in the gallbladder. There is a large duodenal diverticulum. Since 08/08/2023, little change has occurred.. IMPRESSION: Stable infrarenal abdominal aortic aneurysm, status post aortobiiliac endovascular repair. 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 Poor flow to the right and left calves, ankles and feet. Electronically signed by: Francisco Javier Cooney M.D. José Ang MD IM CT PROCEDURES Final Resu lt * (ABNORMAL) Stool DNA - Cologuard (10/10/2022 8:30 AM CDT) Stool DNA - Cologuard Positive( A) Negative [facility] (CLIA #:[id number]) Comment: POSITIVE TEST RESULT. A positive Cologuard result should be followed with a colonoscopy or visual examination of the colon. The normal value (reference range) for this assay is negative. TEST DESCRIPTION: Composite algorithmic analysis of stool DNA-biomarkers with hemoglobin immunoassay. Quantitative values of individual biomarkers are not reportable and are not associated with individual biomarker result reference ranges. Cologuard is intended for colorectal cancer screening of adults of either sex, 45 years or older, who are at average-risk for colorectal cancer (CRC). Cologuard has been approved for use by the U.S. FDA. The performance of Cologuard was established in a cross sectional study of average-risk adults aged 50-84. Cologuard performance in patients ages 45 to 49 years was estimated by sub-group analysis of near-age groups. Colonoscopies performed for a positive result may find as the most clinically significant lesion: colorectal cancer [4.0%], advanced adenoma (including sessile serrated polyps greater than or equal to 1cm diameter) [20%] or non- advanced adenoma [31%]; or no colorectal neoplasia [45%]. These estimates are derived from a prospective cross-sectional screening study of 10,000 individuals at average risk for colorectal cancer who were screened with both Cologuard and colonoscopy. (Toby Schroeder al, N Engl J Med 2014;370(14):8270-2995.) Cologuard may produce a false negative or false positive result (no colorectal cancer or precancerous polyp present at colonoscopy follow up). A negative Cologuard test result does not guarantee the absence of CRC or advanced adenoma (pre-cancer). The current Cologuard screening interval is every 3 years. ([place] [employer] and U.S. Multi-Society Task Force). Cologuard performance data in a 10,000 patient pivotal study using colonoscopy as the reference method can be accessed at the following location: [email or web address]/results. Additional description of the Cologuard test process, warnings and precautions can be found at [email or web address]. Stool 10/10/2022 8:30 AM CDT 10/11/2022 5:18 PM CDT us Shahid Marroquin MD LAB BODY FLUIDS AND STOOLS O RDERABLES Final Result Performing Organization Address City/State/[facility] Co de Phone Number [employer] (CLIA #:[id number]) [place] [address] * PSA screen (10/03/2022 3:17 PM CDT) PSA-Total 2.52 <=6.20 ng/mL [facility] Comment: Interpretive Data AGE SEX REFERENCE INTERVAL 0 minutes-150 years Female None 0 minutes-49 years Male None 50-59 years Male 0-3.90 60-69 years Male 0-5.40 70-79 years Male 0-6.20 80-150 years Male 0-6.20 The Denzel PSA Total assay procedure was used. Results from different manufacturers or methods may not be comparable. Serial testing should be performed using the same method. Current interpretive data last revised 21. Blood 10/03/2022 3:17 PM CDT 10/03/2022 5:26 PM CDT Shahid Marroquin MD LAB BLOOD ORDERABLES Final R esult Performing Organization Address City/State/[facility] Co de Phone Number [facility] Department [place] [address] from Last 3 Months or Most Recently Relevant to Health Maintenance Insurance MEDICARE [facility] SENIOR SUPPLEMENT MEDICARE [facility] MEDICARE AETNA [facility]MO AETNA [facility]ICARE [facility] HMO AETNA SENIOR SUPPLEMENT MEDICARE [facility] CO MEDICARE AETNA SENIOR SUPPLEMENT Advance Directives For more information, please contact: [phone] * Full Code (Latest Code Status on File) Date Activated Date Inactivated Comments 05/05/2024 8:54 PM 05/06/2024 9:21 PM * Full Code Date Activated Date Inactivated Comments 08/09/2023 12:50 PM 08/19/2023 6:13 PM * Full Code Date Activated Date Inactivated Comments 09/01/2021 2:01 AM 09/13/2021 10:59 PM * Full Code Date Activated Date Inactivated Comments 04/04/2018 4:09 PM 04/04/2018 9:47 PM * Full Code Date Activated Date Inactivated Comments 02/25/2018 3:01 PM 02/25/2018 8:06 PM Care Teams Log Hooker Relationship Specialty Start Date End Date Shahid Marroquin MD [address] [place] [address] DR Jaymie GARZA [address] [place] [id number] PCP - General Cardiovascular Disease 12/03/17 José Ang MD [address] [place] [address] Consulting Physician Vascular Surgery 09/13/21
--- OUTSIDE RECORDS SUMMARY | 2025-04-12 05:06 | XMS_ITS | Clinical Summary ---
Author Organization [facility] Address [address] [facility] Attn: Epic Prelude ADT [place] [phone] Care Team Providers Care Downstairs Maid Name Role Phone Unavailable Primary Care Provider Unavailabl e Allergies No known active allergies Medications Blood-Glucose Meter (vLineTouch Verio Flex meter) Use as directed to check blood glucose. 1 Each 09/22/2021 6:50 PM CDT 2 Active Insulin Medim[place], Disposable, (BD Ultra-Fine Micro Pen Needle) 32 [...] 5 days 120 Tablet 03/05/2022 1:24 PM CLIENT RENEWAL SPECIALIST 2 Active potassium chloride (K-TAB) 20 mEq Extended Release tablet Take 1 Tablet (20 mEq) by mouth 2 times daily. 60 Tablet 2 07/06/2022 4:30 PM CLIENT RENEWAL SPECIALIST 2 Active rivaroxaban (Xarelto) 20 mg Tablet Take 1 Tablet (20 mg) by mouth daily. 30 Tablet 11 03/09/2023 2:53 PM CLIENT RENEWAL SPECIALIST 3 Active potassium chloride (KLOR-CON) 20 mEq [...] daily. 60 Tablet 2 05/21/2023 2:50 PM CLIENT RENEWAL SPECIALIST 3 Active mupirocin (BACTROBAN) 2 % Ointment Apply topically 3 (three) times a day 22 Gram 2 04/05/2023 6:47 PM CLIENT RENEWAL SPECIALIST 3 Active [id number] b-C (Plenvu) 140-9-5.2 gram Powder in Packet, Sequential Take as directed on package. 3 Packet 05/03/2023 4:50 PM CLIENT RENEWAL SPECIALIST 4 Active ondansetron (ZOFRAN ODT) 4 mg Tablet, Rapid Dissolve Dissolve 1 tablet by mouth 30 minutes prior to each prep dose, then dissolve 1 tablet by mouth every 4-6 hours as needed for nausea. 4 Tablet 05/03/2023 4:50 PM CLIENT RENEWAL SPECIALIST 4 Active aspirin (ECOTRIN EC) 81 mg [...] 12 hours. 3.6 mL 04/24/2024 2:05 PM CLIENT RENEWAL SPECIALIST 4 Active clopidogreL (PLAVIX) 75 mg Tablet [...] wheezing 25.5 Gram 4 03/02/2025 9:54 AM CLIENT RENEWAL SPECIALIST Active benzonatate (TESSALON) 100 mg capsule Take 1 capsule (100 mg total) by mouth 3 (three) times a day as needed for cough 42 Capsule 03/02/2025 9:54 AM CLIENT RENEWAL SPECIALIST Active amoxicillin-cla vulanate (AUGMENTIN) 875-125 mg tablet Take 1 Tablet by mouth every 12 hours. 6 Tablet 03/19/2025 3:35 PM CLIENT RENEWAL SPECIALIST 5 Active carvediloL (COREG) 3.125 mg tablet Take 1 Tablet (3.125 mg) by mouth every 12 hours. 60 Tablet 2 03/19/2025 3:35 PM CLIENT RENEWAL SPECIALIST 5 Active clopidogreL (PLAVIX) 75 mg Tablet Take 1 Tablet (75 mg) by mouth daily. 30 Tablet 2 03/19/2025 3:35 PM CLIENT RENEWAL SPECIALIST 5 Active doxycycline hyclate (VIBRAMYCIN) 100 mg tablet Take 1 Tablet (100 mg) by mouth every 12 hours. 3 Tablet 03/19/2025 3:35 PM CLIENT RENEWAL SPECIALIST 5 Active sacubitriL-vals matthew (ENTRESTO) 24-26 mg Tablet Take 1 Tablet by mouth every 12 hours. 60 Tablet 2 03/24/2025 4:42 PM CLIENT RENEWAL SPECIALIST 5 Active furosemide (LASIX) 40 mg tablet Take 1 Tablet (40 mg) by mouth 2 times daily. 60 Tablet 1 03/19/2025 3:35 PM CLIENT RENEWAL SPECIALIST 5 Active insulin glargine-yfgn 100 unit/mL pen syringe Inject 6 units under the skin once nightly at bedtime 15 mL 5 Active rivaroxaban (Xarelto) 20 mg Tablet Take 1 tablet by mouth daily at 5 pm 30 Tablet 03/19/2025 3:35 PM CLIENT RENEWAL SPECIALIST 5 Active Social History Tobacco Use Types [...]
--- OUTSIDE RECORDS SUMMARY | 2025-04-12 05:06 | XMS_ITS | Clinical Summary ---
Author Organization [facility] Address [address] [place] [address] Care Team Providers Care Shoe Folder Name Role Phone Shahid Marroquin MD Primary Care Provider [phone] José Ang MD Unavailable [phone] Allergies No known active allergies Medications multivitamin [...] 04/20/2024 Assessment & Plan (05/06/2024 11:34 AM PATTERNMAKER APPRENTICE WOOD): S/p multiple interventions--s/p right common femoral artery [...] PM CDT): Hx of PVD s/p [employer] endarterectomy with patch, R SFA/pop/tibial thrombectomy, R SFA/pop stenting Viabahn x 5, R AT/PT balloon angioplasty, RLE fasciotomies (08/31/2021), EVAR s/p redo R fem exposure with patch angioplasty, L [employer] exposure, EVAR (Medtronic Endurant II), bilateral EIA [...] Continue plavix, atorvastatin and xarelto. I contacted REHABILITATION TEAM LEAD with vascular surgery given the appearance of [...] (08/31/2021): Added automatically from request for surgery [id number] Assessment & Plan (09/12/2021 12:14 PM CDT): [...] 12/12/2017 Assessment & Plan (05/06/2024 11:32 AM PATTERNMAKER APPRENTICE WOOD): On metformin at home. A1c 8.2 -hold home metformin -BG initially 300s. Endocrine DM consult. -[facility], monitor BG for now Assessment & Plan (08/13/2023 9:01 AM CDT): Last A1c 10.8. Recently restarted on metformin per his PCP. Off farxiga for unknown reasons but mine boss wants him on this -hold home oral [...] 12/12/2017 Assessment & Plan (03/03/2025 11:11 AM PATTERNMAKER APPRENTICE WOOD): Not taking heart meds for the last 2 months ? Exacerbation We discussed red flag symptoms requiring emergent follow up Assessment & Plan (05/06/2024 11:33 AM PATTERNMAKER APPRENTICE WOOD): Ischemic. Diastolic function: stage I - impaired [...] factors: smoking, HTN, FH of father with MS, DM. 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 MONIKA score 6 (41% risk). - [...] factors: smoking, HTN, FH of father with MS, DM. MONIKA score 6 (41% risk). - [...] factors: smoking, HTN, FH of father with MS, s/sx of PAD. - F/U Baseline labs, [...] 12/11/2017 Assessment & Plan (03/02/2025 8:33 AM PATTERNMAKER APPRENTICE WOOD): DDx Viral URI, pneumonia, CHF, COPD VSS [...] 12/11/2017 Assessment & Plan (03/02/2025 8:20 AM PATTERNMAKER APPRENTICE WOOD): Hypertensive today Continue current treatment regimen. Dietary sodium restriction. Stop smoking. Ambulatory blood pressure monitoring. Blood pressure will be reassessed tomorrow. Assessment & Plan (05/06/2024 11:32 AM PATTERNMAKER APPRENTICE WOOD): On coreg, lasix and spironolactone at home [...] 12/04/2017 Assessment & Plan (05/06/2024 11:31 AM PATTERNMAKER APPRENTICE WOOD): 03/2018 Lcx x 2 and LAD x [...] Department Care Team Description 04/08/2025 Results Follow-Up [address] [address] Shahid Marroquin MD Comprehensive metabolic panel, eGFR 04/08/[address] [address] Shahid Marroquin MD 04/07/2025 4:30 PM PATTERNMAKER APPRENTICE WOOD Lab [address] [address] Metabolic disorder 04/06/2025 Orders Only [address] [address] Shahid Marroquin MD Metabolic disorder (Primary Dx) 04/05/2025 Orders Only [facility] [address] [place] [phone] Eliosa Sheridan NP 03/29/[address] [place] [phone] Shahid Marroquin MD Additional Services Or Orders; Request Call Back; Outpatient Lab Order 03/26/2025 Orders Only [facility] [address] [place] [address] Roopa Wilkinson, JONAS 03/22/2025 1:45 PM PATTERNMAKER APPRENTICE WOOD Office Visit [address] [address] Shahid Marroquin MD Coronary artery disease involving red cliff coronary artery of red cliff heart without angina pectoris (Primary Dx); S/P insertion of non-drug eluting coronary artery stent; Cough in adult patient; Tobacco abuse; PVD (peripheral vascular disease); History of recent pneumonia 03/22/[address] [address] Shahid Marroquin MD Verbal Order [facility] 03/16/[address] [address] Shahid Marroquin MD Appointment (Canceled and rescheduled, but may not make that appt as well) 03/03/2025 2:00 PM PATTERNMAKER APPRENTICE WOOD Office Visit [address] [address] Shahid Marroquin MD Coronary artery disease involving red cliff coronary artery of red cliff heart without angina pectoris (Primary Dx); Simple chronic bronchitis (HCC); PAD (peripheral artery disease); Severe malnutrition (CMS/HCC); Cough in adult patient; Shortness of breath 03/03/[address] [address] Shahid Marroquin MD Discuss Test Results (XRay imaging results) 03/02/2025 8:21 AM PATTERNMAKER APPRENTICE WOOD - 03/02/2025 11:59 PM PATTERNMAKER APPRENTICE WOOD Hospital Encounter [facility] Radiology at the [address] [address] Acute cough; Shortness of breath Discharge Disposition: Discharge to home or self care 03/02/2025 8:00 AM PATTERNMAKER APPRENTICE WOOD Office Visit [address] [phone] Apryl Monae DNP Acute cough (Primary Dx); Shortness of breath; PND (post-nasal drip); Acute non-recurrent pansinusitis; Viral URI; Primary hypertension; Chronic systolic congestive heart failure (HCC) 03/02/2025 Results Follow-Up [address] [phone] Apryl Monae DNP XR Chest Pa Lateral 2 Views 03/01/[address] [phone] Shahid Marroquin MD appt 03/01/[address] [phone] Shahid Marroquin MD Reschedule from Last 3 [...] placement Medical History Medical History Date Comments MS (myocardial infarction) (HCC) Arrhythmia Hypertension Hyperlipidemia CHF [...] on file Legal Sex Male 3:50 AM PATTERNMAKER APPRENTICE WOOD Gender Identity Not on file Sexual Orientation Straight 07/03/2021 4: 01 PM PATTERNMAKER APPRENTICE WOOD Last Filed Vital Signs Vital Sign Reading Time Taken Comments Blood Pressure 96/60 03/22/2025 1:39 PM PATTERNMAKER APPRENTICE WOOD Pulse 72 03/22/2025 1:39 PM PATTERNMAKER APPRENTICE WOOD Temperature 36.6 C (97.9 F) 03/02/2025 7:40 AM PATTERNMAKER APPRENTICE WOOD Respiratory Rate 16 05/06/2024 3:45 PM PATTERNMAKER APPRENTICE WOOD Oxygen Saturation 99% 03/22/2025 1:39 PM PATTERNMAKER APPRENTICE WOOD Inhaled Oxygen Concentration - - Weight 57.2 kg (126 lb) 03/22/2025 1:39 PM PATTERNMAKER APPRENTICE WOOD Height 177.8 cm (5' 10) 03/22/2025 1:39 PM PATTERNMAKER APPRENTICE WOOD Body Mass Index 18.08 03/22/2025 1:39 PM PATTERNMAKER APPRENTICE WOOD Plan of Treatment Scheduled Procedures Name Priority [...] history exists Medical Devices Implanted Type Area Hose Builder Device Identifier Shelf Expiration Date Model / Serial / Lot Wl [employer] Viabahn 7mm 5cm 120cm Delivery System Superficial Femoral Artery [id number] - [id number] - [id number] Implanted:Qty: 1 on 08/31/2021 by José Ang MD at [facility] Endoprosthesis Right: Leg [employer] [id number] 03/19/2024 [id number] / [id number] / Medtronic Inc [id number] Endurant Iis 14-28mm 18fr 103mm Catheter Radiopaque Self Expand - [id number] - [id number] Implanted:Qty: 1 on 09/06/2021 by José Ang MD at [facility] Graft N/A: Aorta Medtronic Inc [id number] 05/22/2023 [id number] / [id number] / Description:Main Body Aorta Medtronic Card Vasc Surgery [id number] Endurant Ii 16-16mm 16fr 156mm Delivery System C Distal - [id number] - [id number] Implanted:Qty: 1 on 09/06/2021 by José Ang MD at [facility] Graft Right: Iliac Medtronic Inc [id number] 10/13/2021 [id number] / [id number] / Medtronic Card Vasc Surgery [id number] Endurant Ii 16-16mm 16fr 156mm Delivery System C Distal - [id number] - [id number] Implanted:Qty: 1 on 09/06/2021 by José Ang MD at [facility] Graft Left: Iliac Medtronic Inc 01/18/2022 [id number] / [id number] / Ochoa [employer] Rasheeda Vascu-Guard 8x.8cm Peripheral Patch Vascular Bovine Pericardium Vg-0108n - S - [id number] Implanted:Qty: 1 on 08/31/2021 by José Ang MD at [facility] Other - see comments Right: Groin [employer] Rasheeda 05/02/2026 VG-0108 N / / [id number] Description:boving pericardi um patch Ochoa [employer] Vascu-Guard 8x.8cm Peripheral Patch Vascular Bovine Pericardium Vg-0108n - [id number] Implanted:Qty: 1 on 09/06/2021 by José Ang MD at [facility] Other - see comments Right: Femoral [employer]ak 01/25/2026 VG-0108 N / / [id number] Description:Patch For Right Femoral Artery [employer] [id number] Xience Belkis 2.5mm 23mm Rapid Exchange System Coronary Stent - [id number] - [id number] Implanted:Qty: 1 on 02/25/2018 by Francisco Javier Matthews MD at [facility] Stent [employer] 12/23/2018 [id number] -[id number] / [id number] / [id number] [employer] [id number] Xience Belkis 3.5mm 33mm Rapid Exchange System Coronary Stent - [id number] - [id number] Implanted:Qty: 1 on 02/25/2018 by Francisco Javier Matthews MD at [facility] Stent [employer] 12/19/2018 [id number] -33 / [id number] / [id number] [employer] [id number] Xience Belkis 2.75mm 38mm Rapid Exchange System Coronary Stent - [id number] Implanted:Qty: 1 on 04/04/2018 by Francisco Javier Matthews MD at [facility] Stent [employer] 11/19/2018 [id number] / / [employer] [id number] Xience Belkis 2.75mm 12mm Rapid Exchange System Coronary Stent - [id number] Implanted:Qty: 1 on 04/04/2018 by Francisco Javier Matthews MD at [facility] Stent [employer] 12/25/2018 [id number] / / Tok [employer] Associates Inc [id number] Viabahn 8mm 7fr 15cm 120cm Delivery System Superficial Femoral - [id number] - [id number] Implanted:Qty: 1 on 08/31/2021 by José Ang MD at [facility] Stent Right: Leg [employer]l [employer] [id number] 03/14/2022 [id number] / [id number] / Wl [employer] Viabahn 8mm 7fr 10cm 120cm Delivery System Superficial Femoral [id number] - [id number] - [id number] Implanted:Qty: 1 on 08/31/2021 by José Ang MD at [facility] Stent Right: Leg Wl [employer] [id number] 01/31/2024 [id number] [id number] / [id number] / Wl [employer] Stent Endoprosthesis Iliac Artery 10cm 9mm 8fr Heparin [id number] - [id number] - [id number] Implanted:Qty: 1 on 08/31/2021 by José Ang MD at [facility] Stent Right: Leg Wl [employer] [id number] 01/17/2024 [id number] 002A / [id number] / Wl [employer] Stent Endoprosthesis Iliac Artery 5cm 10mm 8fr Heparin [id number] - [id number] - [id number] Implanted:Qty: 1 on 08/31/2021 by José Ang MD at [facility] Stent Right: Leg Wl [employer] [id number] 04/03/2024 [id number] [id number] / [id number] / Medtronic Inc Protege Gps Exprt 10mm .079in 80mm 80cm Otw Self Expand Low - [id number] Implanted:Qty: 1 on 09/06/2021 by José Ang MD at [facility] Stent Left: Iliac Medtronic Inc [id number] 07/27/2024 SERB65- 10-80-8 0 / / [id number] Description:Left Iliac Arter y Stent Medtronic Inc Protege Gps Exprt Od9 Mm Odsec.079 In L80 Mm L80 Cm Otw Delivery System Self Expand Low Profile Large Diameter Stent Biliary Nitinol Accepts .035 In Guidewire 6 Fr Introducer Sheath 7.5-8.5 Mm Lumen [id number] - [id number] Implanted:Qty: 1 on 09/06/2021 by José Ang MD at [facility] Stent Right: Iliac Medtronic Inc 03/01/2024 SERB65- 09-80-8 0 / / [id number] Description:Right Iliac Elena ry Stent Procedures Procedure Name Priority Date/Time Associated Diagnosis Comments EGFR Routine 04/07/2025 4:36 PM PATTERNMAKER APPRENTICE WOOD Metabolic disorder COMPREHENSIVE METABOLIC PANEL Routine 04/07/2025 4:36 PM PATTERNMAKER APPRENTICE WOOD Metabolic disorder CARDIOLOGY DOCUMENT SCAN Routine 03/17/2025 2:17 PM PATTERNMAKER APPRENTICE WOOD CARDIOLOGY DOCUMENT SCAN Routine 03/17/2025 1:29 PM PATTERNMAKER APPRENTICE WOOD CARDIOLOGY DOCUMENT SCAN Routine 03/15/2025 2:42 PM PATTERNMAKER APPRENTICE WOOD XR CHEST PA LATERAL 2 VIEWS Schedule Routine, Read Routine (OP Routine) 03/02/2025 8:33 AM PATTERNMAKER APPRENTICE WOOD Acute cough Shortness of breath POCT HEMOGLOBIN A1C Routine 11/11/2024 1 :46 PM CDT Type 2 diabetes mellitus with hyperosmolarity without coma, without long-term current use of insulin (HCC) LIPID PANEL Routine 05/06/2024 5:30 AM PATTERNMAKER APPRENTICE WOOD CTA ABDOMINAL AORTA AND BILATERAL ILIOFEMORAL RUNOFF Schedule Routine, Read Routine (OP Routine) 04/30/2024 1:36 PM PATTERNMAKER APPRENTICE WOOD Atherosclerosis of red cliff artery of both lower extremities with intermittent claudication Superficial femoral artery occlusion STOOL DNA COLOGUARD Routine 10/10/2022 8:30 AM CDT Colon cancer screening PSA SCREEN Routine 10/03/2022 3:17 PM CDT Benign prostatic hyperplasia with lower urinary tract symptoms, symptom details unspecified from Last 3 Months or Most Recently Relevant to Health Maintenance Results * eGFR (04/07/2025 4:36 PM PATTERNMAKER APPRENTICE WOOD) eGFR 65 >=60 mL/min/1. 73 m2 Comment: [...] last reviewed 2021. Blood 04/07/2025 4:36 PM PATTERNMAKER APPRENTICE WOOD 04/07/2025 6:25 PM PATTERNMAKER APPRENTICE WOOD Shahid Marroquin MD LAB BLOOD ORDERABLES Final R esult [facility] [address] [facility] Department [place] [address] * (ABNORMAL) Comprehensive metabolic panel (04/07/2025 4:36 PM PATTERNMAKER APPRENTICE WOOD) Sodium 134(L) 135 - 145 mmol/L Potassium, pl See Comment 3.3 - 4.9 [facility] Comment:Credited; Hemolyzed Specimen Chloride 96(L) 97 - 110 mmol/L [facility] CO2 24 22 - 32 mmol/L [facility] Anion gap 14 2 - 15 mmol/L [facility] BUN 31(H) 6 - 25 mg/dL [facility] Creatinine 1.19 0.80 - 1.30 mg/dL [facility] Glucose 502(C) 70 - 199 mg/dL [facility] Comment: Critical Result called to and read back by Dr. Marroquin, DATE: 2025-04-07 19:01:58 BY: [id number] Interpretive Data Fasting glucose >/= 126 mg/dl [...] 2022. Calcium 8.7 8.5 - 10.3 mg/dL [facility] Bilirubin, total 0.5 0.1 - 1.2 mg/dL [facility] Protein, pl 5.7(L) 6.5 - 8.5 g/dL [facility] Albumin 3.2(L) 3.5 - 5.0 g/dL [facility] Alk phos 185(H) 40 - 130 Units/L [facility] ALT See Comment 7 - 55 [facility] Comment:Credited; Hemolyzed Specimen AST See Comment 10 - 50 [facility] Comment:Credited; Hemolyzed Specimen Blood 04/07/2025 4:36 PM PATTERNMAKER APPRENTICE WOOD 04/07/2025 6:25 PM PATTERNMAKER APPRENTICE WOOD Shahid Marroquin MD LAB BLOOD ORDERABLES Final R esult [facility] [address] [facility] Department [place] [address] * Cardiology Document Scan (03/17/2025 2:17 PM PATTERNMAKER APPRENTICE WOOD) Anatomical Region Laterality Modality Other Roopa Wilkinson REHABILITATION TEAM LEAD CV CARDIAC SERVICE S PROCEDURES Final Result * Cardiology Document Scan (03/17/2025 1:29 PM PATTERNMAKER APPRENTICE WOOD) Anatomical Region Laterality Modality Other Roopa Wilkinson REHABILITATION TEAM LEAD CV CARDIAC SERVICE S PROCEDURES Final Result * Cardiology Document Scan (03/15/2025 2:42 PM PATTERNMAKER APPRENTICE WOOD) Anatomical Region Laterality Modality Other Eloisa Sheridan NP CV CARDIAC SERVICES PROCEDUR ES Final Result * XR Chest Pa Lateral 2 Views (03/02/2025 8:33 AM PATTERNMAKER APPRENTICE WOOD) Anatomical Region Laterality Modality Body, Chest N/A Computed Radiogr aphy 03/02/2025 9:32 AM PATTERNMAKER APPRENTICE WOOD Impressions 03/02/2025 9:32 AM PATTERNMAKER APPRENTICE WOOD Normal heart size. There are streaky and patchy airspace opacities in the lung bases, left greater than right, for which possible causes include atelectasis, aspiration, and pneumonia. Small bilateral pleural effusions also are present. No pneumothorax. Endovascular stent is seen in the mid abdomen. Electronically signed by: Elijah Mario M.D. Narrative 03/02/2025 9:32 AM PATTERNMAKER APPRENTICE WOOD EXAMINATION: 2 view chest radiograph COMPARISON: 12/11/2017 [...] signed by: Elijah Mario M.D. Apryl Monae [facility] IMG XR PROCEDURES Final Re sult * (ABNORMAL) POCT hemoglobin A1c (11/11/2024 1:46 PM CDT) Hemoglobin A1C, POC 8.0(A) 4.0 - 5.6 % Blood 11/11/2024 1:46 PM CDT Shahid Marroquin MD POINT OF CARE TEST ORDERABLE S Final Result * (ABNORMAL) Lipid panel (05/06/2024 5:30 AM PATTERNMAKER APPRENTICE WOOD) Cholesterol 91 30 - 199 mg/dL Comment: [...] on 2017. Triglycerides 181(H) <=149 mg/dL [facility] Comment: Interpretive Data Ages < or [...] on 2017. HDL 23(L) >=40 mg/dL [facility] Comment: Interpretive Data Ages < or [...] 2017. LDL, calculated 38 <=129 mg/dL [facility] Comment: Interpretive Data Ages < or [...] 4 JA DAIGLE Blood 05/06/2024 5:30 AM PATTERNMAKER APPRENTICE WOOD 05/06/2024 5:59 AM PATTERNMAKER APPRENTICE WOOD us José Ang MD LAB BLOOD ORDERABLES Final R esult [facility] Department [place] [address] * CTA Abdominal Aorta And Bilateral Iliofemoral Runoff (04/30/2024 1:36 PM PATTERNMAKER APPRENTICE WOOD) Anatomical Region Laterality Modality Body Bilateral Computed Tomogra phy 04/30/2024 2:34 PM PATTERNMAKER APPRENTICE WOOD Impressions 04/30/2024 2:34 PM PATTERNMAKER APPRENTICE WOOD Stable infrarenal abdominal aortic aneurysm, status post aortobiiliac endovascular repair. 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 Poor flow to the right and left calves, ankles and feet. Electronically signed by: Francisco Javier Cooney M.D. Narrative 04/30/2024 2:34 PM PATTERNMAKER APPRENTICE WOOD EXAMINATION: CTA ABDOMINAL AORTA AND BILATERAL ILIOFEMORAL [...] Stool DNA - Cologuard Positive( A) Negative Directr (CLIA #:[id number]) Comment: POSITIVE TEST RESULT. A positive Cologuard [...] (Toby Schroeder al, N Engl J Med 2014;370(14):7326-8048.) Cologuard may produce a false negative or false positive result (no colorectal cancer or precancerous polyp present at colonoscopy follow up). A negative Cologuard test result does not guarantee the absence of CRC or advanced adenoma (pre-cancer). The current Cologuard screening interval is every 3 years. ([place] Cancer Society and U.S. Multi-Society Task Force). Cologuard performance data in a 10,000 patient pivotal study using colonoscopy as the reference method can be accessed at the following location: [email or web address]/results. Additional description of the Cologuard test process, warnings and precautions can be found at [email or web address] [email or web address]. Stool 10/10/2022 8:30 AM CDT 10/11/2022 5:18 PM CDT us Shahid Marroquin MD LAB BODY FLUIDS AND STOOLS O RDERABLES Final Result Performing Organization Address City/State/[facility] Co de Phone Number [employer] (CLIA #:[id number]) [place] [address] * PSA screen (10/03/2022 3:17 PM CDT) PSA-Total 2.52 <=6.20 ng/mL [facility] Comment: Interpretive Data AGE SEX [...] ORDERABLES Final R esult Performing Organization Address City/State/[facility] Co de Phone Number [facility] Department [place] [address] from Last 3 Months or Most Recently Relevant to Health Maintenance Insurance MEDICARE [facility] SENIOR SUPPLEMENT MEDICARE [facility] MEDICARE [facility]ET[employer] [facility] HMO AETNA [facility] MEDICARE [facility] HMO AETNA SENIOR SUPPLEMENT MEDICARE [facility] MEDICARE AET[employer] SENIOR SUPPLEMENT Advance Directives For more information, please contact: [phone] * Full Code (Latest Code Status on [...] 3:01 PM 02/25/2018 8:06 PM Care Teams Shoe Folder Relationship Specialty Start Date End Date Shahid Marroquin MD [address] [place] [address] DR Jaymie GARZA [address] [place] [address] PCP - General Cardiovascular Disease 12/03/17 José Ang MD [address] [place] [address] Consulting Physician Vascular Surgery 09/13/21
--- OUTSIDE RECORDS SUMMARY | 2025-04-12 05:06 | XMS_ITS | Encounter Summary ---
Author Organization [facility] Health Address [address] [place] [address] Care Team Providers Care Retail Training Manager Name Role Phone Unavailable Primary Care Provider Unavailabl e Prior Encounters Date Type Department Care Team Description 11/16/2021 12:00 PM CDT Consult [facility] [address] [place] [phone] Lesa Rod DDS 05/03/2021 Travel 05/03/2021 3:00 PM RAYMOND MILL OPERATOR Office Visit [facility] [address] [place] [phone] Delaney Butler, DMD 05/18/2019 Converted CPS Chart Documents [facility] [address] [place] [phone] <No scans attached> 05/18/2019 Converted 13x Documents [facility] [address] [place] [phone] <No scans attached> Plan of Treatment Not on file Procedures Procedure Name Priority Date/Time Associated Diagnosis Comments LIMITED ORAL EVALUATION - PROBLEM FOCUSED Routine 05/03/2021 3:00 PM RAYMOND MILL OPERATOR 19 REPAIR/REPLACE CLASP Routine 03/30/20 20 2:00 AM RAYMOND MILL OPERATOR OFFICE VISIT FOR OBSERVATION (DURING REGULARLY SCHEDULED HOURS) - NO OTHER SERVICES PERFORMED Routine 03/30/2020 2:00 AM RAYMOND MILL OPERATOR ADJUST PARTIAL DENTURE - MANDIBULAR Routine 03/15/2020 2:00 AM RAYMOND MILL OPERATOR ADJUST PARTIAL DENTURE - MANDIBULAR Routine 03/02/2020 2:00 AM RAYMOND MILL OPERATOR 23 EXTRACTION, ERUPTED TOOTH OR EXPOSED ROOT [...] 30 ENDODONTIC THERAPY, MOLAR TOOTH (EXCLUDING FINAL SYNAGOGUE) Routine 02/04/2020 2:00 AM CDT 15 ENDODONTIC THERAPY, MOLAR TOOTH (EXCLUDING FINAL SYNAGOGUE) Routine 02/04/2020 2:00 AM CDT 3 ENDODONTIC THERAPY, MOLAR TOOTH (EXCLUDING FINAL SYNAGOGUE) Routine 02/04/2020 2:00 AM CDT 15 CROWN [...] CDT Visit Diagnoses Not on file Insurance [place] [id number] [facility]
--- OUTSIDE RECORDS SUMMARY | 2025-04-12 05:06 | XMS_ITS | Clinical Summary ---
Author Organization [facility] Health Address [address] [place] [address] Care Team Providers Care Supervisor Water Treatment Plant Name Role Phone Unavailable Primary Care Provider [...] Most Recently Relevant to Health Maintenance Insurance [place], [place] [id number] [place], [place] [address]O
--- OUTSIDE RECORDS SUMMARY | 2025-04-12 05:06 | XMS_ITS | Encounter Summary ---
Author Organization [facility] Clinical [facility] Address [facility] [address] [place] [address] Phone Care Team Providers Care Traffic Signal Mechanic Name Role Phone Shahid Marroquin MD Primary Care Provider [phone] José Ang MD Unavailable [phone] Encounter Details Date Type Department Care Team (Late st Contact Info) Description 03/02/2025 Results Follow-Up [place] [id number] [facility] [address] [place] [address] Apryl Monae, [address] [address] XR Chest Pa Lateral 2 [...] on file Legal Sex Male 3:50 AM OYSTER CULTURIST Gender Identity Not on file Sexual Orientation Straight 07/03/2021 4: 01 PM OYSTER CULTURIST documented as of this encounter Functional Status * BP Location Answer Date of Assessment Author Right arm 03/02/2025 7:40 AM OYSTER CULTURIST Emeka andNicole MA * BP Location Answer Date of Assessment Author Right arm 03/02/2025 7:40 AM OYSTER CULTURIST Emeka andNicole MA documented as of this [...] unspecified documented in this encounter Care Teams Traffic Signal Mechanic Relationship Specialty Start Date End Date Shahid Marroquin MD [facility] [address] Jaymie GARZA [address] [place] [id number] PCP - General Cardiovascular Disease 12/03/17 José Ang MD [address] [place] [address] Consulting Physician Vascular Surgery 09/13/21 documented as of this encounter
--- OUTSIDE RECORDS SUMMARY | 2025-04-12 05:06 | XMS_ITS | Encounter Summary ---
Author Organization [facility] Clinical [facility] Address [address] [place] [address] Phone Care Team Providers Care Purse Maker Name Role Phone Shahid Marroquin MD Primary Care Provider [phone] José Ang MD Unavailable [phone] Encounter Details Date Type Department Care Team (Late st Contact Info) Description 04/08/2025 Results Follow-Up [facility] [address] [facility] [address] [place] [address] Shahid Marroquin MD [address] [place] [address] [address] Comprehensive metabolic panel, eGFR Social [...] on file Legal Sex Male 3:50 AM DRYING ROOM ATTENDANT Gender Identity Not on file Sexual Orientation Straight 07/03/2021 4: 01 PM DRYING ROOM ATTENDANT documented as of this encounter Plan of Treatment Scheduled Procedures Name Priority Associated Diagnoses Date/Ti me COLONOSCOPY Positive colorectal cancer screening using Cologuard test documented as of this encounter Visit Diagnoses Not on filedocumented in this encounter Care Teams Purse Maker Relationship Specialty Start Date End Date Shahid Marroquin MD [address] [place] [address] DR Coon KAYLA [address] [place] [address] PCP - General Cardiovascular Disease 12/03/17 José Ang MD [address] [place] [address] Consulting Physician Vascular Surgery 09/13/21 documented as of this encounter
--- NOTE | 2025-04-12 05:25 | PC.NURSE ---
0510- Per EDP TANNA VillaB get 4 mg Morphine x4, and 2 mg Ativan x4. This RN had to override medication in pyxis due to importance of stat orders as pt was given comfort medications after CPR with pt sister at bedside. 0515- Per EDP Daisy VORB get 4 mg Morphine x4 and 2 mg Ativan x4. This RN had to override medication in pyxis due to importance of stat orders as pt was given comfort medications after CPR with sister at bedside.
[2025-04-12 05:26] VITALS: PULSE 66; RESP 25
[2025-04-12] MEDS: MIDAZOLAM 100MG/NS 100ML(*CRX) 100 MG/100 ML BAG IV CONT (05:26)
[2025-04-12] MEDS: GLYCOPYRROLATE INJ (*SP) 0.2 MG/ML VIAL IV PUSH (05:30)
[2025-04-12 05:32] VITALS: PULSE 45; RESP 12
[2025-04-12] MEDS: MORPHINE 50 MG/NS 100ML (*CRX) 50 MG/100 ML BAG IV CONT (05:32)
[2025-04-12 06:02] VITALS: PULSE 54; O2SAT 98
--- NOTE | 2025-04-12 06:24 | ED.CPR ---
HPI - CPR General Chief Complaint: Cardiac Arrest/CPR Stated Complaint: cardiac arrest History of Present Illness HPI narrative: 74-year-old male with history of cardiac stents, coronary artery disease presents with CPR in progress for cardiac arrest. Patient woke up feeling hot flushed came into his sister's room and called out for help. He had a witnessed cardiac arrest. EMS arrived found patient getting active CPR by his sister. EMS found the patient to be and ventricular tachycardia followed by ventricular fibrillation followed by torsades and rhythm changes to PE a. He received 7 rounds of epinephrine EN route, 7 shocks, 450 mg total amiodarone, 2 g magnesium and a fluid bolus. Patient arrives with active CPR in progress. Placed in the room #4 for resuscitation. Related Data Home Medications ?Medication ?Instructions ?Recorded ?Confirmed ?Last Taken ?Type multivitamin,tx-minerals 1 tablet PO DAILY 09/19/21 03/14/25 Unknown History Allergies Allergy/AdvReac Type Severity Reaction Status Date / Time No Known Allergies Allergy Verified 03/14/25 16:32 Review of Systems Review of Systems: Unable to assess ROS unobtainable: Yes unobtainable due to medical condition and unobtainable due to mental status PMFSH Past Medical History Medical History Claudication of lower extremity Ischemic cardiomyopathy Peripheral arterial disease Coronary artery disease Peripheral vascular disease Hypokalemia Surgical History Surgical History Stented coronary artery Status post peripheral artery angioplasty with insertion of stent Family History Family History Father Heart attack Social History Social History Social History: patient lives in a single-level home with 5 steps to enter. Sister plans on staying for month or so it after rehab. Smoking packs per day: 1 Smoking cigarettes per day: 20.0 Years smoked: 55 Smoking pack-years: 55.00 Smoking status: Current every day smoker Tobacco type: cigarettes Additional smoking assessment comments: 40 year PPD smoking history Alcohol intake: never Substance use type: marijuana Lack of Transportation: No Lack of Food: Never True Current Housing: I Have Housing Concerned About Future Housing: No Difficulty Paying Gas/Electric Bills: No Difficulty Paying for Meds: No Currently Unemployed: No Education: Decline to Answer Difficulty w/ Childcare or Family Care: No Spiritual care concerns: No Exam Narrative: GENERAL: Cardiac arrest, CPR in progress HEAD: Normocephalic, atraumatic EYES: Pupils fixed and dilated ENT: Dry membranes, blood in the posterior oropharynx, supraglottic airway in place NECK: Supple. CHEST: Coarse breath sounds, no spontaneous respirations, multiple rib fractures from Aftab device HEART: Palpable pulses with CPR efforts, no pulses with no CPR ABDOMEN: Soft and nondistended EXTREMITIES: No extremity edema SKIN: Cold and mottled NEURO: GCS 3 Course Vital Signs Vital signs: Vital Signs Pulse Rate 66 04/12/25 05:26 Respiratory Rate 25 H 04/12/25 05:26 Pulse Rate 54 L 04/12/25 06:02 Respiratory Rate 12 04/12/25 05:32 Pulse Oximetry 98 04/12/25 06:02 Oxygen Delivery Mechanical Ventilation 04/12/25 06:02 Fraction of Inspired Oxygen 100 04/12/25 06:02 [facility] MDM Narrative Medical decision making narrative: 74-year-old male with history of cardiac stents, coronary artery disease presents with CPR in progress for cardiac arrest. Patient woke up feeling hot flushed came into his sister's room and called out for help. He had a witnessed cardiac arrest. EMS arrived found patient getting active CPR by his sister. EMS found the patient to be and ventricular tachycardia followed by ventricular fibrillation followed by torsades and rhythm changes to PE a. He received 7 rounds of epinephrine EN route, 7 shocks, 450 mg total amiodarone, 2 g magnesium and a fluid bolus. Patient arrives with active CPR in progress. Placed in the room #4 for resuscitation. Patient is GCS 3, active CPR in progress, fixed and dilated pupils, pulses palpable CPR efforts with Aftab device. Patient is found to be in PE a during pulse checks with additional epinephrine infused. Subsequent pulse check showed return of spontaneous circulation. Endotracheal tube was inserted successfully. Patient had cured into again having ventricular fibrillation. Shocked 360 joules with continuous CPR ongoing. Defibrillation unsuccessful and patient deteriorated into torsades de pointes. 60 mg a bolus of magnesium infiltrated. Return to PEA and then VFib. Dual sequential defibrillation set up given the refractory VFib. Attempted 50 mg bolus of esmolol which was successful in converting him out of ventricular fibrillation. Subsequent pulse check showed return of spontaneous circulation. Initial pressure 70 systolic. Norepinephrine started at max rate as well as vasopressin. Patient has current GCS 3, non spontaneous respirations. Currently on the ventilator. Family arrives quickly shortly thereafter and states that patient would want to be on life support and told that EMS prior to transport. Patient's sister and next of Kin decided on withdrawal of all care in line with patient's wishes and to have a peaceful passing. Patient made comfort measures only and DNR/DNI. She wished for withdrawal of vasoactive medications and endotracheal tube and to give the patient medications for comfort and pain. At this time patient was extubated successfully with agonal respirations and was suctioned at bedside. 4 mg aliquots of morphine and 2 mg aliquots of Ativan were given in succession over the next hour to allow for comfort measures and peaceful passing in line with patient and family wishes and goals of care at this time. Patient's family member remained at bedside and I confirmed patient's time of of 0534 with no cardiac activity on bedside ultrasound, fixed and dilated pupils, no palpable pulses. No spontaneous respirations and no reflexes. Travel Physical Therapist was called and the patient's family members said goodbyes. Differential Diagnosis Differential Diagnosis: Cardiac arrest, STEMI, aortic syndrome, PE, stroke Critical Care Time Critical Care Time Critical Care Time: Yes Time Type: Continuous Initial evaluation, discuss w/ involved parties, attempting to gather old records: 10 minutes Documenting medical record: 15 minutes Review of results (EKG's, labs, imaging): 5 minutes Serial repeat bedside evaluation: 30 minutes Discussing case with multiple memebers of the care team and consultants: 15 minutes Total Critical Care Time: 75 Discharge Plan Discharge Clinical Impression: Cardiac arrest Patient Disposition: Condition: Patient Language: Kazakh Prescriptions: No Action amoxicillin-pot clavulanate 875-125 mg tablet 1 tablet PO Q12H Qty: 6 0RF furosemide 40 mg Tablet 40 mg PO BID Qty: 60 1RF carvedilol [Coreg] 3.125 mg Tablet 3.125 mg PO Q12HR Qty: 60 2RF doxycycline hyclate 100 mg Tablet 100 mg PO Q12HR Qty: 3 0RF sacubitril-valsartan [Entresto] 24-26 mg Tablet 1 tab PO Q12HR Qty: 60 2RF clopidogrel 75 mg Tablet 75 mg PO DAILY Qty: 30 2RF Xarelto 20 mg Tablet 20 mg PO DAILY@1700 30 Days Qty: 30 0RF insulin glargine-yfgn [Semglee(insulin glarg-yfgn)Pen] 100 unit/mL (3 mL) insulin pen 6 unit subcut .QHS 30 Days Qty: 15 0RF multivitamin,tx-minerals Tablet 1 tablet PO DAILY (DME) blood-glucose meter [591wedTouch Verio Flex meter] [facility] Qty: 1 0RF Rx Instructions: May substitute to in-stock meter and/or covered by insurance. Use As Directed (DME) OneTouch Verio test strips Strip Qty: 1 0RF Rx Instructions: May substitute to in-stock and/or covered by insurance strips. Use As Directed (DME) pen needle, diabetic [BD Ultra-Fine Micro Pen Needle] 32 gauge x 1/4 needle Qty: 1 0RF Rx Instructions: May substitute to meet patient needs. Use As Directed (DME) lancets [OneTouch Delica Plus Lancet] 30 gauge [facility] Qty: 1 0RF Rx Instructions: May substitute to in-stock and/or covered by insurance lancets. Use As Directed docusate sodium 100 mg Capsule 100 mg PO BID Qty: 0 0RF acetaminophen [Mapap (acetaminophen)] 325 mg Tablet 650 mg PO BID PRN (Reason: Mild Pain (1-3) Or Fever) Qty: 0 0RF atorvastatin 80 mg Tablet 80 mg PO HS 30 Days Qty: 30 0RF Follow-up/Referrals: PHYSICIAN,SLIDE FORMING MACHINE OPERATOR [Primary Care Provider, Internal Medicine] Time of Disposition: 05:34
[2025-04-12 06:34] VITALS: PULSE 0; RESP 0
[2025-04-12 06:36] VITALS: PULSE 0; RESP 0
--- NOTE | 2025-04-12 06:39 | PC.NURSE ---
code - pt arrived via ems at 0432 in full code arrest. coworkers present during code - chito buchanan, meghan rae, nicolas leyva, randall padilla tech, rt douglas spencer, kelley cardenas. ems said that he was found down at home (called by sister) and was coded at [facility] for approximatly 20 minutes. ems said that sister told them pt stood up and grabbed chest then fell to ground. they started cpr upon arrival at home and acls protochol. #18 right forarm. epi x 5 rounds of last given at 0425, 450mg ammiodarone, 2 grams of magnesium and pt in vfib/vtach/torsades. the following times of code interventions... 0432 code started Lucus in place with active compressions. 0434 lucus stopped. no pulse. torssades. continued lucus/commpressions 0437 145/103 0438 intubated 7.5 ett 0438 levo started at 5mcq 0439 6 grams mag given. pulse check no pulse 0440 lucus stopped. v fib shock 360 0441 lucus resumed cpr 0442 136/11 (43) 0443esmolol 50mg ivp given 0444 no pulse. stopped lucus. pea. resume carmen/cpr. 0445 no pulse 120/11 (45) 0446 no fem pulse. 0448 stop cpr. hr 51. +fem pulse. sinus curt 51. 0450 levo gtt started 30mcq. 149/104. sb 60 0451 ns wide open. 71/53. sb 44 0452 lucus/cpr stopped. 0454 left fem doppled +43. dr sarkar heart. 0455 +ekg - a fib slow rate 40's. 70/60 100% vent. 0456 atropine 1mg. 80/67 98% 0458 triple lumen 7french placed to left groin. 86/67 60 0500 NS bolus #2 0502 97/74 19 95% [address] at [address] Avery discussing options with her. 0504 101/78 57 27 98% 0505 63 23 99% 0507 levo off 163/128 sister decided to cease he would not want to go like this. 0508 stopped ivf. sister at bedside. 0510 ms 4mg iv given per dr avery 0511 ativan 4mg given per dr avery 0512 4mg ms and 4 mg ativan given per dr avery 15 4mg ms given per dr avery. hr 27 aganol breathing 0516 4mg ms given per dr avery. 17 2mg ativan given per dr avery. 516 67 70 51/35 13 aganol breathing. 0520 4mg ms and 2mg ativan given per dr avery. 51/38 36 0522 aganol breathing. 0524 ms 4mg and ativan 2mg hr 32 aganol breathing. 0525 hr 27 0527ms 4mg and ativan 2mg given per dr avery 0534 dr avery called . versed and morphine drip wasted with witness of Jr cooper. sister stayed at bedside until 654. body bagged, tagged and [place] [facility]. the only belongings were his slippers.
== END 2025-04-12 07:27 | disposition expired ==
PROVIDERS: Emergency Provider Student in an Organized Health Care Education/Training Program
DX: I46.9 Cardiac arrest, cause unspecified (principal); I25.5 Ischemic cardiomyopathy; I73.9 Peripheral vascular disease, unspecified; I25.10 Atherosclerotic heart disease of native coronary artery without angina pectoris; Z95.5 Presence of coronary angioplasty implant and graft; Z95.820 Peripheral vascular angioplasty status with implants and grafts; F17.210 Nicotine dependence, cigarettes, uncomplicated; Z79.01 Long term (current) use of anticoagulants; Z79.02 Long term (current) use of antithrombotics/antiplatelets; Z79.899 Other long term (current) drug therapy
CPT/HCPCS: 31500; 36556; 92950; 96365; 96375; 96376; 99285; C1751; J1596; J2060; J2250; J2270; J7030